=== PATIENT | female | born 1955 | race Caucasian/White ===

== ENCOUNTER → 2017-03-27 | Outpatient (CLI) | payer OTHER ==
[~2017-03-27] MED LIST: CRG/20 PO; LEVO1TAB33 PO; METR500T PO; OXYC-57 PO; PRM/3 PO
[2017-03-27 13:21] LABS: ESTIMATED AVERAGE GLUCOSE 108 mg/dl; HA1C FLAG Normal (Normal)
[2017-03-27 13:22] LABS: BLOOD UREA NITROGEN 19 mg/dl (7-18); BUN/CREATININE RATIO 25.2 (10-20); CALCIUM 8.9 mg/dl (8.5-10.1); CARBON DIOXIDE 27 mmol/L (21-32); CHLORIDE 107 mmol/L (98-107); CHOLESTEROL 115 mg/dl (0-200); CREATININE 0.75 mg/dl (0.60-1.20); GLUCOSE 93 mg/dl (70-99); POTASSIUM 4.2 mmol/L (3.5-5.1); SODIUM 141 mmol/L (136-145); TRIGLYCERIDES 95 mg/dl (0-150); VERY LOW DENSITY LIPOPROT CALC 19 mg/dl
[2017-03-27 13:26] LABS: CHOLESTEROL/HDL RATIO 2.5; HDL CHOLESTEROL 46 mg/dl; LDL CHOLESTEROL CALCULATED 50 mg/dl
== END | disposition home or self-care (01) ==
LOC: C.LABPVFM 08:01
PROVIDERS: ATTEND Nurse Practitioner
DX: Z13.220 Encounter for screening for lipoid disorders (principal); Z13.1 Encounter for screening for diabetes mellitus

== ENCOUNTER → 2017-08-23 | Outpatient (CLI) | payer OTHER ==
--- NOTE | 2017-08-24 14:31 | MAMMOGRAPHY REPORT ---
BILATERAL DIGITAL SCREENING MAMMOGRAM TOMOSYNTHESIS WITH CAD: 08/23/2017 CLINICAL HISTORY: Routine screening. Patient has no complaints. TECHNIQUE: Breast tomosynthesis in addition to standard 2D mammography was performed. Current study was also evaluated with a Computer Aided Detection (CAD) system. COMPARISON: Comparison is made to exams dated: 08/20/2016 mammogram, 07/02/2015 mammogram, 04/30/2014 mammogram, 04/26/2013 mammogram, 04/25/2012 mammogram, and 04/23/2011 mammogram - [facility]. BREAST COMPOSITION: There are scattered areas of fibroglandular density in both breasts. FINDINGS: There are benign-appearing calcifications in the breast. No new suspicious mass, architec tural distortion or cluster of microcalcifications is seen. IMPRESSION: ACR BI-RADS CATEGORY 1: NEGATIVE There is no mammographic evidence of malignancy. A 1 year screening mammogram is recommended. The pa tient will receive written notification of the results. Approximately 10% of breast cancers are not detected with mammography. A negative mammographic report should not delay biopsy if a clinically suggestive mass is present. Giovana Greco M.D. ay/:08/23/2017 15:44:36 Practical Nursing Faculty: Eleni CARRANZA(Dana)(Isaias), [facility] letter sent: Normal 1/2 BI-RADS Code: ACR BI-RADS Category 1: Negative
== END | disposition home or self-care (01) ==
LOC: C.MAMM 13:16
PROVIDERS: ATTEND Nurse Practitioner
DX: Z12.31 Encounter for screening mammogram for malignant neoplasm of breast (principal)

== ENCOUNTER 2017-09-24 08:34 | Inpatient (IN) | payer OTHER ==
[~2017-09-24] VITALS: Ht 157.5 cm; Wt 113.9 kg
[2017-09-24] MEDS ORDERED: CEPH500C2 PO (08:52)
[2017-09-24] MEDS ORDERED: CEFTRIAXONE SOD INJ 1 GM ADDVIAL IV STA (09:06)
--- NOTE | 2017-09-24 09:12 | EMERGENCY ROOM VISIT NOTE ---
History Report prepared by Mansoor: Jackelyn Mehta Under the Supervision of: Dr. Gisselle Burciaga M.D. First contact with patient: 08:51 Chief Complaint: FALL Stated Complaint: FELL BOTH LEGS History of Present Illness The patient is a 62 year old female who presents to the Emergency Room with complaints of worsening leg pain beginning ten days ago. The patient fell down four stairs ten days ago and hit both of her legs. 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 The patient went to her PCP two days ago who put her on Keflex for an infection to the wound site. She notes increased pain since starting Keflex. The patient denies any dizziness, fever, shortness of breath, or chest pain. The patient takes medication for hypertension. Source of History: patient Onset: 10 days ago Position: leg (bilateral) Timing: worsening Associated Symptoms: No fevers, No chest pain, No SOB Review of Systems See HPI for pertinent positives & negatives. A total of 10 systems reviewed and were otherwise negative. Past Medical & Surgical Medical Problems: (1) Abscess of leg, right (2) Hypertension Family History Patient reports no known family medical history. Social History Smoking Status: Never Smoker Alcohol Use: none Marital Status: Housing Status: lives with family Current/Historical Medications Scheduled Cephalexin Monohydrate (Keflex), 500 MG PO BID Estrogens, Conjugated (Premarin), 0.3 MG PO HS Nadolol (Corgard), 10 MG PO HS Allergies Coded Allergies: Sulfa Antibiotics (Unverified Allergy, Severe, UNKNOWN, 09/24/17) Aspirin (Verified Allergy, Intermediate, 09/24/17) PETECHIAE Penicillins (Verified Allergy, Mild, 09/24/17) RASH-HAD KEFZOL W/O PROBLEM Physical Exam Vital Signs Date Time Temp Pulse Resp B/P (MAP) Pulse Ox O2 Delivery O2 Flow Rate FiO2 09/24/17 13:29 88 16 170/93 99 Room Air 09/24/17 13:07 81 09/24/17 12:01 78 24 179/98 99 Room Air 09/24/17 10:17 78 09/24/17 10:10 80 18 180/88 99 Room Air 09/24/17 08:36 36.7 78 18 214/94 99 Room Air Physical Exam Vital signs reviewed. General: Well-appearing, obese female, in no significant distress. HEENT: No scleral icterus, PERRLA, neck supple. Atraumatic. Cardiovascular: Regular rate and rhythm, no extra sounds. Pulmonary: Clear to auscultation bilaterally, normal work of breathing. Abdomen: Soft, nontender, nondistended, positive bowel sounds. Musculoskeletal: Atraumatic, right greater than left lower extremity edema. Neurologic: Patient awake alert and oriented x 3 Skin: 7x4 cm area of erythema with multiple areas of open skin and discharge on right bower. Warm, dry, no rash Medical Decision & Procedures ER Provider Diagnostic Interpretation: Radiology results as stated below per my review and radiologist interpretation: RIGHT LOWER EXTREMITY ULTRASOUND FINDINGS: Sonography of the right anterior lower leg demonstrated an elongated 4.8 x 1 x 3.9 cm complex subcutaneous fluid collection. This contains no color flow. A second deeper fluid collection was noted that measured 3.9 x 3.6 x 1.1 cm. This contains several thickened septations. A third fluid collection was noted within the deep tissues of the right anterior lower leg which measure 2.9 x 2.6 x 0.7 cm. IMPRESSION: Three complex right anterior lower leg fluid collections, as described above. The sonographic appearance is nonspecific and these could reflect hematomas or abscesses. Electronically signed by: Casey Polk M.D. R VENOUS DOPP LOWER EXT UNILAT FINDINGS: There is normal compressibility, flow, phasicity and augmentation of the right lower extremity deep venous structures. IMPRESSION: No sonographic evidence of deep venous thrombosis. The above report was generated using voice recognition software. It may contain grammatical, syntax or spelling errors. Electronically signed by: Jose Oquendo M.D. Laboratory Results Test 09/24/17 09:34 09/24/17 09:42 Prothrombin Time 9.9 SECONDS (9.0-12.0) Prothromb Time International Ratio 0.9 (0.9-1.1) Activated Partial Thromboplast Time 29.3 SECONDS (21.0-31.0) Partial Thromboplastin Ratio 1.1 Direct Bilirubin 0.2 mg/dl (0-0.2) Laboratory results per my review. Medications Administered Medications (Trade) Dose Ordered Sig/Oscar Route Start Time Stop Time Status Last Admin Dose Admin Hydralazine HCl (Apresoline Tab) 25 mg NOW STAT PO 09/24/17 09:04 09/24/17 09:07 DC 09/24/17 09:25 25 MG Ceftriaxone Sodium (Rocephin Inj) 1 gm NOW STAT IV 09/24/17 09:06 09/24/17 09:08 DC 09/24/17 10:08 1 GM Vancomycin HCl 2750 mg/Sodium Chloride 555 ml @ 200 mls/hr ONE ONCE IV 09/24/17 11:00 09/24/17 13:46 DC 09/24/17 10:49 200 MLS/HR Acetaminophen (Tylenol Tab) 650 mg Q4H PRN PO 09/24/17 13:45 10/24/17 13:44 09/24/17 22:22 650 MG ED Course 0902: Past medical records reviewed. The patient was evaluated in room A3. A complete history and physical examination was performed. 0904: Ordered Hydralazine HCl 25 mg PO. 0906: Ordered Rocephin Inj 1 gm IV. 0915: Ordered Vancomycin HCl 2,750 mg/Sodium Chloride 555 ml @ 200 mls/hr IV. 1252: I updated the patient on her ultrasound results. 1257: I reviewed the patient's case with Dr. Tona Mccormick [facility]. He will evaluate the patient for further management. 1313: I reviewed the patient's case with Dr. Valles-Orthopedic Surgeon. 1351: I reviewed the patient's case with Duy Stauffer PA-C Orthopedics. He will follow up with the patient. Medical Decision Differential diagnosis: Etiologies such as cellulitis, abscess, MRSA infection, DVT, necrotizing fasciitis, dermatitis, drug eruption, as well as others were entertained.. This patient was evaluated and appeared to be in no significant distress. IV access was obtained and laboratory work was drawn. Vital signs are stable. Patient is noted to be hypertensive and was given hydralazine 25 mg orally. Laboratory work reveals a normal white blood cell count. Ultrasound of the right lower extremity reveals several fluid collections concerning for abscess. Patient recently completed oral Keflex. She was given IV ceftriaxone and IV vancomycin. Given the above presentation, the hospitalist service was consulted for evaluation. Orthopedic surgery was consulted as well. Dr. Valles will evaluate the patient in the hospital. Medication Reconcilliation Current Medication List: was personally reviewed by ok Blood Pressure Screening Patient's blood pressure: Elevated blood pressure Blood pressure disposition: Referred to PCP (evaluated by hospitalist) Consults Time Called: 1255 Consulting Physician: Dr. Tona HE Returned Call: 1257 I reviewed the patient's case with Dr. Tona HE. He will evaluate the patient for further management. Additional Consults: Time Called: 1310 Consulted Physician: Dr. Valles-Orthopedic Surgeon Returned Call: 1313 Additional Comments: I reviewed the patient's case with Dr. Valles-Orthopedic Surgeon. Time Called: 1349 Consulted Physician: Duy Stauffer PA-C Orthopedics Returned Call: 1351 Additional Comments: I reviewed the patient's case with Duy Stauffer PA-C Orthopedics. He will follow up with the patient. Impression Primary Impression: Cellulitis of right lower extremity Additional Impression: Multiple abscesses of both legs Scribe Attestation The scribe's documentation has been prepared under my direction and personally reviewed by me in its entirety. I confirm that the note above accurately reflects all work, treatment, procedures, and medical decision making performed by me. Departure Information Dispostion Being Evaluated By Hospitalist Referrals Tina Fletcher C.R.N.P (PCP) Patient Instructions My [facility] Problem Qualifiers
[2017-09-24] MEDS ORDERED: VANCOMYCIN INJ 2,800 MG in SODIUM CHLORIDE 0.9% 500ML 500 ML IV SCH (09:15)
[2017-09-24 10:08] LABS: BASO % 0.2 %; BASO ABS # 0.02 K/uL (0-0.2); COMPLETE YES; EOS % 1.7 %; HEMATOCRIT 39.5 % (37-47); IG% 0.3 %; LYMPH % 19.6 %; LYMPH ABS # 1.71 K/uL (1.2-3.4); MEAN CELL VOLUME 89.6 fL (80-100); MEAN CORPUSCULAR HEMOGLOBIN 30.8 pg (25-34); MEAN CORPUSCULAR HGB CONC 34.4 g/dl (32-36); MEAN PLATELET VOLUME 10.4 fL (7.4-10.4); MONO % 7.1 %; NEUT % 71.1 %; PLATELET COUNT 257 K/uL (130-400); RED BLOOD COUNT 4.41 M/uL (4.2-5.4); WHITE BLOOD COUNT 8.72 K/uL (4.8-10.8)
[2017-09-24 10:27] LABS: BUN/CREATININE RATIO 18.1 (10-20); CALCIUM 9.3 mg/dl (8.5-10.1); CREATININE 0.68 mg/dl (0.60-1.20); POTASSIUM 4.1 mmol/L (3.5-5.1)
[2017-09-24] MEDS ORDERED: VANCOMYCIN INJ 2,750 MG in SODIUM CHLORIDE 0.9% 500ML 500 ML IV ONE (11:00)
--- NOTE | 2017-09-24 11:56 | DIAGNOSTIC IMAGING REPORT ---
R VENOUS DOPP LOWER EXT UNILAT HISTORY: 62 years-old Female RLE swelling, pain acute swelling of the right leg COMPARISON: None TECHNIQUE: Multiple real-time sonographic images of the right lower extremity deep venous structures were obtained assessing grayscale appearance, color and spectral flow FINDINGS: There is normal compressibility, flow, phasicity and augmentation of the right lower extremity deep venous structures. IMPRESSION: No sonographic evidence of deep venous thrombosis. The above report was generated using voice recognition software. It may contain grammatical, syntax or spelling errors. Electronically signed by: Jose Oquendo M.D. 09/24/2017 11:55 AM Dictated Date/Time: 09/24/2017 11:53 AM
--- NOTE | 2017-09-24 12:01 | DIAGNOSTIC IMAGING REPORT ---
RIGHT LOWER EXTREMITY ULTRASOUND CLINICAL HISTORY: Right lower extremity cellulitis. Evaluate for abscess. COMPARISON STUDY: No previous studies for comparison. FINDINGS: Sonography of the right anterior lower leg demonstrated an elongated 4.8 x 1 x 3.9 cm complex subcutaneous fluid collection. This contains no color flow. A second deeper fluid collection was noted that measured 3.9 x 3.6 x 1.1 cm. This contains several thickened septations. A third fluid collection was noted within the deep tissues of the right anterior lower leg which measure 2.9 x 2.6 x 0.7 cm. IMPRESSION: Three complex right anterior lower leg fluid collections, as described above. The sonographic appearance is nonspecific and these could reflect hematomas or abscesses. Electronically signed by: Casey Polk M.D. 09/24/2017 12:00 PM Dictated Date/Time: 09/24/2017 11:56 AM
[2017-09-24] MEDS ORDERED: PIPERACILL/TAZOBAC IV 4.5 GM in DEXTROSE 5% 100ML 100 ML IV SCH (13:45)
[2017-09-24] MEDS ORDERED: HydrALAZINE HCL 20 MG/ML VIAL IV. PRN (14:00)
--- NOTE | 2017-09-24 14:02 | History and Physical ---
History & Physical Date & Time of Service: Sep 24, 2017 at 13:22 Chief Complaint: Fell Both Legs Primary Care Physician: Tina Fletcher C.R.N.P History of Present Illness Source: patient Ms. Raza fell 10 days ago down stairs at work. Her wounds were not healing so she saw her pcp two days ago and was started on Keflex. Her pain has not improved so she came to the emergency department. Wounds are not draining. Chills last night but no fevers. Denies diabetes. She is able to bare weight on the leg and has been working Pmhx: htn, cholecystectomy, hysterectomy, ROS Constitutional: no chills, aches, sweats or fever Respiratory: no sob,cough, sputum, or wheezing Cardiac: no chest pain, palpitations, edema, orthopnea or lightheadedness GI: no abdominal pain, nausea, vomiting, diarrhea or constipation : no dysuria or hesitancy Extremities: no joint pain or weakness Skin: no rash All other systems reviewed and negative. Family History Patient reports no known family medical history. Social History Smoking Status: Never Smoker Smokeless Tobacco Use: No Alcohol Use: none Drug Use: none Marital Status: Housing status: lives with significant other Occupational Status: employed ([employer]) Immunizations History of Influenza Vaccine: No History of Tetanus Vaccine?: No History of Pneumococcal: No History of Hepatitis B Vaccine: No Multi-Drug Resistant Organisms History of MDRO: No Allergies Coded Allergies: Sulfa Antibiotics (Unverified Allergy, Severe, UNKNOWN, 09/24/17) Aspirin (Verified Allergy, Intermediate, 09/24/17) PETECHIAE Penicillins (Verified Allergy, Mild, 09/24/17) RASH-HAD KEFZOL W/O PROBLEM Home Medications Scheduled Cephalexin Monohydrate (Keflex), 500 MG PO BID Estrogens, Conjugated (Premarin), 0.3 MG PO HS Nadolol (Corgard), 10 MG PO HS Physical Exam Vital Signs Date Time Temp Pulse Resp B/P (MAP) Pulse Ox O2 Delivery O2 Flow Rate FiO2 09/24/17 13:07 81 09/24/17 12:01 78 24 179/98 99 Room Air 09/24/17 10:17 78 09/24/17 10:10 80 18 180/88 99 Room Air 09/24/17 08:36 36.7 78 18 214/94 99 Room Air General: no distress Eyes: normal inspection, PERLL Respiratory: chest non tender, clear to auscultation, normal breath sounds, no respiratory distress, no accessory muscle use Cardiac: regular rate and rhythm, no rub or gallop, no murmur, no edema, no jvd GI/: active bowel sounds, no abd pain or tenderness, soft, non distended Extremities: normal range of motion, normal strength, non tender Neuro/Psych: alert and oriented x 3, normal mood and affect Skin: normal color, dry, right lower extremity erythematous and hot with area of eschar on surface, no drainage, no odor Diagnostics Laboratory Results Results Past 24 Hours Test 09/24/17 09:42 Range/Units White Blood Count 8.72 4.8-10.8 K/uL Red Blood Count 4.41 4.2-5.4 M/uL Hemoglobin 13.6 12.0-16.0 g/dL Hematocrit 39.5 37-47 % Mean Corpuscular Volume 89.6 80-100 fL Mean Corpuscular Hemoglobin 30.8 25-34 pg Mean Corpuscular Hemoglobin Concent 34.4 32-36 g/dl Platelet Count 257 130-400 K/uL Mean Platelet Volume 10.4 7.4-10.4 fL Neutrophils (%) (Auto) 71.1 % Lymphocytes (%) (Auto) 19.6 % Monocytes (%) (Auto) 7.1 % Eosinophils (%) (Auto) 1.7 % Basophils (%) (Auto) 0.2 % Neutrophils # (Auto) 6.19 1.4-6.5 K/uL Lymphocytes # (Auto) 1.71 1.2-3.4 K/uL Monocytes # (Auto) 0.62 0.11-0.59 K/uL Eosinophils # (Auto) 0.15 0-0.5 K/uL Basophils # (Auto) 0.02 0-0.2 K/uL RDW Standard Deviation 43.5 36.4-46.3 fL RDW Coefficient of Variation 13.2 11.5-14.5 % Immature Granulocyte % (Auto) 0.3 % Immature Granulocyte # (Auto) 0.03 0.00-0.02 K/uL Sodium Level 138 136-145 mmol/L Potassium Level 4.1 3.5-5.1 mmol/L Chloride Level 105 98-107 mmol/L Carbon Dioxide Level 29 21-32 mmol/L Anion Gap 4.0 3-11 mmol/L Blood Urea Nitrogen 12 7-18 mg/dl Creatinine 0.68 0.60-1.20 mg/dl Est Creatinine Clear Calc Drug Dose 103.7 ml/min Estimated GFR () 109.4 Estimated GFR (Non- 94.4 BUN/Creatinine Ratio 18.1 10-20 Random Glucose 91 70-99 mg/dl Calcium Level 9.3 8.5-10.1 mg/dl Total Bilirubin 1.2 0.2-1 mg/dl Direct Bilirubin 0.2 0-0.2 mg/dl Aspartate Amino Transf (AST/SGOT) 16 15-37 U/L Alanine Aminotransferase (ALT/SGPT) 23 12-78 U/L Alkaline Phosphatase 93 45-117 U/L Total Protein 7.8 6.4-8.2 gm/dl Albumin 3.6 3.4-5.0 gm/dl Microbiology Results 09/24/17 Blood Culture, Received Pending 09/24/17 Blood Culture, Received Pending Diagnostic Radiology RIGHT LOWER EXTREMITY ULTRASOUND CLINICAL HISTORY: Right lower extremity cellulitis. Evaluate for abscess. COMPARISON STUDY: No previous studies for comparison. FINDINGS: Sonography of the right anterior lower leg demonstrated an elongated 4.8 x 1 x 3.9 cm complex subcutaneous fluid collection. This contains no color flow. A second deeper fluid collection was noted that measured 3.9 x 3.6 x 1.1 cm. This contains several thickened septations. A third fluid collection was noted within the deep tissues of the right anterior lower leg which measure 2.9 x 2.6 x 0.7 cm. IMPRESSION: Three complex right anterior lower leg fluid collections, as described above. The sonographic appearance is nonspecific and these could reflect hematomas or abscesses. R VENOUS DOPP LOWER EXT UNILAT HISTORY: 62 years-old Female RLE swelling, pain acute swelling of the right leg COMPARISON: None TECHNIQUE: Multiple real-time sonographic images of the right lower extremity deep venous structures were obtained assessing grayscale appearance, color and spectral flow FINDINGS: There is normal compressibility, flow, phasicity and augmentation of the right lower extremity deep venous structures. IMPRESSION: No sonographic evidence of deep venous thrombosis. Impression Assessment and Plan Ms. Raza is a 62 year old woman here for right leg abscess Right leg abscess - admit med/surg - consult orthopedic surgery - npo until surgery decides whether she needs to go to the OR - Vanco, cefepime - pcn allergy however tolerated keflex and ceftriaxone without reaction so does not appear to have cephalosporin cross allergy - x ray legs as patient did have fall and continues to have pain - BC pending HTN - continue home nadolol - iv hydralazine q4h prn DVT prophylaxis - patient is ambulatory, will hold off on chemoproph until we see if surgery is taking her to the OR I personally interviewed and examined the patient. I agree with history of present illness and physical exam mentioned above, I also performed my own history taking and examination. Past medical history and review of system has been obtained by myself I reviewed all pertinent labs and studies Reviewed current medications I discussed and formulated of the assessment and plan mentioned above by Lilian Henri Please refer to the Summary mentioned below. General Appearance: not in acute distress /obese Eyes: normal Sclerae, extraocular muscle intact ENT: hearing grossly normal Neck: supple Respiratory/Chest: normal air entry bilateral , no respiratory distress, no accessory muscle use, no rhonchi Cardiovascular: regular rate, rhythm, + systolic murmur Abdomen: non tender, soft, no masses, but appears distended Extremities: R lower ext, severe erythema/swelling and tenderness, left lower ext has a bruise on the tibia Neurologic/Psychiatric: Awake alert oriented only to place and person moves all extremities sensation intact cranial nerves II-12 appear to be intact Skin: normal color, warm/dry, no rash/ except R lower ext as above R lower extremity cellulitis/abscess failed outpatient keflex but only took 5 doses Assessment R lower extremity cellulitis/abscess obesity Plan Admit to telemetry npo Consult ortho Obtain 2-D echo broaden Abx coverage vanco/cefepime Continue home meds check HgbA1C to R/O Diabetes mellitus please start chemical DVT prophylaxis when cleared by ortho surgeon Luisa [facility]ccormick [facility] Care Med/Surg Advanced Directives Existing Advance Directive: No Existing Living Will: No Existing Power of Cyber Security Specialist: No Existing Health Care Proxy: No Resuscitation Status FULL RESUSCITATION
--- NOTE | 2017-09-24 14:16 | DIAGNOSTIC IMAGING REPORT ---
R TIBIA/FIBULA 2 VIEWS ROUTINE CLINICAL HISTORY: Fall. COMPARISON: None FINDINGS: No acute fracture of the right tibia or fibula is identified. Mild cortical irregularity of the lateral shaft of the right fibula at the junction of the proximal and middle thirds is likely chronic. There is no radiographic evidence for osteomyelitis within the right tibia or fibula. Soft tissue swelling of the anterolateral right lower leg is noted, best shown on lateral projection. There is extensive posterior and plantar calcaneal spurring. IMPRESSION: 1. No fracture of the right tibia or fibula. 2. Soft tissue swelling of the anterolateral right lower leg. Electronically signed by: Casey Polk M.D. 09/24/2017 2:14 PM Dictated Date/Time: 09/24/2017 2:12 PM
--- NOTE | 2017-09-24 14:17 | DIAGNOSTIC IMAGING REPORT ---
L TIBIA/FIBULA 2 VIEWS ROUTINE CLINICAL HISTORY: Fall. COMPARISON: None FINDINGS: No acute fracture of the left tibia or fibula is identified. Alignment of the left knee and ankle appears anatomic. IMPRESSION: No acute fracture of the left tibia or fibula. Electronically signed by: Casey Polk M.D. 09/24/2017 2:15 PM Dictated Date/Time: 09/24/2017 2:14 PM
[2017-09-24 14:26] LABS: INR 0.9 (0.9-1.1); PARTIAL THROMBOPLASTIN RATIO 1.1; PROTHROMBIN TIME (PATIENT) 9.9 SECONDS (9.0-12.0)
[2017-09-24 15:00] VITALS: BP 183/83; PULSE 85; TEMP 36.8; O2SAT 97
[2017-09-24] MEDS ORDERED: VANCOMYCIN CONSULT ACTIVE PRN (15:15)
--- NOTE | 2017-09-24 15:20 | Pharmacy Progress Note ---
Pharmacy Abx Dose Short Note Date of Service Sep 24, 2017. Assessment & Plan Pt being started on Vanco/Cefepime for skin abscess. Vanco 2750mg x1 loading dose received in ED Then Vanco 1500mg (13mg/kg) q10 Trough ordered for 09/26/17 @ 0330 Goal trough until c/s's result is 15-20mcg/mL Pharmacy will continue to follow and will adjust dose/frequency as necessary. Thank you.
[2017-09-24 15:35] VITALS: BP 167/88; PULSE 85; TEMP 36.5; O2SAT 97; Ht 157.5 cm; Wt 113.9 kg
[2017-09-24] MEDS: CEFEPIME IV 2,000 MG in SYRINGE 7.5 ML IV SCH (15:42)
[2017-09-24 15:45] VITALS: BP 167/88; PULSE 85; TEMP 36.5; O2SAT 97
[2017-09-24] MEDS ORDERED: OPTIRAY 320 IV PRN (17:30)
[2017-09-24] MEDS: LACTOBACILLUS ACIDOPHILUS 1 GM PACK PO SCH (17:45)
--- NOTE | 2017-09-24 18:17 | DIAGNOSTIC IMAGING REPORT ---
RIGHT LOWER LEG CT CT DOSE: 220.80 mGy.cm HISTORY: r/o abscess right anterolateral calf TECHNIQUE: Multiaxial CT images of the right lower leg were performed and reformatted in the sagittal and coronal plane without the use of contrast. A dose lowering technique was utilized adhering to the principles of ALARA. COMPARISON: Right tibia/fibula 09/24/2017. Right lower leg ultrasound 09/24/2017. FINDINGS: Mild subcutaneous edema within the lower leg most pronounced laterally. There is also skin thickening within the anterolateral aspect of the lower leg. A few small contiguous lobular hyperdense areas within the subcutaneous fat of the mid lateral right lower leg. This corresponds the ultrasound abnormality. These measure a total size of approximately 5 x 4 x 1 cm. These do not demonstrate peripheral enhancement and therefore favor small subcutaneous hematomas. No loculated fluid collections to suggest a definite abscess. The deep soft tissues are intact. No fracture or dislocation within the right tibia or fibula. No abnormal cortical destruction to suggest osteomyelitis. IMPRESSION: 1. A few small contiguous lobular hyperdense areas within the deep subcutaneous fat of the mid lateral right lower leg. This corresponds to the ultrasound abnormality. These measure a total size of 5 x 4 x 1 cm and favor small subcutaneous hematomas. Superimposed infection cannot be excluded by CT imaging alone. 2. There is no loculated fluid collections at this time to suggest a definite abscess. 3. Right lateral lower leg subcutaneous edema and skin thickening Electronically signed by: Asad Ramos M.D. 09/24/2017 6:16 PM Dictated Date/Time: 09/24/2017 6:10 PM
--- NOTE | 2017-09-24 18:56 | CONSULTATION REPORT ---
DATE OF CONSULTATION: 09/24/2017 REASON FOR CONSULT: Hematoma versus infection, right lower extremity. 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 She developed some small lacerations and abrasions over the right lower extremity in the anterolateral calf which she cared for over the next several days. It continued to worsen as far as swelling, redness and pain and she had difficulty ambulating. She states that on Wednesday of this week, the swelling had gotten so intense that she had numbness in her foot. She continued with elevation and finally went to her primary care physician who started her on oral antibiotics. She continued to have pain with ambulation and it did not seem to be getting any better and she came into the Emergency Room. She was seen by the staff. X-rays were taken of both lower extremities and it was felt that she was going to require IV antibiotics and elevation and they asked to see her for possible abscess formation that was noted on ultrasound versus being a hematoma. PAST MEDICAL HISTORY: Hypertension. Denies diabetes mellitus, tuberculosis, hepatitis, COPD, rheumatic fever. PAST SURGICAL HISTORY: Cholecystectomy, hysterectomy, x2. FAMILY HISTORY: Noncontributory. SOCIAL HISTORY: Nonsmoker, does not use alcohol and is . MEDICATIONS: She was placed on Keflex 500 mg p.o. b.i.d. and she also takes Premarin 0.3 mg p.o. at bedtime and Corgard 10 mg p.o. at bedtime. ALLERGIES: SULFA ANTIBIOTICS, PENICILLIN AND ASPIRIN WHICH CAUSES PETECHIA. REVIEW OF SYSTEMS: As per admitting history and physical. PHYSICAL EXAMINATION: EXTREMITIES: Lower extremities, starting with her right lower extremity, she has moderate area of erythema below the knee, probably starting about 4-5 inches below the knee joint. There is a large abrasion with some eschar scabbing noted to it. Some small punctate areas that appeared to be puncture mike around this erythema. Erythema travels down to just above the ankle which is light in nature and the heaviest portion of the erythema is around the initial injury. She has moderate swelling in this area and is notably painful on palpation. I cannot express any purulence from this area at this time. It does appear that she is having decreased swelling with noted wrinkling of the skin around the area itself. Swelling is down of her right foot and ankle which she states has been getting better after the week. She has good range of motion of her right ankle and toes, which causes no discomfort in her calf. She is able to fully flex and extend the right knee without difficulty and states that the only time she really has pain is with ambulation in that area of injury. She has no calf tenderness in the posterior calf and no pain on palpation of the popliteal fossa at this time. On examination of her left lower extremity, she has some noted bruising over the anterolateral calf, but no open wounds of any kind. She is essentially only mildly tender on palpation and has full range of motion of the left lower extremity at this time. There are no gross motor or sensory deficits seen at this time. IMAGING: She had right lower extremity ultrasound which ended up showing 3 complex right anterior lower leg fluid collections ranging in size from 4 x 1 x 4 cm, 3.9 x 3.6 x 1.1 cm and also a 2.9 x 2.6 x 0.7 cm. Tibia and fibula x-rays were performed and essentially were benign other than there was some cortical irregularity of the lateral shaft of the right fibula with no acute fractures and noting that the cortical irregularity was likely chronic with no evidence of osteomyelitis. ASSESSMENT: Hematoma versus abscess status post fall 1 week ago. PLAN: I have spoken to Dr. Valles and we will get a CT scan of the right anterolateral calf to get a better idea where these fluid collections are. We will also order a sed rate and CRP and she will be continued on vancomycin for now as well as cefepime. I discussed the fact with the patient that she possibly might have to go to the operating room tomorrow for open irrigation and debridement if Dr. Valles feels that it is necessary. She agrees and is okay with going ahead to do that if needed. We will make her n.p.o. after midnight and review the CT scan and make plans for possible I&D tomorrow if need be.
[2017-09-24 20:09] VITALS: BP 150/88; PULSE 80
[2017-09-24] MEDS: ESTROGENS, CONJUGATED 0.3 MG TAB PO SCH (20:10)
[2017-09-24] MEDS: NADOLOL 40 MG TAB PO SCH (20:10)
[2017-09-24] MEDS ORDERED: VANCOMYCIN INJ 1,000 MG in SODIUM CHLORIDE 0.9% 250ML 250 ML IV SCH (21:00)
[2017-09-24] MEDS ORDERED: CEFEPIME IV 2,000 MG in DEXTROSE 5% 100ML 100 ML IV SCH (21:00)
[2017-09-24] MEDS: VANCOMYCIN INJ 1,500 MG in SODIUM CHLORIDE 0.9% 500ML 500 ML IV SCH (22:19)
[2017-09-24] MEDS: ACETAMINOPHEN 325 MG TAB PO PRN (22:22)
--- NOTE | 2017-09-24 22:27 | Progress Note ---
Progress Note Date of Service Sep 24, 2017. Progress Note 62 yo female scheduled for possible I and D of right lower extremity for cellulitis/abscess. PMH significant for HTN and reflux. She denies prior complications with anesthesia. Patient has a reassuring airway with MP 2, adequate mouth opening, good neck extension and appropriate thyromental distance. Lungs are CTAB and heart has RRR without M/R/G. No significant anesthetic concerns for tomorrows procedure. Patient was consented for general anesthesia. Please make patient NPO after midnight except for a sip of water with meds as needed. Patient had her Nadolol this evening and is not due for a second dose until tomorrow evening. Please call anesthesia with any questions or concerns. Angela Dowell MD, PhD Anesthesiology
[2017-09-24 23:01] VITALS: BP 130/81; PULSE 74; TEMP 37.2; O2SAT 96
[2017-09-25] VITALS (7 sets, daily range): BP systolic 137–168; BP diastolic 81–110; PULSE 56–86; TEMP 36.7–37.2; O2SAT 98–99
[2017-09-25] MEDS: CEFEPIME IV 2,000 MG in SYRINGE 7.5 ML IV SCH ×2 (03:57→15:34)
[2017-09-25 06:26] LABS: BASO % 0.4 %; BASO ABS # 0.03 K/uL (0-0.2); COMPLETE YES; EOS % 2.2 %; HEMATOCRIT 35.5 % (37-47); IG% 0.3 %; LYMPH % 22.8 %; LYMPH ABS # 1.65 K/uL (1.2-3.4); MEAN CELL VOLUME 89.9 fL (80-100); MEAN CORPUSCULAR HEMOGLOBIN 30.6 pg (25-34); MEAN CORPUSCULAR HGB CONC 34.1 g/dl (32-36); MEAN PLATELET VOLUME 9.8 fL (7.4-10.4); MONO % 7.3 %; PLATELET COUNT 204 K/uL (130-400); RED BLOOD COUNT 3.95 M/uL (4.2-5.4); WHITE BLOOD COUNT 7.25 K/uL (4.8-10.8)
[2017-09-25 06:54] LABS: BUN/CREATININE RATIO 22.4 (10-20); CALCIUM 8.7 mg/dl (8.5-10.1); CREATININE 0.61 mg/dl (0.60-1.20); POTASSIUM 3.8 mmol/L (3.5-5.1)
[2017-09-25 06:57] LABS: ALB/GLOB RATIO 0.8 (0.9-2)
[2017-09-25 07:25] LABS: ESTIMATED AVERAGE GLUCOSE 103 mg/dl; HA1C FLAG Normal (Normal)
[2017-09-25] MEDS: VANCOMYCIN INJ 1,500 MG in SODIUM CHLORIDE 0.9% 500ML 500 ML IV SCH ×2 (08:11→18:31)
[2017-09-25] MEDS: LACTOBACILLUS ACIDOPHILUS 1 GM PACK PO SCH ×3 (08:44→17:36)
--- NOTE | 2017-09-25 09:09 | Orthopedic Progress Note ---
Orthopedic Progress Note Date of Service Sep 25, 2017. Subjective Additional Notes: Patient seen at bedside, comfortable, denies pain at this time, denies fever, chills, nausea, vomiting, SOB, CP. Symptoms improving since yesterday. Objective NAD, AOx3 RLE NVSI +EHL/FHL/TA/GS SILT grossly, CR< 2 seconds, +edema, compartment soft, milt tenderness anterior middle 1/3 tibia, +erythema, decreasing in severity, no active drainage, no induration Date Time Temp Pulse Resp B/P (MAP) Pulse Ox O2 Delivery O2 Flow Rate FiO2 09/25/17 08:11 70 166/92 (116) 09/25/17 07:46 36.7 70 16 164/100 (121) 98 Room Air 09/24/17 23:01 37.2 74 16 130/81 (97) 96 Room Air 09/24/17 20:09 80 150/88 (108) 09/24/17 15:45 36.5 85 16 167/88 (114) 97 Room Air 09/24/17 15:35 36.5 85 16 167/88 97 Room Air 09/24/17 15:00 36.8 85 18 183/83 (116) 97 Room Air 09/24/17 14:38 81 16 160/73 99 09/24/17 13:29 88 16 170/93 99 Room Air 09/24/17 13:07 81 09/24/17 12:01 78 24 179/98 99 Room Air 09/24/17 10:17 78 09/24/17 10:10 80 18 180/88 99 Room Air Laboratory Results 24 Hours: Test 09/24/17 09:34 09/24/17 09:42 09/25/17 06:17 Prothromb Time International Ratio 0.9 Prothrombin Time 9.9 SECONDS White Blood Count 8.72 K/uL 7.25 K/uL Red Blood Count 4.41 M/uL 3.95 M/uL Hemoglobin 13.6 g/dL 12.1 g/dL Hematocrit 39.5 % 35.5 % Mean Corpuscular Volume 89.6 fL 89.9 fL Mean Corpuscular Hemoglobin 30.8 pg 30.6 pg Mean Corpuscular Hemoglobin Concent 34.4 g/dl 34.1 g/dl Platelet Count 257 K/uL 204 K/uL Mean Platelet Volume 10.4 fL 9.8 fL Neutrophils (%) (Auto) 71.1 % 67.0 % Lymphocytes (%) (Auto) 19.6 % 22.8 % Monocytes (%) (Auto) 7.1 % 7.3 % Eosinophils (%) (Auto) 1.7 % 2.2 % Basophils (%) (Auto) 0.2 % 0.4 % Neutrophils # (Auto) 6.19 K/uL 4.86 K/uL Lymphocytes # (Auto) 1.71 K/uL 1.65 K/uL Monocytes # (Auto) 0.62 K/uL 0.53 K/uL Eosinophils # (Auto) 0.15 K/uL 0.16 K/uL Basophils # (Auto) 0.02 K/uL 0.03 K/uL Assessment & Plan Assessment: Right lower leg cellulitis and hematoma Plan: -CT scan RLE suggests hematoma, not consistent with abscess. Patient symptoms improving with IV abx, no surgical intervention at this time. Will continue to monitor closely. -continue with IV abx as per medical team -follow up blood cx -Ice/elevate RLE -Pain controlled -WBAT RLE -TEDs/SCDs -Neurovascular checks -Trend inflammatory labs - WBC, ESR/CRP CT right lower leg IMPRESSION: 1. A few small contiguous lobular hyperdense areas within the deep subcutaneous fat of the mid lateral right lower leg. This corresponds to the ultrasound abnormality. These measure a total size of 5 x 4 x 1 cm and favor small subcutaneous hematomas. Superimposed infection cannot be excluded by CT imaging alone. 2. There is no loculated fluid collections at this time to suggest a definite abscess. 3. Right lateral lower leg subcutaneous edema and skin thickening
[2017-09-25] MEDS: ACETAMINOPHEN 325 MG TAB PO PRN (16:32)
--- NOTE | 2017-09-25 17:10 | Progress Note ---
Subjective Date of Service: Sep 25, 2017. Subjective Pt evaluation today including: conversation w/ patient, physical exam, chart review, lab review, review of studies, review of inpatient medication list Voiding: no voiding problems Patient seen at bedside, comfortable, denies pain at this time, denies fever, chills, nausea, vomiting, SOB, CP. Symptoms improving since yesterday. Problem List Medical Problems: (1) Cellulitis of right lower extremity Status: Acute (2) Multiple abscesses of both legs Status: Acute Review of Systems All Other Systems: Reviewed and Negative Medications Medications (Trade) Dose Ordered Sig/Oscar Route Start Time Stop Time Status Last Admin Dose Admin Acetaminophen (Tylenol Tab) 650 mg Q4H PRN PO 09/24/17 13:45 10/24/17 13:44 09/24/17 22:22 650 MG Estrogens Conjugated (Premarin Tab) 0.3 mg HS PO 09/24/17 21:00 10/24/17 20:59 09/24/17 20:10 0.3 MG Nadolol (Corgard Tab) 10 mg HS PO 09/24/17 21:00 10/24/17 20:59 09/24/17 20:10 10 MG Vancomycin HCl 1500 mg/Sodium Chloride 530 ml @ 200 mls/hr Q10H IV 09/24/17 22:00 10/04/17 21:59 09/25/17 08:11 200 MLS/HR Cefepime HCl 2000 mg/Syringe 20 ml @ 5 mls/min Q12H IV 09/24/17 16:00 10/04/17 15:59 09/25/17 03:57 5 MLS/MIN Lactobacillus Acidophilus (Lactinex Granules Pack) 1 gm TIDM PO 09/24/17 17:45 10/24/17 17:44 09/25/17 08:44 1 GM Objective Vital Signs Date Time Temp Pulse Resp B/P (MAP) Pulse Ox O2 Delivery O2 Flow Rate FiO2 09/25/17 08:15 98 Room Air 09/25/17 08:11 70 166/92 (116) 09/25/17 07:46 36.7 70 16 164/100 (121) 98 Room Air 09/24/17 23:01 37.2 74 16 130/81 (97) 96 Room Air 09/24/17 20:09 80 150/88 (108) 09/24/17 15:45 36.5 85 16 167/88 (114) 97 Room Air 09/24/17 15:35 36.5 85 16 167/88 97 Room Air 09/24/17 15:00 36.8 85 18 183/83 (116) 97 Room Air 09/24/17 14:38 81 16 160/73 99 09/24/17 13:29 88 16 170/93 99 Room Air 09/24/17 13:07 81 09/24/17 12:01 78 24 179/98 99 Room Air Physical Exam Comments: General: no distress Eyes: normal inspection, PERLL Respiratory: chest non tender, clear to auscultation, normal breath sounds, no respiratory distress, no accessory muscle use Cardiac: regular rate and rhythm, no rub or gallop, no murmur, no edema, no jvd GI/: active bowel sounds, no abd pain or tenderness, soft, non distended Extremities: Lower extremities, starting with her right lower extremity has moderate area of erythema below the knee Neuro/Psych: alert and oriented x 3, normal mood and affect Skin: normal color, dry, right lower extremity erythematous and hot with area of eschar on surface, no drainage, no odor Laboratory Results Last 24 Hours Test 09/24/17 21:25 09/25/17 06:17 Erythrocyte Sedimentation Rate 33 mm/hr C-Reactive Protein 5.97 mg/dl White Blood Count 7.25 K/uL Red Blood Count 3.95 M/uL Hemoglobin 12.1 g/dL Hematocrit 35.5 % Mean Corpuscular Volume 89.9 fL Mean Corpuscular Hemoglobin 30.6 pg Mean Corpuscular Hemoglobin Concent 34.1 g/dl Platelet Count 204 K/uL Mean Platelet Volume 9.8 fL Neutrophils (%) (Auto) 67.0 % Lymphocytes (%) (Auto) 22.8 % Monocytes (%) (Auto) 7.3 % Eosinophils (%) (Auto) 2.2 % Basophils (%) (Auto) 0.4 % Neutrophils # (Auto) 4.86 K/uL Lymphocytes # (Auto) 1.65 K/uL Monocytes # (Auto) 0.53 K/uL Eosinophils # (Auto) 0.16 K/uL Basophils # (Auto) 0.03 K/uL RDW Standard Deviation 43.9 fL RDW Coefficient of Variation 13.4 % Immature Granulocyte % (Auto) 0.3 % Immature Granulocyte # (Auto) 0.02 K/uL Sodium Level 139 mmol/L Potassium Level 3.8 mmol/L Chloride Level 107 mmol/L Carbon Dioxide Level 25 mmol/L Anion Gap 7.0 mmol/L Blood Urea Nitrogen 14 mg/dl Creatinine 0.61 mg/dl Est Creatinine Clear Calc Drug Dose 115.6 ml/min Estimated GFR () 113.4 Estimated GFR (Non- 97.8 BUN/Creatinine Ratio 22.4 Random Glucose 90 mg/dl Estimated Average Glucose 103 mg/dl Hemoglobin A1c 5.2 % Lactic Acid Level 0.9 mmol/L Calcium Level 8.7 mg/dl Total Bilirubin 1.1 mg/dl Aspartate Amino Transf (AST/SGOT) 13 U/L Alanine Aminotransferase (ALT/SGPT) 19 U/L Alkaline Phosphatase 74 U/L Total Protein 6.8 gm/dl Albumin 3.1 gm/dl Globulin 3.7 gm/dl Albumin/Globulin Ratio 0.8 Assessment and Plan Ms. Raza is a 62 year old woman here for right leg abscess Right leg abscess vs hematoma - CT scan RLE suggests hematoma, not consistent with abscess. Patient symptoms improving with IV abx, no surgical intervention at this time. ( vanco+ cefepime ) - BC pending HTN - continue home nadolol - iv hydralazine q4h prn DVT prophylaxis - patient is ambulatory, will hold off on chemoproph until we see if surgery is taking her to the OR Continued [facility] stay due to: multiple IV medications needed Discharge planning: home
[2017-09-25] MEDS: NADOLOL 40 MG TAB PO SCH (21:29)
[2017-09-25] MEDS: ESTROGENS, CONJUGATED 0.3 MG TAB PO SCH (21:29)
[2017-09-26] MEDS ORDERED: VANCOMYCIN TROUGH ONE (03:30)
[2017-09-26] MEDS: VANCOMYCIN INJ 1,500 MG in SODIUM CHLORIDE 0.9% 500ML 500 ML IV SCH ×2 (03:48→19:39)
[2017-09-26] MEDS: CEFEPIME IV 2,000 MG in SYRINGE 7.5 ML IV SCH ×2 (03:48→15:45)
[2017-09-26 05:39] LABS: HEMATOCRIT 38.4 % (37-47); MEAN CELL VOLUME 89.7 fL (80-100); MEAN CORPUSCULAR HEMOGLOBIN 30.1 pg (25-34); MEAN CORPUSCULAR HGB CONC 33.6 g/dl (32-36); MEAN PLATELET VOLUME 10.3 fL (7.4-10.4); PLATELET COUNT 209 K/uL (130-400); RED BLOOD COUNT 4.28 M/uL (4.2-5.4); WHITE BLOOD COUNT 6.62 K/uL (4.8-10.8)
[2017-09-26 06:20] LABS: BUN/CREATININE RATIO 22.6 (10-20); C-REACTIVE PROTEIN 3.98 mg/dl (0-0.29); CALCIUM 8.7 mg/dl (8.5-10.1); CREATININE 0.61 mg/dl (0.60-1.20); POTASSIUM 3.9 mmol/L (3.5-5.1)
[2017-09-26 07:13] VITALS: BP 129/75; PULSE 64; TEMP 36.9; O2SAT 97
[2017-09-26] MEDS: LACTOBACILLUS ACIDOPHILUS 1 GM PACK PO SCH ×3 (08:07→17:35)
--- NOTE | 2017-09-26 08:32 | Orthopedic Progress Note ---
Orthopedic Progress Note Date of Service Sep 26, 2017. Objective NAD, AOx3 RLE NVSI +EHL/FHL/TA/GS SILT grossly, CR< 2 seconds, +edema, compartment soft, milt tenderness anterior middle 1/3 tibia, +erythema - improving, decreasing in severity, no active drainage, no induration Date Time Temp Pulse Resp B/P (MAP) Pulse Ox O2 Delivery O2 Flow Rate FiO2 09/26/17 07:13 36.9 64 16 129/75 (93) 97 Room Air 09/25/17 23:11 36.8 56 16 146/81 (102) 98 Room Air 09/25/17 21:25 73 142/84 (103) 09/25/17 17:33 137/81 (99) 09/25/17 16:54 Room Air 09/25/17 15:49 37.2 86 20 168/110 (129) 99 Room Air Laboratory Results 24 Hours: Test 09/26/17 05:21 Hematocrit 38.4 % Hemoglobin 12.9 g/dL Assessment & Plan Assessment: Right lower leg cellulitis and hematoma Plan: -CT scan RLE suggests hematoma, not consistent with abscess. Patient symptoms improving with IV abx, no surgical intervention at this time. Will continue to monitor closely. -continue with IV abx as per medical team -follow up blood cx -Ice/elevate RLE -Pain controlled -WBAT RLE -TEDs/SCDs -Neurovascular checks -Trend inflammatory labs - WBC, ESR/CRP -CRP today 3.98 down from 5.97
--- NOTE | 2017-09-26 12:15 | Progress Note ---
Subjective Date of Service: Sep 26, 2017. Subjective Pt evaluation today including: conversation w/ patient, conversation w/ family , physical exam, chart review, lab review, review of studies Pain: no pain PO Intake: excellent Voiding: no voiding problems, no incontinence Pt denies pain in the right lower leg. pt denies fever, chills, rigors and sweats. Problem List Medical Problems: (1) Cellulitis of right lower extremity Status: Acute (2) Multiple abscesses of both legs Status: Acute Review of Systems Constitutional: No fever, No chills, No sweats Respiratory: No cough, No sputum, No wheezing, No shortness of breath Abdomen: No pain, No nausea, No vomiting, No diarrhea Neurologic: No memory loss Psychiatric: No depression symptoms Skin: No rash All Other Systems: Reviewed and Negative Objective Vital Signs Date Time Temp Pulse Resp B/P (MAP) Pulse Ox O2 Delivery O2 Flow Rate FiO2 09/26/17 09:57 Room Air 09/26/17 07:13 36.9 64 16 129/75 (93) 97 Room Air 09/25/17 23:11 36.8 56 16 146/81 (102) 98 Room Air 09/25/17 21:25 73 142/84 (103) 09/25/17 17:33 137/81 (99) 09/25/17 16:54 Room Air 09/25/17 15:49 37.2 86 20 168/110 (129) 99 Room Air Physical Exam General Appearance: WD/WN, no apparent distress Eyes: EOMI Respiratory/Chest: lungs clear, no respiratory distress, no accessory muscle use Cardiovascular: regular rate, rhythm, no edema, no murmur Abdomen: normal bowel sounds, non tender, soft Extremities: normal range of motion, no calf tenderness 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, alert, oriented x 3 Lymphatic: no adenopathy Laboratory Results Last 24 Hours Test 09/26/17 03:30 09/26/17 05:21 Vancomycin Level Trough 20.6 mcg/ml White Blood Count 6.62 K/uL Red Blood Count 4.28 M/uL Hemoglobin 12.9 g/dL Hematocrit 38.4 % Mean Corpuscular Volume 89.7 fL Mean Corpuscular Hemoglobin 30.1 pg Mean Corpuscular Hemoglobin Concent 33.6 g/dl RDW Standard Deviation 43.5 fL RDW Coefficient of Variation 13.3 % Platelet Count 209 K/uL Mean Platelet Volume 10.3 fL Sodium Level 140 mmol/L Potassium Level 3.9 mmol/L Chloride Level 110 mmol/L Carbon Dioxide Level 26 mmol/L Anion Gap 5.0 mmol/L Blood Urea Nitrogen 14 mg/dl Creatinine 0.61 mg/dl Est Creatinine Clear Calc Drug Dose 115.6 ml/min Estimated GFR () 113.4 Estimated GFR (Non- 97.8 BUN/Creatinine Ratio 22.6 Random Glucose 96 mg/dl Calcium Level 8.7 mg/dl C-Reactive Protein 3.98 mg/dl Assessment and Plan Ms. Raza is a 62 year old woman here for right leg abscess Right leg abscess vs hematoma - CT scan RLE suggests hematoma, not consistent with abscess. Patient symptoms improving with IV abx, no surgical intervention at this time. ( vanco+ cefepime ) - BC so far negative, will d/c vanco in 24 hour HTN - continue home nadolol - iv hydralazine q4h prn DVT prophylaxis - patient is ambulatory, will hold off on chemoproph until we see if surgery is taking her to the OR Continued [facility] stay due to: multiple IV medications needed Discharge planning: home
[2017-09-26] MEDS: ACETAMINOPHEN 325 MG TAB PO PRN (13:15)
--- NOTE | 2017-09-26 14:46 | Pharmacy Progress Note ---
Pharmacy Antibiotic Prog Note Date of Service Sep 26, 2017. Subjective The patient is currently receiving vancomycin 1500 mg IV every 10 hours. The patient is currently on day # 3 of vancomycin IV therapy for RLE cellulitis. Objective Height (Feet): 5 Height (Inches): 2.00 Weight (Kilograms): 113.900 Levels: Item Value Date Time Vancomycin Level Trough 20.6 mcg/ml 09/26/17 0330 Previous dose hung 09/25 @ 1831. Lab Results (24hrs): Test 09/26/17 03:30 09/26/17 05:21 Vancomycin Level Trough 20.6 mcg/ml (SEE COMMENT) White Blood Count 6.62 K/uL (4.8-10.8) Red Blood Count 4.28 M/uL (4.2-5.4) Hemoglobin 12.9 g/dL (12.0-16.0) Hematocrit 38.4 % (37-47) Mean Corpuscular Volume 89.7 fL (80-100) Mean Corpuscular Hemoglobin 30.1 pg (25-34) Mean Corpuscular Hemoglobin Concent 33.6 g/dl (32-36) RDW Standard Deviation 43.5 fL (36.4-46.3) RDW Coefficient of Variation 13.3 % (11.5-14.5) Platelet Count 209 K/uL (130-400) Mean Platelet Volume 10.3 fL (7.4-10.4) Sodium Level 140 mmol/L (136-145) Potassium Level 3.9 mmol/L (3.5-5.1) Chloride Level 110 mmol/L (98-107) Carbon Dioxide Level 26 mmol/L (21-32) Anion Gap 5.0 mmol/L (3-11) Blood Urea Nitrogen 14 mg/dl (7-18) Creatinine 0.61 mg/dl (0.60-1.20) Est Creatinine Clear Calc Drug Dose 115.6 ml/min Estimated GFR () 113.4 Estimated GFR (Non- 97.8 BUN/Creatinine Ratio 22.6 (10-20) Random Glucose 96 mg/dl (70-99) Calcium Level 8.7 mg/dl (8.5-10.1) C-Reactive Protein 3.98 mg/dl (0-0.29) Micro Results: 09/24 blood x2 NGTD Recent Pertinent Medications Item Value Date Time Vancomycin HCl 530 ml @ 150 mls/hr 09/26/17 2000 1500 mg/Sodium Q12H/IV Chloride Vancomycin HCl 530 ml @ 200 mls/hr 09/24/17 2200 1500 mg/Sodium Q10H/IV 09/26/17 0348 Chloride Cefepime HCl 2000 20 ml @ 5 mls/min 09/24/17 1600 mg/Syringe Q12H/IV 09/26/17 0348 Vancomycin HCl 555 ml @ 200 mls/hr 09/24/17 1100 2750 mg/Sodium ONE ONCE/IV 09/24/17 1049 Chloride Ceftriaxone Sodium 1 gm 09/24/17 0906 (Rocephin Inj) NOW STAT/IV 09/24/17 1008 Assessment & Plan This drug level is: slightly Supratherapeutic. Will extend dosing interval. Change to vancomycin 1500 mg IV every 12 hours. Will be infused more slowly ( 150 ml/hr) for patient comfort. Goal trough level estimate: between 15-20 mcg/mL. Vancomycin level will be rechecked in a few days if still receiving antibiotic. Pharmacy will continue to follow and will adjust dose/frequency as necessary. Thank you
[2017-09-26 15:01] VITALS: BP 148/82; PULSE 68; TEMP 37; O2SAT 99
[2017-09-26 20:56] VITALS: BP 128/85; PULSE 70; O2SAT 97
[2017-09-26] MEDS: ESTROGENS, CONJUGATED 0.3 MG TAB PO SCH (20:58)
[2017-09-26] MEDS: NADOLOL 40 MG TAB PO SCH (20:59)
[2017-09-26 23:35] VITALS: BP 134/83; PULSE 61; TEMP 36.9; O2SAT 98
[2017-09-27] MEDS: CEFEPIME IV 2,000 MG in SYRINGE 7.5 ML IV SCH ×2 (03:45→17:20)
[2017-09-27] MEDS: ACETAMINOPHEN 325 MG TAB PO PRN ×2 (05:37→23:55)
[2017-09-27 06:11] LABS: HEMATOCRIT 36.4 % (37-47); MEAN CELL VOLUME 89.4 fL (80-100); MEAN CORPUSCULAR HEMOGLOBIN 30.2 pg (25-34); MEAN CORPUSCULAR HGB CONC 33.8 g/dl (32-36); MEAN PLATELET VOLUME 9.9 fL (7.4-10.4); PLATELET COUNT 221 K/uL (130-400); RED BLOOD COUNT 4.07 M/uL (4.2-5.4); WHITE BLOOD COUNT 7.78 K/uL (4.8-10.8)
[2017-09-27 06:45] LABS: BUN/CREATININE RATIO 20.8 (10-20); CALCIUM 8.9 mg/dl (8.5-10.1); CREATININE 0.59 mg/dl (0.60-1.20)
[2017-09-27] MEDS: VANCOMYCIN INJ 1,500 MG in SODIUM CHLORIDE 0.9% 500ML 500 ML IV SCH ×2 (07:02→20:14)
[2017-09-27] MEDS: LACTOBACILLUS ACIDOPHILUS 1 GM PACK PO SCH ×3 (07:06→17:21)
--- NOTE | 2017-09-27 07:08 | Orthopedic Progress Note ---
Orthopedic Progress Note Date of Service Sep 27, 2017. Subjective Reports: feeling well, Denies: complaints Objective posterior calves NT. Area with abrasion on the right leg with lessening erythema overall. Central section lateral to main abrasion with erythema. Fairly tender on palpation laterally. NT throughout the rest of the exam. Date Time Temp Pulse Resp B/P (MAP) Pulse Ox O2 Delivery O2 Flow Rate FiO2 09/26/17 23:35 36.9 61 18 134/83 (100) 98 Room Air 09/26/17 23:10 Room Air 09/26/17 20:56 70 128/85 (99) 97 Room Air 09/26/17 16:18 Room Air 09/26/17 15:01 37.0 68 16 148/82 (104) 99 Room Air 09/26/17 09:57 Room Air 09/26/17 07:13 36.9 64 16 129/75 (93) 97 Room Air Laboratory Results 24 Hours: Test 09/27/17 05:49 Hematocrit 36.4 % Hemoglobin 12.3 g/dL Assessment & Plan Assessment: Right lower leg cellulitis and hematoma Anterior right lower leg abrasion and contusion Plan: -CT scan RLE suggests hematoma, not consistent with abscess. Patient symptoms improving with IV abx, no surgical intervention at this time. Will continue to monitor closely. Will have Dr Gallardo examine later today. -continue with IV abx as per medical team -follow up blood cx - NGTD -Ice/elevate RLE -Pain controlled -WBAT RLE -TEDs/SCDs -Neurovascular checks -Trend inflammatory labs - WBC, ESR/CRP
[2017-09-27 07:48] VITALS: BP 141/67; PULSE 64; TEMP 36.5; O2SAT 98
--- NOTE | 2017-09-27 12:08 | Orthopedic Progress Note ---
Orthopedic Progress Note Date of Service Sep 27, 2017. Subjective Reports: feeling well, complaints (Anterior right lower leg pain, swelling, redness and ), Denies: chest pain, SOB, nausea / vomiting, light headedness Additional Notes: Pain anterior right lower leg with improving cellulitis and swelling. Objective calves soft nontender, N/V intact, capillary refill less than 2 sec., A&O x3, toes mobile Anterior right lower leg abrasion with surrounding erythema. +wrinkling of skin with receding zone of demarcation. Pain with palpation anterior lower leg hematoma. DNVSI. DP/PT 2/4 B LE. Date Time Temp Pulse Resp B/P (MAP) Pulse Ox O2 Delivery O2 Flow Rate FiO2 09/27/17 07:48 36.5 64 19 141/67 (91) 98 Room Air 09/27/17 07:30 Room Air 09/26/17 23:35 36.9 61 18 134/83 (100) 98 Room Air 09/26/17 23:10 Room Air 09/26/17 20:56 70 128/85 (99) 97 Room Air 09/26/17 16:18 Room Air 09/26/17 15:01 37.0 68 16 148/82 (104) 99 Room Air Laboratory Results 24 Hours: Test 09/27/17 05:49 Hematocrit 36.4 % Hemoglobin 12.3 g/dL Assessment & Plan Assessment: Right lower leg cellulitis and hematoma-improving on IV anbx Anterior right lower leg abrasion and contusion-stable abrasion w/o further necrosis Plan: -CT scan RLE suggests hematoma, not consistent with abscess. Patient symptoms improving with IV abx, no surgical intervention at this time. Will continue to monitor closely. -continue with IV abx as per medical team -recommend approx. 24 hrs of continued IV anbx and then at minimum 2 weeks anbx coverage either IV or PO upon d/c -follow up blood cx - NGTD -Ice/elevate RLE -Pain controlled -WBAT RLE -TEDs/SCDs -Neurovascular checks -Trend inflammatory labs - WBC, ESR/CRP -F/U with either Dr Valles or Dr Gallardo as outpatient
--- NOTE | 2017-09-27 14:57 | Progress Note ---
Subjective Date of Service: Sep 27, 2017. Subjective pt has interval improvement in lower leg, I discussed personally with Dr Gallardo and he feels another day of Iv antibiotics are in order, pt is in agreement Problem List Medical Problems: (1) Cellulitis of right lower extremity Status: Acute (2) Multiple abscesses of both legs Status: Acute Review of Systems Constitutional: No fever, No chills Cardiac: + edema (improving), No chest pain Abdomen: No pain, No nausea Musculoskeletal: + joint pain, + muscle pain, + swelling Female : No dysuria, No urinary frequency Skin: + new/changing skin lesions, + color change Objective Vital Signs Date Time Temp Pulse Resp B/P (MAP) Pulse Ox O2 Delivery O2 Flow Rate FiO2 09/27/17 07:48 36.5 64 19 141/67 (91) 98 Room Air 09/27/17 07:30 Room Air 09/26/17 23:35 36.9 61 18 134/83 (100) 98 Room Air 09/26/17 23:10 Room Air 09/26/17 20:56 70 128/85 (99) 97 Room Air 09/26/17 16:18 Room Air 09/26/17 15:01 37.0 68 16 148/82 (104) 99 Room Air Physical Exam General Appearance: WD/WN, + mild distress Eyes: normal inspection, sclerae normal Respiratory/Chest: chest non-tender, lungs clear, normal breath sounds Cardiovascular: regular rate, rhythm, no murmur Abdomen: normal bowel sounds, non tender, soft Extremities: + pertinent finding (3-4 cm circular eschar with surrounding erythema on rigth lower leg, improved by skin markings) Laboratory Results Last 24 Hours Test 09/27/17 05:49 White Blood Count 7.78 K/uL Red Blood Count 4.07 M/uL Hemoglobin 12.3 g/dL Hematocrit 36.4 % Mean Corpuscular Volume 89.4 fL Mean Corpuscular Hemoglobin 30.2 pg Mean Corpuscular Hemoglobin Concent 33.8 g/dl RDW Standard Deviation 42.9 fL RDW Coefficient of Variation 13.2 % Platelet Count 221 K/uL Mean Platelet Volume 9.9 fL Sodium Level 141 mmol/L Potassium Level 4.0 mmol/L Chloride Level 107 mmol/L Carbon Dioxide Level 26 mmol/L Anion Gap 7.0 mmol/L Blood Urea Nitrogen 12 mg/dl Creatinine 0.59 mg/dl Est Creatinine Clear Calc Drug Dose 119.6 ml/min Estimated GFR () 114.7 Estimated GFR (Non- 98.9 BUN/Creatinine Ratio 20.8 Random Glucose 98 mg/dl Calcium Level 8.9 mg/dl Assessment and Plan Ms. Raza is a 62 year old woman here for right leg abscess that occurred after abrasion Right leg abscess -ortho feels is a mixture of traumatic hematoma and infection, Patient symptoms improving with IV abx, no surgical intervention at this time. ( vanco + cefepime) - BC so far negative, likely will go home with 2 week course, does have pcn and sulfa allergies, consider Doxycycline HTN stable wiht nadolol hydralazine q4h prn wound is healing poorly, will need wound care and may need debridement DVT prophylaxis - patient is ambulatory, will hold off on chemoproph and encourage ambulation, but elevated with resting Continued [facility] [place] stay due to: multiple IV medications needed Discharge planning: home
[2017-09-27 15:29] VITALS: BP 137/82; PULSE 77; TEMP 36.9; O2SAT 99
[2017-09-27 16:15] VITALS: O2SAT 99
[2017-09-27 20:17] VITALS: BP 150/84; PULSE 76; O2SAT 96
[2017-09-27] MEDS: ESTROGENS, CONJUGATED 0.3 MG TAB PO SCH (20:19)
[2017-09-27] MEDS: NADOLOL 40 MG TAB PO SCH (20:20)
[2017-09-27 23:30] VITALS: BP 125/78; PULSE 70; TEMP 37; O2SAT 97
[2017-09-28] MEDS: CEFEPIME IV 2,000 MG in SYRINGE 7.5 ML IV SCH (03:51)
[2017-09-28 05:42] LABS: HEMATOCRIT 35.3 % (37-47); MEAN CELL VOLUME 89.8 fL (80-100); MEAN CORPUSCULAR HEMOGLOBIN 30.3 pg (25-34); MEAN CORPUSCULAR HGB CONC 33.7 g/dl (32-36); MEAN PLATELET VOLUME 9.7 fL (7.4-10.4); PLATELET COUNT 205 K/uL (130-400); RED BLOOD COUNT 3.93 M/uL (4.2-5.4); WHITE BLOOD COUNT 7.32 K/uL (4.8-10.8)
[2017-09-28 06:17] LABS: BUN/CREATININE RATIO 20.3 (10-20); CALCIUM 8.6 mg/dl (8.5-10.1); CREATININE 0.57 mg/dl (0.60-1.20); POTASSIUM 3.9 mmol/L (3.5-5.1)
[2017-09-28 07:11] VITALS: BP 147/84; PULSE 57; TEMP 36.5; O2SAT 97
[2017-09-28] MEDS: LACTOBACILLUS ACIDOPHILUS 1 GM PACK PO SCH ×2 (07:58→12:39)
[2017-09-28] MEDS: VANCOMYCIN INJ 1,500 MG in SODIUM CHLORIDE 0.9% 500ML 500 ML IV SCH (07:58)
[2017-09-28] MEDS ORDERED: DXY100 PO ×2 (12:35→13:46)
--- NOTE | 2017-09-28 12:36 | Discharge Instructions ---
Discharge Instructions Date of Service Sep 28, 2017. Admission Reason for Admission: Abscess Of Leg, Right Discharge Discharge Diagnosis / Problem: leg cellulitis Discharge Goals Goal(s): Diagnostic testing, Therapeutic intervention Activity Recommendations Activity Limitations: as noted below Lifting Limitations: gradually increase as tolerated . Current Hospital Diet Patient's current hospital diet: Regular Diet Discharge Diet Recommended Diet: Low Sodium Diet (2gm Na) Pending Studies Studies pending at discharge: no Laboratory Results Hemoglobin A1c Test 09/25/17 06:17 Range/Units Estimated Average Glucose 103 mg/dl Hemoglobin A1c 5.2 4.5-5.6 % Medical Emergencies . Who to Call and When: Medical Emergencies: If at any time you feel your situation is an emergency, please call 911 immediately. . Non-Emergent Contact Non-Emergency issues call your: Primary Care Provider Call Non-Emergent contact if: temperature is above 101, your pain is unusual for you . . "Provider Documentation" section prepared by Sandor De Souza. . VTE Core Measure Inpt VTE Proph given/why not?: Treatment not indicated
[2017-09-28 14:00] VITALS: BP 147/84; PULSE 57; TEMP 36.5; O2SAT 97
--- NOTE | 2017-09-28 17:32 | Discharge Summary ---
Discharge Summary Date of Service Sep 28, 2017. Discharge Summary Admission Date: Sep 24, 2017 at 13:49 Discharge Date: Sep 28, 2017 Discharge Disposition: Home Principal Diagnosis: lower extremity cellulitis Immunizations: Have You Had Influenza Vaccine: No History of Tetanus Vaccine?: No History of Pneumococcal: No History of Hepatitis B Vaccine: No Medication Reconciliation New Medications: Doxycycline Hyclate (Doxycycline Hyclate) 100 Mg Cap 100 MG PO BID, #20 DOSE . Continued Medications: Estrogens, Conjugated (Premarin) 0.3 Mg Tab 0.3 MG PO HS, TAB Nadolol (Corgard) 20 Mg Tab 10 MG PO HS, TAB Discontinued Medications: Cephalexin Monohydrate (Keflex) 500 Mg Cap 500 MG PO BID, CAP Discharge Exam Review of Systems: Constitutional: No fever, No chills Respiratory: No cough, No shortness of breath Cardiovascular: No chest pain, No orthopnea, No edema Abdomen: No pain, No nausea, No vomiting, No diarrhea Psychiatric: No depression symptoms, No anhedonism Integumentary: + problem reported (eschar and receeding redness to bower) Physical Exam: General Appearance: WD/WN, no apparent distress Neck: supple, no JVD Abdomen / GI: normal bowel sounds, non tender, soft Extremities: + pertinent finding (improving cellulitis) Neurologic/Psychiatric: alert, oriented x 3 Hospital Course Ms. Raza is a 62 year old woman here for right leg abscess that occurred after abrasion Right leg abscess -ortho feels is a mixture of traumatic hematoma and infection, Patient symptoms improving with IV abx, no surgical intervention at this time. ( vanco + cefepime) - BC negative, likely will go home with Doxycycline and have follow up arranged with wound care HTN stable with nadolol Total Time Spent: Greater than 30 minutes This includes examination of the patient, discharge planning, medication reconciliation, and communication with other providers. Discharge Instructions Please refer to the electronic Patient Visit Report (Discharge Instructions) for additional information.
[2017-10-08] MEDS ORDERED: LISI-461 PO (09:20)
== END 2017-09-28 15:04 | disposition home or self-care (01) | DRG 603 ==
LOC: C.EDB 08:35 → C.MSN 13:49 → ENRESERV 14:23
PROVIDERS: ADMIT Internal Medicine; ATTEND Internal Medicine
DX: L03.115 Cellulitis of right lower limb (principal); S80.11XA Contusion of right lower leg, initial encounter; I10 Essential (primary) hypertension; W19.XXXA Unspecified fall, initial encounter; Z90.49 Acquired absence of other specified parts of digestive tract; Z90.710 Acquired absence of both cervix and uterus

== ENCOUNTER 2017-10-24 12:25 | Inpatient (IN) | payer OTHER ==
[~2017-10-24] VITALS: Ht 157.5 cm; Wt 111.1 kg
[~2017-10-24 12:25] MED LIST changes: +AMOX500C3 PO; -LEVO1TAB33 PO; +LISI-461 PO; -METR500T PO; -OXYC-57 PO
[2017-10-24] MEDS ORDERED: AMPH10TA2 PO (13:06)
[2017-10-24] MEDS ORDERED: PRM625 PO (13:06)
[2017-10-24] MEDS ORDERED: ONDA4TAB65 PO (13:06)
[2017-10-24] MEDS ORDERED: ONDANSETRON INJ 2 MG/ML 2 ML VIAL IV STA (13:10)
[2017-10-24] MEDS ORDERED: SODIUM CHLORIDE 0.9% 1000ML 1,000 ML IV STA (13:10)
--- NOTE | 2017-10-24 13:18 | EMERGENCY ROOM VISIT NOTE ---
History Report prepared by Mansoor: Jameson Orantes Under the Supervision of: Dr. Dion Booker M.D. First contact with patient: 13:01 Chief Complaint: FLANK PAIN Stated Complaint: R SIDE BACK PAIN History of Present Illness The patient is a 62 year old female who presents to the Emergency Room with complaints of worsening right sided abdominal and flank pain starting last night which is worse with standing and walking. She additionally notes that she vomited a few times this morning and chills last night. She denies any headache , diarrhea, fever, chest pain, and shortness of breath. The patient additionally reports that she has a wound on her right leg, and she states that she was put on amoxicillin and nausea medications. The patient has a history of a cholecystectomy, , hysterectomy, and hypertension, and she denies nay diabetes. She does not take any medications. Source of History: patient Onset: last night Position: abdomen (right), other (right flank) Timing: worsening Modifying Factors (Worsening): other (standing and walking) Associated Symptoms: + chills, + vomiting, No fevers, No headache, No chest pain, No SOB, No diarrhea Review of Systems See HPI for pertinent positives & negatives. A total of 10 systems reviewed and were otherwise negative. Past Medical & Surgical Medical Problems: (1) Abscess of leg, right (2) Hypertension (3) Hypertensive urgency, malignant (4) Sudden onset of severe abdominal pain Old medical records were reviewed. Nurse's notes were reviewed and I agree with. Family History Patient reports no known family medical history. Social History Smoking Status: Never Smoker Alcohol Use: none Drug Use: none Marital Status: Housing Status: lives with family Occupation Status: employed Current/Historical Medications Scheduled Amoxicillin (Amoxil), 500 MG PO TID Amphetamine-Dextroamphetamine 10MG (Adderall 10MG), 10 MG PO DAILY Estrogens, Conjugated (Premarin), 0.625 MG PO DAILY Lisinopril (Lisinopril), 10 MG PO DAILY Nadolol (Corgard), 10 MG PO HS Scheduled PRN Ondansetron Hcl (Zofran), 4 MG PO QID PRN for Nausea or Vomiting Allergies Coded Allergies: Sulfa Antibiotics (Verified Allergy, Severe, UNKNOWN, 10/24/17) Aspirin (Verified Allergy, Intermediate, PETECHIAE, 10/24/17) PETECHIAE Penicillins (Verified Allergy, Mild, RASH-HAD KEFZOL W/O PROBLEM, 10/24/17) RASH-HAD KEFZOL W/O PROBLEM Physical Exam Vital Signs Date Time Temp Pulse Resp B/P (MAP) Pulse Ox O2 Delivery O2 Flow Rate FiO2 10/24/17 19:44 75 16 184/98 100 10/24/17 17:38 75 16 184/98 100 Room Air 10/24/17 15:01 55 16 214/155 96 Room Air 10/24/17 12:50 36.7 70 22 184/68 99 Room Air Physical Exam General: Uncomfortable appearing middle aged female complaining of epigastric discomfort. HEENT: Normal cephalic atraumatic. Pupils are equal round and reactive to light. Extraocular movements are intact. Oropharynx is pink with moist mucous membranes. No swelling of the mouth lips or tongue. Neck: Supple with a midline trachea. No meningeal signs or stiffness, no JVD or bruits. No Stridor. Chest: Clear to auscultation bilaterally. No wheezes or rhonchi. No increased work of breathing. Heart: regular rate and rhythm. Abdomen: Not significantly tender. No lower abdominal discomfort. Soft nondistended without rebound guarding or rigidity. Extremities: Wound vac in the right leg that is intact without redness or drainage. No cyanosis clubbing or edema. No calf tenderness or assymetry Spine/Back. Non tender to palpation. No CVA tenderness Skin: Good turgor without rashes. Neurologic exam: Cranial nerves two through 12 are intact. Motor and sensation are intact and symmetrical throughout. Medical Decision & Procedures ER Provider Diagnostic Interpretation: Radiology results as stated below per my review and radiologist interpretation: ABD/PELVIS WITHOUT FOR STONE HISTORY: 62 years-old Female eval for stone acute right-sided flank pain with concern for kidney stone. COMPARISON: None available TECHNIQUE: Multiple axial CT images of the abdomen and pelvis were obtained without contrast. A dose lowering technique was used consistent with the principals of NICOLERA. FINDINGS: Minimal subsegmental bibasilar atelectasis. Calcified granuloma of the inferior segment lingula is noted which is subcentimeter. No pneumatosis or pneumoperitoneum. The imaged inferior cardiac chambers are unremarkable. Patient obesity is noted with portions of the anatomy outside the [id number]. Hepatic steatosis. No intrahepatic biliary ductal dilation. Prior cholecystectomy. Spleen is enlarged, 13.6 cm. Pancreas and adrenal glands are within normal limits. Kidneys, ureters and urinary bladder are within normal limits. No renal calculi or obstructive uropathy. Phleboliths are seen within the pelvis. Prior hysterectomy. Aorta is normal in course and caliber. No bulky adenopathy. Small sliding-type hiatal hernia. No bowel obstruction or focal bowel wall thickening. Mild colonic diverticulosis without diverticulitis. Appendix appears normal. Soft tissues are within normal limits. Nonspecific mildly enlarged right inguinal lymph nodes measure up to 12 mm, likely reactive. The bones appear intact. Severe facet arthrosis at L5-S1 with grade 1 anterolisthesis L5 on S1. IMPRESSION: 1. No acute intra-abdominal or intrapelvic abnormality identified, specifically no renal calculi or obstructive uropathy. Normal appendix. 2. Mild colonic diverticulosis without diverticulitis. 3. Hepatic steatosis. 4. Mild splenomegaly. 5. Prior cholecystectomy. The above report was generated using voice recognition software. It may contain grammatical, syntax or spelling errors. Electronically signed by: Jose Oquendo M.D. 10/24/2017 4:02 PM Dictated Date/Time: 10/24/2017 3:57 PM ANGIO ABD/PELVIS WITH CONTRAST, CHEST COMBO ANGIO DISSECTION CLINICAL HISTORY: 62 years-old Female presents with acute worsening back pain and shortness of breath COMPARISON STUDY: CT abdomen and pelvis of same day TECHNIQUE: Following the IV administration of 119 cc of Optiray 320, CT angiogram of the chest, abdomen and pelvis was performed from the lung bases the proximal femora. Noncontrast images of the chest were also obtained. Images are reviewed in the axial, sagittal, and coronal planes. 3-D MIPS images are created and assessed. IV contrast was administered without complication. A dose lowering technique was utilized adhering to the principles of ALARA. CT DOSE: 2517.92 mGy.cm FINDINGS: CTA: No intramural hematoma identified on the noncontrast scan. Heart is mildly enlarged without pericardial effusion. No thoracic aortic aneurysm or dissection. Imaged proximal great vessels are patent. No significant atherosclerosis of the thoracic aorta. The opacified pulmonary arterial tree is unremarkable without focal filling defects identified to suggest pulmonary thromboembolic disease. The abdominal aorta is normal in course and caliber as well without evidence of aneurysm, dissection or significant atherosclerotic plaquing. The iliac arteries, common femoral and image superficial femoral arteries are patent and within normal limits. The celiac trunk, superior and inferior mesenteric arteries are widely patent. The bilateral renal arteries are also widely patent. There is a small accessory left renal artery noted. No evidence of vasculitis. No high-grade stenosis or proximal branch occlusion. CT CHEST: Nodular thyroid with calcifications of the inferior left thyroid lobe measuring up to 3 mm. Nonspecific mildly prominent precarinal lymph node measures 1.3 x 0.9 cm. Mildly enlarged subcarinal lymph node measures 2.0 x 1.4 cm. Mildly prominent right paratracheal lymph nodes measure up to 8 mm. There is no pneumothorax or pleural effusion. Patchy bibasilar groundglass opacities are noted suggesting atelectasis. Indeterminate 4 mm solid noncalcified pulmonary nodule of the left lower lobe as seen on image 100 series 6. No focal airspace consolidation to suggest pneumonia. Central airways are patent. CT ABDOMEN: Hepatic steatosis. No intrahepatic biliary ductal dilation. Prior cholecystectomy. Spleen is enlarged, 13.6 cm. Pancreas and adrenal glands are within normal limits. Kidneys, ureters and urinary bladder are within normal limits. No renal calculi or obstructive uropathy. Phleboliths are seen within the pelvis. Prior hysterectomy. No bulky adenopathy. Small sliding-type hiatal hernia. No bowel obstruction or focal bowel wall thickening. Mild colonic diverticulosis without diverticulitis. Appendix appears normal. Soft tissues are within normal limits. Nonspecific mildly enlarged right inguinal lymph nodes measure up to 12 mm, likely reactive. The bones appear intact. Severe facet arthrosis at L5-S1 with grade 1 anterolisthesis L5 on S1. Mildly prominent varices of the anteromedial upper right thigh superficial subcutaneous tissues. IMPRESSION: 1. No acute intrathoracic, intra-abdominal or intrapelvic abnormality identified. 2. No aortic dissection, aneurysm or significant atherosclerotic plaquing. No high-grade stenosis or proximal branch occlusion. 3. Mild indeterminate mediastinal adenopathy as above may be reactive. 4. Hepatic steatosis. 5. 4 mm solid pulmonary nodule of the left lower lobe. 6. Mild colonic diverticulosis without diverticulitis. Please refer to below summary of Fleischner criteria recommendations for follow-up of incidental CT nodules (Razia Eldridge, Guidelines for management of small pulmonary nodules detected on CT scans: A statement from the Fleischner Society, Radiology 237: [phone].) SOLID NODULES Solitary nodule size: <6 mm * Low risk patients: no follow-up needed * high risk patients: optional CT at 12 months Note: newly detected indeterminate nodule in persons 35 years of age or older. * Low risk patients: minimal or absent history of smoking and/or other known risk factors * high risk patients: history of smoking or of other known risk factors (e.g. first degree relative with lung cancer, or exposure to asbestos, radon, uranium) * if a nodule up to 8 mm is partly solid or is ground glass further follow-up is required after 24 months to exclude possible slow growing adenocarcinoma (RANDELL) The above report was generated using voice recognition software. It may contain grammatical, syntax or spelling errors. Electronically signed by: Jose Oquendo M.D. 10/24/2017 4:56 PM Dictated Date/Time: 10/24/2017 4:44 PM ANGIO ABD/PELVIS WITH CONTRAST, CHEST COMBO ANGIO DISSECTION CLINICAL HISTORY: 62 years-old Female presents with acute worsening back pain and shortness of breath COMPARISON STUDY: CT abdomen and pelvis of same day TECHNIQUE: Following the IV administration of 119 cc of Optiray 320, CT angiogram of the chest, abdomen and pelvis was performed from the lung bases the proximal femora. Noncontrast images of the chest were also obtained. Images are reviewed in the axial, sagittal, and coronal planes. 3-D MIPS images are created and assessed. IV contrast was administered without complication. A dose lowering technique was utilized adhering to the principles of ALARA. CT DOSE: 2517.92 mGy.cm FINDINGS: CTA: No intramural hematoma identified on the noncontrast scan. Heart is mildly enlarged without pericardial effusion. No thoracic aortic aneurysm or dissection. Imaged proximal great vessels are patent. No significant atherosclerosis of the thoracic aorta. The opacified pulmonary arterial tree is unremarkable without focal filling defects identified to suggest pulmonary thromboembolic disease. The abdominal aorta is normal in course and caliber as well without evidence of aneurysm, dissection or significant atherosclerotic plaquing. The iliac arteries, common femoral and image superficial femoral arteries are patent and within normal limits. The celiac trunk, superior and inferior mesenteric arteries are widely patent. The bilateral renal arteries are also widely patent. There is a small accessory left renal artery noted. No evidence of vasculitis. No high-grade stenosis or proximal branch occlusion. CT CHEST: Nodular thyroid with calcifications of the inferior left thyroid lobe measuring up to 3 mm. Nonspecific mildly prominent precarinal lymph node measures 1.3 x 0.9 cm. Mildly enlarged subcarinal lymph node measures 2.0 x 1.4 cm. Mildly prominent right paratracheal lymph nodes measure up to 8 mm. There is no pneumothorax or pleural effusion. Patchy bibasilar groundglass opacities are noted suggesting atelectasis. Indeterminate 4 mm solid noncalcified pulmonary nodule of the left lower lobe as seen on image 100 series 6. No focal airspace consolidation to suggest pneumonia. Central airways are patent. CT ABDOMEN: Hepatic steatosis. No intrahepatic biliary ductal dilation. Prior cholecystectomy. Spleen is enlarged, 13.6 cm. Pancreas and adrenal glands are within normal limits. Kidneys, ureters and urinary bladder are within normal limits. No renal calculi or obstructive uropathy. Phleboliths are seen within the pelvis. Prior hysterectomy. No bulky adenopathy. Small sliding-type hiatal hernia. No bowel obstruction or focal bowel wall thickening. Mild colonic diverticulosis without diverticulitis. Appendix appears normal. Soft tissues are within normal limits. Nonspecific mildly enlarged right inguinal lymph nodes measure up to 12 mm, likely reactive. The bones appear intact. Severe facet arthrosis at L5-S1 with grade 1 anterolisthesis L5 on S1. Mildly prominent varices of the anteromedial upper right thigh superficial subcutaneous tissues. IMPRESSION: 1. No acute intrathoracic, intra-abdominal or intrapelvic abnormality identified. 2. No aortic dissection, aneurysm or significant atherosclerotic plaquing. No high-grade stenosis or proximal branch occlusion. 3. Mild indeterminate mediastinal adenopathy as above may be reactive. 4. Hepatic steatosis. 5. 4 mm solid pulmonary nodule of the left lower lobe. 6. Mild colonic diverticulosis without diverticulitis. Please refer to below summary of Fleischner criteria recommendations for follow-up of incidental CT nodules (Razia Eldridge, Guidelines for management of small pulmonary nodules detected on CT scans: A statement from the Fleischner Society, Radiology 237: [phone].) SOLID NODULES Solitary nodule size: <6 mm * Low risk patients: no follow-up needed * high risk patients: optional CT at 12 months Note: newly detected indeterminate nodule in persons 35 years of age or older. * Low risk patients: minimal or absent history of smoking and/or other known risk factors * high risk patients: history of smoking or of other known risk factors (e.g. first degree relative with lung cancer, or exposure to asbestos, radon, uranium) * if a nodule up to 8 mm is partly solid or is ground glass further follow-up is required after 24 months to exclude possible slow growing adenocarcinoma (RANDELL) The above report was generated using voice recognition software. It may contain grammatical, syntax or spelling errors. Electronically signed by: Jose Oquendo M.D. 10/24/2017 4:56 PM Dictated Date/Time: 10/24/2017 4:44 PM Laboratory Results 10/24/17 13:41 Red Blood Count 4.87, Mean Corpuscular Volume 88.3, Mean Corpuscular Hemoglobin 30.8, Mean Corpuscular Hemoglobin Concent 34.9, Mean Platelet Volume 10.9, Neutrophils (%) (Auto) 82.2, Lymphocytes (%) (Auto) 12.0, Monocytes (%) (Auto) 4.2, Eosinophils (%) (Auto) 1.2, Basophils (%) (Auto) 0.2, Neutrophils # (Auto) 9.94, Lymphocytes # (Auto) 1.45, Monocytes # (Auto) 0.51, Eosinophils # (Auto) 0.14, Basophils # (Auto) 0.03 Test 10/24/17 13:41 10/24/17 14:33 10/24/17 15:15 10/24/17 19:12 White Blood Count 12.10 K/uL (4.8-10.8) Red Blood Count 4.87 M/uL (4.2-5.4) Hemoglobin 15.0 g/dL (12.0-16.0) Hematocrit 43.0 % (37-47) Mean Corpuscular Volume 88.3 fL (80-100) Mean Corpuscular Hemoglobin 30.8 pg (25-34) Mean Corpuscular Hemoglobin Concent 34.9 g/dl (32-36) Platelet Count 231 K/uL (130-400) Mean Platelet Volume 10.9 fL (7.4-10.4) Neutrophils (%) (Auto) 82.2 % Lymphocytes (%) (Auto) 12.0 % Monocytes (%) (Auto) 4.2 % Eosinophils (%) (Auto) 1.2 % Basophils (%) (Auto) 0.2 % Neutrophils # (Auto) 9.94 K/uL (1.4-6.5) Lymphocytes # (Auto) 1.45 K/uL (1.2-3.4) Monocytes # (Auto) 0.51 K/uL (0.11-0.59) Eosinophils # (Auto) 0.14 K/uL (0-0.5) Basophils # (Auto) 0.03 K/uL (0-0.2) RDW Standard Deviation 42.0 fL (36.4-46.3) RDW Coefficient of Variation 13.1 % (11.5-14.5) Immature Granulocyte % (Auto) 0.2 % Immature Granulocyte # (Auto) 0.03 K/uL (0.00-0.02) Prothrombin Time 9.9 SECONDS (9.0-12.0) Prothromb Time International Ratio 0.9 (0.9-1.1) Activated Partial Thromboplast Time 23.6 SECONDS (21.0-31.0) Partial Thromboplastin Ratio 0.9 Est Creatinine Clear Calc Drug Dose 86.9 ml/min Total Bilirubin 1.0 mg/dl (0.2-1) Direct Bilirubin 0.2 mg/dl (0-0.2) Aspartate Amino Transf (AST/SGOT) 30 U/L (15-37) Alanine Aminotransferase (ALT/SGPT) 37 U/L (12-78) Alkaline Phosphatase 93 U/L (45-117) Total Protein 8.1 gm/dl (6.4-8.2) Albumin 4.0 gm/dl (3.4-5.0) Lipase 118 U/L (73-393) Bedside Troponin I < 0.030 ng/ml (0-0.045) Urine Color YELLOW Urine Appearance CLEAR (CLEAR) Urine pH >= 9.0 (4.5-7.5) Urine Specific [place] 1.022 (1.000-1.030) Urine Protein NEG (NEG) Urine Glucose (UA) NEG (NEG) Urine Ketones 1+ (NEG) Urine Occult Blood NEG (NEG) Urine Nitrite NEG (NEG) Urine Bilirubin NEG (NEG) Urine Urobilinogen NEG (NEG) Urine Leukocyte Esterase NEG (NEG) Urine Opiates Screen POS (NEG) Urine Methadone, Qualitative NEG (NEG) Urine Barbiturates NEG (NEG) Urine Phencyclidine (PCP) Level NEG (NEG) Ur Amphetamine/Methamphetamine NEG (NEG) MDMA (Ecstasy) Screen NEG (NEG) Urine Benzodiazepines Screen NEG (NEG) Urine Cocaine Metabolite NEG (NEG) Urine Marijuana (THC) NEG (NEG) Laboratory studies as stated above per my review. Medications Administered Medications (Trade) Dose Ordered Sig/Oscar Route Start Time Stop Time Status Last Admin Dose Admin Sodium Chloride 1,000 ml @ 999 mls/hr Q1H1M STAT IV 10/24/17 13:10 10/24/17 14:10 DC 10/24/17 13:10 999 MLS/HR Ondansetron HCl (Zofran Inj) 4 mg NOW STAT IV 10/24/17 13:10 10/24/17 13:13 DC 10/24/17 14:18 4 MG Morphine Sulfate (MoRPHine SULFATE INJ) 2 mg NOW STAT IV 10/24/17 14:14 10/24/17 14:15 DC 10/24/17 14:19 2 MG Morphine Sulfate (MoRPHine SULFATE INJ) 4 mg NOW STAT IV 10/24/17 15:00 10/24/17 15:04 DC 10/24/17 15:10 4 MG Morphine Sulfate (MoRPHine SULFATE INJ) 4 mg NOW STAT IV 10/24/17 15:54 10/24/17 15:55 DC 10/24/17 15:59 4 MG Al Hydroxide/Mg Hydroxide (Maalox Susp) 30 ml NOW STAT PO 10/24/17 17:08 10/24/17 17:10 DC 10/24/17 17:40 30 ML Lidocaine HCl (Viscous Lidocaine 2% Soln) 10 ml NOW STAT MT 10/24/17 17:08 10/24/17 17:10 DC 10/24/17 17:40 10 ML Morphine Sulfate (MoRPHine SULFATE INJ) 2 mg NOW STAT IV 10/24/17 17:08 10/24/17 17:10 DC 10/24/17 17:41 2 MG ECG Indication: abdominal pain Rate (beats per minute): 51 Rhythm: sinus bradycardia Findings: no acute ischemic change, no ectopy Comparison ECG Date: 02/19/16 Change: no significant change Change: The patient's repeat EKG showed normal sinus rhythm without ischemia or ectopy. There is sinus arrhythmia with 1st degree AV block. No significant change from EKG 1. Patient's EKG has been interpreted by me. ED Course 1301: Past medical records reviewed. The patient was evaluated in room A2, and a complete history and physical examination were performed. 1310: Zofran 4mg IV, Sodium Chloride 1000 ml @ 999 mls/hr IV 1410: The patient got an IV, and she was in a lot of pain. 1414: Morphine Sulfate 2mg IV 1443: I went to reevaluate the patient, and she is in the restroom at this time. 1500: I reevaluated the patient, and she appears more comfortable, though she is still complaining of pain. I discussed the risks and benefits of CT scan. I ordered Morphine Sulfate 4mg IV 1509: I reevaluated the patient, and she was more comfortable and is going to CT. 1550: I reevaluated the patient, and she needs more pain medications, but she looks more comfortable. Her blood pressure is down significantly to 167 systolic. 1554: Morphine Sulfate 4mg IV 1613: I reassessed the patient, and she appears more comfortable. 1706: Upon reevaluation, the patient is still having pain. I discussed the results and treatment plan with the patient. She verbalized agreement of the treatment plan. The patient will be evaluated for further management. 1708: Morphine Sulfate 2mg IV, Viscous Lidocaine 2% Soln 10ml MT, Maalox Susp 30ml PO 1710: Discussed the patient's case with Dr. Harley. The patient will be evaluated for further management. 1735: I reevaluated the patient, and she just vomited. 1806: I reassessed the patient, and she was feeling a little bit better after getting the GI cocktail but is still uncomfortable. Medical Decision Differentials include, but are not limited to; gastritis, infection, sepsis, cardiac disease, pancreatitis, colitis, electrolyte or metabolic abnormality. This patient comes in plan epigastric discomfort. She was started on antibiotic and has a sensitive stomach she says. She has no chest pain or shortness of breath. She is currently being treated for a wound on her right leg .she has a wound VAC there and it appears intact without redness or warmth. She is afebrile. EKG was obtained which shows no acute ischemic changes or significant arrhythmia. IV access was established. She was given IV hydration as well as Zofran 4 mg IV for nausea and morphine 2 mg IV for pain management. Multiple blood testing was obtained.. She was reassessed frequently. She seemed to have worsening pain when I rechecked her was given additional morphine 4 mg IV. Blood work shows a mildly elevated white count and there are no other abnormalities seen. She has no acute electrolyte or metabolic abnormalities. She's had nothing suggest liver or pancreas disease. Urinalysis was unremarkable. I did a CAT scan stone study and there is no abnormalities. She was given additional IV morphine. Given her ongoing symptoms, I did also did a CTA of her chest and abdomen to rule out any vascular and other pathology. This was unremarkable for any acute problem. She was given a GI cocktail which may have helped a little bit. At this point this may more of a gastritis or peptic ulcer disease but given her ongoing symptoms, I do think she needs to be admitted for further treatment and evaluation. I did a second EKG and that shows no changes compared to the first. I do think she needs to be admitted/observed for further treatment and evaluation and I have consulted the [facility] hospitalist see her in the ER. Medication Reconcilliation Current Medication List: was personally reviewed by me Blood Pressure Screening Patient's blood pressure: Elevated blood pressure Monitored by the hospitalist Consults Time Called: 1705 Consulting Physician: Dr. Harley Returned Call: 1710 Discussed the patient's case with Dr. Harley. The patient will be evaluated for further management. Impression Primary Impression: Epigastric abdominal pain Additional Impression: Vomiting Scribe Attestation The scribe's documentation has been prepared under my direction and personally reviewed by me in its entirety. I confirm that the note above accurately reflects all work, treatment, procedures, and medical decision making performed by me. Departure Information Dispostion Being Evaluated By Hospitalist Referrals Tina Fletcher C.R.N.P (PCP) Patient Instructions My [facility] Problem Qualifiers
[2017-10-24 14:11] LABS: BASO % 0.2 %; BASO ABS # 0.03 K/uL (0-0.2); EOS % 1.2 %; EOS ABS # 0.14 K/uL (0-0.5); IG# 0.03 K/uL (0.00-0.02); LYMPH ABS # 1.45 K/uL (1.2-3.4); MEAN CELL VOLUME 88.3 fL (80-100); MEAN CORPUSCULAR HEMOGLOBIN 30.8 pg (25-34); MEAN CORPUSCULAR HGB CONC 34.9 g/dl (32-36); MEAN PLATELET VOLUME 10.9 fL (7.4-10.4); MONO % 4.2 %; MONO ABS # 0.51 K/uL (0.11-0.59); NEUT % 82.2 %; NEUT ABS # 9.94 K/uL (1.4-6.5); PLATELET COUNT 231 K/uL (130-400); RED CELL DISTRIBUTION WIDTH CV 13.1 % (11.5-14.5)
[2017-10-24] MEDS ORDERED: MoRPHine SULFATE 2 MG/ML CARP IV STA ×2 (14:14→17:08)
[2017-10-24 14:22] LABS: INR 0.9 (0.9-1.1); PTT PATIENT 23.6 SECONDS (21.0-31.0)
[2017-10-24 14:46] LABS: CALCIUM 9.9 mg/dl (8.5-10.1); CREATININE 0.81 mg/dl (0.60-1.20); TOTAL PROTEIN 8.1 gm/dl (6.4-8.2)
[2017-10-24 14:48] LABS: POTASSIUM 4.1 mmol/L (3.5-5.1)
[2017-10-24] MEDS ORDERED: MoRPHine SULFATE 4 MG/ML 1 ML CARP\\VIAL IV STA ×3 (15:00→21:21)
[2017-10-24] MEDS ORDERED: OPTIRAY 320 IV PRN ×2 (15:15→16:30)
--- NOTE | 2017-10-24 16:04 | DIAGNOSTIC IMAGING REPORT ---
ABD/PELVIS WITHOUT FOR STONE HISTORY: 62 years-old Female eval for stone acute right-sided flank pain with concern for kidney stone. COMPARISON: None available TECHNIQUE: Multiple axial CT images of the abdomen and pelvis were obtained without contrast. A dose lowering technique was used consistent with the principals of CANDI. FINDINGS: Minimal subsegmental bibasilar atelectasis. Calcified granuloma of the inferior segment lingula is noted which is subcentimeter. No pneumatosis or pneumoperitoneum. The imaged inferior cardiac chambers are unremarkable. Patient obesity is noted with portions of the anatomy outside the [id number]. Hepatic steatosis. No intrahepatic biliary ductal dilation. Prior cholecystectomy. Spleen is enlarged, 13.6 cm. Pancreas and adrenal glands are within normal limits. Kidneys, ureters and urinary bladder are within normal limits. No renal calculi or obstructive uropathy. Phleboliths are seen within the pelvis. Prior hysterectomy. Aorta is normal in course and caliber. No bulky adenopathy. Small sliding-type hiatal hernia. No bowel obstruction or focal bowel wall thickening. Mild colonic diverticulosis without diverticulitis. Appendix appears normal. Soft tissues are within normal limits. Nonspecific mildly enlarged right inguinal lymph nodes measure up to 12 mm, likely reactive. The bones appear intact. Severe facet arthrosis at L5-S1 with grade 1 anterolisthesis L5 on S1. IMPRESSION: 1. No acute intra-abdominal or intrapelvic abnormality identified, specifically no renal calculi or obstructive uropathy. Normal appendix. 2. Mild colonic diverticulosis without diverticulitis. 3. Hepatic steatosis. 4. Mild splenomegaly. 5. Prior cholecystectomy. The above report was generated using voice recognition software. It may contain grammatical, syntax or spelling errors. Electronically signed by: Jose Oquendo M.D. 10/24/2017 4:02 PM Dictated Date/Time: 10/24/2017 3:57 PM
--- NOTE | 2017-10-24 16:57 | DIAGNOSTIC IMAGING REPORT ---
ANGIO ABD/PELVIS WITH CONTRAST, CHEST COMBO ANGIO DISSECTION CLINICAL HISTORY: 62 years-old Female presents with acute worsening back pain and shortness of breath COMPARISON STUDY: CT abdomen and pelvis of same day TECHNIQUE: Following the IV administration of 119 cc of Optiray 320, CT angiogram of the chest, abdomen and pelvis was performed from the lung bases the proximal femora. Noncontrast images of the chest were also obtained. Images are reviewed in the axial, sagittal, and coronal planes. 3-D MIPS images are created and assessed. IV contrast was administered without complication. A dose lowering technique was utilized adhering to the principles of ALARA. CT DOSE: 2517.92 mGy.cm FINDINGS: CTA: No intramural hematoma identified on the noncontrast scan. Heart is mildly enlarged without pericardial effusion. No thoracic aortic aneurysm or dissection. Imaged proximal great vessels are patent. No significant atherosclerosis of the thoracic aorta. The opacified pulmonary arterial tree is unremarkable without focal filling defects identified to suggest pulmonary thromboembolic disease. The abdominal aorta is normal in course and caliber as well without evidence of aneurysm, dissection or significant atherosclerotic plaquing. The iliac arteries, common femoral and image superficial femoral arteries are patent and within normal limits. The celiac trunk, superior and inferior mesenteric arteries are widely patent. The bilateral renal arteries are also widely patent. There is a small accessory left renal artery noted. No evidence of vasculitis. No high-grade stenosis or proximal branch occlusion. CT CHEST: Nodular thyroid with calcifications of the inferior left thyroid lobe measuring up to 3 mm. Nonspecific mildly prominent precarinal lymph node measures 1.3 x 0.9 cm. Mildly enlarged subcarinal lymph node measures 2.0 x 1.4 cm. Mildly prominent right paratracheal lymph nodes measure up to 8 mm. There is no pneumothorax or pleural effusion. Patchy bibasilar groundglass opacities are noted suggesting atelectasis. Indeterminate 4 mm solid noncalcified pulmonary nodule of the left lower lobe as seen on image 100 series 6. No focal airspace consolidation to suggest pneumonia. Central airways are patent. CT ABDOMEN: Hepatic steatosis. No intrahepatic biliary ductal dilation. Prior cholecystectomy. Spleen is enlarged, 13.6 cm. Pancreas and adrenal glands are within normal limits. Kidneys, ureters and urinary bladder are within normal limits. No renal calculi or obstructive uropathy. Phleboliths are seen within the pelvis. Prior hysterectomy. No bulky adenopathy. Small sliding-type hiatal hernia. No bowel obstruction or focal bowel wall thickening. Mild colonic diverticulosis without diverticulitis. Appendix appears normal. Soft tissues are within normal limits. Nonspecific mildly enlarged right inguinal lymph nodes measure up to 12 mm, likely reactive. The bones appear intact. Severe facet arthrosis at L5-S1 with grade 1 anterolisthesis L5 on S1. Mildly prominent varices of the anteromedial upper right thigh superficial subcutaneous tissues. IMPRESSION: 1. No acute intrathoracic, intra-abdominal or intrapelvic abnormality identified. 2. No aortic dissection, aneurysm or significant atherosclerotic plaquing. No high-grade stenosis or proximal branch occlusion. 3. Mild indeterminate mediastinal adenopathy as above may be reactive. 4. Hepatic steatosis. 5. 4 mm solid pulmonary nodule of the left lower lobe. 6. Mild colonic diverticulosis without diverticulitis. Please refer to below summary of Fleischner criteria recommendations for follow-up of incidental CT nodules (Razia Eldridge, Guidelines for management of small pulmonary nodules detected on CT scans: A statement from the Fleischner Society, Radiology 237: [phone].) SOLID NODULES Solitary nodule size: <6 mm * Low risk patients: no follow-up needed * high risk patients: optional CT at 12 months Note: newly detected indeterminate nodule in persons 35 years of age or older. * Low risk patients: minimal or absent history of smoking and/or other known risk factors * high risk patients: history of smoking or of other known risk factors (e.g. first degree relative with lung cancer, or exposure to asbestos, radon, uranium) * if a nodule up to 8 mm is partly solid or is ground glass further follow-up is required after 24 months to exclude possible slow growing adenocarcinoma (RANDELL) The above report was generated using voice recognition software. It may contain grammatical, syntax or spelling errors. Electronically signed by: Jose Oquendo M.D. 10/24/2017 4:56 PM Dictated Date/Time: 10/24/2017 4:44 PM
[2017-10-24] MEDS ORDERED: ALUMINUM/MAGNESIUM SUSP 30 ML UDC PO STA (17:08)
[2017-10-24] MEDS ORDERED: LIDOCAINE HCL 2% VISC SOLN 20 ML UDC MT STA (17:08)
--- NOTE | 2017-10-24 18:33 | History and Physical ---
History & Physical Date & Time of Service: Oct 24, 2017 at 18:33 Chief Complaint: R Side Back Pain Primary Care Physician: Tina Fletcher C.R.N.P History of Present Illness Source: patient 62 yo female comes in to the ER with sudden onset of severe nonradiating epigastric and RUQ pain. Patient is unable to describe the pain, she states it is not dull, sharp, pressure like, buringing, achy, colicky. She states it is just pain. She states that it worsens with movement and cannot find a pain free position. She additionally notes that she vomited a few times this morning and chills last night. She denies any headache, diarrhea, fever, chest pain, and shortness of breath. The patient additionally reports that she has a wound on her right leg, with a wound vac. She states that she was put on amoxicillin and nausea medications. The patient has a history of a cholecystectomy, , hysterectomy, and hypertension, and she denies nay diabetes. She does not take any medications. Past Medical/Surgical History Pmhx: htn, cholecystectomy, hysterectomy, recent admission for wound on right lower leg Family History Patient reports no known family medical history. Social History Smoking Status: Never Smoker Drug Use: none Marital Status: Housing status: lives with significant other Occupational Status: employed Immunizations History of Influenza Vaccine: No History of Tetanus Vaccine?: No History of Pneumococcal: No History of Hepatitis B Vaccine: No Multi-Drug Resistant Organisms History of MDRO: No Allergies Coded Allergies: Sulfa Antibiotics (Verified Allergy, Severe, UNKNOWN, 10/24/17) Aspirin (Verified Allergy, Intermediate, PETECHIAE, 10/24/17) PETECHIAE Penicillins (Verified Allergy, Mild, RASH-HAD KEFZOL W/O PROBLEM, 10/24/17) RASH-HAD KEFZOL W/O PROBLEM Home Medications Scheduled Amoxicillin (Amoxil), 500 MG PO TID Amphetamine-Dextroamphetamine 10MG (Adderall 10MG), 10 MG PO DAILY Estrogens, Conjugated (Premarin), 0.625 MG PO DAILY Lisinopril (Lisinopril), 10 MG PO DAILY Nadolol (Corgard), 10 MG PO HS Scheduled PRN Ondansetron Hcl (Zofran), 4 MG PO QID PRN for Nausea or Vomiting Review of Systems Constitutional: No fever, No chills Eyes: No worsening of vision, No eye pain ENT: No hearing loss Respiratory: No cough, No sputum Cardiovascular: No chest pain, No orthopnea Abdomen: + pain, + nausea, + vomiting Musculoskeletal: No joint pain Neurologic: No memory loss, No paralysis Psychiatric: No depression symptoms Endocrine: No fatigue Hematologic / Lymphatic: No abnormal bleeding/bruising Integumentary: No rash Allergic / Immunologic: No environmental allergies Physical Exam Vital Signs Date Time Temp Pulse Resp B/P (MAP) Pulse Ox O2 Delivery O2 Flow Rate FiO2 10/24/17 17:38 75 16 184/98 100 Room Air 10/24/17 15:01 55 16 214/155 96 Room Air 10/24/17 12:50 36.7 70 22 184/68 99 Room Air General Appearance: WD/WN, no apparent distress Head: normocephalic Neck: supple, no adenopathy Respiratory/Chest: chest non-tender, lungs clear, normal breath sounds Cardiovascular: regular rate, rhythm, no edema Abdomen/GI: soft, no organomegaly, + tenderness (to deep palpation on RUQ/ epigastric region/ no rebound tenderness.) Back: normal inspection Extremities/Musculoskelatal: normal inspection (except for right wound with wound vac) Skin: normal color Lymphatic: no adenopathy Diagnostics Laboratory Results Results Past 24 Hours Test 10/24/17 13:41 10/24/17 14:33 10/24/17 15:15 Range/Units White Blood Count 12.10 4.8-10.8 K/uL Red Blood Count 4.87 4.2-5.4 M/uL Hemoglobin 15.0 12.0-16.0 g/dL Hematocrit 43.0 37-47 % Mean Corpuscular Volume 88.3 80-100 fL Mean Corpuscular Hemoglobin 30.8 25-34 pg Mean Corpuscular Hemoglobin Concent 34.9 32-36 g/dl Platelet Count 231 130-400 K/uL Mean Platelet Volume 10.9 7.4-10.4 fL Neutrophils (%) (Auto) 82.2 % Lymphocytes (%) (Auto) 12.0 % Monocytes (%) (Auto) 4.2 % Eosinophils (%) (Auto) 1.2 % Basophils (%) (Auto) 0.2 % Neutrophils # (Auto) 9.94 1.4-6.5 K/uL Lymphocytes # (Auto) 1.45 1.2-3.4 K/uL Monocytes # (Auto) 0.51 0.11-0.59 K/uL Eosinophils # (Auto) 0.14 0-0.5 K/uL Basophils # (Auto) 0.03 0-0.2 K/uL RDW Standard Deviation 42.0 36.4-46.3 fL RDW Coefficient of Variation 13.1 11.5-14.5 % Immature Granulocyte % (Auto) 0.2 % Immature Granulocyte # (Auto) 0.03 0.00-0.02 K/uL Prothrombin Time 9.9 9.0-12.0 SECONDS Prothromb Time International Ratio 0.9 0.9-1.1 Activated Partial Thromboplast Time 23.6 21.0-31.0 SECONDS Partial Thromboplastin Ratio 0.9 Sodium Level 137 136-145 mmol/L Potassium Level 4.1 3.5-5.1 mmol/L Chloride Level 102 98-107 mmol/L Carbon Dioxide Level 28 21-32 mmol/L Anion Gap 7.0 3-11 mmol/L Blood Urea Nitrogen 14 7-18 mg/dl Creatinine 0.81 0.60-1.20 mg/dl Est Creatinine Clear Calc Drug Dose 86.9 ml/min Estimated GFR () 90.9 Estimated GFR (Non- 78.4 BUN/Creatinine Ratio 17.2 10-20 Random Glucose 97 70-99 mg/dl Calcium Level 9.9 8.5-10.1 mg/dl Total Bilirubin 1.0 0.2-1 mg/dl Direct Bilirubin 0.2 0-0.2 mg/dl Aspartate Amino Transf (AST/SGOT) 30 15-37 U/L Alanine Aminotransferase (ALT/SGPT) 37 12-78 U/L Alkaline Phosphatase 93 45-117 U/L Total Protein 8.1 6.4-8.2 gm/dl Albumin 4.0 3.4-5.0 gm/dl Lipase 118 73-393 U/L Bedside Troponin I < 0.030 0-0.045 ng/ml Urine Color YELLOW Urine Appearance CLEAR CLEAR Urine pH >= 9.0 4.5-7.5 Urine Specific Jansen 1.022 1.000-1.030 Urine Protein NEG NEG Urine Glucose (UA) NEG NEG Urine Ketones 1+ NEG Urine Occult Blood NEG NEG Urine Nitrite NEG NEG Urine Bilirubin NEG NEG Urine Urobilinogen NEG NEG Urine Leukocyte Esterase NEG NEG Microbiology Results 10/24/17 Blood Culture, Received Pending 10/24/17 Blood Culture, Received Pending 10/24/17 Urine Culture, Received Pending Diagnostic Radiology KUB CLINICAL HISTORY: Abdominal pain. COMPARISON STUDY: CT angiography of the abdomen and pelvis October 24, 2017. FINDINGS: Contrast within the bladder is from recent contrast-enhanced CT. There is a pelvic surgical clip. There are cholecystectomy clips. The bowel gas pattern is normal. IMPRESSION: No evidence for a bowel obstruction. ANGIO ABD/PELVIS WITH CONTRAST, CHEST COMBO ANGIO DISSECTION CLINICAL HISTORY: 62 years-old Female presents with acute worsening back pain and shortness of breath COMPARISON STUDY: CT abdomen and pelvis of same day TECHNIQUE: Following the IV administration of 119 cc of Optiray 320, CT angiogram of the chest, abdomen and pelvis was performed from the lung bases the proximal femora. Noncontrast images of the chest were also obtained. Images are reviewed in the axial, sagittal, and coronal planes. 3-D MIPS images are created and assessed. IV contrast was administered without complication. A dose lowering technique was utilized adhering to the principles of ALARA. CT DOSE: 2517.92 mGy.cm FINDINGS: CTA: No intramural hematoma identified on the noncontrast scan. Heart is mildly enlarged without pericardial effusion. No thoracic aortic aneurysm or dissection. Imaged proximal great vessels are patent. No significant atherosclerosis of the thoracic aorta. The opacified pulmonary arterial tree is unremarkable without focal filling defects identified to suggest pulmonary thromboembolic disease. The abdominal aorta is normal in course and caliber as well without evidence of aneurysm, dissection or significant atherosclerotic plaquing. The iliac arteries, common femoral and image superficial femoral arteries are patent and within normal limits. The celiac trunk, superior and inferior mesenteric arteries are widely patent. The bilateral renal arteries are also widely patent. There is a small accessory left renal artery noted. No evidence of vasculitis. No high-grade stenosis or proximal branch occlusion. CT CHEST: Nodular thyroid with calcifications of the inferior left thyroid lobe measuring up to 3 mm. Nonspecific mildly prominent precarinal lymph node measures 1.3 x 0.9 cm. Mildly enlarged subcarinal lymph node measures 2.0 x 1.4 cm. Mildly prominent right paratracheal lymph nodes measure up to 8 mm. There is no pneumothorax or pleural effusion. Patchy bibasilar groundglass opacities are noted suggesting atelectasis. Indeterminate 4 mm solid noncalcified pulmonary nodule of the left lower lobe as seen on image 100 series 6. No focal airspace consolidation to suggest pneumonia. Central airways are patent. CT ABDOMEN: Hepatic steatosis. No intrahepatic biliary ductal dilation. Prior cholecystectomy. Spleen is enlarged, 13.6 cm. Pancreas and adrenal glands are within normal limits. Kidneys, ureters and urinary bladder are within normal limits. No renal calculi or obstructive uropathy. Phleboliths are seen within the pelvis. Prior hysterectomy. No bulky adenopathy. Small sliding-type hiatal hernia. No bowel obstruction or focal bowel wall thickening. Mild colonic diverticulosis without diverticulitis. Appendix appears normal. Soft tissues are within normal limits. Nonspecific mildly enlarged right inguinal lymph nodes measure up to 12 mm, likely reactive. The bones appear intact. Severe facet arthrosis at L5-S1 with grade 1 anterolisthesis L5 on S1. Mildly prominent varices of the anteromedial upper right thigh superficial subcutaneous tissues. IMPRESSION: 1. No acute intrathoracic, intra-abdominal or intrapelvic abnormality identified. 2. No aortic dissection, aneurysm or significant atherosclerotic plaquing. No high-grade stenosis or proximal branch occlusion. 3. Mild indeterminate mediastinal adenopathy as above may be reactive. 4. Hepatic steatosis. 5. 4 mm solid pulmonary nodule of the left lower lobe. 6. Mild colonic diverticulosis without diverticulitis. Please refer to below summary of Fleischner criteria recommendations for follow-up of incidental CT nodules (Razia Eldridge, Guidelines for management of small pulmonary nodules detected on CT scans: A statement from the Fleischner Society, Radiology 237: [phone].) SOLID NODULES Solitary nodule size: <6 mm * Low risk patients: no follow-up needed * high risk patients: optional CT at 12 months Note: newly detected indeterminate nodule in persons 35 years of age or older. * Low risk patients: minimal or absent history of smoking and/or other known risk factors * high risk patients: history of smoking or of other known risk factors (e.g. first degree relative with lung cancer, or exposure to asbestos, radon, uranium) * if a nodule up to 8 mm is partly solid or is ground glass further follow-up is required after 24 months to exclude possible slow growing adenocarcinoma (RANDELL) ABD/PELVIS WITHOUT FOR STONE HISTORY: 62 years-old Female eval for stone acute right-sided flank pain with concern for kidney stone. COMPARISON: None available TECHNIQUE: Multiple axial CT images of the abdomen and pelvis were obtained without contrast. A dose lowering technique was used consistent with the principals of CANDI. FINDINGS: Minimal subsegmental bibasilar atelectasis. Calcified granuloma of the inferior segment lingula is noted which is subcentimeter. No pneumatosis or pneumoperitoneum. The imaged inferior cardiac chambers are unremarkable. Patient obesity is noted with portions of the anatomy outside the [id number]. Hepatic steatosis. No intrahepatic biliary ductal dilation. Prior cholecystectomy. Spleen is enlarged, 13.6 cm. Pancreas and adrenal glands are within normal limits. Kidneys, ureters and urinary bladder are within normal limits. No renal calculi or obstructive uropathy. Phleboliths are seen within the pelvis. Prior hysterectomy. Aorta is normal in course and caliber. No bulky adenopathy. Small sliding-type hiatal hernia. No bowel obstruction or focal bowel wall thickening. Mild colonic diverticulosis without diverticulitis. Appendix appears normal. Soft tissues are within normal limits. Nonspecific mildly enlarged right inguinal lymph nodes measure up to 12 mm, likely reactive. The bones appear intact. Severe facet arthrosis at L5-S1 with grade 1 anterolisthesis L5 on S1. IMPRESSION: 1. No acute intra-abdominal or intrapelvic abnormality identified, specifically no renal calculi or obstructive uropathy. Normal appendix. 2. Mild colonic diverticulosis without diverticulitis. 3. Hepatic steatosis. 4. Mild splenomegaly. 5. Prior cholecystectomy. EKG Sinus rhythm with marked sinus arrhythmia with 1st degree A-V block Otherwise normal ECG When compared with ECG of 21- Impression Assessment and Plan RUQ abd. pain, N/V in a 62 yo female with BMI over 45 and negaytive imaging and h/o cholescytectomy Admit to Med surg Unsure as to cause of pain. Will obtain a UDS, med rec shown adderral, but nothing noted on PDMP. will consult GI for possible endoscopy tomorrow. Will initate pepcid IV for possible gastritis. Labs are normal including lactic acid. Unsure what the cause of the pain is. Troponin was ordered in the evening and she was negative, will monitor in the evening and will hold pain meds as to moniotr her pain. In case this evolves into an acute abdomen. right leg wound place wound care consult ordered new wound vac as her vac was not working. Level of Care Med/Surg Advanced Directives Existing Advance Directive: No Existing Living Will: No Existing Power of Collar Pointer: No Existing Health Care Proxy: No Resuscitation Status FULL RESUSCITATION VTE Prophylaxis VTE Risk Assessment Done? Y/N: Yes Risk Level: Low Given or contraindicated: SCD's Social Service Consult None Apply
[2017-10-24] MEDS ORDERED: HydrALAZINE HCL 20 MG/ML VIAL IV. STA (18:44)
[2017-10-24] MEDS ORDERED: FAMOTIDINE IV INJ 20 MG in DEXTROSE 5% 100ML 100 ML IV SCH (19:00)
[2017-10-24] MEDS ORDERED: AMLODIPINE BESYLATE 5 MG TAB PO ONE (19:15)
[2017-10-24 20:50] VITALS: BP 148/89; PULSE 93; TEMP 36.4; O2SAT 100; BMI 45.8
[2017-10-24] MEDS: FAMOTIDINE IV INJ 20 MG in SYRINGE 3 ML IV SCH (21:00)
[2017-10-24] MEDS ORDERED: INFLUENZA ADMINISTRATION CHARGE ONE (21:00)
[2017-10-24] MEDS ORDERED: INFLUENZA VIRUS QUAD VACCINE 0.5 ML SYR IM. ONE (21:00)
[2017-10-24] MEDS ORDERED: PNEUMOCOCCAL POLYSACCHARIDES 25 MCG/0.5 ML VIAL/SYR IM. ONE (21:00)
[2017-10-24] MEDS ORDERED: PNEUMOCOCCAL ADMINISTRATION CHARGE ONE (21:00)
[2017-10-24 21:05] LABS: BLOOD UREA NITROGEN 12 mg/dl (7-18); CALCIUM 9.4 mg/dl (8.5-10.1); CARBON DIOXIDE 24 mmol/L (21-32); CREATININE 0.71 mg/dl (0.60-1.20); GLUCOSE 140 mg/dl (70-99); POTASSIUM 3.8 mmol/L (3.5-5.1); SODIUM 136 mmol/L (136-145)
[2017-10-24] MEDS: ONDANSETRON INJ 2 MG/ML 2 ML VIAL IV PRN (21:35)
[2017-10-24 23:56] VITALS: BP 179/82; PULSE 79; TEMP 36.5; O2SAT 99
[2017-10-25] VITALS (9 sets, daily range): BP systolic 147–174; BP diastolic 74–94; PULSE 53–73; TEMP 36.5–36.8; O2SAT 90–100; Ht 157.5 cm; Wt 111.1 kg
[2017-10-25] MEDS: ONDANSETRON INJ 2 MG/ML 2 ML VIAL IV PRN ×5 (01:21→23:30)
[2017-10-25] MEDS ORDERED: GI COCKTAIL PO ONE (01:30)
[2017-10-25] MEDS ORDERED: MoRPHine SULFATE 4 MG/ML 1 ML CARP\\VIAL IV PRN ×2 (01:30)
[2017-10-25] MEDS ORDERED: MoRPHine SULFATE 2 MG/ML CARP IV PRN ×3 (01:30→04:45)
[2017-10-25] MEDS ORDERED: ALUMINUM/MAGNESIUM SUSP 18 ML, LIDOCAINE HCL 2% VISCOUS SOLN 6 ML, BARCODE IDENTIFIER 1 EA PO ONE ×2 (01:45)
--- NOTE | 2017-10-25 05:15 | Progress Note ---
Progress Note Date of Service Oct 25, 2017. Progress Note Estella noted on monitor along with recurrent 10/10 epigastric pain morphine regimen ordered, EKG, KUB to assess for ileus, CMP, lipase, lactate, mg and tsh - replete electrolytes prn
[2017-10-25 05:16] LABS: ALBUMIN 3.3 gm/dl (3.4-5.0); CALCIUM 8.7 mg/dl (8.5-10.1); CREATININE 0.69 mg/dl (0.60-1.20); POTASSIUM 3.8 mmol/L (3.5-5.1)
[2017-10-25 05:21] LABS: TOTAL PROTEIN 7.3 gm/dl (6.4-8.2)
--- NOTE | 2017-10-25 07:07 | DIAGNOSTIC IMAGING REPORT ---
KUB CLINICAL HISTORY: Abdominal pain. COMPARISON STUDY: CT angiography of the abdomen and pelvis October 24, 2017. FINDINGS: Contrast within the bladder is from recent contrast-enhanced CT. There is a pelvic surgical clip. There are cholecystectomy clips. The bowel gas pattern is normal. IMPRESSION: No evidence for a bowel obstruction. Electronically signed by: Casey Polk M.D. 10/25/2017 7:06 AM Dictated Date/Time: 10/25/2017 7:05 AM
[2017-10-25] MEDS: MoRPHine SULFATE 4 MG/ML 1 ML CARP\\VIAL IV PRN ×3 (07:21→16:02)
[2017-10-25] MEDS: FAMOTIDINE IV INJ 20 MG in SYRINGE 3 ML IV SCH ×2 (10:05→20:51)
--- NOTE | 2017-10-25 10:36 | Gastrointestinal Consultation ---
Gastrointestinal Consultation Date of Consultation: Oct 25, 2017 Attending Physician: Cherri Consulting Physician: Matthew Reason for Consultation: abd pain History of Present Illness Patient is a 62 year old female w/ history of cholecystectomy for gallstones, HTN who presented through the ED for evacuation of abrupt onset epigastric pain w/ radiation to her RUQ into her back. Pain is sharp, stabbing, and colicky. She notes certain positions aggravate the pain. She notes some increase in her chronic nausea (related to long course of ABX for abscess) and one episode of emesis (bile). Vomiting did not change her pain. Also had a period of loose stools, 4 semi-formed brown stools Wednesday. No black or bloody stools. She tells me her pain is identical to pain related to her GB attack. NSAIDs: ASA daily ABX: amoxicillin ETOH: none Marijuana: none CT ABD/Pelvis: No acute intra-abdominal or intrapelvic abnormality identified, specifically no renal calculi or obstructive uropathy. Normal appendix. Mild colonic diverticulosis without diverticulitis. Hepatic steatosis. Mild splenomegaly.Prior cholecystectomy. Past Medical/Surgical History Medical Problems: (1) Cellulitis of right lower extremity Status: Acute (2) Epigastric abdominal pain Status: Acute (3) Multiple abscesses of both legs Status: Acute (4) Vomiting Status: Acute Past Medical History: HTN, fall, hematoma to leg, abscess Past Surgical History: cholecystectomy, hysterectomy, Family History Patient reports no known family medical history. Social History Smoking Status: Never Smoker Alcohol Use: none Drug Use: none Marital Status: Housing Status: lives with family Occupation Status: employed Allergies Coded Allergies: Sulfa Antibiotics (Verified Allergy, Severe, UNKNOWN, 10/24/17) Aspirin (Verified Allergy, Intermediate, PETECHIAE, 10/24/17) PETECHIAE Penicillins (Verified Allergy, Mild, RASH-HAD KEFZOL W/O PROBLEM, 10/24/17) RASH-HAD KEFZOL W/O PROBLEM Current Medications Home Meds and Scripts Medications Dose Route/Sig Max Daily Dose Days Date Category Adderall 10MG (Amphetamine-Dextroamphetamine 10MG) 1 Tab Tab 10 Mg PO DAILY 10/24/17 Reported Zofran (Ondansetron Hcl) 4 Mg Tab 4 Mg PO QID PRN 10/24/17 Reported Premarin (Estrogens Conjugated) 0.625 Mg Tab 0.625 Mg PO DAILY 10/24/17 Reported Amoxil (Amoxicillin) 500 Mg Cap 500 Mg PO TID 10/20/17 Reported Lisinopril 10 Mg Tab 10 Mg PO DAILY 10/08/17 Reported Corgard (Nadolol) 20 Mg Tab 10 Mg PO HS 06/26/12 Reported Review of Systems Constitutional: No fever, No chills Respiratory: No cough, No shortness of breath Cardiac: No chest pain Abdomen: + pain, + nausea, + vomiting, No diarrhea, No constipation, No GI bleeding Physical Exam Date Time Temp Pulse Resp B/P (MAP) Pulse Ox O2 Delivery O2 Flow Rate FiO2 10/25/17 07:32 Room Air 10/25/17 07:17 36.8 53 20 153/77 (102) 100 Room Air 10/25/17 04:20 Room Air 10/25/17 04:00 36.5 73 20 150/82 (104) 95 Room Air 10/25/17 01:56 164/84 (110) 10/25/17 00:00 Room Air 10/24/17 23:56 36.5 79 20 179/82 (114) 99 Room Air 10/24/17 20:50 36.4 93 20 148/89 100 Room Air 10/24/17 19:44 75 16 184/98 100 10/24/17 17:38 75 16 184/98 100 Room Air 10/24/17 15:01 55 16 214/155 96 Room Air 10/24/17 12:50 36.7 70 22 184/68 99 Room Air General Appearance: no apparent distress Eyes: PERRL ENT: hearing grossly normal Neck: supple Respiratory/Chest: lungs clear, normal breath sounds Cardiovascular: regular rate, rhythm Abdomen: normal bowel sounds, soft, no organomegaly, no pulsatile mass, + tenderness Neurologic/Psych: alert, normal mood/affect, oriented x 3 Skin: normal color Laboratory Results Last 24 Hours Test 10/24/17 13:41 10/24/17 14:33 10/24/17 15:15 10/24/17 20:38 White Blood Count 12.10 K/uL Red Blood Count 4.87 M/uL Hemoglobin 15.0 g/dL Hematocrit 43.0 % Mean Corpuscular Volume 88.3 fL Mean Corpuscular Hemoglobin 30.8 pg Mean Corpuscular Hemoglobin Concent 34.9 g/dl Platelet Count 231 K/uL Mean Platelet Volume 10.9 fL Neutrophils (%) (Auto) 82.2 % Lymphocytes (%) (Auto) 12.0 % Monocytes (%) (Auto) 4.2 % Eosinophils (%) (Auto) 1.2 % Basophils (%) (Auto) 0.2 % Neutrophils # (Auto) 9.94 K/uL Lymphocytes # (Auto) 1.45 K/uL Monocytes # (Auto) 0.51 K/uL Eosinophils # (Auto) 0.14 K/uL Basophils # (Auto) 0.03 K/uL RDW Standard Deviation 42.0 fL RDW Coefficient of Variation 13.1 % Immature Granulocyte % (Auto) 0.2 % Immature Granulocyte # (Auto) 0.03 K/uL Prothrombin Time 9.9 SECONDS Prothromb Time International Ratio 0.9 Activated Partial Thromboplast Time 23.6 SECONDS Partial Thromboplastin Ratio 0.9 Sodium Level 137 mmol/L 136 mmol/L Potassium Level 4.1 mmol/L 3.8 mmol/L Chloride Level 102 mmol/L 102 mmol/L Carbon Dioxide Level 28 mmol/L 24 mmol/L Anion Gap 7.0 mmol/L 10.0 mmol/L Blood Urea Nitrogen 14 mg/dl 12 mg/dl Creatinine 0.81 mg/dl 0.71 mg/dl Est Creatinine Clear Calc Drug Dose 86.9 ml/min 99.2 ml/min Estimated GFR () 90.9 106.5 Estimated GFR (Non- 78.4 91.9 BUN/Creatinine Ratio 17.2 16.2 Random Glucose 97 mg/dl 140 mg/dl Calcium Level 9.9 mg/dl 9.4 mg/dl Total Bilirubin 1.0 mg/dl Direct Bilirubin 0.2 mg/dl Aspartate Amino Transf (AST/SGOT) 30 U/L Alanine Aminotransferase (ALT/SGPT) 37 U/L Alkaline Phosphatase 93 U/L Total Protein 8.1 gm/dl Albumin 4.0 gm/dl Lipase 118 U/L Bedside Troponin I < 0.030 ng/ml Urine Color YELLOW Urine Appearance CLEAR Urine pH >= 9.0 Urine Specific [place] 1.022 Urine Protein NEG Urine Glucose (UA) NEG Urine Ketones 1+ Urine Occult Blood NEG Urine Nitrite NEG Urine Bilirubin NEG Urine Urobilinogen NEG Urine Leukocyte Esterase NEG Urine Opiates Screen POS Urine Methadone, Qualitative NEG Urine Barbiturates NEG Urine Phencyclidine (PCP) Level NEG Ur Amphetamine/Methamphetamine NEG MDMA (Ecstasy) Screen NEG Urine Benzodiazepines Screen NEG Urine Cocaine Metabolite NEG Urine Marijuana (THC) NEG Lactic Acid Level 1.7 mmol/L Troponin I < 0.015 ng/ml Test 10/25/17 04:32 10/25/17 06:38 10/25/17 09:41 Sodium Level 136 mmol/L Potassium Level 3.8 mmol/L Chloride Level 102 mmol/L Carbon Dioxide Level 26 mmol/L Anion Gap 8.0 mmol/L Blood Urea Nitrogen 13 mg/dl Creatinine 0.69 mg/dl Est Creatinine Clear Calc Drug Dose 102.1 ml/min Estimated GFR () 108.9 Estimated GFR (Non- 94.0 BUN/Creatinine Ratio 18.2 Random Glucose 126 mg/dl Calcium Level 8.7 mg/dl Magnesium Level 1.7 mg/dl Total Bilirubin 1.1 mg/dl Aspartate Amino Transf (AST/SGOT) 26 U/L Alanine Aminotransferase (ALT/SGPT) 30 U/L Alkaline Phosphatase 80 U/L Total Protein 7.3 gm/dl Albumin 3.3 gm/dl Globulin 4.0 gm/dl Albumin/Globulin Ratio 0.8 Lipase 161 U/L Thyroid Stimulating Hormone (TSH) 2.820 uIu/ml Lactic Acid Level 0.8 mmol/L Direct Bilirubin 0.2 mg/dl Impression Patient is a 62 year old female w/ history of cholecysectomy for gallstones, on current ABX for lower extremity abscess w/ nausea x 1 month w/ abrupt onset of epigastric pain w/ radiation to RUQ and her back w/ increased nausea and one bout of emesis. Pain persist. VSS. LFTs and lipase WNL, WBC 12. PUD vs gastritis vs viral gastroenteritis vs CBD stone vs other Unfortunately, pt had clear liquids this AM for breakfast, will plan for EGD tomorrow for evaluation. Plan - PPI BID - Anti-emetics prn - Lipase tomorrow - LFTs tomorrow - NPO after midnight for EGD 10/26/17 Please call with any questions, concerns or acute changes I saw and evaluated the patient. I agree with the plan as stated by . She presents with a history of postprandial epigastric discomfort over several days. It appears that her liver enzymes imaging are negative to date. Physical examination Moderately obese, no scleral icterus Impression: Patient presenting with abdominal discomfort with normal liver enzymes and negative imaging. We can further evaluate with upper endoscopy. I would also suggest an MRCP to look at the patient's biliary tree.
[2017-10-25] MEDS: SODIUM CHLORIDE 0.9% 1000ML 1,000 ML IV SCH ×2 (11:26→23:06)
[2017-10-25] MEDS: HYDROmorphone INJ 0.5 MG/0.5 ML SYR IV PRN ×2 (12:48→18:48)
--- NOTE | 2017-10-25 14:17 | Hospitalist Progress Note ---
Hospitalist Progress Note Date of Service Oct 25, 2017. (Julia Arroyo PA-C) Subjective Pt evaluation today including: conversation w/ patient, conversation w/ family , physical exam, chart review, lab review, review of studies, review of inpatient medication list Patient seen and evaluated. Patient had Wenckebach overnight. Did discuss with cardiology as well. Had a 3 beat run of Wenckebach before a dropped beat then went to a 2:1 AV Block prior to converted to NSR. Will continue to monitor. Reporting pain and nausea is controlled with medicine but not sustaining. Patient appears uncomfortable and laying in the position holding her upper abdomen. No acute abdomen on examination. Mostly keeps eyes closed and breathing trying to breath through the pain. Constitutional: + chills, No fever Respiratory: No cough, No shortness of breath Cardiovascular: No chest pain Abdomen: + pain (epigastric), + nausea, + vomiting, No diarrhea, No constipation, No GI bleeding Musculoskeletal: No swelling, No calf pain Female : No dysuria Heme: No abnormal bleeding/bruising Skin: No rash (Julia Arroyo, ZAYC) Medications Current Inpatient Medications Medications (Trade) Dose Ordered Sig/Oscar Route Start Time Stop Time Status Last Admin Dose Admin Ioversol (Optiray 320) 100 ml UD PRN IV 10/24/17 15:15 10/28/17 15:14 Ioversol (Optiray 320) 100 ml UD PRN IV 10/24/17 16:30 10/28/17 16:29 Famotidine 20 mg/ Syringe 5 ml @ 2.5 mls/min Q12 IV 10/24/17 21:00 11/23/17 20:59 10/25/17 10:05 2.5 MLS/MIN Ondansetron HCl (Zofran Inj) 4 mg Q4H PRN IV 10/24/17 20:30 11/23/17 20:29 10/25/17 12:49 4 MG Morphine Sulfate (MoRPHine SULFATE INJ) 2 mg Q1H PRN IV 10/25/17 04:45 11/08/17 00:00 Morphine Sulfate (MoRPHine SULFATE INJ) 4 mg Q1H PRN IV 10/25/17 04:45 11/08/17 00:00 10/25/17 11:19 4 MG Sodium Chloride 1,000 ml @ 100 mls/hr Q10H IV 10/25/17 11:00 11/24/17 10:59 10/25/17 11:26 100 MLS/HR Hydromorphone HCl (Dilaudid Inj) 0.5 mg Q4H PRN IV 10/25/17 11:00 11/08/17 10:59 10/25/17 12:48 0.5 MG Hydralazine HCl (HydrALAZINE INJ) 10 mg Q6 PRN IV. 10/25/17 14:00 11/24/17 13:59 UNV (Julia Arroyo PA-C) Objective Vital Signs Date Time Temp Pulse Resp B/P (MAP) Pulse Ox O2 Delivery O2 Flow Rate FiO2 10/25/17 12:00 Room Air 10/25/17 11:55 36.7 67 20 174/83 (113) 97 Room Air 10/25/17 07:32 Room Air 10/25/17 07:17 36.8 53 20 153/77 (102) 100 Room Air 10/25/17 04:20 Room Air 10/25/17 04:00 36.5 73 20 150/82 (104) 95 Room Air 10/25/17 01:56 164/84 (110) 10/25/17 00:00 Room Air 10/24/17 23:56 36.5 79 20 179/82 (114) 99 Room Air 10/24/17 20:50 36.4 93 20 148/89 100 Room Air 10/24/17 19:44 75 16 184/98 100 10/24/17 17:38 75 16 184/98 100 Room Air 10/24/17 15:01 55 16 214/155 96 Room Air (Julia Arroyo PA-C) Physical Exam General Appearance: WD/WN, + mild distress (uncomfortable - pain-related) Eyes: sclerae normal Neck: supple, no JVD, trachea midline Respiratory/Chest: lungs clear, normal breath sounds, no respiratory distress, no accessory muscle use Cardiovascular: regular rate, rhythm, no gallop, no murmur Abdomen: normal bowel sounds, soft, + tenderness (epigastric; no guarding or rigidity) Neurologic/Psychiatric: alert, oriented x 3 Skin: normal color, warm/dry (Julia Arroyo, PA-C) Laboratory Results Last 24 Hours Test 10/24/17 14:33 10/24/17 15:15 10/24/17 20:38 10/25/17 04:32 Bedside Troponin I < 0.030 ng/ml Urine Color YELLOW Urine Appearance CLEAR Urine pH >= 9.0 Urine Specific [place] 1.022 Urine Protein NEG Urine Glucose (UA) NEG Urine Ketones 1+ Urine Occult Blood NEG Urine Nitrite NEG Urine Bilirubin NEG Urine Urobilinogen NEG Urine Leukocyte Esterase NEG Urine Opiates Screen POS Urine Methadone, Qualitative NEG Urine Barbiturates NEG Urine Phencyclidine (PCP) Level NEG Ur Amphetamine/Methamphetamine NEG MDMA (Ecstasy) Screen NEG Urine Benzodiazepines Screen NEG Urine Cocaine Metabolite NEG Urine Marijuana (THC) NEG Sodium Level 136 mmol/L 136 mmol/L Potassium Level 3.8 mmol/L 3.8 mmol/L Chloride Level 102 mmol/L 102 mmol/L Carbon Dioxide Level 24 mmol/L 26 mmol/L Anion Gap 10.0 mmol/L 8.0 mmol/L Blood Urea Nitrogen 12 mg/dl 13 mg/dl Creatinine 0.71 mg/dl 0.69 mg/dl Est Creatinine Clear Calc Drug Dose 99.2 ml/min 102.1 ml/min Estimated GFR () 106.5 108.9 Estimated GFR (Non- 91.9 94.0 BUN/Creatinine Ratio 16.2 18.2 Random Glucose 140 mg/dl 126 mg/dl Lactic Acid Level 1.7 mmol/L Calcium Level 9.4 mg/dl 8.7 mg/dl Troponin I < 0.015 ng/ml Magnesium Level 1.7 mg/dl Total Bilirubin 1.1 mg/dl Aspartate Amino Transf (AST/SGOT) 26 U/L Alanine Aminotransferase (ALT/SGPT) 30 U/L Alkaline Phosphatase 80 U/L Total Protein 7.3 gm/dl Albumin 3.3 gm/dl Globulin 4.0 gm/dl Albumin/Globulin Ratio 0.8 Lipase 161 U/L Thyroid Stimulating Hormone (TSH) 2.820 uIu/ml Test 10/25/17 06:38 10/25/17 09:41 Lactic Acid Level 0.8 mmol/L Direct Bilirubin 0.2 mg/dl Troponin I < 0.015 ng/ml (Julia Arroyo PA-C) Assessment and Plan Ms. Raza is a 62 y/o female who presents with epigastric and RUQ pain starting on 10/23. She is S/P Dagmar RUQ/Epigastric Pain - PUD vs Retention Stone/Biliary vs Gastritis - Pepcid 20 mg IV BID - NSS at 100 mL/hr - Morphine 2-4 mg IV PRN; Dilaudid 0.5 mg IV PRN - MRCP - Patient on ABx for wound - reports loose stool - if she would have diarrhea in -hospital will check C. diff - GI Following - plan for EGD on 10/26 Hypertensive Urgency: IMPROVING - May be pain related superimposed on underlying HTN - Hold Lisinopril and Nadolol due to N/V - cover with Hydralazine PRN RLE Wound with Vac: - Hold Abx at this time - pending testing for C. diff - Wound Care following Continued [facility] stay due to: inadequate po fluid intake Discharge planning: home (Julia Arroyo, DARRYL) Attending Attestation: Pt seen/examined, chart reviewed, care plan d/w STEVE Arroyo. I agree w/ the whitmore components of her documentation. Pt with ongoing RUQ pain. The pain does wrap around to the right flank/back in a dermatomal pattern. Pain nearly constant since Wednesday pm. No chest pain. No dyspnea. No fever. VSS gen - uncomfortable, obese heart - RRR, s1, s2 lungs - CTA b/l abd - soft, tender RUQ, BS+, no HSM ext - no edema skin - no rash/vesicles in area of pain mag 1.7 tele reviewed - type 1 and type 2 mobitz seen, o/w NSR LFTs wnl A/P: 1. RUQ pain - etiology uncertain. Await MRCP to r/o choledocholithiasis in her post-cholecystectomy state. Agree with EGD if MRCP negative. Cont pain control. Doubt cardiac as her pain has been constant for nearly 2 days, trops are negative, and EKGs are w/o ischemic change (and her pain is reproducible on exam ). Prodrome to shingles? 2. AV block, 2nd degree, both Mobitz 1 and Mobitz 2 - continue tele, hold BB, consider lyme's testing. I think this issue is separate from #1. Consider formal cardiology consult. She is asymptomatic when she has the AV block on tele. 3. mild lymphadenopathy in the chest, splenomegaly on CT abd/pelvis - will need f/u after d/c - diagnostic considerations include lymphoma, sarcoid, etc. appreciate GI consult Isaac GOLD MD (Samuel Gold MD)
[2017-10-25] MEDS: HydrALAZINE HCL 20 MG/ML VIAL IV. PRN (16:27)
--- NOTE | 2017-10-25 20:15 | DIAGNOSTIC IMAGING REPORT ---
MRCP CLINICAL HISTORY: RUQ Pain; R/O Biliary D/O TECHNIQUE: Multiaxial MRI acquisition COMPARISON STUDY: 10/24/2017, 09/24/2017. FINDINGS: Prior cholecystectomy. Fatty infiltration of the liver. Spleen and pancreas are uniform. No dilatation of the pancreatic ductal system. Kidneys have unremarkable signal characteristics. Abdominal bowel pattern is nonobstructive. No significant abdominal adenopathy. MRCP comparison study shows normal caliber biliary ductal system. Direct duct is unremarkable. There are no definite filling defects. IMPRESSION: Normal study post cholecystectomy. No evidence for choledocholithiasis. The above report was generated using voice recognition software. It may contain grammatical, syntax or spelling errors. Electronically signed by: Luis Sosa M.D. 10/25/2017 8:14 PM Dictated Date/Time: 10/25/2017 8:12 PM
[2017-10-25] MEDS ORDERED: TRAMADOL HCL 50 MG TAB PO STA (23:50)
[2017-10-26] VITALS (9 sets, daily range): BP systolic 146–179; BP diastolic 71–96; PULSE 59–75; TEMP 36.4–37.1; O2SAT 95–98
[2017-10-26] MEDS: HYDROmorphone INJ 0.5 MG/0.5 ML SYR IV PRN ×5 (03:21→21:24)
[2017-10-26 07:54] LABS: HEMATOCRIT 40.4 % (37-47); HEMOGLOBIN 13.9 g/dL (12.0-16.0); MEAN CELL VOLUME 88.2 fL (80-100); MEAN CORPUSCULAR HEMOGLOBIN 30.3 pg (25-34); MEAN CORPUSCULAR HGB CONC 34.4 g/dl (32-36); PLATELET COUNT 190 K/uL (130-400); RED CELL DISTRIBUTION WIDTH CV 13.2 % (11.5-14.5); RED CELL DISTRIBUTION WIDTH SD 42.8 fL (36.4-46.3); WHITE BLOOD COUNT 10.88 K/uL (4.8-10.8)
--- NOTE | 2017-10-26 08:22 | Hospitalist Progress Note ---
Hospitalist Progress Note Date of Service Oct 26, 2017. (Julia Arroyo PA-C) Subjective Pt evaluation today including: conversation w/ patient, physical exam, chart review, lab review, review of studies, review of inpatient medication list Patient seen and evaluated. EGD reveals mild gastritis. Patient's pain seems like this is out of proportion compared to findings. However, extensive testing has been negative other than for gastritis. Patient does appear more relaxed today. Was able to take a few bites of food without N/V which is an improvement. Feels pain is slightly better today. Will monitor intake and will advance diet when tolerated. Denies constipation but has not moved her bowels since admission. No further episodes of 2nd degree AV block whether Type 1 or Type 2. Likely will need Nadolol D/C'd indefinitely and BP managed through other means than BB therapy Constitutional: No fever, No chills Respiratory: No shortness of breath Cardiovascular: No chest pain, No palpitations Abdomen: + pain, No nausea, No vomiting, No diarrhea, No constipation Musculoskeletal: No swelling, No calf pain Female : No dysuria Heme: No abnormal bleeding/bruising (Julia Arroyo, STEVE-C) Medications Current Inpatient Medications Medications (Trade) Dose Ordered Sig/Oscar Route Start Time Stop Time Status Last Admin Dose Admin Ioversol (Optiray 320) 100 ml UD PRN IV 10/24/17 15:15 10/28/17 15:14 Ioversol (Optiray 320) 100 ml UD PRN IV 10/24/17 16:30 10/28/17 16:29 Famotidine 20 mg/ Syringe 5 ml @ 2.5 mls/min Q12 IV 10/24/17 21:00 11/23/17 20:59 10/25/17 20:51 2.5 MLS/MIN Ondansetron HCl (Zofran Inj) 4 mg Q4H PRN IV 10/24/17 20:30 11/23/17 20:29 10/25/17 23:30 4 MG Morphine Sulfate (MoRPHine SULFATE INJ) 2 mg Q1H PRN IV 10/25/17 04:45 11/08/17 00:00 Morphine Sulfate (MoRPHine SULFATE INJ) 4 mg Q1H PRN IV 10/25/17 04:45 11/08/17 00:00 10/25/17 16:02 4 MG Sodium Chloride 1,000 ml @ 100 mls/hr Q10H IV 10/25/17 11:00 11/24/17 10:59 10/25/17 23:06 100 MLS/HR Hydromorphone HCl (Dilaudid Inj) 0.5 mg Q4H PRN IV 10/25/17 11:00 11/08/17 10:59 10/26/17 07:43 0.5 MG Hydralazine HCl (HydrALAZINE INJ) 10 mg Q6 PRN IV. 10/25/17 14:00 11/24/17 13:59 10/25/17 16:27 10 MG (Julia Arroyo PA-C) Objective Vital Signs Date Time Temp Pulse Resp B/P (MAP) Pulse Ox O2 Delivery O2 Flow Rate FiO2 10/26/17 07:16 36.9 75 20 177/96 (123) 98 Room Air 10/26/17 04:00 37.1 59 16 146/84 (104) 96 Room Air 10/26/17 04:00 Room Air 10/26/17 00:54 36.9 65 18 154/71 (98) 97 Room Air 10/26/17 00:00 Room Air 10/25/17 20:00 Room Air 10/25/17 19:30 36.5 72 20 97 10/25/17 19:24 151/74 (99) 10/25/17 17:32 66 147/79 (101) 10/25/17 16:25 63 171/83 (112) 10/25/17 16:00 Room Air 10/25/17 15:35 36.8 66 18 169/92 (117) 90 Room Air 10/25/17 12:00 Room Air 10/25/17 11:55 36.7 67 20 174/83 (113) 97 Room Air (Julia Arroyo PA-C) Physical Exam General Appearance: WD/WN, no apparent distress Eyes: sclerae normal ENT: hearing grossly normal Neck: supple, no JVD, trachea midline Respiratory/Chest: lungs clear, normal breath sounds, no respiratory distress, no accessory muscle use Cardiovascular: regular rate, rhythm, no gallop, no murmur Abdomen: normal bowel sounds, + tenderness (epigastric/RUQ) Neurologic/Psychiatric: alert, oriented x 3 Skin: normal color, warm/dry (Julia Arroyo PA-C) Laboratory Results Last 24 Hours Test 10/25/17 09:41 10/26/17 07:23 Troponin I < 0.015 ng/ml White Blood Count 10.88 K/uL Red Blood Count 4.58 M/uL Hemoglobin 13.9 g/dL Hematocrit 40.4 % Mean Corpuscular Volume 88.2 fL Mean Corpuscular Hemoglobin 30.3 pg Mean Corpuscular Hemoglobin Concent 34.4 g/dl RDW Standard Deviation 42.8 fL RDW Coefficient of Variation 13.2 % Platelet Count 190 K/uL Mean Platelet Volume 11.0 fL (Julia Arroyo PA-C) Assessment and Plan Ms. Raza is a 62 y/o female who presents with epigastric and RUQ pain starting on 10/23. She is S/P Dagmar RUQ/Epigastric Pain - PUD vs Retention Stone/Biliary vs Gastritis - MRCP unremarkable - no signs of retention stone; imaging largely unremarkable at this time - Protonix 40 mg daily and Carafate 1 g QID - NSS at 100 mL/hr until oral intake improves - Morphine 2-4 mg IV PRN; Dilaudid 0.5 mg IV PRN - Pain seems out of proportion to findings - will monitor - may need CTA/ Dopplers? Risk factors limited and given amount of pain would have expected some possible ischemic bowel findings of imaging...will keep in the differential if pain does not improve - GI Following - EGD today which reveals mild gastritis - consideration for outpatient EUS/Colonoscopy if pain continues 2nd Degree Wenckebach vs Mobitz II: - On 10/25 - Patient had initial Wenckebach that progressed to a 2:1 AV block that cannot technically be distinguished from Type 1 given the preceding rhythm ; did have a second episode that was not preceded by Type 1 - however no findings of block today - Likely will need Nadolol D/Cd - likely need to incorporate different BP medication outside of BB class Hypertensive Urgency: IMPROVING - May be pain related superimposed on underlying HTN - Continue PRN Hydralazine - Resume Lisinopril 10 mg daily and continue to hold Nadolol; Nadolol likely D/C'd indefinitely RLE Wound with Vac: - Hold Abx at this time - just in case there is something else developing will try not to mask with Abx - but will resume as soon as possible - Wound Care following DVT Prophylaxis: SCDs Disposition: - Slow advancement of diet as tolerated Continued [facility] stay due to: multiple IV medications needed Discharge planning: home (Julia Arroyo, PATrevonC) Attending Attestation: Pt seen/examined, chart reviewed, care plan d/w STEVE Arroyo. I agree w/ the whitmore components of her documentation. I saw the patient post-EGD. She reports ongoing abd pain but improved from yesterday. Tolerated full liquids for dinner w/o nausea/emesis. Tele overnight normal. The pain had originally wrapped around to the back but this is resolved. VSS except BPs are high gen - nad; looks more comfortable today heart - RRR lungs - CTA b/l abd - very mild tenderness high epigastric region, BS+, no HSM ext - no edema skin - wound vac in place right mid-bower A/P: abdominal pain - severe/persistent - s/p MRCP (negative), CTA dissection (no PE , no dissection), CT abd/pelvis (no stones, no pancreatitis, etc), trops neg x 3. EGD today with gastritis - await bx. Cont PPI + carafate. If pain resolves with acid reduction then gastritis was likely culprit for symptoms. recent 2nd degree AV block - has not recurred; continue off beta jh recommend f/u with cardiology as there was 2:1 block briefly HTN - uncontrolled - increase lisinopril to 20mg daily family updated would d/c fluids in AM if tolerating diet Isaac GOLD MD (Samuel Gold MD)
[2017-10-26 08:24] LABS: ALBUMIN 3.1 gm/dl (3.4-5.0); CALCIUM 9.2 mg/dl (8.5-10.1); CREATININE 0.63 mg/dl (0.60-1.20); POTASSIUM 3.5 mmol/L (3.5-5.1)
[2017-10-26 08:26] LABS: TOTAL PROTEIN 6.9 gm/dl (6.4-8.2)
--- NOTE | 2017-10-26 09:18 | History & Physical Bridge Note ---
H&P Re-Evaluation Bridge Note: I have examined the patient, reviewed the History & Physical and in the interval since the performance of the History & Physical I have noted the following changes of clinical significance: No changes noted. We have discussed the risks of upper endoscopy to include bleeding, infection, perforation, pain and need for follow-up studies.
[2017-10-26] MEDS ORDERED: PROPOFOL IV EMULSION 10 MG/ML 20 ML VIAL IV ONE (09:22)
[2017-10-26] MEDS ORDERED: LIDOCAINE HCL 2% 2 ML VIAL (20MG/ML) ONE (09:22)
--- NOTE | 2017-10-26 09:49 | Progress Note ---
Progress Note Date of Service Oct 26, 2017. Progress Note Upper endoscopy completed this morning. We found evidence of mild gastritis. The examination was otherwise normal. Recommendations Protonix 40 mg 1 time daily for 3 months Carafate twice daily for 6 weeks Patient's follow-up in our office if persist, we could consider EUS as outpatient for further evaluation if needed We could also consider a colonoscopy as an outpatient if needed
--- NOTE | 2017-10-26 10:01 | Anesthesiology Progress Note ---
Anesthesia Post Op Note Date & Time Oct 26, 2017 at 10:00 Vital Signs Pain Intensity: 0.0 Vital Signs Past 12 Hours Date Time Temp Pulse Resp B/P (MAP) Pulse Ox O2 Delivery O2 Flow Rate FiO2 10/26/17 09:54 76 18 160/85 (110) 97 Room Air 10/26/17 09:39 68 18 132/78 (96) 95 Room Air 10/26/17 08:59 37 71 18 163/90 (114) 96 Room Air 10/26/17 08:15 98 Room Air 10/26/17 07:16 36.9 75 20 177/96 (123) 98 Room Air 10/26/17 04:00 37.1 59 16 146/84 (104) 96 Room Air 10/26/17 04:00 Room Air 10/26/17 00:54 36.9 65 18 154/71 (98) 97 Room Air 10/26/17 00:00 Room Air Notes Mental Status: alert / awake / arousable, participated in evaluation Pt Amnestic to Procedure: Yes Nausea / Vomiting: adequately controlled Pain: adequately controlled Airway Patency, RR, SpO2: stable & adequate BP & HR: stable & adequate Hydration State: stable & adequate Anesthetic Complications: no major complications apparent
--- NOTE | 2017-10-26 10:25 | GI REPORT ---
Procedure Date: 10/26/2017 9:26 AM Procedure: Upper GI endoscopy Indications: Epigastric abdominal pain Medicines: Monitored Anesthesia Care Complications: No immediate complications. Estimated blood loss: Minimal. Estimated Blood Loss: Estimated blood loss was minimal. Procedure: Pre-Anesthesia Assessment: - Prior to the procedure, a History and Physical was performed, and patient medications, allergies and sensitivities were reviewed. The patient's tolerance of previous anesthesia was reviewed. - The risks and benefits of the procedure and the sedation options and risks were discussed with the patient. All questions were answered and informed consent was obtained. - Patient identification and proposed procedure were verified prior to the procedure by the physician, the nurse and the subscription crew leader. The procedure was verified in the procedure room. - Pre-procedure physical examination revealed no contraindications to sedation. - ASA Grade Assessment: III - A patient with severe systemic disease. - After reviewing the risks and benefits, the patient was deemed in satisfactory condition to undergo the procedure. - The anesthesia plan was to use monitored anesthesia care (MAC). - Immediately prior to administration of medications, the patient was re-assessed for adequacy to receive sedatives. - The heart rate, respiratory rate, oxygen saturations, blood pressure, adequacy of pulmonary ventilation, and response to care were monitored throughout the procedure. - The physical status of the patient was re-assessed after the procedure. After obtaining informed consent, the endoscope was passed under direct vision. Throughout the procedure, the patient's blood pressure, pulse, and oxygen saturations were monitored continuously. The Scope was introduced through the mouth, and advanced to the third part of duodenum. The upper GI endoscopy was accomplished without difficulty. The patient tolerated the procedure well. Findings: The examined esophagus was normal. The Z-line was regular and was found 35 cm from the incisors. Diffuse mild inflammation characterized by erythema and granularity was found in the entire examined stomach. Biopsies were taken with a cold forceps for histology. Estimated blood loss was minimal. The examined duodenum was normal. Biopsies were taken with a cold forceps for histology. Estimated blood loss was minimal. Impression: - Normal esophagus. - Z-line regular, 35 cm from the incisors. - Gastritis. Biopsied. - Normal examined duodenum. Biopsied. Recommendation: - [facility] - Advance diet as tolerated today. - Await pathology results. - Use Protonix (pantoprazole) 40 mg PO daily for 3 months. - Use sucralfate tablets 1 gram PO BID for 6 weeks - If symptoms persist with discuss EUS with the patient to evaluate for CBD stones not seen on imaging studies. Angel Castro D.O. Angel Castro, DO 10/26/2017 9:45:51 AM This report has been signed electronically. Note Initiated On: 10/26/2017 9:26 AM I attest to the content of the Intraoperative Record and orders documented therein, exceptions below
[2017-10-26] MEDS: SODIUM CHLORIDE 0.9% 1000ML 1,000 ML IV SCH ×2 (11:37→17:21)
[2017-10-26] MEDS ORDERED: POLYETHYLENE (MIRALAX) 17 GM PACK PO PRN (15:45)
[2017-10-26] MEDS ORDERED: NURSING VERBAL MED ORDER ONE (18:45)
[2017-10-26] MEDS: SUCRALFATE 1 GM/10 ML UDC PO SCH (19:13)
[2017-10-26] MEDS ORDERED: SUCRALFATE 1 GM/10 ML UDC PO SCH (21:00)
[2017-10-27] VITALS (8 sets, daily range): BP systolic 147–166; BP diastolic 69–82; PULSE 59–70; TEMP 36.7–36.9; O2SAT 95–100
[2017-10-27] MEDS: SODIUM CHLORIDE 0.9% 1000ML 1,000 ML IV SCH ×3 (00:36→21:57)
[2017-10-27] MEDS: HYDROmorphone INJ 0.5 MG/0.5 ML SYR IV PRN ×7 (01:34→22:58)
[2017-10-27 07:03] LABS: MEAN CORPUSCULAR HEMOGLOBIN 30.4 pg (25-34); MEAN CORPUSCULAR HGB CONC 34.2 g/dl (32-36); MEAN PLATELET VOLUME 10.3 fL (7.4-10.4); PLATELET COUNT 139 K/uL (130-400); RED CELL DISTRIBUTION WIDTH CV 13.5 % (11.5-14.5); RED CELL DISTRIBUTION WIDTH SD 43.6 fL (36.4-46.3); WHITE BLOOD COUNT 7.18 K/uL (4.8-10.8)
[2017-10-27] MEDS: LISINOPRIL 10 MG TAB PO SCH (07:22)
[2017-10-27 07:40] LABS: ALBUMIN 2.8 gm/dl (3.4-5.0); CALCIUM 8.7 mg/dl (8.5-10.1); CREATININE 0.58 mg/dl (0.60-1.20); POTASSIUM 3.2 mmol/L (3.5-5.1)
[2017-10-27 07:43] LABS: TOTAL PROTEIN 6.5 gm/dl (6.4-8.2)
[2017-10-27] MEDS: SUCRALFATE 1 GM/10 ML UDC PO SCH ×3 (08:55→20:52)
[2017-10-27] MEDS ORDERED: PANTOprazole SOD 40 MG TAB PO SCH (09:00)
[2017-10-27] MEDS ORDERED: LISINOPRIL 10 MG TAB PO SCH (09:00)
[2017-10-27] MEDS ORDERED: HYDROmorphone INJ 0.5 MG/0.5 ML SYR IV STA (11:44)
[2017-10-27] MEDS ORDERED: HYDROmorphone INJ 0.5 MG/0.5 ML SYR ONE (11:57)
--- NOTE | 2017-10-27 13:09 | DIAGNOSTIC IMAGING REPORT ---
[facility] CLINICAL HISTORY: Increasing Abdominal Pain pain COMPARISON STUDY: 10/25/2017 FINDINGS: The soft tissues, psoas shadows, renal outlines and intestinal gas pattern appear normal. There is no evidence for bowel obstruction. No abnormal abdominal calcifications are seen. IMPRESSION: Normal study. The above report was generated using voice recognition software. It may contain grammatical, syntax or spelling errors. Electronically signed by: Luis Sosa M.D. 10/27/2017 1:08 PM Dictated Date/Time: 10/27/2017 1:06 PM
[2017-10-27] MEDS: METHYLNALTREXONE BROMIDE INJ 12 MG/0.6 ML SYR SQ SCH (14:03)
--- NOTE | 2017-10-27 14:32 | Hospitalist Progress Note ---
Hospitalist Progress Note Date of Service Oct 27, 2017. (Julia Arroyo, ZAYC) Subjective Pt evaluation today including: conversation w/ patient, physical exam, chart review, lab review, review of studies, review of inpatient medication list Patient seen and evaluated. No further AV blocks on monitor. Will likely need BB therapy D/Cd on discharge and follow with cardiology as outpatient for possible monitor Patient is laying on her side and crying. States her pain is 9/10 at this time. States she was able to eat more for breakfast and tolerated this. States she does not feel this pain is from eating and that this is how it always is after pain medications wear off. However was just recently given pain medications. Imaging does show a decent amount of stool that could be contributing to her pain. She hasn't had a bowel movement since admission but keeps saying this is because she isn't eating much. States she doesn't feel as if she is constipated just has a lot of epigastric pain. Will give Relistor and schedule Miralax. Constitutional: No fever, No chills Abdomen: + pain, No nausea, No vomiting, No diarrhea, No constipation Additional Comments: ROS limited given feelings of pain. (Julia Arroyo, ZAYC) Medications Current Inpatient Medications Medications (Trade) Dose Ordered Sig/Oscar Route Start Time Stop Time Status Last Admin Dose Admin Ioversol (Optiray 320) 100 ml UD PRN IV 10/24/17 15:15 10/28/17 15:14 Ioversol (Optiray 320) 100 ml UD PRN IV 10/24/17 16:30 10/28/17 16:29 Ondansetron HCl (Zofran Inj) 4 mg Q4H PRN IV 10/24/17 20:30 11/23/17 20:29 10/25/17 23:30 4 MG Morphine Sulfate (MoRPHine SULFATE INJ) 2 mg Q1H PRN IV 10/25/17 04:45 11/08/17 00:00 Morphine Sulfate (MoRPHine SULFATE INJ) 4 mg Q1H PRN IV 10/25/17 04:45 11/08/17 00:00 10/25/17 16:02 4 MG Sodium Chloride 1,000 ml @ 100 mls/hr Q10H IV 10/25/17 11:00 11/24/17 10:59 10/27/17 13:53 100 MLS/HR Hydralazine HCl (HydrALAZINE INJ) 10 mg Q6 PRN IV. 10/25/17 14:00 11/24/17 13:59 10/25/17 16:27 10 MG Pantoprazole Sodium (Protonix Tab) 40 mg QAM PO 10/27/17 09:00 11/26/17 08:59 10/27/17 07:27 40 MG Sucralfate (Carafate Susp) 1 gm BID@0900,1900 PO 10/26/17 19:00 11/25/17 18:59 10/27/17 08:55 1 GM Lisinopril (Zestril Tab) 20 mg DAILY PO 10/27/17 09:00 11/26/17 08:59 10/27/17 07:22 20 MG Hydromorphone HCl (Dilaudid Inj) 0.5 mg Q2H PRN IV 10/27/17 11:45 11/08/17 10:59 10/27/17 14:08 0.5 MG Methylnaltrexone [place] (Relistor Inj) 12 mg Q2D SQ 10/27/17 12:45 11/26/17 12:44 10/27/17 14:03 12 MG Polyethylene (Miralax Powder Packet) 17 gm QAM PO 10/28/17 09:00 11/27/17 08:59 Polyethylene (Miralax Powder Packet) 17 gm NOW ONCE PO 10/27/17 14:45 10/27/17 14:46 (Julia Arroyo, PA-C) Objective Vital Signs Date Time Temp Pulse Resp B/P (MAP) Pulse Ox O2 Delivery O2 Flow Rate FiO2 10/27/17 12:00 Room Air 10/27/17 11:39 36.7 61 20 151/69 (96) 99 Room Air 10/27/17 08:00 Room Air 10/27/17 07:03 36.8 66 16 166/82 (110) 96 Room Air 10/27/17 04:05 36.9 70 16 162/78 (106) 96 Room Air 10/27/17 04:00 Room Air 10/27/17 00:00 Room Air 10/26/17 23:04 37.1 63 20 163/79 (107) 95 Room Air 10/26/17 20:00 Room Air 10/26/17 19:52 36.4 69 20 161/79 (106) 97 10/26/17 16:00 Room Air 10/26/17 14:50 37.0 63 20 179/81 (113) 96 Room Air (Julia Arroyo PA-C) Physical Exam General Appearance: WD/WN, + mild distress (uncomfortable), + obese Eyes: sclerae normal ENT: hearing grossly normal Neck: supple, no JVD, trachea midline Respiratory/Chest: lungs clear, normal breath sounds, no respiratory distress, no accessory muscle use Cardiovascular: regular rate, rhythm, no gallop, no murmur Abdomen: normal bowel sounds, soft, + tenderness (epigastric) Neurologic/Psychiatric: alert Skin: normal color (Julia Arroyo PA-C) Laboratory Results Last 24 Hours Test 10/27/17 06:49 White Blood Count 7.18 K/uL Red Blood Count 4.27 M/uL Hemoglobin 13.0 g/dL Hematocrit 38.0 % Mean Corpuscular Volume 89.0 fL Mean Corpuscular Hemoglobin 30.4 pg Mean Corpuscular Hemoglobin Concent 34.2 g/dl RDW Standard Deviation 43.6 fL RDW Coefficient of Variation 13.5 % Platelet Count 139 K/uL Mean Platelet Volume 10.3 fL Sodium Level 141 mmol/L Potassium Level 3.2 mmol/L Chloride Level 106 mmol/L Carbon Dioxide Level 26 mmol/L Anion Gap 9.0 mmol/L Blood Urea Nitrogen 9 mg/dl Creatinine 0.58 mg/dl Est Creatinine Clear Calc Drug Dose 120.0 ml/min Estimated GFR () 115.3 Estimated GFR (Non- 99.5 BUN/Creatinine Ratio 15.0 Random Glucose 89 mg/dl Calcium Level 8.7 mg/dl Total Bilirubin 0.9 mg/dl Aspartate Amino Transf (AST/SGOT) 16 U/L Alanine Aminotransferase (ALT/SGPT) 23 U/L Alkaline Phosphatase 59 U/L Total Protein 6.5 gm/dl Albumin 2.8 gm/dl Globulin 3.7 gm/dl Albumin/Globulin Ratio 0.8 (Julia Arroyo PA-C) Assessment and Plan Ms. Raza is a 62 y/o female who presents with epigastric and RUQ pain starting on 10/23. She is S/P Dagmar RUQ/Epigastric Pain: Wax and Wanes - Appeared to be improving yesterday and was able to eat more today with tolerance but continues with significant pain inbetween medication dosings -- Imaging does show significant stool and will give Relistor and OSCAR Miralax - Imaging has been largely unremarkable and EGD only shows mild gastritis - Protonix 40 mg daily and Carafate 1 g BID - NSS at 100 mL/hr until oral intake improves - Morphine 2-4 mg IV PRN; Dilaudid 0.5 mg IV PRN - GI Following - consideration for outpatient EUS/Colonoscopy if pain continues 2nd Degree Wenckebach vs Mobitz II: RESOLVED - On 10/25 - Patient had initial Wenckebach that progressed to a 2:1 AV block that cannot technically be distinguished from Type 1 given the preceding rhythm ; did have a second episode that was not preceded by Type 1 - however no findings of block since - Likely will need Nadolol D/Cd Hypertensive Urgency: IMPROVING - May be pain related superimposed on underlying HTN - Continue PRN Hydralazine - Resume Lisinopril 20 mg daily and continue to hold Nadolol; Nadolol likely D/C'd indefinitely RLE Wound with Vac: - Hold Abx at this time - just in case there is something else developing will try not to mask with Abx - but will resume as soon as possible - Wound Care following DVT Prophylaxis: SCDs Disposition: - Slow advancement of diet as tolerated Continued [facility] stay due to: inadequate oral pain control, multiple IV medications needed Discharge planning: home with home health (Julia Arroyo, PA-C) PA Physician Supervision Note: I interviewed and examined the patient. Discussed with Julia Arroyo PAC and agree with findings and plan as documented in the note. Any exceptions or clarifications are listed here: None This patient continues with epigastric pain out of proportion to her radiological and clinical findings. The patient continues to have issues with constipation and no real help with her epigastric pain with Carafate and Protonix or even a GI cocktail. Patient is in no recurrence of her bradycardia and this is felt to be secondary to her beta blockers. Temp 36 8 pulse is 66 respiration rate 16 BP 166/82 Abdomen is normoactive bowel sounds central upper epigastric tenderness to palpation but worsened by eating or drinking or movement Abdominal pain with history of gastritis found on GI evaluation. We'll increase Carafate to 4 times a day increase Protonix to twice a day give her 1 dose of Relistor to help promote bowel movements in addition to her MiraLAX her blood pressure is been better controlled with lisinopril her bradycardia resolved with discontinuation of beta jh Documented By: Sandor De Souza (Sandor De Souza M.D.)
[2017-10-27] MEDS ORDERED: POLYETHYLENE (MIRALAX) 17 GM PACK PO ONE (14:45)
[2017-10-27] MEDS: PANTOprazole SOD 40 MG TAB PO SCH (20:52)
[2017-10-28] VITALS (7 sets, daily range): BP systolic 117–152; BP diastolic 60–91; PULSE 53–79; TEMP 36.7–37.2; O2SAT 92–98
[2017-10-28] MEDS: HYDROmorphone INJ 0.5 MG/0.5 ML SYR IV PRN ×4 (02:07→10:06)
[2017-10-28 06:19] LABS: HEMATOCRIT 36.1 % (37-47); HEMOGLOBIN 12.3 g/dL (12.0-16.0); MEAN CELL VOLUME 88.5 fL (80-100); MEAN CORPUSCULAR HEMOGLOBIN 30.1 pg (25-34); MEAN CORPUSCULAR HGB CONC 34.1 g/dl (32-36); MEAN PLATELET VOLUME 10.3 fL (7.4-10.4); PLATELET COUNT 145 K/uL (130-400); RED CELL DISTRIBUTION WIDTH CV 13.2 % (11.5-14.5); RED CELL DISTRIBUTION WIDTH SD 42.7 fL (36.4-46.3)
[2017-10-28 06:53] LABS: ALBUMIN 2.7 gm/dl (3.4-5.0); CALCIUM 8.5 mg/dl (8.5-10.1); CREATININE 0.65 mg/dl (0.60-1.20)
[2017-10-28 06:56] LABS: TOTAL PROTEIN 6.3 gm/dl (6.4-8.2)
[2017-10-28] MEDS: PANTOprazole SOD 40 MG TAB PO SCH ×2 (07:52→20:44)
[2017-10-28] MEDS: SUCRALFATE 1 GM/10 ML UDC PO SCH ×4 (07:55→20:44)
[2017-10-28] MEDS ORDERED: POTASSIUM CHLORIDE 20 MEQ TABCR PO ONE (09:00)
[2017-10-28] MEDS: SODIUM CHLORIDE 0.9% 1000ML 1,000 ML IV SCH (09:18)
[2017-10-28] MEDS: LISINOPRIL 10 MG TAB PO SCH (09:21)
[2017-10-28] MEDS: POLYETHYLENE (MIRALAX) 17 GM PACK PO SCH ×2 (09:24→19:15)
[2017-10-28] MEDS ORDERED: BISACODYL 10 MG SUPP PR PRN (10:30)
[2017-10-28] MEDS ORDERED: SENNA 8.6 MG TAB PO ONE (10:45)
--- NOTE | 2017-10-28 13:53 | Hospitalist Progress Note ---
Hospitalist Progress Note Date of Service Oct 28, 2017. (Julia Arroyo PATrevonC) Subjective Pt evaluation today including: conversation w/ patient, physical exam, chart review, lab review, review of studies, review of inpatient medication list Patient seen and evaluated. No acute events overnight. Continues to have abdominal pain but looks better today compared to yesterday. Was a little reluctant to take medications for treatment. Encouraged her to continue Protonix and Carafate for gastritis. Explained the significant stool on imaging and will continue aggressive bowel regimen. Also placed PRN suppository and encouraged to consider this. Will also add Jone States that she feels more hungry today and was hoping for rice crispy cereal. She would like to try solid food. Did encourage to just take a few bites and see how it settles before eating too much. Constitutional: No fever, No chills Respiratory: No shortness of breath Cardiovascular: No chest pain Abdomen: + pain (epigastric), + constipation, No nausea, No vomiting, No diarrhea Musculoskeletal: No swelling, No calf pain Female : No dysuria Heme: No abnormal bleeding/bruising (Julia Arroyo, ZAYC) Medications Current Inpatient Medications Medications (Trade) Dose Ordered Sig/Oscar Route Start Time Stop Time Status Last Admin Dose Admin Ioversol (Optiray 320) 100 ml UD PRN IV 10/24/17 15:15 10/28/17 15:14 Ioversol (Optiray 320) 100 ml UD PRN IV 10/24/17 16:30 10/28/17 16:29 Ondansetron HCl (Zofran Inj) 4 mg Q4H PRN IV 10/24/17 20:30 11/23/17 20:29 10/25/17 23:30 4 MG Morphine Sulfate (MoRPHine SULFATE INJ) 2 mg Q1H PRN IV 10/25/17 04:45 11/08/17 00:00 Morphine Sulfate (MoRPHine SULFATE INJ) 4 mg Q1H PRN IV 10/25/17 04:45 11/08/17 00:00 10/25/17 16:02 4 MG Sodium Chloride 1,000 ml @ 100 mls/hr Q10H IV 10/25/17 11:00 11/24/17 10:59 10/28/17 09:18 100 MLS/HR Hydralazine HCl (HydrALAZINE INJ) 10 mg Q6 PRN IV. 10/25/17 14:00 11/24/17 13:59 10/25/17 16:27 10 MG Lisinopril (Zestril Tab) 20 mg DAILY PO 10/27/17 09:00 11/26/17 08:59 10/28/17 09:21 20 MG Hydromorphone HCl (Dilaudid Inj) 0.5 mg Q2H PRN IV 10/27/17 11:45 11/08/17 10:59 10/28/17 10:06 0.5 MG Methylnaltrexone [place] (Relistor Inj) 12 mg Q2D SQ 10/27/17 12:45 11/26/17 12:44 10/27/17 14:03 12 MG Polyethylene (Miralax Powder Packet) 17 gm QAM PO 10/28/17 09:00 11/27/17 08:59 10/28/17 09:24 17 GM Sucralfate (Carafate Susp) 1 gm QID PO 10/27/17 21:00 11/25/17 18:59 10/28/17 12:24 1 GM Pantoprazole Sodium (Protonix Tab) 40 mg BID PO 10/27/17 21:00 10/31/17 20:59 10/28/17 07:52 40 MG Senna (Senokot Tab) 17.2 mg QAM PO 10/29/17 09:00 11/28/17 08:59 Bisacodyl (Dulcolax Supp) 10 mg DAILY PRN ID 10/28/17 10:30 11/27/17 10:29 (Julia Arroyo, PA-C) Objective Vital Signs Date Time Temp Pulse Resp B/P (MAP) Pulse Ox O2 Delivery O2 Flow Rate FiO2 10/28/17 11:30 37.2 79 18 152/91 (111) 98 Room Air 10/28/17 08:00 Room Air 10/28/17 07:13 36.8 53 18 150/80 (103) 97 10/28/17 04:11 36.8 63 18 117/60 (79) 96 Room Air 10/28/17 04:00 Room Air 10/28/17 00:00 Room Air 10/27/17 22:49 36.8 64 20 162/80 (107) 100 Room Air 10/27/17 20:00 99 Room Air 10/27/17 19:19 36.9 59 20 147/77 (100) 95 Room Air 10/27/17 16:00 99 Room Air 10/27/17 15:06 36.9 61 18 151/71 (97) 96 Room Air (Julia Arroyo PA-C) Physical Exam General Appearance: WD/WN, no apparent distress, + obese ENT: hearing grossly normal Neck: supple, no JVD, trachea midline Respiratory/Chest: lungs clear, normal breath sounds, no respiratory distress, no accessory muscle use Cardiovascular: regular rate, rhythm, no gallop, no murmur Abdomen: normal bowel sounds, soft, + tenderness (epigastric) Neurologic/Psychiatric: alert Skin: normal color (Julia Arroyo PA-C) Laboratory Results Last 24 Hours Test 10/28/17 06:01 White Blood Count 6.90 K/uL Red Blood Count 4.08 M/uL Hemoglobin 12.3 g/dL Hematocrit 36.1 % Mean Corpuscular Volume 88.5 fL Mean Corpuscular Hemoglobin 30.1 pg Mean Corpuscular Hemoglobin Concent 34.1 g/dl RDW Standard Deviation 42.7 fL RDW Coefficient of Variation 13.2 % Platelet Count 145 K/uL Mean Platelet Volume 10.3 fL Sodium Level 138 mmol/L Potassium Level 3.0 mmol/L Chloride Level 105 mmol/L Carbon Dioxide Level 27 mmol/L Anion Gap 6.0 mmol/L Blood Urea Nitrogen 8 mg/dl Creatinine 0.65 mg/dl Est Creatinine Clear Calc Drug Dose 107.1 ml/min Estimated GFR () 111.1 Estimated GFR (Non- 95.8 BUN/Creatinine Ratio 12.1 Random Glucose 104 mg/dl Calcium Level 8.5 mg/dl Total Bilirubin 1.1 mg/dl Aspartate Amino Transf (AST/SGOT) 15 U/L Alanine Aminotransferase (ALT/SGPT) 22 U/L Alkaline Phosphatase 58 U/L Total Protein 6.3 gm/dl Albumin 2.7 gm/dl Globulin 3.6 gm/dl Albumin/Globulin Ratio 0.8 (Julia Arroyo PA-C) Assessment and Plan Ms. Raza is a 62 y/o female who presents with epigastric and RUQ pain starting on 10/23. She is S/P Dagmar RUQ/Epigastric Pain: Wax and Wanes - Appears to be improving today - encouraged ambulation and she states she will take a walk today; will continue bowel regimen - Protonix 40 mg daily and Carafate 1 g QID - NSS at 100 mL/hr until oral intake improves - Morphine 2-4 mg IV PRN; Dilaudid 0.5 mg IV PRN - GI Following - consideration for outpatient EUS/Colonoscopy if pain continues 2nd Degree Wenckebach vs Mobitz II: RESOLVED - On 10/25 - Patient had initial Wenckebach that progressed to a 2:1 AV block that cannot technically be distinguished from Type 1 given the preceding rhythm ; did have a second episode that was not preceded by Type 1 - however no findings of block since - Likely will need Nadolol D/Cd Hypertensive Urgency: IMPROVING - May be pain related superimposed on underlying HTN - Continue PRN Hydralazine - Resume Lisinopril 20 mg daily and continue to hold Nadolol; Nadolol likely D/C'd indefinitely RLE Wound with Vac: - Hold Abx at this time - just in case there is something else developing will try not to mask with Abx - but will resume as soon as possible - Wound Care following DVT Prophylaxis: SCDs Disposition: - Slow advancement of diet as tolerated Continued [facility] stay due to: multiple IV medications needed Discharge planning: home with home health (Julia Arroyo, PA-C) PA Physician Supervision Note: I interviewed and examined the patient. Discussed with Julia Arroyo PAC and agree with findings and plan as documented in the note. Any exceptions or clarifications are listed here: None Patient looks much better today she is actually eating solid food and ambulating her abdominal pain is markedly reduced systolic mild hypokalemia Vital signs show her temperature be 36 a pulse 50 respiration 18 BP 150/80 O2 sat 97 on room air Abdominal exam is soft she only mildly tender in the epigastrium. Normoactive bowel sounds Patient is resolving abdominal pain from likely gastritis we'll advance her diet encourage ambulation and continue to support her constipation and she did receive Relistor yesterday we'll continue with bowel cathartic agents today Documented By: Sandor De Souza (Sandor De Souza M.D.)
[2017-10-29] VITALS (7 sets, daily range): BP systolic 142–182; BP diastolic 82–95; PULSE 60–78; TEMP 36.5–37.1; O2SAT 93–99
[2017-10-29] MEDS: SUCRALFATE 1 GM/10 ML UDC PO SCH ×4 (09:07→20:59)
[2017-10-29] MEDS: PANTOprazole SOD 40 MG TAB PO SCH ×2 (09:08→21:00)
[2017-10-29] MEDS: POTASSIUM CHLORIDE 20 MEQ TABCR PO SCH ×2 (09:08→20:59)
[2017-10-29] MEDS: SENNA 8.6 MG TAB PO SCH (09:08)
[2017-10-29] MEDS: LISINOPRIL 10 MG TAB PO SCH (09:08)
[2017-10-29] MEDS: LAVAGE SOLUTION 4000ML PO SCH ×4 (13:54→21:00)
[2017-10-29] MEDS: METHYLNALTREXONE BROMIDE INJ 12 MG/0.6 ML SYR SQ SCH (13:54)
--- NOTE | 2017-10-29 17:33 | Progress Note ---
Subjective Date of Service: Oct 29, 2017. Subjective pt is laying on her side wimpering with painful sobs, states I just cant move my bowels, says her abdominal pain has not improved but otherwise has no new issues with her vac Problem List Medical Problems: (1) Cellulitis of right lower extremity Status: Acute (2) Epigastric abdominal pain Status: Acute (3) Multiple abscesses of both legs Status: Acute (4) Vomiting Status: Acute Review of Systems Constitutional: + weakness, + fatigue, No fever, No chills Respiratory: No cough, No shortness of breath, No dyspnea on exertion Cardiac: No chest pain, No PND Abdomen: + pain, + constipation, No nausea, No vomiting, No diarrhea Musculoskeletal: No joint pain, No muscle pain Female : No dysuria, No urinary frequency Psychiatric: + depression symptoms, + anxiety Objective Vital Signs Date Time Temp Pulse Resp B/P (MAP) Pulse Ox O2 Delivery O2 Flow Rate FiO2 10/29/17 16:00 Room Air 10/29/17 15:21 36.5 60 16 174/84 (114) 99 10/29/17 12:00 Room Air 10/29/17 11:39 36.7 68 16 182/94 (123) 97 10/29/17 08:00 Room Air 10/29/17 07:43 36.9 68 16 151/83 (105) 96 10/29/17 04:00 36.7 66 20 142/84 (103) 93 Room Air 10/29/17 04:00 Room Air 10/29/17 00:59 36.8 71 20 168/89 (115) 94 Room Air 10/29/17 00:00 Room Air 10/28/17 20:08 92 Room Air 10/28/17 19:12 37.1 68 20 147/80 (102) 98 Room Air Physical Exam General Appearance: WD/WN, + moderate distress, + obese Eyes: normal inspection, sclerae normal Respiratory/Chest: chest non-tender, lungs clear, normal breath sounds Cardiovascular: regular rate, rhythm, no murmur Abdomen: normal bowel sounds, soft, + guarding (epigastrium), + tenderness Neurologic/Psychiatric: alert, oriented x 3 Assessment and Plan 62F who presents with hypertensive urgency and epigastric and RUQ pain starting on 10/23. She is S/P Dagmar, evaluation by GI medicine only confirmed gastritis and concerns that constipation maybe worsening pain also RUQ/Epigastric Pain: Gastritis, - Protonix 40 mg daily and Carafate 1 g QID - Morphine 2-4 mg IV PRN; Dilaudid 0.5 mg IV PRN - GI Following - consideration for outpatient EUS/Colonoscopy Consitipation likely also influenced by opiates, given relistor and oral cathartic agents, adding Go-lytely 10/29 2nd Degree Wenckebach vs Mobitz II: RESOLVED, with discontinuing of beta jh Hypertensive Urgency: improved PRN Hydralazine - Resume Lisinopril 20 mg daily RLE Wound with Vac: does not appear acutely infected, continue wound vac DVT Prophylaxis: SCDs Continued [facility] stay due to: multiple IV medications needed Discharge planning: home with home health
[2017-10-29] MEDS: HydrALAZINE HCL 20 MG/ML VIAL IV. PRN (19:22)
[2017-10-29] MEDS ORDERED: NURSING VERBAL MED ORDER ONE (20:45)
[2017-10-29] MEDS ORDERED: BISACODYL 5 MG TABEC PO PRN (20:45)
[2017-10-29] MEDS ORDERED: BISACODYL 5 MG TABEC PO ONE (20:45)
[2017-10-29] MEDS: LISINOPRIL 20 MG TAB PO SCH (21:00)
[2017-10-30 04:10] VITALS: BP 150/82; PULSE 85; TEMP 36.5; O2SAT 94
[2017-10-30 08:05] VITALS: BP 148/75; PULSE 73; TEMP 36.6; O2SAT 94
[2017-10-30] MEDS: LISINOPRIL 20 MG TAB PO SCH (08:39)
[2017-10-30] MEDS: SENNA 8.6 MG TAB PO SCH (08:39)
[2017-10-30] MEDS: SUCRALFATE 1 GM/10 ML UDC PO SCH ×3 (08:40→17:00)
[2017-10-30] MEDS: POLYETHYLENE (MIRALAX) 17 GM PACK PO SCH (08:40)
[2017-10-30] MEDS: PANTOprazole SOD 40 MG TAB PO SCH (08:40)
--- NOTE | 2017-10-30 09:13 | DIAGNOSTIC IMAGING REPORT ---
PA CHEST RADIOGRAPH AND UPRIGHT AND SUPINE AP RADIOGRAPHS OF THE ABDOMEN CLINICAL HISTORY: Constipation. COMPARISON STUDY: CT of the chest abdomen and pelvis October 24, 2017 and [facility] October 27, 2017. FINDINGS: Lung volumes are normal. No consolidation is identified. There is no evidence of pulmonary edema. Cardiomediastinal silhouette is unremarkable. There is no free air. There is no evidence for a bowel obstruction. There is a [id number] amount stool within the colon. There is minimal stool within the rectum. IMPRESSION: 1. No free air. 2. Mild to moderate amount of stool within the colon. Minimal stool within the rectum. 3. No acute cardiopulmonary findings. Electronically signed by: Casey Polk M.D. 10/30/2017 9:11 AM Dictated Date/Time: 10/30/2017 9:10 AM
[2017-10-30] MEDS: POTASSIUM CHLORIDE 20 MEQ TABCR PO SCH (09:20)
[2017-10-30] MEDS ORDERED: LACTULOSE SYRUP 30 GM/45 ML UDP PO STA (10:00)
[2017-10-30] MEDS ORDERED: SOD PHOSPHATE/SOD BIPHOSPHATE ENEMA 132 ML BTL PR PRN (10:15)
[2017-10-30 11:47] VITALS: BP 138/87; PULSE 75; TEMP 36.4; O2SAT 96
[2017-10-30] MEDS ORDERED: SUCR1TAB PO (14:21)
[2017-10-30] MEDS ORDERED: LSN20 PO (14:21)
[2017-10-30] MEDS ORDERED: PRT40 PO (14:21)
[2017-10-30] MEDS ORDERED: LCTL45 PO (14:21)
--- NOTE | 2017-10-30 14:29 | Discharge Instructions ---
Discharge Instructions Date of Service Oct 30, 2017. Admission Reason for Admission: Hypertensive Urgency;Malignant Discharge Discharge Diagnosis / Problem: Hypertension; Abdominal Pain Discharge Goals Goal(s): Decrease discomfort, Improve function, Increase independence Activity Recommendations Activity Limitations: resume your previous activity . Instructions / Follow-Up Instructions / Follow-Up Abdominal Pain: - Imaging in the hospital reveals that you have a gastritis. This is inflammation in the stomach. Recommend to continue a bland diet until the pain starts to improve. - Continue Protonix 40 mg twice a day. If you notice that the pain is improving you may continue this just once a day. Recommend to do this for the next month but may need to continue for 3 months and can discuss with with your family doctor and GI during follow-up. - Continue Carafate 1 g twice a day. - You will be given a prescription for as needed Lactulose for constipation. - Follow-up with your family doctor and GI -- GI discussed maybe outpatient colonoscopy or endoscopic ultrasound if pain does not seem to completely resolve High Blood Pressure: - Your blood pressure was high during admission. Likely this was somewhat related to your pain. - On monitor you had a slowing of electrical conduction on the monitor called an Atrioventricular Block. This is sometimes caused by beta blockers such as Nadolol. This type of rhythm can cause people to feel weak, lightheaded, and not well. - Due to this we recommend to STOP NADOLOL. - We increased your Lisinopril to 20 mg twice a day to cover your blood pressure with stopping Nadolol. RLE Wound with Vac: - Continue follow-up with wound care for your lower extremity wounds and take antibiotics as recommended by them. Current Hospital Diet Patient's current hospital diet: Regular Diet Discharge Diet Recommended Diet: Regular Diet Procedures Procedures Performed: EGD w/Biopsies Pending Studies Studies pending at discharge: no Laboratory Results Hemoglobin A1c Test 09/25/17 06:17 Range/Units Estimated Average Glucose 103 mg/dl Hemoglobin A1c 5.2 4.5-5.6 % Medical Emergencies . Who to Call and When: Medical Emergencies: If at any time you feel your situation is an emergency, please call 911 immediately. . Non-Emergent Contact Non-Emergency issues call your: Primary Care Provider Call Non-Emergent contact if: you have a fever, your pain is concerning you, you have any medication questions . . "Provider Documentation" section prepared by Julia Arroyo. . VTE Core Measure Inpt VTE Proph given/why not?: SCD's
[2017-10-30 14:36] VITALS: BP 138/87; PULSE 75; TEMP 36.4; O2SAT 96
--- NOTE | 2017-10-30 15:16 | Discharge Summary ---
Discharge Summary Date of Service Oct 30, 2017. Discharge Summary Admission Date: Oct 24, 2017 at 18:51 Discharge Date: Oct 30, 2017 Discharge Disposition: Home with services Principal Diagnosis: Hypertensive Urgency; Abdominal Pain- Constipation Problems/Secondary Diagnoses: 1. HTN 2. Recent RLE Abscess with Wound Vac 3. S/P Dagmar 4. S/P Hyster Immunizations: Have You Had Influenza Vaccine: No History of Tetanus Vaccine?: No History of Pneumococcal: No History of Hepatitis B Vaccine: No Procedures: ABD/PELVIS WITHOUT FOR STONE FINDINGS: Minimal subsegmental bibasilar atelectasis. Calcified granuloma of the inferior segment lingula is noted which is subcentimeter. No pneumatosis or pneumoperitoneum. The imaged inferior cardiac chambers are unremarkable. Patient obesity is noted with portions of the anatomy outside the [id number]. Hepatic steatosis. No intrahepatic biliary ductal dilation. Prior cholecystectomy. Spleen is enlarged, 13.6 cm. Pancreas and adrenal glands are within normal limits. Kidneys, ureters and urinary bladder are within normal limits. No renal calculi or obstructive uropathy. Phleboliths are seen within the pelvis. Prior hysterectomy. Aorta is normal in course and caliber. No bulky adenopathy. Small sliding-type hiatal hernia. No bowel obstruction or focal bowel wall thickening. Mild colonic diverticulosis without diverticulitis. Appendix appears normal. Soft tissues are within normal limits. Nonspecific mildly enlarged right inguinal lymph nodes measure up to 12 mm, likely reactive. The bones appear intact. Severe facet arthrosis at L5-S1 with grade 1 anterolisthesis L5 on S1. IMPRESSION: 1. No acute intra-abdominal or intrapelvic abnormality identified, specifically no renal calculi or obstructive uropathy. Normal appendix. 2. Mild colonic diverticulosis without diverticulitis. 3. Hepatic steatosis. 4. Mild splenomegaly. 5. Prior cholecystectomy. ANGIO ABD/PELVIS WITH CONTRAST, CHEST COMBO ANGIO DISSECTION FINDINGS: CTA: No intramural hematoma identified on the noncontrast scan. Heart is mildly enlarged without pericardial effusion. No thoracic aortic aneurysm or dissection. Imaged proximal great vessels are patent. No significant atherosclerosis of the thoracic aorta. The opacified pulmonary arterial tree is unremarkable without focal filling defects identified to suggest pulmonary thromboembolic disease. The abdominal aorta is normal in course and caliber as well without evidence of aneurysm, dissection or significant atherosclerotic plaquing. The iliac arteries, common femoral and image superficial femoral arteries are patent and within normal limits. The celiac trunk, superior and inferior mesenteric arteries are widely patent. The bilateral renal arteries are also widely patent. There is a small accessory left renal artery noted. No evidence of vasculitis. No high-grade stenosis or proximal branch occlusion. CT CHEST: Nodular thyroid with calcifications of the inferior left thyroid lobe measuring up to 3 mm. Nonspecific mildly prominent precarinal lymph node measures 1.3 x 0.9 cm. Mildly enlarged subcarinal lymph node measures 2.0 x 1.4 cm. Mildly prominent right paratracheal lymph nodes measure up to 8 mm. There is no pneumothorax or pleural effusion. Patchy bibasilar groundglass opacities are noted suggesting atelectasis. Indeterminate 4 mm solid noncalcified pulmonary nodule of the left lower lobe as seen on image 100 series 6. No focal airspace consolidation to suggest pneumonia. Central airways are patent. CT ABDOMEN: Hepatic steatosis. No intrahepatic biliary ductal dilation. Prior cholecystectomy. Spleen is enlarged, 13.6 cm. Pancreas and adrenal glands are within normal limits. Kidneys, ureters and urinary bladder are within normal limits. No renal calculi or obstructive uropathy. Phleboliths are seen within the pelvis. Prior hysterectomy. No bulky adenopathy. Small sliding-type hiatal hernia. No bowel obstruction or focal bowel wall thickening. Mild colonic diverticulosis without diverticulitis. Appendix appears normal. Soft tissues are within normal limits. Nonspecific mildly enlarged right inguinal lymph nodes measure up to 12 mm, likely reactive. The bones appear intact. Severe facet arthrosis at L5-S1 with grade 1 anterolisthesis L5 on S1. Mildly prominent varices of the anteromedial upper right thigh superficial subcutaneous tissues. IMPRESSION: 1. No acute intrathoracic, intra-abdominal or intrapelvic abnormality identified. 2. No aortic dissection, aneurysm or significant atherosclerotic plaquing. No high-grade stenosis or proximal branch occlusion. 3. Mild indeterminate mediastinal adenopathy as above may be reactive. 4. Hepatic steatosis. 5. 4 mm solid pulmonary nodule of the left lower lobe. 6. Mild colonic diverticulosis without diverticulitis. MRCP FINDINGS: Prior cholecystectomy. Fatty infiltration of the liver. Spleen and pancreas are uniform. No dilatation of the pancreatic ductal system. Kidneys have unremarkable signal characteristics. Abdominal bowel pattern is nonobstructive. No significant abdominal adenopathy. MRCP comparison study shows normal caliber biliary ductal system. Direct duct is unremarkable. There are no definite filling defects. IMPRESSION: Normal study post cholecystectomy. No evidence for choledocholithiasis. PA CHEST RADIOGRAPH AND UPRIGHT AND SUPINE AP RADIOGRAPHS OF THE ABDOMEN FINDINGS: Lung volumes are normal. No consolidation is identified. There is no evidence of pulmonary edema. Cardiomediastinal silhouette is unremarkable. There is no free air. There is no evidence for a bowel obstruction. There is a [id number] amount stool within the colon. There is minimal stool within the rectum. IMPRESSION: 1. No free air. 2. Mild to moderate amount of stool within the colon. Minimal stool within the rectum. 3. No acute cardiopulmonary findings. Consultations: 1. Gastroenterology - [facility] Medication Reconciliation New Medications: Lactulose (Lactulose) 30 Gm/45 Ml Syrp 1 DOSE PO DAILY PRN for Constipation for 14 Days, #14 PKT Lisinopril (Lisinopril) 20 Mg Tab 20 MG PO BID for 30 Days, #60 TAB Pantoprazole (Pantoprazole Sodium) 40 Mg Tab 40 MG PO BID for 30 Days, #60 TAB Sucralfate (Sucralfate) 1 Gm Tab 1 GM PO BID for 30 Days, #60 TAB Continued Medications: Amoxicillin (Amoxil) 500 Mg Cap 500 MG PO TID, #90 CAP 2 Refills Amphetamine-Dextroamphetamine 10MG (Adderall 10MG) 1 Tab Tab 10 MG PO DAILY, TAB Estrogens, Conjugated (Premarin) 0.625 Mg Tab 0.625 MG PO DAILY, TAB Ondansetron Hcl (Zofran) 4 Mg Tab 4 MG PO QID PRN for Nausea or Vomiting, TAB Discontinued Medications: Lisinopril (Lisinopril) 10 Mg Tab 10 MG PO DAILY Nadolol (Corgard) 20 Mg Tab 10 MG PO HS, TAB Discharge Exam Review of Systems: Constitutional: No fever, No chills ENT: No nasal symptoms, No sore throat Respiratory: No cough, No shortness of breath Cardiovascular: No chest pain Abdomen: + pain, + constipation (Resolved prior to D/C), No nausea, No vomiting, No diarrhea, No GI bleeding Musculoskeletal: No swelling, No calf pain Genitourinary - Female: No dysuria Hematologic / Lymphatic: No abnormal bleeding/bruising Physical Exam: General Appearance: WD/WN, no apparent distress, + obese Eyes: sclerae normal ENT: hearing grossly normal Neck: supple, no JVD, trachea midline Respiratory/Chest: lungs clear, normal breath sounds, no respiratory distress, no accessory muscle use Cardiovascular: regular rate, rhythm, no gallop, no murmur Abdomen / GI: normal bowel sounds, non tender, soft Neurologic/Psychiatric: alert, oriented x 3 Skin: normal color, warm/dry Hospital Course ADMISSION: 62 yo female comes in to the ER with sudden onset of severe nonradiating epigastric and RUQ pain. Patient is unable to describe the pain, she states it is not dull, sharp, pressure like, buringing, achy, colicky. She states it is just pain. She states that it worsens with movement and cannot find a pain free position. She additionally notes that she vomited a few times this morning and chills last night. She denies any headache, diarrhea, fever, chest pain, and shortness of breath. The patient additionally reports that she has a wound on her right leg, with a wound vac. She states that she was put on amoxicillin and nausea medications. The patient has a history of a cholecystectomy, , hysterectomy, and hypertension, and she denies nay diabetes. She does not take any medications. HOSPITAL COURSE: Ms. Raza was admitted for RUQ/Epigastric Abdominal Pain and Hypertensive Urgency. Studies only revealed mild gastritis and constipation. Symptoms improved with treatment of constipation. RUQ/Epigastric Pain: Mild Gastritis and Constipation - During admission pain seemed to be out of proportion to findings as numerous testing has been largely negative. However, after adequate bowel movements she felt a lot better and simply could have been from this; Had numerous studies completed, please see procedures section. - EGD did reveal a mild gastritis and GI mentioned possible outpatient colonoscopy and maybe EUS if pain still continues - Was prescribed Protonix 40 mg BID which GI recommending 3 months treatment and Carafate 1 g BID x 30 days - unsure if these are largely giving any major benefit and could be D/C'd in follow-up pending response - Did give an Rx for PRN Lactulose to use for constipation 2nd Degree Wenckebach vs Mobitz II: RESOLVED - On 10/25 - Patient had initial Wenckebach that progressed to a 2:1 AV block suggesting Mobitz II. Did discuss with cardiology and confirms that unfortunately 2:1 conduction cannot be completely differentiated on surface EKG. Later that day on 10/25 she had a few beats with the 2:1 block that did not follow and initial Wenckebach like the previous episode. Since this time she has had no further issues and have held her Nadolol during admission - Patient has been completely asymptomatic with this and may benefit from Holter /Event monitor for further evaluation - D/C'd Nadolol Hypertensive Urgency: IMPROVING - May be pain related superimposed on underlying HTN - Due to stopping Nadolol; her Lisinopril was increased to 20 mg BID RLE Wound with Vac: - Continue treatment per wound care and continue Abx as previously prescribed Attending note [id number] who presents with hypertensive urgency and epigastric and RUQ pain starting on 10/23. She is S/P Dagmar, evaluation by GI medicine only confirmed gastritis and concerns that constipation maybe worsening pain also RUQ/Epigastric Pain: Gastritis, - Protonix 40 mg daily and Carafate 1 g QID -pain improved with bowel movements - GI Following - consideration for outpatient EUS/Colonoscopy 2nd Degree Wenckebach vs Mobitz II: RESOLVED, with discontinuing of beta jh ,out patient cardiology follow up Hypertensive Urgency: improved PRN Hydralazine - Resume Lisinopril 20 mg daily RLE Wound with Vac: does not appear acutely infected, continue wound vac, wound clinic documentation from Ewa De Souza MD Total Time Spent: Greater than 30 minutes This includes examination of the patient, discharge planning, medication reconciliation, and communication with other providers. Discharge Instructions Please refer to the electronic Patient Visit Report (Discharge Instructions) for additional information. Additional Copies To Rocio Harding M.D.; Tina Fletcher C.R.N.P
[2017-10-30 15:22] VITALS: BP 121/79; PULSE 70; TEMP 36.6; O2SAT 93
== END 2017-10-30 18:15 | disposition home health service (06) | DRG 392 ==
LOC: C.EDB 12:26 → C.MED 18:51 → ENRESERV 19:15
PROVIDERS: ADMIT Internal Medicine Sports Medicine; ATTEND Internal Medicine
PROC: 0DJ08ZZ Inspection of Upper Intestinal Tract, Via Natural or Artificial Opening Endoscopic (ICD-10-PCS; principal; 2017-10-26 08:55)
DX: K29.70 Gastritis, unspecified, without bleeding (principal); L03.115 Cellulitis of right lower limb; I44.1 Atrioventricular block, second degree; S80.11XA Contusion of right lower leg, initial encounter; K59.03 Drug induced constipation; I16.0 Hypertensive urgency; Z88.6 Allergy status to analgesic agent; Z88.2 Allergy status to sulfonamides; Z88.0 Allergy status to penicillin; Z90.49 Acquired absence of other specified parts of digestive tract; Z90.710 Acquired absence of both cervix and uterus; W19.XXXA Unspecified fall, initial encounter

== ENCOUNTER 2021-05-18 20:53 | Inpatient (IN) ==
[2021-05-18] MEDS: ACETAMINOPHEN 1,000 MG/100 ML VIAL IV STA ×2 (22:17→22:34)
[2021-05-18] MEDS: DROPERIDOL 5 MG/2 ML VIAL IV STA ×2 (22:17→22:34)
[2021-05-18] MEDS: diphenhydrAMINE 50 MG/ML VIAL IV STA ×2 (22:18→22:34)
[2021-05-18] MEDS: SODIUM CHLORIDE 0.9% 1000ML 1,000 ML IV SCH ×2 (22:19→22:35)
[2021-05-18 22:44] LABS: Hematocrit (blood only) 36.2 % (37-47); Hemoglobin 11.3 g/dL (12.0-16.0); Mean Corpuscular Hemoglobin 27.6 pg (25-34); Mean Corpuscular Hgb Conc 31.2 g/dL (32-36); Mean Corpuscular Volume 88.5 fL (80-100); Mean Platelet Volume 9.1 fL (7.4-10.4); Platelet Count 1158 K/uL (130-400); RDW Coefficient of Variation 15.4 % (11.5-14.5); RDW Standard Deviation 49.3 fL (36.4-46.3); Red Blood Count 4.09 M/uL (4.2-5.4); White Blood Count 17.45 K/uL (4.8-10.8)
[2021-05-18 22:46] LABS: Alanine Aminotransferase 14 U/L (12-78); Albumin Level 2.5 gm/dl (3.4-5.0); Aspartate Aminotransferase 18 U/L (15-37); Blood Urea Nitrogen 9 mg/dl (7-18); Calcium 9.7 mg/dl (8.5-10.1); Carbon Dioxide 25 mmol/L (21-32); Chloride 107 mmol/L (98-107); Est GFR (African American) 124.6 ml/min; Est GFR (Non-African American) 107.5 ml/min; Glucose 104 mg/dl (70-99); Magnesium 1.7 mg/dl (1.8-2.4); Potassium 4.7 mmol/L (3.5-5.1); Sodium 139 mmol/L (136-145)
[2021-05-18 22:49] LABS: Basophils # (auto) 0.03 K/uL (0-0.2); Basophils % (auto) 0.2 %; Eosinophils # (auto) 0.01 K/uL (0-0.5); Eosinophils % (auto) 0.1 %; Hypochromasia Present; Immature Granulocytes # (auto) 0.05 K/uL (0.00-0.02); Immature Granulocytes % (auto) 0.3 %; Lymphocytes # (auto) 1.35 K/uL (1.2-3.4); Lymphocytes % (auto) 7.7 %; Monocytes # (auto) 0.56 K/uL (0.11-0.59); Monocytes % (auto) 3.2 %; Neutrophils # (auto) 15.45 K/uL (1.4-6.5); Neutrophils % (auto) 88.5 %; Rouleaux 1+
[2021-05-18] MEDS ORDERED: BENZTROPINE MESYLATE 1 MG/ML 2 ML AMP IV STA (23:01)
[2021-05-18 23:15] LABS: Albumin Globulin Ratio 0.5 (0.9-2); Alkaline Phosphatase 81 U/L (45-117); Bilirubin,Total 0.3 mg/dl (0.2-1); Globulin 4.6 gm/dl (2.5-4.0); Total Protein 7.1 gm/dl (6.4-8.2); Troponin I < 0.015 ng/ml (0-0.045)
[2021-05-18 23:49] LABS: Hematocrit (blood only) 33.3 % (37-47); Hemoglobin 10.4 g/dL (12.0-16.0); Mean Corpuscular Hemoglobin 27.6 pg (25-34); Mean Corpuscular Hgb Conc 31.2 g/dL (32-36); Mean Corpuscular Volume 88.3 fL (80-100); Mean Platelet Volume 9.4 fL (7.4-10.4); Platelet Count 1096 K/uL (130-400); RDW Coefficient of Variation 15.3 % (11.5-14.5); RDW Standard Deviation 49.5 fL (36.4-46.3); Red Blood Count 3.77 M/uL (4.2-5.4); White Blood Count 15.19 K/uL (4.8-10.8)
[2021-05-19] MEDS ORDERED: fentaNYL citrate 100 MCG/2 ML VIAL IV STA ×2 (00:01→01:42)
[2021-05-19] MEDS ORDERED: FAMOTIDINE 20MG/5ML IV PUSH IV STA (00:01)
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
[2021-05-19 00:13] LABS: Appearance Urine Clear (Clear); Bilirubin Urine Negative (Negative); Blood Urine Negative (Negative); Color Urine Yellow; Glucose Urine UA Negative (Negative); Ketones Urine 2+ (Negative); Leukocyte Esterase Urine Negative (Negative); Nitrite Urine Negative (Negative); Protein Urine Negative (Negative); Specific Gravity Urine 1.011 (1.000-1.030); Urobilinogen Urine Negative (Negative); pH Urine 5.5 (4.5-7.5)
[2021-05-19] MEDS ORDERED: OPTIRAY 320 100ml IV ONE (00:17)
[2021-05-19] MEDS ORDERED: MAGNESIUM SULFATE / D5W 1 GM/100 ML BAG IV STA (00:25)
[2021-05-19 00:31] LABS: Basophils # (auto) 0.05 K/uL (0-0.2); Basophils % (auto) 0.3 %; Eosinophils # (auto) 0.02 K/uL (0-0.5); Eosinophils % (auto) 0.1 %; Hypochromasia Present; Immature Granulocytes # (auto) 0.07 K/uL (0.00-0.02); Immature Granulocytes % (auto) 0.5 %; Lymphocytes # (auto) 1.51 K/uL (1.2-3.4); Lymphocytes % (auto) 9.9 %; Monocytes # (auto) 0.44 K/uL (0.11-0.59); Monocytes % (auto) 2.9 %; Neutrophils % (auto) 86.3 %
[2021-05-19] MEDS ORDERED: cefTRIAXone SODIUM 2,000 MG/70 ML BAG IV STA (01:40)
[2021-05-19] MEDS ORDERED: VANCOMYCIN HCL 2,200 MG in SODIUM CHLORIDE 0.9% 500 ML IV ONE (01:53)
[2021-05-19] MEDS ORDERED: VANCOMYCIN HCL 2,000 MG in SODIUM CHLORIDE 0.9% 500 ML IV ONE (01:53)
[2021-05-19] MEDS ORDERED: VANCOMYCIN CONSULT ACTIVE PRN (01:53)
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
[2021-05-19 02:21] LABS: C Reactive Protein 7.52 mg/dl (0-0.29)
[2021-05-19] MEDS: ONDANSETRON INJ 2 MG/ML 2 ML VIAL IV PRN ×2 (02:44→09:42)
--- NOTE | 2021-05-19 04:10 | Billing Data ---
Date of Service May 19, 2021 Coding Level of Care Code 35267 Initial Inpt Care Lvl 2
[2021-05-19] MEDS ORDERED: POLYETHYLENE (MIRALAX) 17 GM PACK PO PRN (06:35)
[2021-05-19] MEDS ORDERED: KETOROLAC TROMETHAMINE 15 MG/ML VIAL IV PRN ×2 (06:35→13:40)
[2021-05-19] MEDS ORDERED: fentaNYL citrate 100 MCG/2 ML VIAL IV PRN (06:35)
[2021-05-19] MEDS ORDERED: LORazepam 0.5 MG TAB PO PRN (06:35)
[2021-05-19] MEDS ORDERED: oxyCODONE HCL IR 5 MG TAB (IMMEDIATE RELEASE) PO PRN ×2 (06:35→13:40)
[2021-05-19] MEDS ORDERED: PROCHLORPERAZINE MALEATE 5 MG TAB PO PRN (06:35)
--- NOTE | 2021-05-19 09:30 | Hospitalist Progress Note ---
Date of Service May 19, 2021 Assessment & Plan (1) Intractable abdominal pain: Plan: 65 yo F with recent splenectomy, carcinoid tumor admitted for intractable nausea and abdominal pain. Gastroenteritis: -CT Abdomen/Pelvis demonstrating concern for enteritis vs. small bowel 2.3 cm carcinoid tumor with spiculations -received vanc/ceftriaxone for bacterial enteritis concerns on admission -discontinued vancomycin -trend CBC. WBC 15 on admission -scheduled tylenol Q8h; Oxycodone 5mg Q4h PRN, toradol 15 mg IV q6 prn -CRP 7.52 -Procal negative -Stool cultures sent including C. diff Nausea: - 4mg zofran IV Q6h prn - compazine PO 5 mg Q8H prn Carcinoid tumor: - follows with dr. 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 overall maybe slightly better than earlier - hard to tell - does not seem worse, though vitals noted nad heent nc at mmm breathing unlabored no accessory muscles good effort abd soft mild distention mild diffuse tender no guarding no rebound diarrhea - ?infectious vs neuroendocrine tumor related - await stool studies. empiric treatment for now. oncology input otherwise as above Subjective Patient is feeling well this morning, with limited continued abdominal pain. Continues to have loose stools without other complications at this point in time. Has not required breakthrough pain medications since admission. Review of Systems Review of Systems: All systems reviewed & are unremarkable except as noted in Subjective Physical Exam Constitutional: WD/WN, vitals as above Eyes: PERRL, conjunctivae normal, anicteric sclerae Respiratory: normal respiratory effort, lungs clear to auscultation Auscultation: no crackles, no rales, no rhonchi and no wheezes Cardiovascular: Rate/Rhythm: regular rate and regular rhythm Heart Sounds: no gallop, no murmur and no cardiac rub Vessels: normal peripheral pulses; no JVD Extremities: no edema Gastrointestinal (Abdomen): Inspection/Auscultation: normal bowel sounds; abdomen not distended Percussion/Palpation: abdomen soft; abdomen nontender and no guarding Neurologic: PERRL, EOMI, accommodation nl, no face palsy, no dysarthria CN's II-XI intact bilaterally and moves all extremities Psychiatric: Orientation: alert and oriented x 3 Results & Data Results & Data ([facility]) Vital Signs (Past 12 Hours) Vital Signs Temp Pulse Pulse Pulse Resp BP BP 05/19/21 08:00 37 C 82 89 19 177/90 H 05/19/21 06:36 78 22 147/91 H 05/19/21 05:39 36.9 C 100 H 21 178/94 H 05/19/21 05:36 102 H 22 178/94 H 05/19/21 04:52 108 H 15 156/106 H 05/19/21 04:51 99 H 20 156/106 H 05/19/21 04:13 104 H 19 152/91 H 05/19/21 04:11 106 H 20 152/91 H 05/19/21 03:00 107 H 26 H 05/19/21 02:30 70 24 05/19/21 02:04 151/105 H 05/19/21 01:57 90 24 165/89 H 05/19/21 00:15 102 H 24 165/89 H 05/19/21 00:11 165/89 H 05/18/21 23:30 99 H 24 176/102 H 05/18/21 22:58 100 H 13 176/102 H Pulse Ox 05/19/21 08:00 96 05/19/21 06:36 95 05/19/21 05:39 95 05/19/21 05:36 97 05/19/21 04:52 95 05/19/21 04:51 93 05/19/21 04:13 94 05/19/21 04:11 94 05/19/21 03:00 95 05/19/21 02:30 93 05/19/21 02:04 95 05/19/21 01:57 95 05/19/21 00:15 95 05/19/21 00:11 97 05/18/21 23:30 97 05/18/21 22:58 Laboratory Results 05/19/21 05/19/21 05/19/21 Range/Units 03:34 02:51 02:51 WBC (4.8-10.8) K/uL RBC (4.2-5.4) M/uL Hgb (12.0-16.0) g/dL Hct (37-47) % MCV (80-100) fL MCH (25-34) pg MCHC (32-36) g/dL RDW Std Deviation (36.4-46.3) fL RDW Coeff of Denilson (11.5-14.5) % Plt Count (130-400) K/uL MPV (7.4-10.4) fL Immature Gran % (Auto) % Neut % (Auto) % Lymph % (Auto) % [place] % (Auto) % Eos % (Auto) % Baso % (Auto) % Neut # (Auto) (1.4-6.5) K/uL Lymph # (Auto) (1.2-3.4) K/uL [place] # (Auto) (0.11-0.59) K/uL Eos # (Auto) (0-0.5) K/uL Baso # (Auto) (0-0.2) K/uL Immature Gran # (Auto) (0.00-0.02) K/uL Hypochromasia Rouleaux Peripher Smr Path Cons Sodium (136-145) mmol/L Potassium (3.5-5.1) mmol/L Chloride (98-107) mmol/L Carbon Dioxide (21-32) mmol/L Anion Gap (3-11) BUN (7-18) mg/dl Creatinine (0.6-1.2) mg/dl Est Cr Clr Drug Dosing Est GFR ( Amer) ml/min Est GFR (Non-Af Amer) ml/min BUN/Creatinine Ratio (10-20) Glucose (70-99) mg/dl Calcium (8.5-10.1) mg/dl Magnesium (1.8-2.4) mg/dl Total Bilirubin (0.2-1) mg/dl AST (15-37) U/L ALT (12-78) U/L Alkaline Phosphatase (45-117) U/L Troponin I (0-0.045) ng/ml C-Reactive Protein (0-0.29) mg/dl Total Protein (6.4-8.2) gm/dl Albumin (3.4-5.0) gm/dl Globulin (2.5-4.0) gm/dl Albumin/Globulin Ratio (0.9-2) Procalcitonin < 0.05 (0-0.5) ng/ml TSH (0.300-4.500) uIu/ml Specimen Hemolysis Urine Color Urine Appearance (Clear) Urine pH (4.5-7.5) Ur Specific [place] (1.000-1.030) Urine Protein (Negative) Urine Glucose (UA) (Negative) Urine Ketones (Negative) Urine Blood (Negative) Urine Nitrite (Negative) Urine Bilirubin (Negative) Urine Urobilinogen (Negative) Ur Leukocyte Esterase (Negative) COVID-19 Eval Order Covid19 at [facility] SARS-CoV-2 (PCR) NEGATIVE (Negative) 05/19/21 05/18/21 05/18/21 Range/Units 00:00 23:07 22:20 WBC 15.19 H (4.8-10.8) K/uL RBC 3.77 L (4.2-5.4) M/uL Hgb 10.4 L (12.0-16.0) g/dL Hct 33.3 L (37-47) % MCV 88.3 (80-100) fL MCH 27.6 (25-34) pg MCHC 31.2 L (32-36) g/dL RDW Std Deviation 49.5 H (36.4-46.3) fL RDW Coeff of Denilson 15.3 H (11.5-14.5) % Plt Count 1096 H* (130-400) K/uL MPV 9.4 (7.4-10.4) fL Immature Gran % (Auto) 0.5 % Neut % (Auto) 86.3 % Lymph % (Auto) 9.9 % [place] % (Auto) 2.9 % Eos % (Auto) 0.1 % Baso % (Auto) 0.3 % Neut # (Auto) 13.10 H (1.4-6.5) K/uL Lymph # (Auto) 1.51 (1.2-3.4) K/uL [place] # (Auto) 0.44 (0.11-0.59) K/uL Eos # (Auto) 0.02 (0-0.5) K/uL Baso # (Auto) 0.05 (0-0.2) K/uL Immature Gran # (Auto) 0.07 H (0.00-0.02) K/uL Hypochromasia Present Rouleaux Peripher Smr Path Cons Sodium 139 (136-145) mmol/L Potassium 4.7 (3.5-5.1) mmol/L Chloride 107 (98-107) mmol/L Carbon Dioxide 25 (21-32) mmol/L Anion Gap 7.0 (3-11) BUN 9 (7-18) mg/dl Creatinine 0.43 L (0.6-1.2) mg/dl Est Cr Clr Drug Dosing Not Reportable Est GFR ( Amer) 124.6 ml/min Est GFR (Non-Af Amer) 107.5 ml/min BUN/Creatinine Ratio 21.0 H (10-20) Glucose 104 H (70-99) mg/dl Calcium 9.7 (8.5-10.1) mg/dl Magnesium 1.7 L (1.8-2.4) mg/dl Total Bilirubin 0.3 (0.2-1) mg/dl AST 18 (15-37) U/L ALT 14 (12-78) U/L Alkaline Phosphatase 81 (45-117) U/L Troponin I < 0.015 (0-0.045) ng/ml C-Reactive Protein 7.52 H (0-0.29) mg/dl Total Protein 7.1 (6.4-8.2) gm/dl Albumin 2.5 L (3.4-5.0) gm/dl Globulin 4.6 H (2.5-4.0) gm/dl Albumin/Globulin Ratio 0.5 L (0.9-2) Procalcitonin (0-0.5) ng/ml TSH 1.850 (0.300-4.500) uIu/ml Specimen Hemolysis Urine Color Yellow Urine Appearance Clear (Clear) Urine pH 5.5 (4.5-7.5) Ur Specific [place] 1.011 (1.000-1.030) Urine Protein Negative (Negative) Urine Glucose (UA) Negative (Negative) Urine Ketones 2+ H (Negative) Urine Blood Negative (Negative) Urine Nitrite Negative (Negative) Urine Bilirubin Negative (Negative) Urine Urobilinogen Negative (Negative) Ur Leukocyte Esterase Negative (Negative) COVID-19 Eval Order SARS-CoV-2 (PCR) (Negative) 05/18/21 Range/Units 22:20 WBC 17.45 H (4.8-10.8) K/uL RBC 4.09 L (4.2-5.4) M/uL Hgb 11.3 L (12.0-16.0) g/dL Hct 36.2 L (37-47) % MCV 88.5 (80-100) fL MCH 27.6 (25-34) pg MCHC 31.2 L (32-36) g/dL RDW Std Deviation 49.3 H (36.4-46.3) fL RDW Coeff of Denilson 15.4 H (11.5-14.5) % Plt Count 1158 H* (130-400) K/uL MPV 9.1 (7.4-10.4) fL Immature Gran % (Auto) 0.3 % Neut % (Auto) 88.5 % Lymph % (Auto) 7.7 % [place] % (Auto) 3.2 % Eos % (Auto) 0.1 % Baso % (Auto) 0.2 % Neut # (Auto) 15.45 H (1.4-6.5) K/uL Lymph # (Auto) 1.35 (1.2-3.4) K/uL [place] # (Auto) 0.56 (0.11-0.59) K/uL Eos # (Auto) 0.01 (0-0.5) K/uL Baso # (Auto) 0.03 (0-0.2) K/uL Immature Gran # (Auto) 0.05 H (0.00-0.02) K/uL Hypochromasia Present Rouleaux 1+ Peripher Smr Path Cons Sodium (136-145) mmol/L Potassium (3.5-5.1) mmol/L Chloride (98-107) mmol/L Carbon Dioxide (21-32) mmol/L Anion Gap (3-11) BUN (7-18) mg/dl Creatinine (0.6-1.2) mg/dl Est Cr Clr Drug Dosing Est GFR ( Amer) ml/min Est GFR (Non-Af Amer) ml/min BUN/Creatinine Ratio (10-20) Glucose (70-99) mg/dl Calcium (8.5-10.1) mg/dl Magnesium (1.8-2.4) mg/dl Total Bilirubin (0.2-1) mg/dl AST (15-37) U/L ALT (12-78) U/L Alkaline Phosphatase (45-117) U/L Troponin I (0-0.045) ng/ml C-Reactive Protein (0-0.29) mg/dl Total Protein (6.4-8.2) gm/dl Albumin (3.4-5.0) gm/dl Globulin (2.5-4.0) gm/dl Albumin/Globulin Ratio (0.9-2) Procalcitonin (0-0.5) ng/ml TSH (0.300-4.500) uIu/ml Specimen Hemolysis Urine Color Urine Appearance (Clear) Urine pH (4.5-7.5) Ur Specific [place] (1.000-1.030) Urine Protein (Negative) Urine Glucose (UA) (Negative) Urine Ketones (Negative) Urine Blood (Negative) Urine Nitrite (Negative) Urine Bilirubin (Negative) Urine Urobilinogen (Negative) Ur Leukocyte Esterase (Negative) COVID-19 Eval Order SARS-CoV-2 (PCR) (Negative) Medications Administered Current Inpatient Medications Acetaminophen (Acetaminophen 500 Mg Tab) 1,000 mg PO Q8H [facility] Stop: 06/18/21 07:59 Enoxaparin Sodium (Enoxaparin Inj 40 Mg/0.4 Ml Syr) 40 mg SQ DAILY [facility] Stop: 06/18/21 08:59 Fentanyl Citrate (Fentanyl Citrate 100 Mcg/2 Ml Vial) 50 mcg IV Q2H PRN PRN Reason: Moderate Pain (4,5,6) on NRS Stop: 06/02/21 06:34 Famotidine 20 mg/ Syringe 5 mls @ 2.5 mls/min IV BID [facility] Stop: 06/18/21 08:59 Vancomycin HCl 1,500 mg/ (Sodium Chloride) 530 mls @ 200 mls/hr IV Q12H [facility] Stop: 05/29/21 13:59 Ketorolac Tromethamine (Ketorolac Tromethamine 15 Mg/Ml Vial) 15 mg IV Q6H PRN PRN Reason: mild Pain Stop: 05/24/21 06:34 Lisinopril (Lisinopril 10 Mg Tab) 10 mg PO DAILY [facility] Stop: 06/18/21 08:59 Lorazepam (Lorazepam 0.5 Mg Tab) 0.5 mg PO Q6H PRN PRN Reason: anxiety Stop: 06/18/21 06:34 Miscellaneous Information (Vancomycin Consult Active) 1 ea N/A UD PRN PRN Reason: Consult Stop: 06/18/21 01:52 Nystatin (Nystatin Powder 15gm Btl) 1 appln EXT BID [facility] Stop: 06/18/21 08:59 Ondansetron HCl (Ondansetron Inj 2 Mg/Ml 2 Ml Vial) 4 mg IV Q6H PRN PRN Reason: nausea Stop: 06/18/21 02:09 Last Admin: 05/19/21 02:44 Dose: 4 mg Documented by: Oxycodone HCl (Oxycodone Hcl Ir 5 Mg Tab (Immediate Release)) 5 mg PO Q4H PRN PRN Reason: pain Stop: 06/02/21 06:34 Polyethylene Glycol (Polyethylene (Miralax) 17 Gm Pack) 17 gm PO DAILY PRN PRN Reason: Constipation Stop: 06/18/21 06:34 Prochlorperazine (Prochlorperazine Maleate 5 Mg Tab) 5 mg PO Q8H PRN PRN Reason: nausea Stop: 06/18/21 06:34 Sertraline HCl (Sertraline Hcl 50 Mg Tablet) 50 mg PO DAILY [facility] Stop: 06/18/21 08:59 Resident Activity Tracking Resident Involvement: Resident Care Provided Care Provided: Adult Hospital Medicine
--- NOTE | 2021-05-19 09:40 | XRay Report ---
XR chest 1V portable CLINICAL HISTORY: weakness COMPARISON STUDY: October 30, 2017 FINDINGS: No pneumothorax. Lung volumes are decreased with crowded lung markings. Moderate left pleural effusion is seen associated with atelectasis/infiltrate at the left base. Cardiac silhouette is within normal limits in size and partially obscured on the left by surrounding opacities. Mild prominence of the right paratracheal stripe which is unchanged since prior study in 2018 and marily ht be related to rotation or/and represent stable vascular prominence. No significant pulmonary vascular congestion.. Osseous structures: Mild degenerative changes of the spine. IMPRESSION: 1. Moderate left pleural effusion associated with atelectasis/infiltrate. 2. Stable prominence of the right paratracheal stripe, unchanged since 2018 and could represent vasc ular prominence or enlarged mediastinal lymph nodes. ACT 112: Negative or not required by law. The above report was generated using voice recognition software. It may contain grammatical, syntax o r spelling errors. Electronically signed by: Jaja Manzano DO 05/19/2021 9:39 AM
[2021-05-19] MEDS: SERTRALINE HCL 50 MG TABLET PO SCH (09:41)
[2021-05-19] MEDS: NYSTATIN POWDER 15GM BTL EXT SCH ×2 (09:42→21:39)
[2021-05-19] MEDS: FAMOTIDINE 20 MG in SYRINGE 3 ML IV SCH ×2 (09:42→21:33)
[2021-05-19] MEDS: lisinopril 10 MG TAB PO SCH (09:42)
[2021-05-19] MEDS: ENOXAPARIN INJ 40 MG/0.4 ML SYR SQ SCH (09:42)
[2021-05-19] MEDS: ACETAMINOPHEN 500 MG TAB PO SCH ×2 (09:42→15:46)
--- NOTE | 2021-05-19 10:40 | CT Scan Report ---
CT abd pelvis IV con only CLINICAL HISTORY: rlq pain COMPARISON STUDY: March 23, 2021 TECHNIQUE: A dose lowering technique was utilized adhering to the principles of ALARA. CT DOSE: 1805.97 mGy.cm FINDINGS: Lower chest: Interval development of moderate left pleural effusion associated with compressive atele ctasis at the left lower lobe. Also atelectasis is seen at the right base. Liver: The contrast-enhanced liver is normal in size, contour, and attenuation. There is no intrahepa tic biliary ductal dilatation. The hepatic veins and portal veins are patent. Gallbladder: Is surgically absent. Spleen: Interval removal of the spleen. Pancreas: Is atrophic. There is questionable 1.1 cm hypoattenuating lesion within pancreatic body whi ch was not definitely seen on prior study (11/29). Overall evaluation is limited due to beam hardening artifact from patient's arms. Adrenal glands: Unremarkable. Kidneys: There is symmetric renal cortical enhancement. The kidneys are normal in size without hydron ephrosis. Pelvic viscera: Urinary bladder is adequately filled with urine. Status post hysterectomy. Bowel: Nondilated loops of small bowel fluid-filled. Loops of mid-distal small bowel shows diffuse th ickening of its wall. Appendix is not definitely seen. Colonic loops are nondilated. Mild diverticulo sis is seen at the region of splenic flecture and shows no evidence of diverticulitis. Redemonstration of elongated spiculated 4.3 x 2.0 cm mass with small eccentric calcification, located in the right hemiabdomen and associated with mesenteric tethering. Peritoneum: There is no intraperitoneal free air or abdominal ascites. Mild mesenteric edema is seen within right hemiabdomen surrounding cecum and ascending colon as well as loops of small bowel with d iffuse thickening of its wall. Vasculature: The abdominal aorta is normal in course and caliber. Adenopathy: Stable left retroperitoneal lymph nodes measuring 1.2 cm in short axis (/32) Skeletal structures: Fracture deformities of posterior sixth and seventh ribs with minimal healing is seen. Mild multilevel degenerative changes of the spine. Interval post surgical changes within anterior abdominal wall containing fluid collection might repre sent postoperative seroma; small amount of gas collection could be related to recent surgery (3/178). No definite peripheral enhancement within this fluid is seen to suggest abscess formation. Please co rrelate above-mentioned findings with history of recent surgery and tenderness of suture line. IMPRESSION: 1. Nondilated fluid-filled loops of small bowel. Mild thickening of small bowel wall with surroundin g fat stranding within the right hemiabdomen which might represent enteritis. 2. Interval post surgical changes within anterior abdominal wall containing fluid collection might r epresent postoperative seroma; small amount of gas collection could be related to recent surgery (12/02 78). No definite peripheral enhancement within this fluid is seen to suggest abscess formation. Pleas e correlate above-mentioned findings with history of recent surgery and tenderness of suture line. 3. Interval prominence of small slightly hypoattenuating lesion within pancreatic body. Please corre late above-mentioned findings with clinical presentation of epigastric pain. Further evaluation with CT of the abdomen with IV contrast, pancreatic protocol on nonemergency basis might be considered.. 4. Redemonstration of stable spiculated intra-abdominal mass with calcification and the tethering of the mesentery which might represent carcinoid. 5. Interval splenectomy, healing left rib fractures and moderate left pleural effusion associated wi th atelectasis of the left base. Please correlate above-mentioned findings with history of recent tra ankur. 6. Stable minimal retroperitoneal lymphadenopathy. 7. The rest of findings as above. ACT 112: Positive. There are findings on this exam that require communication between the performing entity and the patient following Patient Test Result Information Act ([place] Act 112) guidelines. The above report was generated using voice recognition software. It may contain grammatical, syntax o r spelling errors. Electronically signed by: Jaja Manzano DO 05/19/2021 10:39 AM
[2021-05-19] MEDS ORDERED: VANCOMYCIN HCL 1,500 MG in SODIUM CHLORIDE 0.9% 500 ML IV SCH (14:00)
--- NOTE | 2021-05-19 16:25 | Electrocardiogram Report ---
Test Reason : Blood Pressure : / mmHG Vent. Rate : 107 BPM Atrial Rate : 107 BPM P-R Int : 182 ms QRS Dur : 088 ms QT Int : 326 ms P-R-T Axes : 042 024 034 degrees QTc Int : 435 ms Sinus tachycardia Cannot rule out Anterior infarct (cited on or before 02-APR-2021) Abnormal ECG When compared with ECG of 02-APR-2021 17:21, No significant change was found Confirmed by Cristian Hillman ([id number]) on 05/19/2021 4:25:00 PM Referred By: REFERRED SELF Confirmed By:Cristian Hillman
[2021-05-19] MEDS: VANCOMYCIN HCL 250 MG/5 ML SOLN PO SCH (17:07)
[2021-05-19] MEDS: RASPBERRY SYRUP 5 ML UDP PO SCH (17:07)
--- NOTE | 2021-05-19 18:16 | Billing Data ---
Date of Service May 19, 2021 Coding Level of Care Code 24733 Subseq Hosp Care Lvl 3
[2021-05-20] MEDS: ACETAMINOPHEN 500 MG TAB PO SCH ×3 (00:23→15:36)
[2021-05-20] MEDS: RASPBERRY SYRUP 5 ML UDP PO SCH ×2 (00:24→05:22)
[2021-05-20] MEDS: VANCOMYCIN HCL 250 MG/5 ML SOLN PO SCH ×2 (00:24→05:22)
[2021-05-20 07:47] LABS: Hematocrit (blood only) 31.6 % (37-47); Hemoglobin 9.5 g/dL (12.0-16.0); Mean Corpuscular Hemoglobin 26.8 pg (25-34); Mean Corpuscular Hgb Conc 30.1 g/dL (32-36); Platelet Count 1054 K/uL (130-400); RDW Coefficient of Variation 15.5 % (11.5-14.5); RDW Standard Deviation 50.5 fL (36.4-46.3); Red Blood Count 3.55 M/uL (4.2-5.4); White Blood Count 9.59 K/uL (4.8-10.8)
[2021-05-20 08:07] LABS: Basophils # (auto) 0.08 K/uL (0-0.2); Basophils % (auto) 0.8 %; Eosinophils # (auto) 0.25 K/uL (0-0.5); Eosinophils % (auto) 2.6 %; Immature Granulocytes # (auto) 0.03 K/uL (0.00-0.02); Immature Granulocytes % (auto) 0.3 %; Lymphocytes # (auto) 2.06 K/uL (1.2-3.4); Lymphocytes % (auto) 21.5 %; Monocytes # (auto) 0.84 K/uL (0.11-0.59); Monocytes % (auto) 8.8 %; Neutrophils # (auto) 6.33 K/uL (1.4-6.5)
[2021-05-20 08:23] LABS: BUN Creatinine Ratio 18.8 (10-20); Calcium 8.8 mg/dl (8.5-10.1); Creatinine Clr Calc Pharmacy 149.9 ml/min; Est GFR (African American) 125.5 ml/min; Est GFR (Non-African American) 108.3 ml/min; Ferritin 194.5 ng/ml (8-388); Potassium 3.6 mmol/L (3.5-5.1)
[2021-05-20] MEDS: ENOXAPARIN INJ 40 MG/0.4 ML SYR SQ SCH (08:44)
[2021-05-20] MEDS: NYSTATIN POWDER 15GM BTL EXT SCH ×2 (08:45→19:58)
[2021-05-20] MEDS: lisinopril 10 MG TAB PO SCH (08:45)
[2021-05-20] MEDS: SERTRALINE HCL 50 MG TABLET PO SCH (08:45)
[2021-05-20] MEDS: FAMOTIDINE 20 MG in SYRINGE 3 ML IV SCH (08:52)
[2021-05-20] MEDS: LORazepam 1 MG TAB PO PRN (09:11)
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
--- NOTE | 2021-05-20 15:07 | Hospitalist Progress Note ---
Date of Service May 20, 2021 Assessment & Plan (1) Intractable abdominal pain: Plan: 65 yo F with recent splenectomy, carcinoid tumor admitted for intractable nausea and abdominal pain. Diarrhea: -at this point unlikely to be due to an infectious process; potentially due to oncologic process -CT Abdomen/Pelvis demonstrating concern for enteritis vs. small bowel 2.3 cm carcinoid tumor with spiculations -WBC 15 on admission -scheduled tylenol Q8h; Oxycodone 5mg Q4h PRN, toradol 15 mg IV q6 prn -CRP 7.52 (likely inflammatory potentially 2/2 oncologic process) -Procal negative -C diff negative -Stool cultures pending -discontinued antibiotics -4mg zofran IV Q6h prn -compazine PO 5 mg Q8H prn -trial of Metamucil for fiber supplementation to Carcinoid tumor: -per oncology: plans for lanreotide as outpatient, need for PET scan in coming weeks/months Thrombocytosis: -likely secondary to post-splenectomy contributions verse malignancy based off CCP note from 04/25 -1095 plt on admission Grief reaction: -continue Zoloft 50mg daily -added Buspar 5mg QID PRN for anxiety to assist with bridging/start of zoloft -can utilize Ativan if not continuing to get Anemia: -mixed picture of anemia in this current post-splenectomy case -iron low, TIBC low, and Ferritin normal -start on Ferrous gluconate DVT ppx: lovenox Diet: clear diet; advance as tolerated Code Status: full code (2) Nausea & vomiting: (3) Malignant carcinoid tumor: (4) Hypertension: (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: (6) Grief reaction: Admission and Anticipated Discharge Date Admission Date: May 19, 2021 Supervising Physician Co-Signing Physician Notes I personally examined the patient and verified all whit[place] points of history and exam, discussed case, and agree with decision making with Dr Hood diarrhea. still urgency bothering her. extensive discussions w pt and family. vitals noted nad heent nc at mmm breathing unlabored no accessory muscles good effort skin no rashes no pallor or icterus diarrhea - does not appear bacterial infectious. ?nonCdiff abx associated (family notes she was on abx for 3wks recently), vs tumor related. fiber, potentially lomotil. time. grief/stress reaction - has had multiple significant traumatic life stressors all in very short order. Discussed critical need for working through the grieving process. Strongly recommended some form of counseling. She will give consideration. Family in favor of this too. Hopefully home once diarrhea has improved some. otherwise as above Subjective Extensive discussions with patient and family regarding need for continued grief therapy/counseling given the extensive changes Hope has had over the last several months. Continuing to have diarrhea at this point but overall feels well, which is her current biggest concern towards getting home. Review of Systems Review of Systems: All systems reviewed & are unremarkable except as noted in Subjective Physical Exam Constitutional: WD/WN, vitals as above Eyes: PERRL, conjunctivae normal, anicteric sclerae Respiratory: normal respiratory effort, lungs clear to auscultation Auscultation: no crackles, no rales, no rhonchi and no wheezes Cardiovascular: Rate/Rhythm: regular rate and regular rhythm Heart Sounds: no gallop, no murmur and no cardiac rub Vessels: normal peripheral pulses; no JVD Extremities: no edema Gastrointestinal (Abdomen): Inspection/Auscultation: normal bowel sounds; abdomen not distended Percussion/Palpation: abdomen soft; abdomen nontender and no guarding Neurologic: PERRL, EOMI, accommodation nl, no face palsy, no dysarthria CN's II-XI intact bilaterally and moves all extremities Psychiatric: Orientation: alert and oriented x 3 Results & Data Results & Data ([facility]) Vital Signs (Past 12 Hours) Vital Signs Temp Pulse Pulse Resp BP BP Pulse Ox 05/20/21 08:09 36.9 C 87 16 157/80 H 93 05/20/21 08:00 63 05/20/21 04:00 36.8 C 83 16 138/82 92 Laboratory Results 05/20/21 05/20/21 Range/Units 07:22 07:22 WBC 9.59 (4.8-10.8) K/uL RBC 3.55 L (4.2-5.4) M/uL Hgb 9.5 L (12.0-16.0) g/dL Hct 31.6 L (37-47) % MCV 89.0 (80-100) fL MCH 26.8 (25-34) pg MCHC 30.1 L (32-36) g/dL RDW Std Deviation 50.5 H (36.4-46.3) fL RDW Coeff of Denilson 15.5 H (11.5-14.5) % Plt Count 1054 H* (130-400) K/uL MPV 9.0 (7.4-10.4) fL Immature Gran % (Auto) 0.3 % Neut % (Auto) 66.0 % Lymph % (Auto) 21.5 % Bledsoe % (Auto) 8.8 % Eos % (Auto) 2.6 % Baso % (Auto) 0.8 % Neut # (Auto) 6.33 (1.4-6.5) K/uL Lymph # (Auto) 2.06 (1.2-3.4) K/uL Bledsoe # (Auto) 0.84 H (0.11-0.59) K/uL Eos # (Auto) 0.25 (0-0.5) K/uL Baso # (Auto) 0.08 (0-0.2) K/uL Immature Gran # (Auto) 0.03 H (0.00-0.02) K/uL Sodium 142 (136-145) mmol/L Potassium 3.6 D (3.5-5.1) mmol/L Chloride 110 H (98-107) mmol/L Carbon Dioxide 26 (21-32) mmol/L Anion Gap 6.0 (3-11) BUN 8 (7-18) mg/dl Creatinine 0.42 L (0.6-1.2) mg/dl Est Cr Clr Drug Dosing 149.9 ml/min Est GFR ( Amer) 125.5 ml/min Est GFR (Non-Af Amer) 108.3 ml/min BUN/Creatinine Ratio 18.8 (10-20) Glucose 78 (70-99) mg/dl Calcium 8.8 (8.5-10.1) mg/dl Iron 24 L (35-150) mcg/dl TIBC 192 L (250-450) mcg/dl Ferritin 194.5 (8-388) ng/ml Medications Administered Current Inpatient Medications Acetaminophen (Acetaminophen 500 Mg Tab) 1,000 mg PO Q8H [facility] Stop: 06/18/21 07:59 Last Admin: 05/20/21 15:36 Dose: 1,000 mg Documented by: Buspirone HCl (Buspirone 5 Mg Tab) 5 mg PO QID PRN PRN Reason: Anxiety Stop: 06/19/21 16:59 Enoxaparin Sodium (Enoxaparin Inj 40 Mg/0.4 Ml Syr) 40 mg SQ DAILY [facility] Stop: 06/18/21 08:59 Last Admin: 05/20/21 08:44 Dose: 40 mg Documented by: Famotidine (Famotidine 20 Mg Tab) 20 mg PO BID [facility] Stop: 06/19/21 20:59 Ferrous Gluconate (Ferrous Gluconate 324 Mg Tab) 324 mg PO BIDM [facility] Stop: 06/19/21 16:59 Ketorolac Tromethamine (Ketorolac Tromethamine 15 Mg/Ml Vial) 15 mg IV Q6H PRN PRN Reason: Mild Breakthrough Pain Stop: 05/24/21 06:34 Lisinopril (Lisinopril 10 Mg Tab) 10 mg PO DAILY [facility] Stop: 06/18/21 08:59 Last Admin: 05/20/21 08:45 Dose: 10 mg Documented by: Lorazepam (Lorazepam 1 Mg Tab) 1 mg PO Q6H PRN PRN Reason: anxiety Stop: 06/18/21 06:34 Last Admin: 05/20/21 09:11 Dose: 1 mg Documented by: Nystatin (Nystatin Powder 15gm Btl) 1 appln EXT BID [facility] Stop: 06/18/21 08:59 Last Admin: 05/20/21 08:45 Dose: 1 appln Documented by: Ondansetron HCl (Ondansetron Inj 2 Mg/Ml 2 Ml Vial) 4 mg IV Q6H PRN PRN Reason: nausea Stop: 06/18/21 02:09 Last Admin: 05/19/21 09:42 Dose: 4 mg Documented by: Oxycodone HCl (Oxycodone Hcl Ir 5 Mg Tab (Immediate Release)) 5 mg PO Q4H PRN PRN Reason: Moderate Breakthrough Pain Stop: 06/02/21 06:34 Polyethylene Glycol (Polyethylene (Miralax) 17 Gm Pack) 17 gm PO DAILY PRN PRN Reason: Constipation Stop: 06/18/21 06:34 Prochlorperazine (Prochlorperazine Maleate 5 Mg Tab) 5 mg PO Q8H PRN PRN Reason: nausea Stop: 06/18/21 06:34 Psyllium Hydrophilic Mucilloid (Psyllium 58.6% Powder Packet) 1 pkt PO QAM [facility] Stop: 06/19/21 16:44 Sertraline HCl (Sertraline Hcl 50 Mg Tablet) 50 mg PO DAILY [facility] Stop: 06/18/21 08:59 Last Admin: 05/20/21 08:45 Dose: 50 mg Documented by: Resident Activity Tracking Resident Involvement: Resident Care Provided Care Provided: Adult [facility]
--- NOTE | 2021-05-20 17:57 | Billing Data ---
Date of Service May 20, 2021 Coding Level of Care Code 80106 Subseq Hosp Care Lvl 3
[2021-05-20] MEDS ORDERED: PSYLLIUM 58.6% POWDER PACKET PO ONE (18:30)
[2021-05-20] MEDS: ONDANSETRON INJ 2 MG/ML 2 ML VIAL IV PRN (19:58)
[2021-05-20] MEDS: PSYLLIUM 58.6% POWDER PACKET PO SCH (21:38)
[2021-05-20] MEDS: FAMOTIDINE 20 MG TAB PO SCH (21:38)
[2021-05-20] MEDS: FERROUS GLUCONATE 324 MG TAB PO SCH (21:38)
[2021-05-21] MEDS: ACETAMINOPHEN 500 MG TAB PO SCH ×3 (01:32→16:50)
[2021-05-21] MEDS ORDERED: DIPHENOXYLATE/ATROPINE 2.5/0.025MG TAB PO ONE (08:33)
--- NOTE | 2021-05-21 08:53 | Hospitalist Progress Note ---
Date of Service May 21, 2021 Assessment & Plan (1) Intractable abdominal pain: Plan: 65 yo F with recent splenectomy, carcinoid tumor admitted for intractable nausea and abdominal pain. Diarrhea: -at this point unlikely to be due to an infectious process; potentially due to oncologic process verse potential contribution from stress reaction -CT Abdomen/Pelvis demonstrating concern for enteritis vs. small bowel 2.3 cm carcinoid tumor with spiculations -WBC 15 on admission -scheduled tylenol Q8h; Oxycodone 5mg Q4h PRN, toradol 15 mg IV q6 prn -CRP 7.52 (likely inflammatory potentially 2/2 oncologic process) -Procal negative -C diff negative -Stool cultures pending -discontinued antibiotics -4mg zofran IV Q6h prn -compazine PO 5 mg Q8H prn -improved slightly with Lomotil -started lomotil 5mg q6h PRN diarrhea Carcinoid tumor: -per oncology: plans for lanreotide as outpatient, need for PET scan in coming weeks/months Thrombocytosis: -likely secondary to post-splenectomy contributions verse malignancy based off CCP note from 04/25 -1096 plt on admission -start on Aspirin 81 daily given risk of spontaneous platelet aggregation in setting of thrombocytosis Grief reaction: -continue Zoloft 50mg daily -continue Buspar 5mg QID PRN for anxiety to assist with bridging/start of zoloft -can utilize Ativan if not continuing to get relief -appreciate Psych liaison seeing patient today, and providing her with local resources for grief counseling Anemia: -mixed picture of anemia in this current post-splenectomy case -iron low, TIBC low, and Ferritin normal continue on Ferrous gluconate DVT ppx: lovenox Diet: regular diet Code Status: full code (2) Nausea & vomiting: (3) Malignant carcinoid tumor: (4) Hypertension: (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: (6) Grief reaction: Admission and Anticipated Discharge Date Admission Date: May 19, 2021 Supervising Physician Co-Signing Physician Notes I personally examined the patient and verified all [place] points of history and exam, discussed case, and agree with decision making with Dr Hood Diarrhea has slowed, no bowel movements for the last few hours. Nausea may be seems to be betterwas bad this morning, still has not really tried to eat, but is willing to try some crackers. vitals noted nad heent nc at mmm breathing unlabored no accessory muscles good effort skin no rashes no pallor or icterus, abdomen soft has a degree of diffuse tenderness, but she notes that it feels incisional not deeper. She has no guarding rebound or rigidity. diarrhea - does not appear bacterial infectious. ?nonCdiff abx associated (family notes she was on abx for 3wks recently), vs tumor related. fiber if she can tolerate p.o., lomotil, time. Can consider octreotide if needed given the notes possibly tumor related, but the Lomotil seems to be helping a good bit. grief/stress reaction - has had multiple significant traumatic life stressors all in very short order. Is willing to try some form of counseling. BuSpar seems to be helping acutely. Continue current care, continue empathy and support. Hopefully home once diarrhea has improved some. otherwise as above Asked to clarifyBMI of approximately 43 noted. Subjective Early this morning, had continued diarrhea, was unable to try the metamucil as she was continuing to have some slight nausea and did not want to vomit. Was improved with use of Lomotil. Additionally, notes improvement in mood with addition of Buspar, this was confirmed by son. Met with psych liaison regarding normal grief reaction, and remarked that she did appreciate having someone to talk with for a little bit about everything. Is going to consider the counseling idea more. Review of Systems Review of Systems: All systems reviewed & are unremarkable except as noted in Subjective Physical Exam Constitutional: WD/WN, vitals as above Eyes: PERRL, conjunctivae normal, anicteric sclerae Respiratory: normal respiratory effort, lungs clear to auscultation Auscultation: no crackles, no rales, no rhonchi and no wheezes Cardiovascular: Rate/Rhythm: regular rate and regular rhythm Heart Sounds: no gallop, no murmur and no cardiac rub Vessels: normal peripheral pulses; no JVD Extremities: no edema Gastrointestinal (Abdomen): Inspection/Auscultation: normal bowel sounds; abdomen not distended Percussion/Palpation: abdomen soft; abdomen nontender and no guarding Neurologic: PERRL, EOMI, accommodation nl, no face palsy, no dysarthria CN's II-XI intact bilaterally and moves all extremities Psychiatric: Orientation: alert and oriented x 3 Results & Data Results & Data ([facility]) Vital Signs (Past 12 Hours) Vital Signs Temp Pulse Pulse Resp BP BP Pulse Ox 05/21/21 07:00 36.7 C 90 18 149/79 H 93 05/21/21 04:17 36.8 C 84 16 135/84 93 05/21/21 00:17 36.9 C 85 18 142/82 H 93 05/21/21 00:00 91 H 05/20/21 21:00 91 H Medications Administered Current Inpatient Medications Acetaminophen (Acetaminophen 500 Mg Tab) 1,000 mg PO Q8H [facility] Stop: 06/18/21 07:59 Last Admin: 05/21/21 09:36 Dose: 1,000 mg Documented by: Buspirone HCl (Buspirone 5 Mg Tab) 5 mg PO QID PRN PRN Reason: Anxiety Stop: 06/19/21 16:59 Last Admin: 05/21/21 12:03 Dose: 5 mg Documented by: Diphenoxylate HCl/Atropine (Diphenoxylate/Atropine 2.5/0.025mg Tab) 1 tab PO Q6H PRN PRN Reason: Diarrhea Stop: 06/20/21 11:58 Enoxaparin Sodium (Enoxaparin Inj 40 Mg/0.4 Ml Syr) 40 mg SQ DAILY [facility] Stop: 06/18/21 08:59 Last Admin: 05/21/21 09:35 Dose: 40 mg Documented by: Famotidine (Famotidine 20 Mg Tab) 20 mg PO BID [facility] Stop: 06/19/21 20:59 Last Admin: 05/21/21 09:36 Dose: 20 mg Documented by: Ferrous Gluconate (Ferrous Gluconate 324 Mg Tab) 324 mg PO BIDM [facility] Stop: 06/19/21 16:59 Last Admin: 05/21/21 09:36 Dose: 324 mg Documented by: Ketorolac Tromethamine (Ketorolac Tromethamine 15 Mg/Ml Vial) 15 mg IV Q6H PRN PRN Reason: Mild Breakthrough Pain Stop: 05/24/21 06:34 Last Admin: 05/20/21 19:57 Dose: 15 mg Documented by: Lisinopril (Lisinopril 10 Mg Tab) 10 mg PO DAILY [facility] Stop: 06/18/21 08:59 Last Admin: 05/21/21 09:35 Dose: 10 mg Documented by: Lorazepam (Lorazepam 1 Mg Tab) 1 mg PO Q6H PRN PRN Reason: anxiety Stop: 06/18/21 06:34 Last Admin: 05/21/21 12:04 Dose: 1 mg Documented by: Nystatin (Nystatin Powder 15gm Btl) 1 appln EXT BID [facility] Stop: 06/18/21 08:59 Last Admin: 05/21/21 09:36 Dose: 1 appln Documented by: Ondansetron HCl (Ondansetron Inj 2 Mg/Ml 2 Ml Vial) 4 mg IV Q6H PRN PRN Reason: nausea Stop: 06/18/21 02:09 Last Admin: 05/21/21 09:49 Dose: 4 mg Documented by: Oxycodone HCl (Oxycodone Hcl Ir 5 Mg Tab (Immediate Release)) 5 mg PO Q4H PRN PRN Reason: Moderate Breakthrough Pain Stop: 06/02/21 06:34 Polyethylene Glycol (Polyethylene (Miralax) 17 Gm Pack) 17 gm PO DAILY PRN PRN Reason: Constipation Stop: 06/18/21 06:34 Prochlorperazine (Prochlorperazine Maleate 5 Mg Tab) 5 mg PO Q8H PRN PRN Reason: nausea Stop: 06/18/21 06:34 Psyllium Hydrophilic Mucilloid (Psyllium 58.6% Powder Packet) 1 pkt PO QAM [facility] Stop: 06/19/21 16:44 Last Admin: 05/21/21 09:36 Dose: Not Given Documented by: Sertraline HCl (Sertraline Hcl 50 Mg Tablet) 50 mg PO DAILY [facility] Stop: 06/18/21 08:59 Last Admin: 05/21/21 09:36 Dose: 50 mg Documented by: Resident Activity Tracking Resident Involvement: Resident Care Provided Care Provided: Adult Hospital Medicine
[2021-05-21] MEDS: busPIRone 5 MG TAB PO PRN ×2 (09:35→12:03)
[2021-05-21] MEDS: ENOXAPARIN INJ 40 MG/0.4 ML SYR SQ SCH (09:35)
[2021-05-21] MEDS: lisinopril 10 MG TAB PO SCH (09:35)
[2021-05-21] MEDS: NYSTATIN POWDER 15GM BTL EXT SCH ×2 (09:36→19:51)
[2021-05-21] MEDS: SERTRALINE HCL 50 MG TABLET PO SCH (09:36)
[2021-05-21] MEDS: FAMOTIDINE 20 MG TAB PO SCH ×2 (09:36→19:51)
[2021-05-21] MEDS: PSYLLIUM 58.6% POWDER PACKET PO SCH (09:36)
[2021-05-21] MEDS: FERROUS GLUCONATE 324 MG TAB PO SCH ×2 (09:36→16:51)
[2021-05-21] MEDS: ONDANSETRON INJ 2 MG/ML 2 ML VIAL IV PRN (09:49)
[2021-05-21] MEDS ORDERED: DIPHENOXYLATE/ATROPINE 2.5/0.025MG TAB PO PRN (11:59)
[2021-05-21] MEDS: LORazepam 1 MG TAB PO PRN (12:04)
--- NOTE | 2021-05-21 17:41 | Billing Data ---
Date of Service May 21, 2021 Coding Level of Care Code 78204 Subseq Hosp Care Lvl 2
[2021-05-22] MEDS: ACETAMINOPHEN 500 MG TAB PO SCH ×3 (01:16→16:46)
[2021-05-22] MEDS: LORazepam 1 MG TAB PO PRN (01:28)
[2021-05-22 07:08] LABS: Mean Corpuscular Hemoglobin 26.8 pg (25-34); Mean Corpuscular Hgb Conc 30.3 g/dL (32-36); Mean Corpuscular Volume 88.5 fL (80-100); Mean Platelet Volume 9.1 fL (7.4-10.4); Platelet Count 1017 K/uL (130-400); RDW Coefficient of Variation 15.6 % (11.5-14.5); RDW Standard Deviation 50.2 fL (36.4-46.3); Red Blood Count 3.73 M/uL (4.2-5.4); White Blood Count 11.91 K/uL (4.8-10.8)
[2021-05-22 07:12] LABS: Basophils # (auto) 0.06 K/uL (0-0.2); Basophils % (auto) 0.5 %; Eosinophils # (auto) 0.34 K/uL (0-0.5); Eosinophils % (auto) 2.9 %; Immature Granulocytes # (auto) 0.05 K/uL (0.00-0.02); Immature Granulocytes % (auto) 0.4 %; Lymphocytes # (auto) 2.74 K/uL (1.2-3.4); Monocytes # (auto) 0.94 K/uL (0.11-0.59); Monocytes % (auto) 7.9 %; Neutrophils # (auto) 7.78 K/uL (1.4-6.5); Neutrophils % (auto) 65.3 %
[2021-05-22 07:22] LABS: BUN Creatinine Ratio 19.5 (10-20); Calcium 9.1 mg/dl (8.5-10.1); Creatinine Clr Calc Pharmacy 169.6 ml/min; Est GFR (African American) 130.9 ml/min; Est GFR (Non-African American) 112.9 ml/min; Magnesium 1.6 mg/dl (1.8-2.4); Potassium 3.6 mmol/L (3.5-5.1)
[2021-05-22 07:23] LABS: Phosphorus 3.5 mg/dl (2.5-4.9)
[2021-05-22] MEDS: FERROUS GLUCONATE 324 MG TAB PO SCH ×2 (08:09→16:46)
[2021-05-22] MEDS: SERTRALINE HCL 50 MG TABLET PO SCH (08:10)
[2021-05-22] MEDS: ENOXAPARIN INJ 40 MG/0.4 ML SYR SQ SCH (08:10)
[2021-05-22] MEDS: FAMOTIDINE 20 MG TAB PO SCH (08:10)
[2021-05-22] MEDS: lisinopril 10 MG TAB PO SCH (08:10)
[2021-05-22] MEDS: NYSTATIN POWDER 15GM BTL EXT SCH (08:11)
[2021-05-22] MEDS: PSYLLIUM 58.6% POWDER PACKET PO SCH (08:11)
[2021-05-22] MEDS ORDERED: ASPIRIN 81 MG ECTAB PO SCH (09:00)
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
--- NOTE | 2021-05-22 18:26 | Billing Data ---
Date of Service May 22, 2021 Coding Level of Care Code D/C DAY MANAGEMENT <30 MINS
== END 2021-05-22 18:16 | disposition home health service (06) | DRG 375 ==
LOC: ED 20:53 → 1E 05-19 02:04 → SUATTDRO 05-19 02:04 → 1E 05-19 04:21 → 2W 05-19 16:10
DX: Z88.2 Allergy status to sulfonamides; C78.6 Secondary malignant neoplasm of retroperitoneum and peritoneum; Z90.81 Acquired absence of spleen; K52.1 Toxic gastroenteritis and colitis; D64.9 Anemia, unspecified; T36.95XA Adverse effect of unspecified systemic antibiotic, initial encounter; C7A.019 Malignant carcinoid tumor of the small intestine, unspecified portion; I10 Essential (primary) hypertension; Y92.019 Unspecified place in single-family (private) house as the place of occurrence of the external cause; Z88.5 Allergy status to narcotic agent; S22.41XD Multiple fractures of ribs, right side, subsequent encounter for fracture with routine healing; V49.50XD Passenger injured in collision with unspecified motor vehicles in traffic accident, subsequent encounter; D47.3 Essential (hemorrhagic) thrombocythemia; Z88.6 Allergy status to analgesic agent; F43.20 Adjustment disorder, unspecified; Z88.0 Allergy status to penicillin; C78.7 Secondary malignant neoplasm of liver and intrahepatic bile duct

== ENCOUNTER 2022-06-30 16:19 | Inpatient (IN) ==
[2022-06-30] MEDS ORDERED: ONDANSETRON INJ 2 MG/ML 2 ML VIAL IV STA ×2 (16:29→19:19)
[2022-06-30] MEDS ORDERED: SODIUM CHLORIDE 0.9% 1000ML 1,000 ML IV STA (16:29)
--- NOTE | 2022-06-30 16:29 | ED Triage Note ---
Date of Service June 30, 2022 History of Present Illness This patient was briefly evaluated while in triage. An abbreviated physical exam was performed. This patient is a 66-year-old Female with past medical history of liver cancer who presents to the ED for evaluation of "pain in my side. And I threw up. And it hurts really bad!" Pt. reports right side pain. Hx similar symptoms associated with d/c narcotic pain medication. Daughter states "She did have her cancer shot today. I don't think it has anything to do with that." Symptoms started this morning before getting her "cancer shot." Physical Exam VITALS: Vitals are noted on the nurse's note and reviewed by myself. GENERAL: This is a 66 year old white female, in no acute distress, nondiaphoretic, well-developed well-nourished. SKIN: No obvious rashes, edema, erythema HEAD: Normocephalic atraumatic. EYES: Conjunctivae without injection, sclerae without icterus. NECK: No JVD. LUNGS: No retractions or accessory muscle use. MUSCULOSKELETAL: Normal gait. NEURO: Patient was alert and oriented to person place and time. No focal neurological deficits. Initial orders for labs and / or imaging were placed and patient was placed in the waiting area until a bed is available. Please see further documentation for the full ED course. MDM / Impression Impression Impression: Partial small bowel obstruction
--- NOTE | 2022-06-30 19:03 | CT Scan Report ---
ABDOMEN AND PELVIS CT WITHOUT CONTRAST CT DOSE: 1089.73 mGy.cm HISTORY: Acute right-sided flank pain with nausea and vomiting. Follow-up study in a patient with his tory of metastatic neuroendocrine tumor involving hepatic metastasis.. Right flank pain, vomiting TECHNIQUE: Multiaxial CT images of the abdomen and pelvis were performed without contrast. A dose lo wering technique was utilized adhering to the principles of ALARA. COMPARISON STUDY: CT abdomen and pelvis 05/19/2021 FINDINGS: The imaged inferior cardiac chambers are unremarkable. Mildly prominent nonenlarged subcarinal lymph nodes. Mild right hemidiaphragmatic elevation. 7 mm fissural nodule of the right middle lobe is uncha nged. No pneumatosis or pneumoperitoneum. Splenic lesion mild generalized ectatic atrophy. There are a few punctate calcifications of the splenic tail. Unremarkable adrenal glands. Cholecystectomy. The liver is suboptimally evaluated without the use of IV contrast. Indeterminate 1.1 cm lesion of the le ft hepatic lobe on image 20 series 2. Unchanged mild left pelvocaliectasis. Unremarkable right kidney. Urinary bladder wall thickening with partial distention. Hysterectomy. No abdominal aortic aneurysm. 1.1 x 1.4 cm lymph node posterior to the right diaphragmatic priscila on image 126, previously 1.0, 0.0 0.6 cm. 1.2 cm aortic lymph node on i mage 173, previously 1.1 cm. Numerous additional lymph nodes throughout the abdomen and pelvis have i ncreased in size, notably throughout the mesentery. Spiculated partially calcified mass within the ce ntral mesentery measuring 2.9 x 2.1 cm on image 215 previously measured 2.6 x 1.8 cm. Mild colonic fecal retention. Mild colonic diverticulosis without acute diverticulitis. Increased siz e of omental nodule adjacent to the large bowel and image 1:30. Normal appendix. Stool-filled loops o f small bowel within the central abdomen adjacent to the mesenteric mass measure up to 3.5 cm transve rsely demonstrating circumferential wall thickening. Several air-fluid levels are unremarkable within loops of nondilated small bowel. Trace ascites with interloop edema. The degree of wall thickening h as improved from prior. Postoperative changes of the anterior abdominal wall. Numerous subcutaneous n odules within the back up to 2.4 cm are new from prior. No acute fracture or destructive bone lesion. Grade 1 anterolisthesis L5 on S1. IMPRESSION: 1. Mildly increased size of the spiculated partially calcified mesenteric mass with progressive lymph atic metastasis throughout the abdomen and pelvis in this patient with history of metastatic neuroend ocrine tumor. 2. Findings are suggestive of a partial small bowel obstruction with the degree of small bowel wall t hickening improved from 05/19/2021. Obstruction is likely secondary to desmoplastic reaction from the aforementioned mesenteric mass. 3. No pneumatosis or pneumoperitoneum. 4. Limited study without the use of IV contrast. 5. Numerous subcutaneous nodules in the lower back are suggestive of injection granulomata. ACT 112: Negative or not required by law. The above report was generated using voice recognition software. It may contain grammatical, syntax o r spelling errors. Electronically signed by: Alex Oquendo M.D. 06/30/2022 7:01 PM
[2022-06-30] MEDS ORDERED: MoRPHine SULFATE 4 MG/ML 1 ML CARP\\VIAL IV STA ×3 (19:19→22:08)
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
[2022-06-30 20:19] LABS: Basophils # (auto) 0.12 K/uL (0-0.2); Basophils % (auto) 0.6 %; Hematocrit (blood only) 41.7 % (34.1-44.9); Hemoglobin 13.7 g/dl (12.0-16.0); Immature Granulocytes % (auto) 0.5 %; Lymphocytes # (auto) 1.73 K/uL (1.2-3.4); Lymphocytes % (auto) 8.1 %; Mean Corpuscular Hemoglobin 30.2 pg (25.0-34.0); Mean Corpuscular Hgb Conc 32.9 g/dL (32.0-36.0); Mean Corpuscular Volume 92.1 fL (80.0-100.0); Mean Platelet Volume 10.7 fL (9.4-12.3); Monocytes # (auto) 0.93 K/uL (0.24-0.82); Monocytes % (auto) 4.4 %; Neutrophils # (auto) 18.37 K/uL (1.4-6.5); Neutrophils % (auto) 86.4 %; Platelet Count 544 K/uL (130-400); RDW Coefficient of Variation 15.1 % (11.5-14.5); RDW Standard Deviation 51.2 fL (36.4-46.3); Red Blood Count 4.53 M/uL (3.93-5.22); White Blood Count 21.25 K/ul (4.8-10.8)
[2022-06-30 20:35] LABS: Alanine Aminotransferase 15 U/L (7-52); Albumin Globulin Ratio 1.2 (0.9-2); Albumin Level 3.9 gm/dl (3.4-5.0); Alkaline Phosphatase 62 U/L (34-104); Anion Gap 10 (3-11); Aspartate Aminotransferase 18 U/L (13-39); BUN Creatinine Ratio 20.3 (10-20); Bilirubin,Total 0.7 mg/dl (0.2-1.0); Blood Urea Nitrogen 15 mg/dl (6-23); Calcium 9.3 mg/dl (8.5-10.1); Carbon Dioxide 27 mmol/L (21-32); Chloride 103 mmol/L (98-107); Est GFR (African American) 98.5 ml/min; Globulin 3.3 gm/dl (2.5-4.0); Glucose 128 mg/dl (70-99(Fasting)); Lipase 11 U/L (11-82); Potassium 3.9 mmol/L (3.5-5.1); Sodium 140 mmol/L (136-145); Total Protein 7.2 gm/dl (6.0-8.3)
--- NOTE | 2022-06-30 21:06 | History & Physical Report ---
Date of Service June 30, 2022 History of Present Illness Primary Care Provider: JOYCE Zamudio Shasta Raza is a 66-year-old female past medical history significant for Allergies Allergy/AdvReac Type Severity Reaction Status Date / Time Sulfa (Sulfonamide Allergy Severe UNKNOWN Verified 06/30/22 19:50 Antibiotics) aspirin Allergy Intermediate PETECHIAE Verified 06/30/22 19:50 morphine Allergy Mild Unknown Verified 06/30/22 19:50 Penicillins Allergy Mild RASH-HAD Verified 06/30/22 19:50 KEFZOL W/O PROBLEM clindamycin Allergy Unknown Unknown Verified 06/30/22 19:50 Home Medications Medication Instructions Recorded Confirmed Type aspirin 81 mg tablet,delayed 81 mg PO DAILY #30 tabs 05/20/21 06/30/22 Rx release lorazepam 1 mg tablet 1 mg PO DAILY PRN anxiety #20 tabs 11/13/21 06/30/22 Rx diphenoxylate-atropine 2.5 1 tab PO Q8H PRN diarrhea #30 tabs 03/09/22 06/30/22 Rx mg-0.025 mg tablet (Lomotil) ondansetron 4 mg disintegrating 4 mg PO Q4H PRN Nausea #30 tabs 03/09/22 06/30/22 Rx tablet diazepam 5 mg tablet 5 mg PO ONCE anxiety #2 tabs 04/01/22 06/30/22 Rx ferrous gluconate 225 mg (27 mg 225 mg PO BID #180 tabs 04/08/22 06/30/22 Rx iron) tablet (Fergon) cyanocobalamin (vitamin B-12) 1,000 mcg IM ONCE 4 weeks #4 mL 05/08/22 06/30/22 Rx 1,000 mcg/mL injection solution syringe with needle 3 mL 23 x 1" #4 ea 05/08/22 06/30/22 Rx (BD SafetyGlide Syringe) buspirone 7.5 mg tablet 7.5 mg PO TID #270 tabs 05/13/22 06/30/22 Rx lisinopril 10 mg tablet 10 mg PO DAILY #90 tabs 05/13/22 06/30/22 Rx famotidine 20 mg tablet 20 mg PO DAILY PRN stomach pain 06/18/22 06/30/22 Rx #90 tabs ketoconazole 2 % topical cream 1 applic topical BID #30 grams 06/18/22 06/30/22 Rx sertraline 50 mg tablet 75 mg PO DAILY #135 tabs 06/18/22 06/30/22 Rx Past Med/Surg History Medical History Abscess of leg, right Allergic rhinitis Bee sting allergy Hypertension Hypertension Hypertensive urgency, malignant Nocturnal leg cramps Sleep apnea Ulcer of right leg Surgical History H/O splenectomy Hx of hysterectomy S/P splenectomy Family History Mother Myocardial infarction Father No problems noted. 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 How many Children do You have: 3 Feels Safe at Home: Yes Childhood Exposure to Second-Hand Smoke: No caffeine: Yes during the past year weight has: remained stable Dental Care, Regularly: Yes Physical Activity Frequency: Does not Exercise Seatbelt Use: always Sunscreen Use: No Do you think of yourself as: straight/heterosexual Gender Identity: Female Assistive Devices: Glasses Results & Data Results & Data ([facility]) Vital Signs (Past 12 Hours) Vital Signs Temp Pulse Resp BP Pulse Ox O2 Del Method 06/30/22 16:27 36.9 C 65 20 168/94 H 92 Room Air PG Care Time/CCT Total # of Minutes Spent Total Time Spent with Patient: Total time spent is greater than 50% in coordination of care (as documented) at patient's floor/unit and/or counseling patient: Coding
[2022-06-30] MEDS ORDERED: ACETAMINOPHEN 325 MG TAB PO PRN (21:52)
[2022-06-30] MEDS ORDERED: POLYETHYLENE (MIRALAX) 17 GM PACK PO PRN (21:52)
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
[2022-06-30 22:35] LABS: Appearance Urine Cloudy (Clear); Bacteria Urine Automated 4+ (Negative); Bilirubin Urine Negative (Negative); Blood Urine Negative (Negative); Color Urine Yellow; Glucose Urine UA Negative (Negative); Ketones Urine 1+ (Negative); Leukocyte Esterase Urine Trace (Negative); Nitrite Urine Negative (Negative); Protein Urine Negative (Negative); RBC Urine Automated 0-4 /hpf (0-4); Specific Gravity Urine 1.016 (1.000-1.030); Urobilinogen Urine Negative (Negative); pH Urine 5.5 (4.5-7.5)
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
[2022-07-01] MEDS ORDERED: SODIUM CHLORIDE 0.9% 1000ML 1,000 ML IV SCH (00:03)
[2022-07-01] MEDS ORDERED: MoRPHine SULFATE 4 MG/ML 1 ML CARP\\VIAL IV STA (00:04)
[2022-07-01] MEDS: ONDANSETRON INJ 2 MG/ML 2 ML VIAL IV PRN ×2 (01:42→14:34)
[2022-07-01] MEDS: HEPARIN SOD 5,000 UNIT/0.5 ML VIAL SQ SCH ×3 (06:02→22:00)
[2022-07-01] MEDS: HYDROmorphone INJ 0.5 MG/0.5 ML SYR IV PRN ×2 (06:06→11:42)
[2022-07-01 06:23] LABS: Hematocrit (blood only) 35.4 % (34.1-44.9); Hemoglobin 11.8 g/dl (12.0-16.0); Mean Corpuscular Hemoglobin 30.2 pg (25.0-34.0); Mean Corpuscular Hgb Conc 33.3 g/dL (32.0-36.0); Mean Corpuscular Volume 90.5 fL (80.0-100.0); Mean Platelet Volume 10.6 fL (9.4-12.3); Platelet Count 505 K/uL (130-400); RDW Coefficient of Variation 15.2 % (11.5-14.5); RDW Standard Deviation 50.6 fL (36.4-46.3); Red Blood Count 3.91 M/uL (3.93-5.22); White Blood Count 15.96 K/ul (4.8-10.8)
[2022-07-01 06:34] LABS: BUN Creatinine Ratio 21.2 (10-20); Calcium 8.4 mg/dl (8.5-10.1); Creatinine Clr Calc Pharmacy 96.5 ml/min; Est GFR (African American) 107.4 ml/min; Est GFR (Non-African American) 92.7 ml/min; Potassium 4.1 mmol/L (3.5-5.1)
[2022-07-01] MEDS: ACETAMINOPHEN 1,000 MG/100 ML VIAL IV PRN ×2 (08:56→17:06)
[2022-07-01] MEDS: lisinopril 10 MG TAB PO SCH (08:56)
[2022-07-01] MEDS: SERTRALINE HCL 50 MG TABLET PO SCH (08:56)
[2022-07-01] MEDS: busPIRone 7.5 MG TAB PO SCH ×3 (08:56→22:05)
--- NOTE | 2022-07-01 11:46 | Surgery Progress Note ---
Date of Service July 01, 2022 Assessment & Plan (1) Partial small bowel obstruction: Plan: pt is a 66 year-old female who presents to ER with abdominal pain, IMP; PSBO, Plan, I agree with medicine team admit pt to hospital, no emergent surgery indication now, conservative treatment, NPO, IV fluid, iv antibiotic, cipro+ flagyl, repeat labs in morning, will F/U, pt and her family agree with plan, I answered all questions, 07/01/2022 11:45AM, pt is still have right side abdominal pain, possible caused by metastatic neuroendocrine tumor. pt needs to transfer higher level care if pt wants to consult surgery treatment, Admission and Anticipated Discharge Date Admission Date: June 30, 2022 Subjective pt is stable, still have right side abdominal pain, no fever, no vomiting, Physical Exam Constitutional: WD/WN, vitals as above Eyes: PERRL, conjunctivae normal, anicteric sclerae Neck: trachea midline, no thyromegaly Respiratory: normal respiratory effort, lungs clear to auscultation Cardiovascular: RRR, no murmur, no edema Gastrointestinal (Abdomen): soft, mild tenderness at right side abdomen, no rebound pain, BS +, Neurologic: patellar DTR's 2+ bilat, sensation intact Psychiatric: A+Ox3, euthymic affect Results & Data ([facility]) Vital Signs (Past 12 Hours) Vital Signs Temp Pulse Resp BP Pulse Ox O2 Del Method 07/01/22 10:34 36.9 C 71 20 168/81 H 95 Room Air 07/01/22 07:09 63 18 150/67 H 98 Room Air 07/01/22 00:17 67 16 161/93 H 94 07/01/22 00:11 16 161/93 H 92 Room Air, Nasal Cannula Laboratory Results Abnormal lab results 06/30/22 06/30/22 06/30/22 Range/Units 19:55 19:55 22:16 WBC 21.25 H (4.8-10.8) K/ul RBC (3.93-5.22) M/uL Hgb (12.0-16.0) g/dl RDW Std Deviation 51.2 H (36.4-46.3) fL RDW Coeff of Denilson 15.1 H (11.5-14.5) % Plt Count 544 H (130-400) K/uL Neut # (Auto) 18.37 H (1.4-6.5) K/uL [place] # (Auto) 0.93 H (0.24-0.82) K/uL Immature Gran # (Auto) 0.10 H (0.00-0.02) K/uL BUN/Creatinine Ratio 20.3 H (10-20) Glucose 128 H (70-99(Fasting)) mg/dl Calcium (8.5-10.1) mg/dl Urine Appearance Cloudy A (Clear) Urine Ketones 1+ H (Negative) Ur Leukocyte Esterase Trace H (Negative) U Epithel Cells (Auto) 10-20 H (0-5) /lpf Urine Bacteria (Auto) 4+ H (Negative) 07/01/22 07/01/22 Range/Units 05:56 05:56 WBC 15.96 H (4.8-10.8) K/ul RBC 3.91 L (3.93-5.22) M/uL Hgb 11.8 L (12.0-16.0) g/dl RDW Std Deviation 50.6 H (36.4-46.3) fL RDW Coeff of Denilson 15.2 H (11.5-14.5) % Plt Count 505 H (130-400) K/uL Neut # (Auto) (1.4-6.5) K/uL [place] # (Auto) (0.24-0.82) K/uL Immature Gran # (Auto) (0.00-0.02) K/uL BUN/Creatinine Ratio 21.2 H (10-20) Glucose 122 H (70-99(Fasting)) mg/dl Calcium 8.4 L (8.5-10.1) mg/dl Urine Appearance (Clear) Urine Ketones (Negative) Ur Leukocyte Esterase (Negative) U Epithel Cells (Auto) (0-5) /lpf Urine Bacteria (Auto) (Negative)
[2022-07-01] MEDS ORDERED: MoRPHine SULFATE 4 MG/ML 1 ML CARP\\VIAL IV PRN (14:15)
[2022-07-01] MEDS ORDERED: MoRPHine SULFATE 2 MG/ML CARP IV PRN (14:16)
[2022-07-01] MEDS ORDERED: MoRPHine SULFATE 4 MG/ML 1 ML CARP\\VIAL ONE (14:32)
--- NOTE | 2022-07-01 14:55 | Hospitalist Progress Note ---
Date of Service July 01, 2022 Assessment & Plan (1) Partial small bowel obstruction: Plan: - Secondary to metastatic neuroendocrine tumor - Continue NPO status - Appreciate input from general surgery, Dr. Rivas, recommended conservative measures and now transfer to tertiary center - IVF - Repeat KUB today - Pain control - d/c Dilaudid and change to back to Morphine (tiered) - Antiemetics (2) Malignant carcinoid tumor: Plan: - Dx in March 2021 - Follows with [facility] (3) Hypertension: Plan: - Continues Lisinopril, may need to consider increase to 20mg daily (4) H/O splenectomy: Plan: - WBC count from 21.25 down to 15.96 - Afebrile, no abx ordered at this point - Urine and blood cultures pending (5) Depression with anxiety: Plan: - Takes Buspirone or Sertraline Plan As above, will discuss with family and patient at bedside to determine which facility they would prefer I reach out to start transfer process. Initially patient requested [facility] but now family would like to speak further. Will plan to obtain a KUB. Continue to treat conservatively for now as she is passing some flatus. If worsening abd distention, will need to place NGT to low intermittent suction and press for more urgent transfer. Plan d/w Dr. Harley. Admission and Anticipated Discharge Date Admission Date: June 30, 2022 Subjective Patient seen on daily rounds this morning. She is resting in bed, reports ongoing abdominal pain. No n/v. Passing small amount of flatus but no BM. No plans for surgical intervention at [facility], surgery is recommending transfer to tertiary facility. RN noting patient is having pain despite Dilaudid and felt that morphine worked better. Review of Systems Review of Systems: All systems reviewed and are unremarkable except as noted in HPI and below. Denies fever, chills, fatigue, headache, nasal congestion, sore throat, cough, chest pain, shortness of breath, palpitations, orthopnea, PND, n/v/d, c onstipation, dysuria, hematuria, frequency, back pain, joint pain or swelling, easy bruising or bleeding, skin lesions or rashes. Physical Exam Physical Exam: GENERAL: 66 yo Well-developed, well-nourished WF. NAD. LUNGS: Clear to auscultation bilaterally. No W/R/R. CARDIOVASCULAR: Regular rate and rhythm. ABDOMEN: Soft, diffusely tender (more so on right) and non-distended. BS hypoactive but present x 4 quad. EXTREMITIES: No edema. Non-tender. Peripheral pulses +2/4. NEUROLOGIC: A&O x3. Nonfocal PSYCHIATRIC: Cooperative. Appropriate mood and affect. SKIN: Warm, dry, intact. No rashes or lesions. Results & Data Results & Data ([facility]) Vital Signs (Past 12 Hours) Vital Signs Temp Pulse Resp BP Pulse Ox O2 Del Method 07/01/22 10:34 36.9 C 71 20 168/81 H 95 Room Air 07/01/22 07:09 63 18 150/67 H 98 Room Air Laboratory Results 07/01/22 05:56 07/01/22 05:56 PG Care Time/CCT Total # of Minutes Spent Total Time Spent with Patient: Total time spent is greater than 50% in coordination of care (as documented) at patient's floor/unit and/or counseling patient: Coding Level of Care Code 08429 Subseq Hosp Care Lvl 2 Diagnoses Partial small bowel obstruction K56.600 Malignant carcinoid tumor C7A.00 Hypertension I10 H/O splenectomy Z90.81 Depression with anxiety F41.8
[2022-07-01] MEDS ORDERED: PROMETHAZINE 12.5 MG/50.5 ML NSS IV ONE (16:36)
[2022-07-01] MEDS ORDERED: PROMETHAZINE HCL 12.5 MG in SODIUM CHLORIDE 0.9% 50 ML IV STA (16:40)
[2022-07-01] MEDS: LACTATED RINGER'S 1,000 ML IV SCH (18:36)
--- NOTE | 2022-07-01 22:02 | Billing Data ---
Date of Service July 01, 2022 Coding Level of Care Code 11928 Initial Inpt Care Lvl 3
[2022-07-02] MEDS: HEPARIN SOD 5,000 UNIT/0.5 ML VIAL SQ SCH ×2 (05:33→14:14)
[2022-07-02] MEDS: LACTATED RINGER'S 1,000 ML IV SCH ×2 (05:33→15:45)
[2022-07-02] MEDS: busPIRone 7.5 MG TAB PO SCH ×2 (09:37→14:13)
[2022-07-02] MEDS: lisinopril 10 MG TAB PO SCH (09:37)
[2022-07-02] MEDS: SERTRALINE HCL 50 MG TABLET PO SCH (09:38)
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
--- NOTE | 2022-07-02 13:53 | XRay Report ---
XR KUB/Abdomen 1 view CLINICAL HISTORY: abdominal distention TECHNIQUE: 1 view of the abdomen was obtained. Comparison: Comparison is made to chest and abdomen radiographs 10/30/2017 FINDINGS: Cholecystectomy clips are seen. The osseous structures are grossly unremarkable. The bowel gas patter n is nonobstructive. A moderate amount of stool is noted within the large bowel. IMPRESSION: Nonobstructive bowel gas pattern. ACT 112: Negative or not required by law. Electronically signed by: Salvador Virgen M.D. 07/02/2022 1:52 PM
[2022-07-02] MEDS ORDERED: LORazepam 1 MG TAB PO STA (15:39)
== END 2022-07-02 17:30 | disposition short-term general hospital (02) | DRG 389 ==
LOC: ED 16:19 → SUATTDRO 21:53 → EDINP 21:53 → 3W 07-01 00:04

== ENCOUNTER 2022-10-12 21:36 | Inpatient (IN) ==
[2022-10-12] MEDS ORDERED: SODIUM CHLORIDE 0.9% 1000ML 1,000 ML IV STA (21:58)
[2022-10-12] MEDS ORDERED: ONDANSETRON INJ 2 MG/ML 2 ML VIAL IV STA (21:58)
[2022-10-12] MEDS ORDERED: MoRPHine SULFATE 4 MG/ML 1 ML CARP\\VIAL IV STA (21:58)
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
[2022-10-12 23:23] LABS: Basophils # (auto) 0.08 K/uL (0-0.2); Basophils % (auto) 0.5 %; Eosinophils # (auto) 0.08 K/uL (0-0.50); Eosinophils % (auto) 0.5 %; Hematocrit (blood only) 41.6 % (34.1-44.9); Immature Granulocytes # (auto) 0.06 K/uL (0.00-0.02); Immature Granulocytes % (auto) 0.4 %; Lymphocytes # (auto) 2.87 K/uL (1.2-3.4); Lymphocytes % (auto) 17.8 %; Mean Corpuscular Hemoglobin 30.4 pg (25.0-34.0); Mean Corpuscular Hgb Conc 33.7 g/dL (32.0-36.0); Mean Corpuscular Volume 90.2 fL (80.0-100.0); Mean Platelet Volume 10.3 fL (9.4-12.3); Monocytes % (auto) 7.5 %; Neutrophils # (auto) 11.79 K/uL (1.4-6.5); Neutrophils % (auto) 73.3 %; Platelet Count 349 K/uL (130-400); RDW Coefficient of Variation 15.5 % (11.5-14.5); RDW Standard Deviation 51.2 fL (36.4-46.3); Red Blood Count 4.61 M/uL (3.93-5.22); White Blood Count 16.08 K/ul (4.8-10.8)
[2022-10-12 23:49] LABS: Albumin Globulin Ratio 1.1 (0.9-2); Albumin Level 3.6 gm/dl (3.4-5.0); Bilirubin,Total 0.5 mg/dl (0.2-1.0); Calcium 9.3 mg/dl (8.5-10.1); Creatinine Clr Calc Pharmacy 73.4 ml/min; Est GFR (African American) 87.7 ml/min; Est GFR (Non-African American) 75.7 ml/min; Globulin 3.2 gm/dl (2.5-4.0); Potassium 4.2 mmol/L (3.5-5.1); Total Protein 6.8 gm/dl (6.0-8.3)
[2022-10-13] MEDS ORDERED: OPTIRAY 350 100ml IV ONE (00:28)
[2022-10-13] MEDS ORDERED: MoRPHine SULFATE 4 MG/ML 1 ML CARP\\VIAL IV STA (01:23)
[2022-10-13] MEDS ORDERED: ONDANSETRON INJ 2 MG/ML 2 ML VIAL IV STA (01:23)
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
[2022-10-13] MEDS ORDERED: MoRPHine SULFATE 2 MG/ML CARP IV PRN (04:11)
[2022-10-13] MEDS ORDERED: MELATONIN 3 MG TAB PO PRN (05:03)
[2022-10-13] MEDS ORDERED: ACETAMINOPHEN 1000 MG/100 ML IV IV SCH (05:03)
[2022-10-13] MEDS ORDERED: ONDANSETRON INJ 2 MG/ML 2 ML VIAL IV PRN (05:03)
[2022-10-13] MEDS: SODIUM CHLORIDE 0.9% 1000ML 1,000 ML IV SCH ×2 (05:17→14:49)
[2022-10-13] MEDS: ACETAMINOPHEN 1,000 MG/100 ML VIAL IV SCH ×3 (05:20→22:19)
[2022-10-13 05:52] LABS: Appearance Urine Clear (Clear); Bacteria Urine Automated 1+ (Negative); Bilirubin Urine Negative (Negative); Blood Urine Negative (Negative); Cast Urine Automated 0 /lpf (0-5); Color Urine Yellow; Epithelial Cell Urine Auto >30 /lpf (0-5); Glucose Urine UA Negative (Negative); Ketones Urine Negative (Negative); Leukocyte Esterase Urine Negative (Negative); Nitrite Urine Positive (Negative); Protein Urine Negative (Negative); RBC Urine Automated 0-4 /hpf (0-4); Specific Gravity Urine > 1.045 (1.000-1.030); Urobilinogen Urine Negative (Negative)
--- NOTE | 2022-10-13 07:37 | CT Scan Report ---
CT OF THE ABDOMEN AND PELVIS WITH CONTRAST CLINICAL HISTORY: Severe abdominal pain. History of metastatic neuroendocrine tumor and bowel obstruc tion. COMPARISON STUDY: CT of the abdomen and pelvis June 30, 2022. TECHNIQUE: Following IV administration of 83 mL of Optiray, axial images of the abdomen and pelvis we re obtained from the lung bases to the proximal femurs. Images were reviewed in the axial, sagittal, and coronal planes. IV contrast was administered without complication. Automated exposure control wa s utilized for the study. A dose lowering technique was utilized adhering to the principles of ALARA . CT DOSE: 1082.67 mGy.cm FINDINGS: A few small nodules within the lower lungs are unchanged from earlier exams. These are like ly benign. Mild biliary ductal dilatation is unchanged and likely related to cholecystectomy. Previou sly described hypervascular hepatic lesions are not well visualized on this venous phase exam. Adrena l glands, kidneys and pancreas are unremarkable. There is no hydronephrosis. No pneumatosis, free air or portal venous gas is present. Multiple enlarged lymph nodes are again noted. Index retrocrural ly mph node on image 119 at 476 measures 1.4 x 1.2 cm. Index left para-aortic lymph node on image 170 me asures 1.6 x 1.3 cm. These are similar to CT of June 30, 2022. Partially calcified mesenteric ma ss with desmoplastic reaction is similar to prior CT as well. This measures 3 x 2.1 cm. Additional mi ldly enlarged mesenteric lymph nodes are also unchanged. Several loops of mildly dilated small bowel are noted with small bowel feces sign. Transition point i s noted on axial image 214. Distal small bowel is decompressed. Similar pattern was shown on CT of Se ptember 2021. Small bowel wall thickening at site of obstruction could be due to the primary unde rlying lesion. Major vasculature is patent. There are no suspicious osseous lesions. Postoperative fi ndings within the anterior abdominal wall are unchanged. IMPRESSION: 1. Findings consistent with a partial small bowel obstruction, as detailed above. Similar pattern to CT of June 30, 2022. This is likely related to underlying neuroendocrine tumor. 2. No significant change in multiple bessy metastases, including the dominant mesenteric mass, since CT of June 30, 2022. ACT 112: Negative or not required by law. Electronically signed by: Casey Polk M.D. 10/13/2022 7:35 AM
--- NOTE | 2022-10-13 08:11 | Electrocardiogram Report ---
Test Reason : Blood Pressure : / mmHG Vent. Rate : 057 BPM Atrial Rate : 057 BPM P-R Int : 192 ms QRS Dur : 094 ms QT Int : 398 ms P-R-T Axes : 037 027 030 degrees QTc Int : 387 ms Sinus bradycardia Otherwise normal ECG When compared with ECG of 18-MAY-2021 22:14, Vent. rate has decreased BY 50 BPM Confirmed by Christopher Rivera ([id number]) on 10/13/2022 8:10:54 AM Referred By: REFERRED SELF Confirmed By:Christopher Rivera
[2022-10-13] MEDS: ASPIRIN 81 MG ECTAB PO SCH (08:18)
[2022-10-13] MEDS: SERTRALINE HCL 50 MG TABLET PO SCH (08:18)
[2022-10-13] MEDS: busPIRone 7.5 MG TAB PO SCH ×3 (08:18→21:03)
--- NOTE | 2022-10-13 08:55 | Communication Note ---
Date of Service: October 13, 2022 Patient admitted after midnight 10/13 with SBO. Subjective: Shasta Raza is a 67-year-old female with a past medical history of liver cancer, bowel obstructions, hypertension, depression, and anxiety who presented last evening with 1 day of abdominal pain, nausea, vomiting. CT A/P showed several loops of minimally dilated small bowel in both lower quadrants associated with n.p.o. with a transition point at the short segment of the minimally thickened small bowel in the right lower quadrant. Labs notable for WBC 16 w/ left shift, otherwise unremarkable. Patient admitted to the medicine floor, n.p.o. with IVF running at 100 cc/hour, analgesics, antiemetics, and general surgery consult. This morning, patient reports she is feeling much better. She has not had any nausea or vomiting overnight. She received Tylenol and morphine so far which has significantly helped her pain. Currently rating pain 0/10. Physical Exam: General: awake, alert, no apparent distress Head: Normocephalic, atraumatic ENT: PERRL, EOMI, no pharyngeal exudate, mucous membranes moist Chest: Clear to auscultation, on room air, no adventitious breath sounds Cardiac: Regular rate and rhythm, no murmur, no JVD, normal peripheral pulses, good capillary refill Abdominal: NABS x 4 quadrants, soft, nontender to palpation, no rebound, guarding or tenderness Extremities: Normal inspection, no peripheral edema or erythema, calfs nontender to palpation Psych: Normal mood and affect Neuro: AAO x 3, strength intact bilaterally and rated 5/5, no motor deficits, speech is clear, no peripheral sensory deficits Skin: no rash or erythema A/P: 1.) SBO * CT a/p: several loops of minimally-dilated small bowel in both lower quadrants suspicious for recurrent SBO; transition point at a short segment of minimally-thickened small bowel in RLQ * General Surgery consulted * NPO pending Surgery consult * NSS @ 100mL/hr (x2 bags ordered) Pain control: * APAP 1000mg IV q8h scheduled * Morphine 2mg q3h prn moderate/severe (6+/10) pain * Zofran prn nausea 2.) Liver Cancer * PET/CT from 07/27 with overall extensive but relatively stable disease * Remains on octreotide 40 mg monthly * Has referral to [facility] medical oncology for second opinion * Follow-up with [facility] for liver MRI in October or November 2022 3.) HTN * Continue lisinopril when cleared for PO intake; patient's BP has been acceptable overnight highest was isolated reading of 173/94, otherwise SBP 140-160s/DBP 70-80s 4.) Depression/Anxiety * Continue BuSpar, Zoloft when cleared for PO intake. Supervising physician Addendum 12:59 PM Patient seen and examined, chart reviewed, case discussed with Marj Osuna PA-C and I agree with the assessment and plan as above except as otherwise noted Labs and images reviewed Patient seen at bedside for continued evaluation. Pain is improved with no nausea vomiting, has not yet had a bowel movement but is starting passing a small amount of gas. Endorses fatigue, patient reports she did not sleep very well. Pulse bradycardic with chronotropic response, vital signs stable. Breathing is unlabored. Abdomen is minimally tender to palpation without rebound/guarding. We will continue conservative medical management at this time, if continues advised to let us/BMs and advance to try clear liquids. Continue management as noted above
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
[2022-10-13] MEDS: lisinopril 10 MG TAB PO SCH (21:02)
--- NOTE | 2022-10-13 23:35 | Billing Data ---
Date of Service October 13, 2022 Coding Level of Care Code 93616 INT INP/OBS CARE
[2022-10-14] MEDS: ACETAMINOPHEN 1,000 MG/100 ML VIAL IV SCH (05:46)
[2022-10-14 06:06] LABS: Hematocrit (blood only) 39.2 % (34.1-44.9); Hemoglobin 12.7 g/dl (12.0-16.0); Mean Corpuscular Hemoglobin 29.7 pg (25.0-34.0); Mean Corpuscular Hgb Conc 32.4 g/dL (32.0-36.0); Mean Corpuscular Volume 91.8 fL (80.0-100.0); Mean Platelet Volume 10.4 fL (9.4-12.3); Platelet Count 316 K/uL (130-400); RDW Coefficient of Variation 15.6 % (11.5-14.5); RDW Standard Deviation 52.6 fL (36.4-46.3); Red Blood Count 4.27 M/uL (3.93-5.22); White Blood Count 9.91 K/ul (4.8-10.8)
[2022-10-14 06:57] LABS: Albumin Globulin Ratio 1.4 (0.9-2); Albumin Level 3.3 gm/dl (3.4-5.0); BUN Creatinine Ratio 17.9 (10-20); Bilirubin,Total 0.8 mg/dl (0.2-1.0); Calcium 8.5 mg/dl (8.5-10.1); Creatinine Clr Calc Pharmacy 89.4 ml/min; Est GFR (African American) 106.2 ml/min; Est GFR (Non-African American) 91.6 ml/min; Globulin 2.4 gm/dl (2.5-4.0); Magnesium 1.8 mg/dl (1.7-2.4); Potassium 4.1 mmol/L (3.5-5.1); Total Protein 5.7 gm/dl (6.0-8.3)
[2022-10-14] MEDS: ASPIRIN 81 MG ECTAB PO SCH (08:06)
[2022-10-14] MEDS: busPIRone 7.5 MG TAB PO SCH ×3 (08:07→20:58)
[2022-10-14] MEDS ORDERED: MAGNESIUM SULFATE / D5W 1 GM/100 ML BAG IV ONE (08:31)
--- NOTE | 2022-10-14 08:32 | Hospitalist Progress Note ---
Date of Service October 14, 2022 Assessment & Plan (1) Abdominal pain, acute: Plan: Shasta Raza is a 67-year-old female with a past medical history of liver cancer, bowel obstructions, hypertension, depression, and anxiety who presented with 1 day of abdominal pain, nausea, vomiting. Had been admitted this past winter and transferred out, managed conservatively and wanting to continue conservative treatment/avoid transfer if possible CT A/P showed several loops of minimally dilated small bowel in both lower quadrants associated with n.p.o. with a transition point at the short segment of the minimally thickened small bowel in the right lower quadrant. General surgery consulted NPO --> clear liquids 10/13 Pain/antiemetics prn Acetaminophen IV Q8H for pain scheduled Morphine also available for breakthrough Given 1x dose of toradol this morning for reported headache -- symptoms resolved per patient Famotidine IVP BID ordered (takes 20mg PO BID at home) WBC wnl 9, afebrile Does not appear overly dehydrated on exam, will avoid additional IVF for now tolerated clear liquid diet, passing gas/+BM --> advanced to full liquid diet for lunch today Continue to monitor/supportive care/electrolyte replacement as indicated Patient has f/u second opinion w/ [facility] first week of Nov (was to be today) for her liver CA (2) Small bowel obstruction: Plan: moving bowels reported overnight into today, diet advance, general surgery on consult as above (3) Pre-diabetes: Plan: A1c 6.3 on April (4) Malignant carcinoid tumor: Plan: PET/CT from 07/27 with overall extensive but relatively stable disease Remains on octreotide 40 mg monthly Has referral to [facility] medical oncology for second opinion Follow-up with [facility] for liver MRI end of , f/u appt for [facility] second opinion was to be today but rescheduled for first week of November (5) Hypertension: Plan: On lisinopril 10mg daily (6) Depression with anxiety: Plan: continue zoloft 75mg daily, buspar 7.5mg TID DVT proph- SCDs ordered, has been ambulating in room. consider adding chemical proph if continuing to remain inpatient past tomorrow Plan continued inpatient stay supportive care, diet advanced to full liquid for today general surgery following -- appreciate assistance Admission and Anticipated Discharge Date Admission Date: October 13, 2022 Supervising Physician Co-Signing Physician Notes PA Supervision Note: I did not personally see or examine the patient today, but I verified all [place] points of STEVE Quigley's assessment and plan with the following exceptions/additions: None Subjective eval this morning, doing better fatigued but no further abdominal pain/nausea/vomiting. Had slight headache this morning, resolved with one time dose of toradol. tolerating clear liquid diet, moved her bowels this morning will advance to full liquids, to alert of any worsening symptoms. if tolerating/able to tolerate low fiber will plan for dc tomorrow. She had f/u appt [facility] for 2nd opinion but is hospitalized. [facility] has new appt with them Nov 04 and an MRI of liver at end of . Questions/concerns addressed at this time. Review of Systems Review of Systems: All systems reviewed & are unremarkable except as noted in HPI & below Physical Exam Physical Exam: General: WD/WN female walking in room upon entry, NAD HEENT: head normocephalic, atraumatic, pupils equal in size, mmm Resp: CTAB, no w/c/r, on room air CV: RRR, no m/r/g, no pitting edema/calf tenderness GI: +BS, laparotomy scars noted, no distension, soft, nontender : no link MSK/Neuro: no focal deficit, moves all extremities Skin: warm, dry Psych: AOx3, pleasant and cooperative Results & Data Results & Data ([facility]) Vital Signs (Past 12 Hours) Vital Signs Temp Pulse Resp BP Pulse Ox O2 Del Method 10/14/22 08:04 60 178/72 H 10/14/22 07:16 36.7 C 50 L 18 155/78 H 96 Room Air 10/13/22 20:49 36.7 C 56 L 18 155/81 H 96 Room Air Laboratory Results 10/14/22 10/14/22 Range/Units 05:58 05:58 WBC 9.91 (4.8-10.8) K/ul RBC 4.27 (3.93-5.22) M/uL Hgb 12.7 (12.0-16.0) g/dl Hct 39.2 (34.1-44.9) % MCV 91.8 (80.0-100.0) fL MCH 29.7 (25.0-34.0) pg MCHC 32.4 (32.0-36.0) g/dL RDW Std Deviation 52.6 H (36.4-46.3) fL RDW Coeff of Denilson 15.6 H (11.5-14.5) % Plt Count 316 (130-400) K/uL MPV 10.4 (9.4-12.3) fL Sodium 141 (136-145) mmol/L Potassium 4.1 (3.5-5.1) mmol/L Chloride 109 H (98-107) mmol/L Carbon Dioxide 28 (21-32) mmol/L Anion Gap 4 (3-11) BUN 12 (6-23) mg/dl Creatinine 0.67 (0.6-1.2) mg/dl Est Cr Clr Drug Dosing 89.4 ml/min Est GFR ( Amer) 106.2 ml/min Est GFR (Non-Af Amer) 91.6 ml/min BUN/Creatinine Ratio 17.9 (10-20) Glucose 108 H (70-99(Fasting)) mg/dl Calcium 8.5 (8.5-10.1) mg/dl Magnesium 1.8 (1.7-2.4) mg/dl Total Bilirubin 0.8 (0.2-1.0) mg/dl AST 15 (13-39) U/L ALT 14 (7-52) U/L Alkaline Phosphatase 55 (34-104) U/L Total Protein 5.7 L (6.0-8.3) gm/dl Albumin 3.3 L (3.4-5.0) gm/dl Globulin 2.4 L (2.5-4.0) gm/dl Albumin/Globulin Ratio 1.4 (0.9-2) PG Care Time/CCT Total # of Minutes Spent Total Time Spent with Patient: Total time spent is greater than 50% in coordination of care (as documented) at patient's floor/unit and/or counseling patient: Coding Level of Care Code 89935 SUB INP/OBS CARE 3/50MIN Diagnoses Abdominal pain, acute R10.9 Small bowel obstruction K56.609 Pre-diabetes R73.03 Malignant carcinoid tumor C7A.00 Hypertension I10 Depression with anxiety F41.8
[2022-10-14] MEDS: SERTRALINE HCL 50 MG TABLET PO SCH (08:59)
[2022-10-14] MEDS ORDERED: KETOROLAC TROMETHAMINE 15 MG/ML VIAL IV ONE (09:32)
[2022-10-14] MEDS ORDERED: ACETAMINOPHEN 500 MG TAB PO PRN (13:56)
--- NOTE | 2022-10-14 15:30 | Surgery Progress Note ---
Date of Service October 14, 2022 Assessment & Plan (1) Malignant carcinoid tumor: (2) Small bowel obstruction: Plan 67 year-old female with history of metastatic neuroendocrine tumor with SBO in June 2022 presented to emergency department with complaint of sudden onset of right sided abdominal pain with nausea and vomiting. CT scan showing SBO with transition point in RLQ similar to prior CT scan. She was transferred to [place] during last admission and treated conservatively. PET scan in July showed normal bowel. SBO likely related to adhesions/scar tissue. Abdominal pain improved, n/v resolved, passing flatus, had bowel movement this morning. Plan: Given extensive surgical history and metastatic disease would like to avoid any surgical intervention. Had bowel movement this morning. Advance diet as tolerated. Possible discharge tomorrow. Continue current medical management encourage ambulation Admission and Anticipated Discharge Date Admission Date: October 13, 2022 Subjective Doing well today. Denies nausea or vomiting. Tolerating full liquid diet. Had bowel movement this morning. Denies fevers or chills. Physical Exam Constitutional: WD/WN, vitals as above + obese; no acute distress and not ill appearing Gastrointestinal (Abdomen): Inspection/Auscultation: abdomen normal to inspection and + abdominal surgical scar (midline laparotomy scar and laparoscopic scars present); abdomen not distended Percussion/Palpation: abdomen soft; abdomen nontender, no guarding and abdomen not rigid Skin: no rashes, warm and dry Psychiatric: Orientation: alert and oriented x 3 Results & Data ([facility]) Vital Signs (Past 12 Hours) Vital Signs Temp Pulse Resp BP BP Pulse Ox O2 Del Method 10/14/22 14:50 36.7 C 77 16 123/77 99 Room Air 10/14/22 10:37 58 L 137/80 10/14/22 08:04 60 178/72 H 10/14/22 07:16 36.7 C 50 L 18 155/78 H 96 Room Air
[2022-10-14] MEDS: lisinopril 10 MG TAB PO SCH (20:58)
[2022-10-14] MEDS: FAMOTIDINE 20 MG in SYRINGE 3 ML IV SCH (21:02)
[2022-10-15 06:26] LABS: Basophils # (auto) 0.05 K/uL (0-0.2); Basophils % (auto) 0.4 %; Eosinophils # (auto) 0.13 K/uL (0-0.50); Eosinophils % (auto) 1.1 %; Hematocrit (blood only) 38.5 % (34.1-44.9); Hemoglobin 12.8 g/dl (12.0-16.0); Immature Granulocytes # (auto) 0.04 K/uL (0.00-0.02); Immature Granulocytes % (auto) 0.3 %; Lymphocytes # (auto) 2.58 K/uL (1.2-3.4); Lymphocytes % (auto) 21.5 %; Mean Corpuscular Hemoglobin 30.2 pg (25.0-34.0); Mean Corpuscular Hgb Conc 33.2 g/dL (32.0-36.0); Mean Corpuscular Volume 90.8 fL (80.0-100.0); Mean Platelet Volume 10.5 fL (9.4-12.3); Monocytes # (auto) 0.94 K/uL (0.24-0.82); Monocytes % (auto) 7.8 %; Neutrophils # (auto) 8.27 K/uL (1.4-6.5); Neutrophils % (auto) 68.9 %; Platelet Count 306 K/uL (130-400); RDW Coefficient of Variation 15.4 % (11.5-14.5); RDW Standard Deviation 50.9 fL (36.4-46.3); Red Blood Count 4.24 M/uL (3.93-5.22); White Blood Count 12.01 K/ul (4.8-10.8)
[2022-10-15] MEDS: busPIRone 7.5 MG TAB PO SCH ×3 (07:41→20:21)
[2022-10-15] MEDS: SERTRALINE HCL 50 MG TABLET PO SCH (07:41)
[2022-10-15] MEDS: ASPIRIN 81 MG ECTAB PO SCH (07:42)
--- NOTE | 2022-10-15 08:32 | Hospitalist Progress Note ---
Date of Service October 15, 2022 Assessment & Plan (1) Abdominal pain, acute: Plan: Shasta Raza is a 67-year-old female with a past medical history of liver cancer, bowel obstructions, hypertension, depression, and anxiety who presented with 1 day of abdominal pain, nausea, vomiting. Had been admitted this past winter and transferred out, managed conservatively and wanting to continue conservative treatment/avoid transfer if possible CT A/P showed several loops of minimally dilated small bowel in both lower quadrants associated with n.p.o. with a transition point at the short segment of the minimally thickened small bowel in the right lower quadrant. General surgery consulted NPO --> clear liquids 10/13, advanced to full liquids 10/14 and then low fiber for today Tolerating without significant increase in pain, passing gas but no BM since diarrhea x 4 yesterday Pain control/antiemetics prn -- tylenol changed to PO, Q8H prn -- given for headache this morning with reported resolution of symptoms KUB w/o obstruction, passing gas. Will schedule daily miralax to assist with BM, ambulation encouraged Pepcid IV BID added -- takes at home Remains on low fiber diet, WBC elevated to 12k, but afebrile (however reporting occasional hot flash, ?if related to underlying malignancy) UA on admit epi>WBC, however culture with ecoli, pansensitive. Appears had ecoli on cx in June, ?if ever treated Decision to start Ceftriaxone IV and given 1 dose now, consideration for Macrobid at d/c given other allergies 500cc NSS @80cc/hr as well for mild dehydration on exam this morning (improved this afternoon) Pain control/antiemetics prn Famotidine IV BID ordered (takes 20mg PO BID at home) Continue to monitor overnight, if stable will plan for d/c tomorrow morning to ensure patient not bounced right back Patient has f/u second opinion w/ [facility] first week of Nov (was to be today) for her liver CA (2) Small bowel obstruction: Plan: moving bowels reported overnight into 10/14, diet advanced, general surgery on consult as above passing gas, abd soft on exam (3) Pre-diabetes: Plan: A1c 6.3 on April (4) Malignant carcinoid tumor: Plan: PET/CT from 07/27 with overall extensive but relatively stable disease Remains on octreotide 40 mg monthly Has referral to [facility] for second opinion Follow-up with [facility] IR for liver MRI end of month, f/u appt for [facility] second opinion was to be today but rescheduled for first week of November (5) Hypertension: Plan: On lisinopril 10mg daily -- ordered 20mg dose to be given now, early (takes HS) and increased daily lisinopril to 20mg (last admit mentioned possible need for increase) (6) Depression with anxiety: Plan: continue zoloft 75mg daily, buspar 7.5mg TID (7) Murmur: Plan: on exam, not appreciated yesterday echo for completeness to r/o valvular disease -- LV normal in structure/function, EF 55-60%. Mild concentric LVH. RV normal in size/function. NO significant valvular heart disease (8) Leukocytosis: Plan: Mild elevation, afebrile. Patient reports chronic mild elevations -- could be from malignancy however does have left shift UA on admit not overly convincing for UTI, however ecoli on culture and reported some lower abdominal symptoms [employer] Tx Ceftriaxone, PO tomorrow at d/c (mindful of allergies listed in chart, does not think tolerated keflex in past -- will monitor w/ ceftriaxone) DVT proph- SCDs ordered, has been ambulating in room. Added Lovenox SQ while inpatient given continued stay (9) UTI (urinary tract infection): Plan: ecoli on urine cx given lower abd symptoms/obstruction which could have caused retention, decision to treat send w/ PO tomorrow to complete course Plan tx for UTI as outlined continue low fiber diet 500cc NSS, encouraged PO intake consulted nutrition for assessment/supplementation patient hopeful for d/c tomorrow morning -- agreeable to stay overnight to ensure no issues with ongoing low fiber diet to prevent readmission Admission and Anticipated Discharge Date Admission Date: October 13, 2022 Supervising Physician Co-Signing Physician Notes PA Supervision Note: I did not personally see or examine the patient today, but I verified all [place] points of STEVE Quigley's assessment and plan with the following exceptions/additions: None Subjective eval this morning, doing alright tolerated the low fiber diet but had multiple bouts of diarrhea discussed possible d/c today, she states she feels that would be ok. asked about headache and her blood pressure being elevated. On lisinopril daily, may need to increase. She states this was elevated in ER, however she is denying any abdominal pain on exam today. Took tylenol and states she no longer has a headache, but currently wanting to rest. WBC elevated, however minimally elevated at baseline she states. Afebrile but did have some clamminess. Discussed continuing to monitor for now but will check back in on her this afternoon. Murmur on exam, not appreciated yesterday. Denies CP/SOB, however will check ECHO given new finding and never had ECHO in past for further evaluation and likely will plan for discharge tomorrow. No palpitations reported. Did discuss possible UTI. She reports going to the bathroom prior to admission with coming/going episodes after voiding of lower abdominal discomfort. Thinks she was unable to tolerate keflex in the past but will give a dose of Ceftriaxone Review of Systems Review of Systems: All systems reviewed & are unremarkable except as noted in HPI & below Physical Exam 2 Physical Exam: General: WD/WN female sleeping upon entry, NAD but fatigued appearing HEENT: head normocephalic, atraumatic, pupils equal in size, mm slightly dry Resp: CTAB, no w/c/r, on room air CV: RRR, +murmur, no pitting edema/calf tenderness GI: +BS, laparotomy scars noted, no distension, soft, nontender : no link MSK/Neuro: no focal deficit, moves all extremities Skin: warm, dry Psych: AOx3, pleasant and cooperative Results & Data Results & Data ([facility]) Vital Signs (Past 12 Hours) Vital Signs Temp Pulse Resp BP BP Pulse Ox O2 Del Method 10/15/22 07:14 36.7 C 55 L 18 172/76 H 98 Room Air 10/14/22 21:48 36.8 C 71 18 156/93 H 97 Room Air Laboratory Results 10/15/22 10/15/22 Range/Units 06:07 06:07 WBC 12.01 H (4.8-10.8) K/ul RBC 4.24 (3.93-5.22) M/uL Hgb 12.8 (12.0-16.0) g/dl Hct 38.5 (34.1-44.9) % MCV 90.8 (80.0-100.0) fL MCH 30.2 (25.0-34.0) pg MCHC 33.2 (32.0-36.0) g/dL RDW Std Deviation 50.9 H (36.4-46.3) fL RDW Coeff of Denilson 15.4 H (11.5-14.5) % Plt Count 306 (130-400) K/uL MPV 10.5 (9.4-12.3) fL Immature Gran % (Auto) 0.3 % Neut % (Auto) 68.9 % Lymph % (Auto) 21.5 % [place] % (Auto) 7.8 % Eos % (Auto) 1.1 % Baso % (Auto) 0.4 % Neut # (Auto) 8.27 H (1.4-6.5) K/uL Lymph # (Auto) 2.58 (1.2-3.4) K/uL [place] # (Auto) 0.94 H (0.24-0.82) K/uL Eos # (Auto) 0.13 (0-0.50) K/uL Baso # (Auto) 0.05 (0-0.2) K/uL Immature Gran # (Auto) 0.04 H (0.00-0.02) K/uL Sodium 142 (136-145) mmol/L Potassium 4.1 (3.5-5.1) mmol/L Chloride 108 H (98-107) mmol/L Carbon Dioxide 30 (21-32) mmol/L Anion Gap 4 (3-11) BUN 13 (6-23) mg/dl Creatinine 0.77 (0.6-1.2) mg/dl Est Cr Clr Drug Dosing 77.8 ml/min Est GFR ( Amer) 93.3 ml/min Est GFR (Non-Af Amer) 80.5 ml/min BUN/Creatinine Ratio 16.9 (10-20) Glucose 121 H (70-99(Fasting)) mg/dl Calcium 8.9 (8.5-10.1) mg/dl Magnesium 1.9 (1.7-2.4) mg/dl Total Bilirubin 0.6 (0.2-1.0) mg/dl Direct Bilirubin 0.1 (0-0.2) mg/dl AST 12 L (13-39) U/L ALT 12 (7-52) U/L Alkaline Phosphatase 54 (34-104) U/L Total Protein 5.6 L (6.0-8.3) gm/dl Albumin 3.1 L (3.4-5.0) gm/dl Diagnostic Findings KUB X-Ray 10/15/22 11:02 KUB CLINICAL HISTORY: Follow-up small bowel obstruction. FINDINGS: 2 AP supine abdominal radiographs are compared to study dated 07/02/2022 and correlated with abdominal CT dated 10/13/2022. Cholecystectomy clips are seen in the right upper quadrant. There is a nonobstructed abdominal bowel gas pattern. Mild fecal retention is noted throughout the colon. A surgical clip is also seen in the pelvis. There are no abnormal abdominal calcifications. The skeletal structures are osteopenic and appear intact. There is moderate lumbosacral spondylosis. IMPRESSION: There is no radiographic evidence of small bowel obstruction. Electronically signed by: Mathew Hernandez M.D. 10/15/2022 3:00 PM PG Care Time/CCT Total # of Minutes Spent Total Time Spent with Patient: Total time spent is greater than 50% in coordination of care (as documented) at patient's floor/unit and/or counseling patient: Coding Level of Care Code 88308 SUB INP/OBS CARE 3/50MIN Diagnoses Abdominal pain, acute R10.9 Small bowel obstruction K56.609 Pre-diabetes R73.03 Malignant carcinoid tumor C7A.00 Hypertension I10 Depression with anxiety F41.8 Murmur R01.1 Leukocytosis D72.829 UTI (urinary tract infection) N39.0
[2022-10-15] MEDS: FAMOTIDINE 20 MG in SYRINGE 3 ML IV SCH ×2 (08:48→20:21)
[2022-10-15 09:54] LABS: Albumin Level 3.1 gm/dl (3.4-5.0); BUN Creatinine Ratio 16.9 (10-20); Bilirubin Direct 0.1 mg/dl (0-0.2); Bilirubin,Total 0.6 mg/dl (0.2-1.0); Calcium 8.9 mg/dl (8.5-10.1); Creatinine Clr Calc Pharmacy 77.8 ml/min; Est GFR (African American) 93.3 ml/min; Est GFR (Non-African American) 80.5 ml/min; Magnesium 1.9 mg/dl (1.7-2.4); Potassium 4.1 mmol/L (3.5-5.1); Total Protein 5.6 gm/dl (6.0-8.3)
--- NOTE | 2022-10-15 11:16 | Surgery Progress Note ---
Date of Service October 15, 2022 Assessment & Plan (1) Malignant carcinoid tumor: (2) Small bowel obstruction: Plan Resolving Plan: Given extensive surgical history and metastatic disease would like to avoid any surgical intervention. Continue low fiber diet for 1-2 weeks Continue current medical management encourage ambulation our services signing off, please call with any questions/concerns Discussed with Dr. maradiaga who agrees with above. Admission and Anticipated Discharge Date Admission Date: October 13, 2022 Subjective feeling okay having headache this morning no abdominal pain, n, v tolerating soft diet Diarrhea x 4 yesterday, nothing so far today, continues to pass gas Physical Exam Constitutional: WD/WN, vitals as above no acute distress and not ill appearing Respiratory: normal respiratory effort; no respiratory distress, no labored breathing and no retractions Gastrointestinal (Abdomen): Inspection/Auscultation: abdomen normal to inspection, normal bowel sounds and + abdominal surgical scar (midine laparotomy scar); abdomen not distended Percussion/Palpation: abdomen soft; abdomen nontender, no guarding and abdomen not rigid Skin: no rashes, warm and dry Psychiatric: Orientation: alert and oriented x 3 Results & Data ([facility]) Vital Signs (Past 12 Hours) Vital Signs Temp Pulse Resp BP Pulse Ox O2 Del Method 10/15/22 07:14 36.7 C 55 L 18 172/76 H 98 Room Air Laboratory Results 10/15/22 10/15/22 Range/Units 06:07 06:07 WBC 12.01 H (4.8-10.8) K/ul RBC 4.24 (3.93-5.22) M/uL Hgb 12.8 (12.0-16.0) g/dl Hct 38.5 (34.1-44.9) % MCV 90.8 (80.0-100.0) fL MCH 30.2 (25.0-34.0) pg MCHC 33.2 (32.0-36.0) g/dL RDW Std Deviation 50.9 H (36.4-46.3) fL RDW Coeff of Denilson 15.4 H (11.5-14.5) % Plt Count 306 (130-400) K/uL MPV 10.5 (9.4-12.3) fL Immature Gran % (Auto) 0.3 % Neut % (Auto) 68.9 % Lymph % (Auto) 21.5 % [place] % (Auto) 7.8 % Eos % (Auto) 1.1 % Baso % (Auto) 0.4 % Neut # (Auto) 8.27 H (1.4-6.5) K/uL Lymph # (Auto) 2.58 (1.2-3.4) K/uL [place] # (Auto) 0.94 H (0.24-0.82) K/uL Eos # (Auto) 0.13 (0-0.50) K/uL Baso # (Auto) 0.05 (0-0.2) K/uL Immature Gran # (Auto) 0.04 H (0.00-0.02) K/uL Sodium 142 (136-145) mmol/L Potassium 4.1 (3.5-5.1) mmol/L Chloride 108 H (98-107) mmol/L Carbon Dioxide 30 (21-32) mmol/L Anion Gap 4 (3-11) BUN 13 (6-23) mg/dl Creatinine 0.77 (0.6-1.2) mg/dl Est Cr Clr Drug Dosing 77.8 ml/min Est GFR ( Amer) 93.3 ml/min Est GFR (Non-Af Amer) 80.5 ml/min BUN/Creatinine Ratio 16.9 (10-20) Glucose 121 H (70-99(Fasting)) mg/dl Calcium 8.9 (8.5-10.1) mg/dl Magnesium 1.9 (1.7-2.4) mg/dl Total Bilirubin 0.6 (0.2-1.0) mg/dl Direct Bilirubin 0.1 (0-0.2) mg/dl AST 12 L (13-39) U/L ALT 12 (7-52) U/L Alkaline Phosphatase 54 (34-104) U/L Total Protein 5.6 L (6.0-8.3) gm/dl Albumin 3.1 L (3.4-5.0) gm/dl
[2022-10-15] MEDS ORDERED: SODIUM CHLORIDE 0.9% 500 ML IV SCH (14:30)
[2022-10-15] MEDS ORDERED: cefTRIAXone SODIUM 1,000 MG in DEXTROSE 5% AD-VAN 50 ML IV SCH (14:30)
[2022-10-15] MEDS: cefTRIAXone SODIUM 2,000 MG in DEXTROSE 5% 50 ML IV SCH (14:48)
[2022-10-15] MEDS: ENOXAPARIN INJ 40 MG/0.4 ML SYR SQ SCH (14:56)
--- NOTE | 2022-10-15 15:00 | XCELERA ---
[id number]
--- NOTE | 2022-10-15 15:01 | XRay Report ---
KUB CLINICAL HISTORY: Follow-up small bowel obstruction. FINDINGS: 2 AP supine abdominal radiographs are compared to study dated 07/02/2022 and correlated with abdominal CT dated 10/13/2022. Cholecystectomy clips are seen in the right upper quadrant. There is a nonobstructed abdominal bowel gas pattern. Mild fecal retention is noted throughout the colon. A laure gical clip is also seen in the pelvis. There are no abnormal abdominal calcifications. The skeletal s tructures are osteopenic and appear intact. There is moderate lumbosacral spondylosis. IMPRESSION: There is no radiographic evidence of small bowel obstruction. Electronically signed by: Mathew Hernandez M.D. 10/15/2022 3:00 PM
[2022-10-15] MEDS ORDERED: lisinopril 5 MG TAB PO ONE (15:25)
[2022-10-15] MEDS ORDERED: lisinopril 20 MG TAB PO STA (15:26)
[2022-10-15] MEDS: POLYETHYLENE (MIRALAX) 17 GM PACK PO SCH (16:47)
[2022-10-16 07:24] LABS: Basophils # (auto) 0.06 K/uL (0-0.2); Basophils % (auto) 0.5 %; Eosinophils # (auto) 0.15 K/uL (0-0.50); Eosinophils % (auto) 1.2 %; Hematocrit (blood only) 37.4 % (34.1-44.9); Hemoglobin 12.4 g/dl (12.0-16.0); Immature Granulocytes # (auto) 0.05 K/uL (0.00-0.02); Immature Granulocytes % (auto) 0.4 %; Lymphocytes # (auto) 2.53 K/uL (1.2-3.4); Lymphocytes % (auto) 20.9 %; Mean Corpuscular Hgb Conc 33.2 g/dL (32.0-36.0); Mean Corpuscular Volume 90.3 fL (80.0-100.0); Monocytes # (auto) 0.98 K/uL (0.24-0.82); Monocytes % (auto) 8.1 %; Neutrophils # (auto) 8.32 K/uL (1.4-6.5); Neutrophils % (auto) 68.9 %; Platelet Count 317 K/uL (130-400); RDW Coefficient of Variation 15.2 % (11.5-14.5); RDW Standard Deviation 50.3 fL (36.4-46.3); Red Blood Count 4.14 M/uL (3.93-5.22); White Blood Count 12.09 K/ul (4.8-10.8)
[2022-10-16 07:44] LABS: BUN Creatinine Ratio 26.2 (10-20); Calcium 8.7 mg/dl (8.5-10.1); Creatinine Clr Calc Pharmacy 92.2 ml/min; Est GFR (African American) 107.2 ml/min; Est GFR (Non-African American) 92.5 ml/min; Magnesium 1.8 mg/dl (1.7-2.4)
[2022-10-16] MEDS ORDERED: hydrALAZINE HCL 20 MG/ML VIAL IV STA (07:50)
[2022-10-16] MEDS: busPIRone 7.5 MG TAB PO SCH ×2 (07:51→13:34)
[2022-10-16] MEDS: SERTRALINE HCL 50 MG TABLET PO SCH (07:51)
[2022-10-16] MEDS: ASPIRIN 81 MG ECTAB PO SCH (07:52)
[2022-10-16] MEDS: ENOXAPARIN INJ 40 MG/0.4 ML SYR SQ SCH (07:52)
[2022-10-16] MEDS: POLYETHYLENE (MIRALAX) 17 GM PACK PO SCH (07:52)
[2022-10-16] MEDS: FAMOTIDINE 20 MG in SYRINGE 3 ML IV SCH (08:01)
--- NOTE | 2022-10-16 08:40 | Hospitalist Progress Note ---
Date of Service October 16, 2022 Assessment & Plan Admission and Anticipated Discharge Date Admission Date: October 13, 2022 Results & Data Results & Data ([facility]) Vital Signs (Past 12 Hours) Vital Signs Temp Pulse Resp BP Pulse Ox O2 Del Method 10/16/22 07:10 36.8 C 63 16 174/101 H 96 Room Air PG Care Time/CCT Total # of Minutes Spent Total Time Spent with Patient: Total time spent is greater than 50% in coordination of care (as documented) at patient's floor/unit and/or counseling patient: Coding
--- NOTE | 2022-10-16 09:29 | Discharge Summary ---
Date of Service October 16, 2022 Admission HPI Per Admitting Provider 67yo female with a history of liver cancer, history of prior bowel obstructions, HTN, prediabetes, LUANA, and MDD/OSITO presets with a one-day history of abdominal pain, nausea, and vomiting. Symptoms began on 10/12 around 18:00. Symptoms began suddenly. Patient was initially nauseous and had two episodes of nonbilious, nonbloody emesis; her nausea has since resolved. Patient denies other symptoms including fever, chills, headache, vision changes, CP, palpitations, SOB, edema, dysuria, hematochezia, melena, back pain, dizziness, numbness, tingling, and weakness. Patient denies recent illness and recent travel. Upon arrival, vitals were notable for elevated BP (160-180s/80-100s); no tachycardia, no tachypnea, patient afebrile, spO2 adequate on room air. Initial labs were notable for neutrophil-predominant leukocytosis (16.1); no anemia, platelets wnl, no electrolyte abnormalities, creatinine not elevated, LFTs wnl, Tbili not elevated, covid PCR negative. In the ED, patient received NSS 1L bolus (x1), morphine 4mg IV (x2), and zofran 4mg IV (x2). EKG: pending CT a/p: several loops of minimally-dilated small bowel in both lower quadrants suspicious for recurrent SBO; transition point at a short segment of minimally- thickened small bowel in RLQ Surrogate decision-maker in case of an emergency: daughter Esperanza Kendall (cell: [phone]) Admission Exam Per Admitting Provider Physical Exam: Constitutional: tired-appearing, no acute distress CV: regular rhythm, no murmur appreciated, extremities well-perfused, no LE edema Resp: CTABL, no wheezes/rales/rhonchi appreciated, no increased work of breathing GI: soft, nondistended, moderate RLQ/epigastric tenderness to palpation, mild LUQ/RLQ/LLQ tenderness to palpation Skin: warm, dry, no rash appreciated Neuro: alert, oriented, no focal neurologic deficit appreciated Principal Diagnosis SBO Discharge Exam General: WD/WN female sleeping upon entry, NAD but fatigued appearing HEENT: head normocephalic, atraumatic, pupils equal in size, mm slightly dry Resp: CTAB, no w/c/r, on room air CV: RRR, +murmur, no pitting edema/calf tenderness GI: +BS, laparotomy scars noted, no distension, soft, nontender : no link MSK/Neuro: no focal deficit, moves all extremities Skin: warm, dry Psych: AOx3, pleasant and cooperative Discharge Data Allergies Allergy/AdvReac Type Severity Reaction Status Date / Time Sulfa (Sulfonamide Allergy Severe UNKNOWN Verified 10/12/22 23:53 Antibiotics) aspirin Allergy Intermediate PETECHIAE Verified 10/12/22 23:53 Penicillins Allergy Intermediate RASH-HAD Verified 10/12/22 23:53 KEFZOL W/O PROBLEM clindamycin Allergy Unknown Unknown Verified 10/12/22 23:53 morphine AdvReac Mild Nausea Verified 10/13/22 14:55 Consultations 10/13/22 03:30 ED Decision to Admit Stat 10/13/22 07:00 Consult General Surgery Routine Ordered Studies Abdomen/Pelvis CT 10/12/22 21:58 CT OF THE ABDOMEN AND PELVIS WITH CONTRAST CLINICAL HISTORY: Severe abdominal pain. History of metastatic neuroendocrine tumor and bowel obstruction. COMPARISON STUDY: CT of the abdomen and pelvis June 30, 2022. TECHNIQUE: Following IV administration of 83 mL of Optiray, axial images of the abdomen and pelvis were obtained from the lung bases to the proximal femurs. Images were reviewed in the axial, sagittal, and coronal planes. IV contrast was administered without complication. Automated exposure control was utilized for the study. A dose lowering technique was utilized adhering to the principles of ALARA. CT DOSE: 1082.67 mGy.cm FINDINGS: A few small nodules within the lower lungs are unchanged from earlier exams. These are likely benign. Mild biliary ductal dilatation is unchanged and likely related to cholecystectomy. Previously described hypervascular hepatic lesions are not well visualized on this venous phase exam. Adrenal glands, kidneys and pancreas are unremarkable. There is no hydronephrosis. No pneumatosis, free air or portal venous gas is present. Multiple enlarged lymph nodes are again noted. Index retrocrural lymph node on image 119 at 476 measures 1.4 x 1.2 cm. Index left para-aortic lymph node on image 170 measures 1.6 x 1.3 cm. These are similar to CT of June 30, 2022. Partially calcified mesenteric mass with desmoplastic reaction is similar to prior CT as well. This measures 3 x 2.1 cm. Additional mildly enlarged mesenteric lymph nodes are also unchanged. Several loops of mildly dilated small bowel are noted with small bowel feces sign. Transition point is noted on axial image 214. Distal small bowel is decompressed. Similar pattern was shown on CT of June 30, 2022. Small bowel wall thickening at site of obstruction could be due to the primary underlying lesion. Major vasculature is patent. There are no suspicious osseous lesions. Postoperative findings within the anterior abdominal wall are unchanged. IMPRESSION: 1. Findings consistent with a partial small bowel obstruction, as detailed above. Similar pattern to CT of June 30, 2022. This is likely related to underlying neuroendocrine tumor. 2. No significant change in multiple bessy metastases, including the dominant mesenteric mass, since CT of June 30, 2022. ACT 112: Negative or not required by law. Electronically signed by: Casey Polk M.D. 10/13/2022 7:35 AM KUB X-Ray 10/15/22 11:02 KUB CLINICAL HISTORY: Follow-up small bowel obstruction. FINDINGS: 2 AP supine abdominal radiographs are compared to study dated 07/02/2022 and correlated with abdominal CT dated 10/13/2022. Cholecystectomy clips are seen in the right upper quadrant. There is a nonobstructed abdominal bowel gas pattern. Mild fecal retention is noted throughout the colon. A surgic al clip is also seen in the pelvis. There are no abnormal abdominal calcifications. The skeletal structures are osteopenic and appear intact. There is moderate lumbosacral spondylosis. IMPRESSION: There is no radiographic evidence of small bowel obstruction. Electronically signed by: Mathew Hernandez M.D. 10/15/2022 3:00 PM Hospital Course (1) Small bowel obstruction: Shasta Raza is a 67-year-old female with a past medical history of liver cancer, bowel obstructions, hypertension, depression, and anxiety who presented with 1 day of abdominal pain, nausea, vomiting. Had been admitted this past winter and transferred out, managed conservatively and wanted t continue conservative treatment and avoid transfer if possible. CT A/P -- Findings consistent with a partial small bowel obstruction, as detailed above. Similar pattern to CT of June 30, 2022. This is likely related to underlying neuroendocrine tumor. General surgery consulted, made NPO No need for NGT for decompression IVF/supportive care pain control/antiemetics prn Moved bowels, diet advanced and tolerating well WBC elevation could be from underlying malignancy, however did tx for possible Ecoli UTI given lower abd symptoms w/ urination Repeat KUB w/o obstruction, passing gas and moved bowels. Of note, patient on iron supplementation at home, also suspect contributing to constipation however patient states tolerates without issue. Discussed would recommend continuing low fiber diet indefinitely given underlying neuroendocrine tumor and recurrence, already on treatment w/ monthly octreotide as below Has f/u for 2nd opinion at [facility] in next month Also recommended daily miralax to assist with bowels and discussed adding senna/docusate if not moving bowels at least every other day to prevent issues (2) Abdominal pain, acute: 2nd to obstruction, resolved with conservative tx SBO and UTI (3) Pre-diabetes: A1c 6.3 on April (4) Malignant carcinoid tumor: PET/CT from 07/27 with overall extensive but relatively stable disease Remains on octreotide 40 mg monthly Has referral to [facility] medical oncology for second opinion Follow-up with [facility] for liver MRI end of month, f/u appt for [place] second opinion was to be 10/15 but rescheduled for first week of November (5) Hypertension: On lisinopril 10mg daily -- increased lisinopril to 20mg daily given ongoing hypertension To monitor BPs at home and f/u PCP for further adjustment (6) Depression with anxiety: continued zoloft 75mg daily, buspar 7.5mg TID (7) Murmur: echo for completeness to r/o valvular disease -- LV normal in structure/function, EF 55-60%. Mild concentric LVH. RV normal in size/function. NO significant valvular heart disease (8) Leukocytosis: Mild elevation, afebrile. Patient reports chronic mild elevations -- could be from malignancy however does have left shift UA on admit not overly convincing for UTI, however ecoli on culture and reported some lower abdominal symptoms [employer]EPING [employer] Tx Ceftriaxone, tx to macrobid to complete course DVT proph- SCDs ordered, Lovenox SQ added given continued inpatient stay (9) UTI (urinary tract infection): ecoli on urine cx ceftriaxone IV inpatient, sent macrobid at d/c as above Plan discharged home continue low fiber diet indefinitely also rec'd to continue daily stool softeners to help assist with more regular bowel movements Total Time Total Time Spent Total Time Spent (In Minutes): 40 Discharge Plan Discharge Items Patient Disposition: Home - Self-Care Reason For Visit: ABDOMINAL PAIN, CONCERN FOR SBO Discharge Diagnosis: SBO Condition on Discharge: Good Goals: You have been hospitalized for an acute medical problem. During your stay at [facility], we have made an effort to correct the problem that brought you to the hospital while keeping you as comfortable as possible. Medications were used to bring your condition under control and your discharge instructions will include directions for any medications you should take after leaving the hospital. Please make sure you see your Primary Care Provider as part of your follow up plan. Activity: As commented below Non-emergency contact: Primary Care Provider and Specialist Call non-emergency contact if: you have any medication questions, your symptoms worsen and you have a fever Follow-up/Referrals: Tina Fletcher CRNP [Primary Care Provider] - 10/19/22 9:00 am Diet: Heart Healthy and Low Fiber Addtl Attending Provider Instructions: You have been hospitalized for small bowel obstruction. You were treated conservatively and should REMAIN on a low fiber diet. Information has been provided. I would also recommend continuing daily miralax and possibly adding senna/docusate if not moving your bowels more regularly to prevent recurrence. As discussed, oral iron supplementation can commonly contribute to constipation and we would like to prevent this and development of repeat obstructions. Your blood pressure was elevated and your lisinopril was increased to 20mg daily and you should continue to monitor pressures at home and contact your PCP if remains elevated for additional medication changes. We have also continue macrobid twice daily for another 4 days for treatment of possible UTI/cystitis. You should follow up with primary care within 7-10 days after discharge to monitor your progress after discharge. Follow up with oncology as previously scheduled. Please return to the ER with any increased abdominal pain, inability to pass gas, fever, chills, or any other symptom concerning for you. Take care! Addtl Hiv Counselor Provider Instructions: Recommend low fiber diet for 1-2 weeks and then slowly introduce fiber back into diet Low fiber foods * white bread, white pasta, and white rice * foods made with refined white flour, such as pancakes and bagels * low fiber cereal, hot or cold * canned vegetables * fresh vegetables, in small amounts, if they are well-cooked * potatoes without the skin * eggs * dairy products, if your body can process them well * tender protein sources, such as eggs, tofu, chicken, and fish * creamy peanut butter * fats, including olive oil, mayonnaise, gravy, and butter Low fiber fruits * fruit juices without pulp * canned fruit * cantaloupe * honeydew melon * watermelon * nectarines * papayas * peaches * plums Low fiber vegetables * well-cooked or canned vegetables without seeds or skins * carrots * beets * asparagus tips * white potatoes without skin * string beans * lettuce, if your body can tolerate it * tomato sauces * acorn squash without seeds * pureed spinach * strained vegetable juice * cucumbers without seeds or skin, zucchini, and shredded lettuce are fine to eat raw Pending Studies at Discharge: No Stand-Alone Forms: My [facility], Smoking Cessation Medications and DC Order Prescriptions: New polyethylene glycol 3350 [Miralax] 17 gram Powder In Packet 17 g PO DAILY Qty: 30 0RF nitrofurantoin monohyd/m-cryst [Macrobid] 100 mg capsule 100 mg PO BID 4 Days Qty: 8 0RF Rx Instructions: must administer with a meal/food Continued lorazepam 1 mg tablet 1 mg PO DAILY PRN (Reason: anxiety) Qty: 20 0RF Fergon 225 mg (27 mg iron) tablet 225 mg PO BID Qty: 180 3RF buspirone 7.5 mg tablet 7.5 mg PO TID Qty: 270 3RF Rx Instructions: pt aware dose change famotidine 20 mg tablet 20 mg PO BID Qty: 90 3RF ondansetron 4 mg tablet,disintegrating 4 mg PO Q4H PRN (Reason: Nausea) Qty: 30 6RF (DME) BD SafetyGlide Syringe 3 mL 23 x 1" syringe See Rx Instructions .MEDSUPPLY Qty: 4 3RF Rx Instructions: As directed for B12 injections diphenoxylate-atropine [Lomotil] 2.5-0.025 mg tablet 1 tab PO Q8H PRN (Reason: diarrhea) Qty: 30 0RF sertraline 50 mg tablet 75 mg PO DAILY Qty: 135 3RF aspirin 81 mg tablet,delayed release (DR/EC) 81 mg PO DAILY Qty: 30 0RF cyanocobalamin (vitamin B-12) 1,000 mcg/mL solution 1,000 mcg IM DIRECTED Rx Instructions: DUE THIRD WEEK OF OCT 2022. Inject 1 mL once a week for 4 weeks, then inject 1 mL once a month. Probiotic 10 billion cell Capsule 10 mmu cells PO BID Discontinued lisinopril 10 mg tablet 10 mg PO HS No Action lisinopril 20 mg tablet 20 mg PO HS 30 Days Qty: 90 3RF Discharge Orders: Discharge Order (Routine); Ordered 10/16/22 Ordered By: Jennifer Quigley Admission Data Admit Date/Time: 10/13/22 04:04 Attending Provider: Cher Edward Admit Provider: Zeyad Roberto Primary Care Provider: Tina Fletcher Other Providers: Shavonne Bonner ; Mohsen Cross ; Anant Ayers ; Matias Lawson ; Jony Lakhani Jr ; Deep Mason ; Lawrence Kapadia ; Abbey Matthews ; Omid Garza ; Elías Eli ; López Stone Other Interventions: Discharge Summary Assessment (RN) Last Done: 10/16/22 11:03 Supervising Physician Co-Signing Physician Notes PA Supervision Note: I did not personally see or examine the patient today, but I verified all [place] points of STEVE Quigley's assessment and plan with the following exceptions/additions: None Coding Level of Care Code HOSP INP/OBS DISCH >30 MIN Diagnoses Small bowel obstruction K56.609 Abdominal pain, acute R10.9 Pre-diabetes R73.03 Malignant carcinoid tumor C7A.00 Hypertension I10 Depression with anxiety F41.8 Murmur R01.1 Leukocytosis D72.829 UTI (urinary tract infection) N39.0
[2022-10-16] MEDS: cefTRIAXone SODIUM 2,000 MG in DEXTROSE 5% 50 ML IV SCH (13:32)
[2022-10-16] MEDS ORDERED: lisinopril 20 MG TAB PO SCH (21:00)
== END 2022-10-16 15:11 | disposition home or self-care (01) | DRG 389 ==
LOC: ED 21:36 → SUATTDRO 10-13 04:04 → 3E 10-13 04:04

== ENCOUNTER 2023-04-19 20:45 | Observation (INO) ==
[2023-04-19] MEDS ORDERED: ONDANSETRON INJ 2 MG/ML 2 ML VIAL IV STA (21:49)
[2023-04-19] MEDS ORDERED: MoRPHine SULFATE 4 MG/ML 1 ML CARP\\VIAL IV STA ×2 (21:53→23:43)
--- NOTE | 2023-04-19 21:57 | Emergency Department Note ---
Impression & Plan Fall, Headache, Acute neck pain, Acute pain of right shoulder ED Provider Note CHIEF COMPLAINT: Neck pain, left shoulder pain, fall, headache HISTORY OF PRESENT ILLNESS: This 67-year-old female patient presents to the emergency department via ambulance after a fall. The patient was approximately 3 feet in the air on the top camper step when she lost her balance and fell, landing on the left side. The patient reports left shoulder pain radiating into her neck. She states she felt a cracking sensation in the neck as well. She states since this time, she has been experiencing 10/10 pain in the shoulder and neck. The patient does also report headache, but denies striking her head. She states she is on aspirin, but no other blood thinners. The patient states the pain in the left shoulder radiates diffusely throughout the left side. She states it is sharp in nature. She reports nausea but no vomiting. No numbness or tingling. She was not ambulatory after the event due to the severe pain she was experiencing. She does arrive on backboard and cervical collar. REVIEW OF SYSTEMS: A 10 system review of systems was performed with positives and pertinent negatives listed in the history of present illness. All other systems were reviewed and are negative. ALLERGIES: Sulfa, aspirin, penicillins, clindamycin, morphine (nausea, tolerates with Zofran) PHYSICAL EXAM: VITALS: Vitals are noted on the nurse's note and reviewed by myself. Vital signs stable. GENERAL: This is a 67-year-old female, in no acute distress, nondiaphoretic, well-developed well-nourished. SKIN: The skin was without rashes, erythema, edema, or bruising. There is no tenting of the skin. Capillary refill less than 2 seconds. HEAD: Normocephalic atraumatic. EARS: External auditory canals clear, tympanic membranes pearly duke without erythema or effusion bilaterally. No hemotympanum. Negative tiwari sign noted. EYES: Pupils equal round and reactive to light and accommodation. Conjunctivae without injection, sclerae without icterus. Extraocular movements intact. NOSE: Patent, turbinates without inflammation or discharge. No sinus tenderness. MOUTH: Mucous membranes moist. Tonsils are not enlarged. Pharynx without erythema or exudate. Uvula midline. Airway patent. Tongue does not deviate. NECK: Supple without nuchal rigidity. No lymphadenopathy. No thyromegaly. Cervical spine is nontender. No JVD. HEART: Regular rate and rhythm without murmurs gallops or rubs. LUNGS: Clear to auscultation bilaterally without wheezes, rales or rhonchi. No retractions or accessory muscle use. ABDOMEN: Positive bowel sounds x 4. Soft, nontender, without masses or organome zion. Sylvester sign negative. No guarding or rebound tenderness. MUSCULOSKELETAL: Severe tenderness with any type of light palpation of the entire left shoulder region. Patient is unable to move the left shoulder, limited active range of motion. She does maintain range of motion of the left elbow, wrist, and fingers. No muscle atrophy, erythema, or edema noted. Full range of motion without joint tenderness in all other superficial abrasion on the left knee. No deep tenderness to palpation in this area. Except as noted, musculoskeletal no tenderness to palpation. Strength 5/5 throughout. NEURO: Patient was alert and oriented to person place and time. Normal sensation to light and sharp touch. Deep tendon reflexes 2+ throughout. No focal neurological deficits. An order was placed for continuous conveyor monitor. The monitor showed a normal sinus rhythm at a ventricular rate of 89 bpm, per my interpretation. RADIOLOGY X-ray left shoulder, per my interpretation: No acute fracture or dislocation EKG, per my interpretation: Normal sinus rhythm with ventricular rate of [address] elevation or depression. No T wave inversion. No significant change when compared to EKG from 04/19/2023. EMERGENCY DEPARTMENT COURSE: The patient was seen and evaluated as above. Given the mechanism of injury, the patient's significant pain, and reports of neck cracking and subsequent intractable pain, we did elect to perform work-up as above. IV access obtained, labs drawn. CT imaging performed reviewed by myself and radiologist as noted. The patient was medicated with IV morphine and Zofran. She was medicated with IV fluids and given a Tdap vaccination, due to uncertain last tetanus vaccine date. CT imaging was negative for acute abnormality. X-ray of the left shoulder was reviewed by myself and Dr. Krishnan without obvious acute injury. The cervical spine was cleared by myself. Cervical collar was removed. After administration of 2 doses of morphine and Toradol, the patient continued to complain of inability to move the left shoulder. She did have some improved passive range of motion in the left upper extremity, but was having difficulty with active range of motion. Attempted to ambulate the patient was unsuccessful by nursing staff. The patient does not fe el that she can safely return home due to her intractable pain associated with a recent fall. I did discuss the case with the manager ct. I discussed the case with Dr. Wright, [facility] hospitalist physician. Please see his dictation regarding ongoing management care of this patient. Differential diagnosis includes Fracture, dislocation, contusion, intra- abdominal, pneumothorax, intrathoracic, intracranial, neurologic, compartment syndrome, rhabdomyolysis, as well as other pathologies. I attest that I have personally reviewed the patient's current medication list. Patient was found to have an elevated blood pressure and was referred to the hospitalist for recheck and further treatment. The chart was completed utilizing [employer] Speech voice recognition software. Gram matical errors, random word insertions, pronoun errors, and incomplete sentences are an occasional consequence of this system due to software limitations, ambient noise, and hardware issues. Any formal questions or concerns about the content, text, or information contained within the body of this dictation should be directly addressed to the provider for clarification. Past Med/Surg History Medical History Abscess of leg, right Allergic rhinitis Bee sting allergy Hypertension Hypertension Hypertensive urgency, malignant Malignant carcinoid tumor dx 04/02/21, followed by Dr Palacio, stage 4 Nocturnal leg cramps Sleep apnea Ulcer of right leg UTI (urinary tract infection) Surgical History H/O splenectomy History of 2 sections History of cholecystectomy Hx of hysterectomy S/P splenectomy Family History Mother Myocardial infarction Father No problems noted. Denies family history of Ovarian cancer Prostate cancer Breast cancer Colorectal cancer Social History Smoking Status: Never smoker Second Hand Exposure: No; Do You Dip or Chew Tobacco: No; Hx Alcohol Use: No Hx Substance Use: No Preferred Language: American Communication Ability: Effective Visual Impairment: Limited Hearing Ability: Normal Dungeon Master Required: No Beliefs That Will Affect Care: None marital status: / Current Living Situation: Family Current Living Situation Comment: Lives with daughter. 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 How many Children do You have: 3 Feels Safe at Home: Yes Childhood Exposure to Second-Hand Smoke: No Diet: regular caffeine: Yes during the past year weight has: remained stable Dental Care, Regularly: Yes Physical Activity Frequency: Does not Exercise Seatbelt Use: always Sunscreen Use: No Do you think of yourself as: straight/heterosexual Gender Identity: Female Assistive Devices: None Allergies Allergies Allergy/AdvReac Type Severity Reaction Status Date / Time Sulfa (Sulfonamide Allergy Severe UNKNOWN Verified 04/19/23 21:30 Antibiotics) aspirin Allergy Intermediate PETECHIAE Verified 04/19/23 21:30 Penicillins Allergy Intermediate RASH-HAD Verified 04/19/23 21:30 KEFZOL W/O PROBLEM clindamycin Allergy Unknown CAN'T Verified 04/19/23 21:30 REMEMBER morphine AdvReac Mild Nausea Verified 04/19/23 21:30 Home Meds Home Medications Medication Instructions Recorded Confirmed cyanocobalamin (vitamin B-12) 1,000 mcg IM DIRECTED 10/12/22 04/19/23 1,000 mcg/mL injection solution Previous Rx's Medication Instructions Recorded aspirin 81 mg tablet,delayed 81 mg PO DAILY #30 tabs 05/20/21 release diphenoxylate-atropine 2.5 1 tab PO Q8H PRN diarrhea #30 tabs 03/09/22 mg-0.025 mg tablet (Lomotil) ferrous gluconate 225 mg (27 mg 225 mg PO BID #180 tabs 04/08/22 iron) tablet (Fergon) sertraline 50 mg tablet 75 mg PO DAILY #135 tabs 06/18/22 ondansetron 4 mg disintegrating 4 mg PO Q4H PRN Nausea #30 tabs 09/30/22 tablet polyethylene glycol 3350 17 gram 17 g PO DAILY #30 ea 10/16/22 oral powder packet (Miralax) ketoconazole 2 % topical cream 1 applic topical BID #30 grams 01/06/23 famotidine 20 mg tablet 20 mg PO BID stomach pain #180 tabs 03/18/23 buspirone 7.5 mg tablet 7.5 mg PO TID #270 tabs 03/22/23 lisinopril 10 mg tablet 10 mg PO DAILY #90 tabs 03/22/23 lorazepam 0.5 mg tablet 0.5 mg PO BID PRN anxiety #10 tabs 04/15/23 Results & Data (ED) Vital Signs Vital Signs - 24 hr 04/19/23 20:59 04/19/23 20:59 04/19/23 21:15 Temperature 37.1 C 37.1 C Temperature Source Oral Oral Pulse Rate 93 H 84 Pulse Rate [Apical] 93 H Respiratory Rate 22 22 Blood Pressure 209/152 H Blood Pressure [Right Arm] 209/152 H Blood Pressure Mean 171 Blood Pressure Mean [Right Arm] 171 Pulse Oximetry 95 95 Oxygen Delivery Method Room Air Room Air Sepsis Recent Fever Within 48 Hours No Sepsis New/Unexplained Change in Mental Status No Sepsis Action Taken by Nursing No Action Required 04/19/23 22:46 Temperature Temperature Source Pulse Rate Pulse Rate [Apical] 89 Respiratory Rate 18 Blood Pressure Blood Pressure [Right Arm] 189/79 H Blood Pressure Mean Blood Pressure Mean [Right Arm] 115 Pulse Oximetry 99 Oxygen Delivery Method Room Air Sepsis Recent Fever Within 48 Hours Sepsis New/Unexplained Change in Mental Status Sepsis Action Taken by Nursing Laboratory Data 04/19/23 20:57 04/19/23 20:57 Lab Results 04/19/23 04/19/23 04/19/23 Range/Units 20:57 20:57 20:57 WBC 14.42 H (4.8-10.8) K/ul RBC 4.58 (4.20-5.40) M/uL Hgb 14.1 (12.0-16.0) g/dl POC Hgb (12.0-16.0) g/dl Hct 42.3 (37.0-47.0) % POC Hct (37-47) % MCV 92.4 (80.0-100.0) fL MCH 30.8 (25.0-34.0) pg MCHC 33.3 (32.0-36.0) g/dL RDW Std Deviation 49.2 H (36.4-46.3) fL RDW Coeff of Denilson 14.6 H (11.5-14.5) % Plt Count 381 (130-400) K/uL MPV 11.2 (9.4-12.4) fL Immature Gran % (Auto) 2.7 % Neut % (Auto) 77.1 % Lymph % (Auto) 11.4 % Overton % (Auto) 7.8 % Eos % (Auto) 0.4 % Baso % (Auto) 0.6 % Neut # (Auto) 11.13 H (1.40-6.50) K/uL Lymph # (Auto) 1.64 (1.2-3.4) K/uL Overton # (Auto) 1.12 H (0.11-0.59) K/uL Eos # (Auto) 0.06 (0-0.50) K/uL Baso # (Auto) 0.08 (0-0.2) K/uL Immature Gran # (Auto) 0.39 H (0.01-0.20) K/uL PT 10.0 (9.0-12.0) Seconds INR 0.9 (0.9-1.1) POC Sodium (135-144) mmol/L Sodium 142 (136-145) mmol/L POC Potassium (3.3-5.0) mmol/L Potassium 4.1 (3.5-5.1) mmol/L POC Chloride (101-112) mmol/L Chloride 107 (98-107) mmol/L Carbon Dioxide 27 (21-32) mmol/L POC Total CO2 (24-31) mmol/L Anion Gap 8 (3-11) POC Anion Gap (16-25) mmol/L POC BUN (7-18) mg/dl BUN 22 (6-23) mg/dl Creatinine 0.82 (0.6-1.2) mg/dl POC Creatinine (0.6-1.3) mg/dl Est Cr Clr Drug Dosing 75.1 ml/min Est GFR ( Amer) 86.4 ml/min Est GFR (Non-Af Amer) 74.6 ml/min BUN/Creatinine Ratio 26.8 H (10-20) Glucose 111 H (70-99(Fasting)) mg/dl POC Glucose (other) (70-99) mg/dl Calcium 9.3 (8.6-10.3) mg/dl POC Ioniz Calcium Nimesh (1.12-1.32) mmol/l Total Bilirubin 0.6 (0.2-1.0) mg/dl AST 26 (13-39) U/L ALT 25 (7-52) U/L Alkaline Phosphatase 78 (34-104) U/L Troponin I High Sens 11.0 (0-14) pg/ml Total Protein 6.9 (6.0-8.3) gm/dl Albumin 4.1 (3.4-5.0) gm/dl Globulin 2.8 (2.5-4.0) gm/dl Albumin/Globulin Ratio 1.5 (0.9-2) / Range/Units 22:07 WBC (4.8-10.8) K/ul RBC (4.20-5.40) M/uL Hgb (12.0-16.0) g/dl POC Hgb 13.9 (12.0-16.0) g/dl Hct (37.0-47.0) % POC Hct 41 (37-47) % MCV (80.0-100.0) fL MCH (25.0-34.0) pg MCHC (32.0-36.0) g/dL RDW Std Deviation (36.4-46.3) fL RDW Coeff of Denilson (11.5-14.5) % Plt Count (130-400) K/uL MPV (9.4-12.4) fL Immature Gran % (Auto) % Neut % (Auto) % Lymph % (Auto) % Overton % (Auto) % Eos % (Auto) % Baso % (Auto) % Neut # (Auto) (1.40-6.50) K/uL Lymph # (Auto) (1.2-3.4) K/uL Overton # (Auto) (0.11-0.59) K/uL Eos # (Auto) (0-0.50) K/uL Baso # (Auto) (0-0.2) K/uL Immature Gran # (Auto) (0.01-0.20) K/uL PT (9.0-12.0) Seconds INR (0.9-1.1) POC Sodium 143 (135-144) mmol/L Sodium (136-145) mmol/L POC Potassium 3.5 (3.3-5.0) mmol/L Potassium (3.5-5.1) mmol/L POC Chloride 105 (101-112) mmol/L Chloride (98-107) mmol/L Carbon Dioxide (21-32) mmol/L POC Total CO2 26 (24-31) mmol/L Anion Gap (3-11) POC Anion Gap 16.0 (16-25) mmol/L POC BUN 23 H (7-18) mg/dl BUN (6-23) mg/dl Creatinine (0.6-1.2) mg/dl POC Creatinine 0.8 (0.6-1.3) mg/dl Est Cr Clr Drug Dosing ml/min Est GFR ( Amer) ml/min Est GFR (Non-Af Amer) ml/min BUN/Creatinine Ratio (10-20) Glucose (70-99(Fasting)) mg/dl POC Glucose (other) 121 H (70-99) mg/dl Calcium (8.6-10.3) mg/dl POC Ioniz Calcium Nimesh 1.24 (1.12-1.32) mmol/l Total Bilirubin (0.2-1.0) mg/dl AST (13-39) U/L ALT (7-52) U/L Alkaline Phosphatase (34-104) U/L Troponin I High Sens (0-14) pg/ml Total Protein (6.0-8.3) gm/dl Albumin (3.4-5.0) gm/dl Globulin (2.5-4.0) gm/dl Albumin/Globulin Ratio (0.9-2) Administered Medications Discontinued Medications Diphtheria/Pertussis/Tetanus Vacc (Diphtheria/Tetanus/Pertussis Vaccine (Tdap, Age 7+Yrs) 0.5ml Syr/Vl) 0.5 ml IM .ONCE ONE Stop: 04/19/23 23:00 Last Admin: 04/19/23 23:50 Dose: 0.5 ml Documented By: MALA Sodium Chloride (Nss 1000ml) 1,000 mls @ 999 mls/hr IV .Q1H1M BRANDON Stop: 04/19/23 23:00 Last Infusion: 04/19/23 22:58 Dose: 0 mls/hr Documented By: Admin: 04/19/23 22:00 Dose: 999 mls/hr Documented By: KT Ioversol (Optiray 320 100ml) 92 ml IV ONCE ONE Stop: 04/19/23 22:29 Last Admin: 04/19/23 22:28 Dose: 92 ml Documented By: SAMMY Ketorolac Tromethamine (Ketorolac Tromethamine 15 Mg/Ml Vial) 15 mg IV NOW STA Stop: 04/19/23 23:44 Last Admin: 04/19/23 23:49 Dose: 15 mg Documented By: MALA Morphine Sulfate (Morphine Sulfate 4 Mg/Ml 1 Ml Carp\Vial) 4 mg IV NOW STA Stop: 04/19/23 21:54 Last Admin: 04/19/23 22:00 Dose: 4 mg Documented By: AIDA Morphine Sulfate (Morphine Sulfate 4 Mg/Ml 1 Ml Carp\Vial) 4 mg IV NOW STA Stop: 04/19/23 23:44 Last Admin: 04/19/23 23:50 Dose: 4 mg Documented By: MALA Ondansetron HCl (Ondansetron Inj 2 Mg/Ml 2 Ml Vial) 4 mg IV NOW STA Stop: 04/19/23 21:50 Last Admin: 04/19/23 22:00 Dose: 4 mg Documented By: AIDA Ondansetron HCl (Ondansetron Inj 2 Mg/Ml 2 Ml Vial) 4 mg IV NOW STA Stop: 04/20/23 00:40 Last Admin: 04/20/23 00:48 Dose: 4 mg Documented By: MALA Imaging Data Radiologist's Impression: Abdomen/Pelvis CT 04/19/23 21:50 Exam(s): CT ABDOMEN + PELVIS With Contrast IV Amt: 92 ML OPTIRAY 320 EXAM: CT Abdomen and Pelvis With Intravenous Contrast CLINICAL HISTORY: Trauma, left sided pain. TECHNIQUE: Axial computed tomography images of the abdomen and pelvis with intravenous contrast. CTDI is 33.67 mGy and DLP is 1070.44 mGy-cm. Automated exposure control was utilized for the study. A dose lowering technique was utilized adhering to the principles of ALARA. CONTRAST: Patient received 92 ML OPTIRAY 320 of IV contrast COMPARISON: CT abdomen and pelvis dated 10/13/2022 and series FINDINGS: Limitations: There is mild respiratory artifact, which mildly degrades image quality on multiple image slices. Lung bases: Unremarkable. No mass. No consolidation. ABDOMEN: Liver: The liver is grossly stable, accounting for respiratory artifact. No evidence for acute traumatic injury. Gallbladder and bile ducts: Cholecystectomy. No biliary dilation. Pancreas: Unremarkable. No mass. No ductal dilation. Spleen: Stable splenectomy. Adrenals: Unremarkable. No mass. Kidneys and ureters: Unremarkable. No solid mass. No hydronephrosis. Stomach and bowel: No traumatic bowel injury. No bowel obstruction. No mucosal thickening. PELVIS: Appendix: No findings to suggest acute appendicitis. Bladder: Unremarkable. No mass. Reproductive: Status post hysterectomy, stable. ABDOMEN and PELVIS: Intraperitoneal space: Unremarkable. No free air. No significant fluid collection. Bones/joints: No acute osseous abnormality. Stable grade 1 anterolisthesis of L5 on S1. Soft tissues: The previously noted soft tissue mesenteric mass demonstrates no appreciable alteration in size from the previous examination. Similar marginal calcifications noted. No significant overlying acute traumatic soft tissue abnormality identified. Vasculature: The aorta is unremarkable. No evidence for acute traumatic injury. No abdominal aortic aneurysm. Lymph nodes: Similar periaortic and retroaortic lymphadenopathy in the suprarenal aorta. IMPRESSION: 1. No significant acute traumatic injury involving the abdomen or pelvis. 2. The previously noted soft tissue mesenteric mass demonstrates no appreciable alteration in size from the previous examination. Similar marginal calcifications noted. Electronically signed by: Deep Sharpe MD 04/19/23 23:[address] 04/19/23 21:50 Exam(s): CT C SPINE EXAM: CT Cervical Spine Without Intravenous Contrast CLINICAL HISTORY: Trauma, neck pain. TECHNIQUE: Axial computed tomography images of the cervical spine without intravenous contrast. CTDI is 26.17 mGy and DLP is 494.31 mGy-cm. Automated exposure control was utilized for the study. A dose lowering technique was utilized adhering to the principles of ALARA. COMPARISON: No relevant prior studies available. FINDINGS: Vertebrae: The vertebral bodies are intact without acute osseous traumatic injury. No anterolisthesis or retrolisthesis is identified. The facet joints are well aligned without subluxation or dislocation. The pedicles, transverse processes and spinous processes are intact. Mild multilevel facet arthrosis noted. Discs/spinal canal/neural foramina: No acute findings. No osseous spinal canal stenosis. Soft tissues: Unremarkable. IMPRESSION: No acute osseous traumatic injury or significant abnormal alignment involving the cervical spine. Electronically signed by: Deep Sharpe MD 04/19/23 22:[address] 04/19/23 21:50 Exam(s): CT CHEST With Contrast IV Amt: 92 ML OPTIRAY 320 EXAM: CT Chest With Intravenous Contrast CLINICAL HISTORY: Trauma, left sided chest pain. TECHNIQUE: Axial computed tomography images of the chest with intravenous contrast. CTDI is 32.66 mGy and DLP is 1707.65 mGy-cm. Automated exposure control was utilized for the study. A dose lowering technique was utilized adhering to the principles of ALARA. CONTRAST: Patient received 92 ML OPTIRAY 320 of IV contrast COMPARISON: No relevant prior studies available. FINDINGS: Limitations: There is motion artifact, which degrades image quality on multiple image slices. Lungs: Dependent subsegmental changes in the posterior lung bases. No pulmonary contusive injury or focal consolidation. A noncalcified pulmonary nodule is noted in the anterior right middle lobe, adjacent to the minor fissure, measuring 5 mm, thought to be stable from the previous examination, accounting for limitations with respiratory artifact. Pleural space: Unremarkable. No pneumothorax. No significant effusion. Heart: Unremarkable. No cardiomegaly. No significant pericardial effusion. No significant coronary artery calcifications. Bones/joints: Remote healed posterior lateral left rib fractures noted. No acute osseous abnormality identified. Soft tissues: No significant overlying acute traumatic soft tissue abnormality identified. Vasculature: Unremarkable. No thoracic aortic aneurysm. Lymph nodes: Paratracheal and precarinal lymphadenopathy with the largest right paratracheal lymph node measuring 3.1 cm in short axis diameter. This is increased from 1.9 cm on the previous examination. IMPRESSION: 1. No significant acute traumatic injury identified involving the chest/thorax, accounting for limitations with respiratory artifact. 2. Paratracheal and precarinal lymphadenopathy with the largest right paratracheal lymph node measuring 3.1 cm in short axis diameter. This is increased from 1.9 cm on the previous examination. Findings suggest advancing lymphoma or lymphoproliferative process. Metastatic disease is also a consideration but considered less likely without a parenchymal mass. 3. A noncalcified pulmonary nodule is noted in the anterior right middle lobe, adjacent to the minor fissure, measuring 5 mm, thought to be stable from the previous examination, accounting for limitations with respiratory artifact. Electronically signed by: Deep Sharpe MD 04/19/23 23:[address] 04/19/23 21:50 Exam(s): CT HEAD Without Contrast EXAM: CT Head Without Intravenous Contrast CLINICAL HISTORY: Trauma, head pain. TECHNIQUE: Axial computed tomography images of the head/brain without intravenous contrast. CTDI is 36.31 mGy and DLP is 624.41 mGy-cm. Automated exposure control was utilized for the study. A dose lowering technique was utilized adhering to the principles of ALARA. COMPARISON: 04/02/2021 FINDINGS: Brain: Unremarkable. No hemorrhage. No significant white matter disease. No edema. Ventricles: Unremarkable. No ventriculomegaly. Bones/joints: Unremarkable. No acute fracture. Soft tissues: Superficial scalp contusive changes overlie the left parietal region. No radiopaque foreign body or subcutaneous emphysema. Sinuses: Unremarkable as visualized. No acute sinusitis. Mastoid air cells: Unremarkable as visualized. No mastoid effusion. IMPRESSION: 1. No acute intracranial process identified. 2. Superficial scalp contusive changes overlie the left parietal region. No radiopaque foreign body or subcutaneous emphysema. No skull fracture. Electronically signed by: Deep Sharpe MD 04/19/23 23:11 PM Discharge Plan Visit Data Chief Complaint: Neck Injury/Pain ED Provider: Lawrence Krishnan ED Midlevel Provider: Maryanne Leslie Discharge Problem: Fall, Headache, Acute neck pain, Acute pain of right shoulder Patient Disposition: Admitted As Inpatient Forms Stand Alone Forms: [facility] Prescriptions Prescriptions: No Action Fergon 225 mg (27 mg iron) tablet 225 mg PO BID Qty: 180 3RF ondansetron 4 mg tablet,disintegrating 4 mg PO Q4H PRN (Reason: Nausea) Qty: 30 6RF famotidine 20 mg tablet 20 mg PO BID Qty: 180 3RF lisinopril 10 mg tablet 10 mg PO DAILY Qty: 90 3RF buspirone 7.5 mg tablet 7.5 mg PO TID Qty: 270 3RF Rx Instructions: pt aware dose change lorazepam 0.5 mg tablet 0.5 mg PO BID PRN (Reason: anxiety) Qty: 10 0RF ketoconazole 2 % cream 1 applic topical BID Qty: 30 2RF Rx Instructions: Apply to areas of the feet twice daily x 2 weeks as needed for flaring. diphenoxylate-atropine [Lomotil] 2.5-0.025 mg tablet 1 tab PO Q8H PRN (Reason: diarrhea) Qty: 30 0RF sertraline 50 mg tablet 75 mg PO DAILY Qty: 135 3RF aspirin 81 mg tablet,delayed release (DR/EC) 81 mg PO DAILY Qty: 30 0RF cyanocobalamin (vitamin B-12) 1,000 mcg/mL solution 1,000 mcg IM DIRECTED Rx Instructions: DUE THIRD WEEK OF OCT 2022. Inject 1 mL once a week for 4 weeks, then inject 1 mL once a month. polyethylene glycol 3350 [Miralax] 17 gram Powder In Packet 17 g PO DAILY Qty: 30 0RF Referrals Referrals: Tina Fletcher CRNP [Primary Care Provider] -
[2023-04-19] MEDS ORDERED: SODIUM CHLORIDE 0.9% 1000ML 1,000 ML IV SCH (22:00)
[2023-04-19 22:12] LABS: Basophils # (auto) 0.08 K/uL (0-0.2); Basophils % (auto) 0.6 %; Eosinophils # (auto) 0.06 K/uL (0-0.50); Eosinophils % (auto) 0.4 %; Hematocrit (blood only) 42.3 % (37.0-47.0); Hemoglobin 14.1 g/dl (12.0-16.0); Immature Granulocytes # (auto) 0.39 K/uL (0.01-0.20); Immature Granulocytes % (auto) 2.7 %; Lymphocytes # (auto) 1.64 K/uL (1.2-3.4); Lymphocytes % (auto) 11.4 %; Mean Corpuscular Hemoglobin 30.8 pg (25.0-34.0); Mean Corpuscular Hgb Conc 33.3 g/dL (32.0-36.0); Mean Corpuscular Volume 92.4 fL (80.0-100.0); Mean Platelet Volume 11.2 fL (9.4-12.4); Monocytes # (auto) 1.12 K/uL (0.11-0.59); Monocytes % (auto) 7.8 %; Neutrophils # (auto) 11.13 K/uL (1.40-6.50); Neutrophils % (auto) 77.1 %; Platelet Count 381 K/uL (130-400); RDW Coefficient of Variation 14.6 % (11.5-14.5); RDW Standard Deviation 49.2 fL (36.4-46.3); Red Blood Count 4.58 M/uL (4.20-5.40); White Blood Count 14.42 K/ul (4.8-10.8)
[2023-04-19 22:20] LABS: iSTAT Creatinine 0.8 mg/dl (0.6-1.3); iSTAT Hemoglobin 13.9 g/dl (12.0-16.0); iSTAT Ionized Calcium 1.24 mmol/l (1.12-1.32); iSTAT Potassium 3.5 mmol/L (3.3-5.0)
[2023-04-19 22:25] LABS: Albumin Globulin Ratio 1.5 (0.9-2); Albumin Level 4.1 gm/dl (3.4-5.0); BUN Creatinine Ratio 26.8 (10-20); Bilirubin,Total 0.6 mg/dl (0.2-1.0); Calcium 9.3 mg/dl (8.6-10.3); Creatinine Clr Calc Pharmacy 75.1 ml/min; Est GFR (African American) 86.4 ml/min; Est GFR (Non-African American) 74.6 ml/min; Globulin 2.8 gm/dl (2.5-4.0); Potassium 4.1 mmol/L (3.5-5.1); Total Protein 6.9 gm/dl (6.0-8.3)
[2023-04-19] MEDS ORDERED: OPTIRAY 320 100ml IV ONE (22:28)
[2023-04-19 22:33] LABS: INR 0.9 (0.9-1.1)
--- NOTE | 2023-04-19 22:55 | CT Scan Report ---
Exam(s): CT C SPINE EXAM: CT Cervical Spine Without Intravenous Contrast CLINICAL HISTORY: Trauma, neck pain. TECHNIQUE: Axial computed tomography images of the cervical spine without intravenous contrast. CTDI is 26.17 mGy and DLP is 494.31 mGy-cm. Automated exposure control was utilized for the study. A dose lowering technique was utilized adhering to the principles of ALARA. COMPARISON: No relevant prior studies available. FINDINGS: Vertebrae: The vertebral bodies are intact without acute osseous traumatic injury. No anterolisthesis or retrolisthesis is identified. The facet joints are well aligned without subluxation or dislocation. The pedicles, transverse processes and spinous processes are intact. Mild multilevel facet arthrosis noted. Discs/spinal canal/neural foramina: No acute findings. No osseous spinal canal stenosis. Soft tissues: Unremarkable. IMPRESSION: No acute osseous traumatic injury or significant abnormal alignment involving the cervical spine. Electronically signed by: Deep Sharpe MD 04/19/23 22:55 PM
[2023-04-19] MEDS ORDERED: DIPHTHERIA/TETANUS/PERTUSSIS Vaccine (Tdap, Age 7+yrs) 0.5mL SYR/VL IM ONE (22:59)
--- NOTE | 2023-04-19 23:07 | CT Scan Report ---
Exam(s): CT CHEST With Contrast IV Amt: 92 ML OPTIRAY 320 EXAM: CT Chest With Intravenous Contrast CLINICAL HISTORY: Trauma, left sided chest pain. TECHNIQUE: Axial computed tomography images of the chest with intravenous contrast. CTDI is 32.66 mGy and DLP is 1707.65 mGy-cm. Automated exposure control was utilized for the study. A dose lowering technique was utilized adhering to the principles of ALARA. CONTRAST: Patient received 92 ML OPTIRAY 320 of IV contrast COMPARISON: No relevant prior studies available. FINDINGS: Limitations: There is motion artifact, which degrades image quality on multiple image slices. Lungs: Dependent subsegmental changes in the posterior lung bases. No pulmonary contusive injury or focal consolidation. A noncalcified pulmonary nodule is noted in the anterior right middle lobe, adjacent to the minor fissure, measuring 5 mm, thought to be stable from the previous examination, accounting for limitations with respiratory artifact. Pleural space: Unremarkable. No pneumothorax. No significant effusion. Heart: Unremarkable. No cardiomegaly. No significant pericardial effusion. No significant coronary artery calcifications. Bones/joints: Remote healed posterior lateral left rib fractures noted. No acute osseous abnormality identified. Soft tissues: No significant overlying acute traumatic soft tissue abnormality identified. Vasculature: Unremarkable. No thoracic aortic aneurysm. Lymph nodes: Paratracheal and precarinal lymphadenopathy with the largest right paratracheal lymph node measuring 3.1 cm in short axis diameter. This is increased from 1.9 cm on the previous examination. IMPRESSION: 1. No significant acute traumatic injury identified involving the chest/thorax, accounting for limitations with respiratory artifact. 2. Paratracheal and precarinal lymphadenopathy with the largest right paratracheal lymph node measuring 3.1 cm in short axis diameter. This is increased from 1.9 cm on the previous examination. Findings suggest advancing lymphoma or lymphoproliferative process. Metastatic disease is also a consideration but considered less likely without a parenchymal mass. 3. A noncalcified pulmonary nodule is noted in the anterior right middle lobe, adjacent to the minor fissure, measuring 5 mm, thought to be stable from the previous examination, accounting for limitations with respiratory artifact. Electronically signed by: Deep Sharpe MD 04/19/23 23:06 PM
--- NOTE | 2023-04-19 23:12 | CT Scan Report ---
Exam(s): CT HEAD Without Contrast EXAM: CT Head Without Intravenous Contrast CLINICAL HISTORY: Trauma, head pain. TECHNIQUE: Axial computed tomography images of the head/brain without intravenous contrast. CTDI is 36.31 mGy and DLP is 624.41 mGy-cm. Automated exposure control was utilized for the study. A dose lowering technique was utilized adhering to the principles of ALARA. COMPARISON: 04/02/2021 FINDINGS: Brain: Unremarkable. No hemorrhage. No significant white matter disease. No edema. Ventricles: Unremarkable. No ventriculomegaly. Bones/joints: Unremarkable. No acute fracture. Soft tissues: Superficial scalp contusive changes overlie the left parietal region. No radiopaque foreign body or subcutaneous emphysema. Sinuses: Unremarkable as visualized. No acute sinusitis. Mastoid air cells: Unremarkable as visualized. No mastoid effusion. IMPRESSION: 1. No acute intracranial process identified. 2. Superficial scalp contusive changes overlie the left parietal region. No radiopaque foreign body or subcutaneous emphysema. No skull fracture. Electronically signed by: Deep Sharpe MD 04/19/23 23:11 PM
--- NOTE | 2023-04-19 23:21 | CT Scan Report ---
Exam(s): CT ABDOMEN + PELVIS With Contrast IV Amt: 92 ML OPTIRAY 320 EXAM: CT Abdomen and Pelvis With Intravenous Contrast CLINICAL HISTORY: Trauma, left sided pain. TECHNIQUE: Axial computed tomography images of the abdomen and pelvis with intravenous contrast. CTDI is 33.67 mGy and DLP is 1070.44 mGy-cm. Automated exposure control was utilized for the study. A dose lowering technique was utilized adhering to the principles of ALARA. CONTRAST: Patient received 92 ML OPTIRAY 320 of IV contrast COMPARISON: CT abdomen and pelvis dated 10/13/2022 and series FINDINGS: Limitations: There is mild respiratory artifact, which mildly degrades image quality on multiple image slices. Lung bases: Unremarkable. No mass. No consolidation. ABDOMEN: Liver: The liver is grossly stable, accounting for respiratory artifact. No evidence for acute traumatic injury. Gallbladder and bile ducts: Cholecystectomy. No biliary dilation. Pancreas: Unremarkable. No mass. No ductal dilation. Spleen: Stable splenectomy. Adrenals: Unremarkable. No mass. Kidneys and ureters: Unremarkable. No solid mass. No hydronephrosis. Stomach and bowel: No traumatic bowel injury. No bowel obstruction. No mucosal thickening. PELVIS: Appendix: No findings to suggest acute appendicitis. Bladder: Unremarkable. No mass. Reproductive: Status post hysterectomy, stable. ABDOMEN and PELVIS: Intraperitoneal space: Unremarkable. No free air. No significant fluid collection. Bones/joints: No acute osseous abnormality. Stable grade 1 anterolisthesis of L5 on S1. Soft tissues: The previously noted soft tissue mesenteric mass demonstrates no appreciable alteration in size from the previous examination. Similar marginal calcifications noted. No significant overlying acute traumatic soft tissue abnormality identified. Vasculature: The aorta is unremarkable. No evidence for acute traumatic injury. No abdominal aortic aneurysm. Lymph nodes: Similar periaortic and retroaortic lymphadenopathy in the suprarenal aorta. IMPRESSION: 1. No significant acute traumatic injury involving the abdomen or pelvis. 2. The previously noted soft tissue mesenteric mass demonstrates no appreciable alteration in size from the previous examination. Similar marginal calcifications noted. Electronically signed by: Depe Sharpe MD 04/19/23 23:20 PM
[2023-04-19] MEDS ORDERED: KETOROLAC TROMETHAMINE 15 MG/ML VIAL IV STA (23:43)
[2023-04-20] MEDS ORDERED: ONDANSETRON INJ 2 MG/ML 2 ML VIAL IV STA (00:39)
--- NOTE | 2023-04-20 01:21 | History & Physical Report ---
Date of Service April 20, 2023 Assessment & Plan (1) Fall: (2) Acute neck pain: (3) Acute pain of left shoulder due to trauma: (4) Malignant carcinoid tumor: (5) Sleep apnea: (6) Hypertension: (7) Depression with anxiety: (8) PTSD (post-traumatic stress disorder): Plan Status post fall/persistent neck and left shoulder pain- Patient did receive Toradol IV, and morphine sulfate 4 mg IV x2 in the ED Admit to medical surgical floor, and if persistent symptoms, will consult PT and OT Patient had normal CT scans of head, cervical spine, chest and abdomen pelvis Acetaminophen 650 mg by mouth every 6 hours as needed for mild pain or fever Hypertension- Continue aspirin 81 mg daily and lisinopril 10 mg daily Depression with anxiety/PTSD- Continue sertraline 75 mg daily, BuSpar 7.5 mg p.o. 3 times daily, and lorazepam 0.5 mg twice daily as needed GERD- Continue famotidine 20 mg p.o. twice daily History of Present Illness Chief Complaint: The patient presents to the emergency department via ambulance after a mechanical fall off of a [address] when she lost her balance, and fell landing on her left side. The patient developed pain in her left shoulder radiating into her neck, and reports feeling a cracking sensation in her neck as well. She presented to the emergency department due to persistence of a 10/10 pain in her left shoulder and neck, along with headache. She did not develop nausea and vomiting until in ED and received morphine IV, which she reports in the past occasionally cause nausea and vomiting. Primary Care Provider: JOYCE Zamudio The patient is a 67-year-old female with a past medical history including impingement syndrome of both shoulders, malignant carcinoid tumor, sleep apnea, hypertension, anemia, status postsplenectomy, thrombocytosis after splenectomy, PTSD, gait disturbance and multiple. She presents to the emergency department after a fall as noted above small bowel obstructions. Work-up in the emergency department, included normal CT scans of head, cervical spine, chest, abdomen and pelvis. Allergies Allergy/AdvReac Type Severity Reaction Status Date / Time Sulfa (Sulfonamide Allergy Severe UNKNOWN Verified 04/19/23 21:30 Antibiotics) aspirin Allergy Intermediate PETECHIAE Verified 04/19/23 21:30 Penicillins Allergy Intermediate RASH-HAD Verified 04/19/23 21:30 KEFZOL W/O PROBLEM clindamycin Allergy Unknown CAN'T Verified 04/19/23 21:30 REMEMBER morphine AdvReac Mild Nausea Verified 04/19/23 21:30 Home Medications Medication Instructions Recorded Confirmed Type aspirin 81 mg tablet,delayed 81 mg PO DAILY #30 tabs 05/20/21 04/19/23 Rx release diphenoxylate-atropine 2.5 1 tab PO Q8H PRN diarrhea #30 tabs 03/09/22 04/19/23 Rx mg-0.025 mg tablet (Lomotil) ferrous gluconate 225 mg (27 mg 225 mg PO BID #180 tabs 04/08/22 04/19/23 Rx iron) tablet (Fergon) sertraline 50 mg tablet 75 mg PO DAILY #135 tabs 06/18/22 04/19/23 Rx ondansetron 4 mg disintegrating 4 mg PO Q4H PRN Nausea #30 tabs 09/30/22 04/19/23 Rx tablet cyanocobalamin (vitamin B-12) 1,000 mcg IM DIRECTED 10/12/22 04/19/23 History 1,000 mcg/mL injection solution polyethylene glycol 3350 17 gram 17 g PO DAILY #30 ea 10/16/22 04/19/23 Rx oral powder packet (Miralax) ketoconazole 2 % topical cream 1 applic topical BID #30 grams 01/06/23 04/19/23 Rx famotidine 20 mg tablet 20 mg PO BID stomach pain #180 tabs 03/18/23 04/19/23 Rx buspirone 7.5 mg tablet 7.5 mg PO TID #270 tabs 03/22/23 04/19/23 Rx lisinopril 10 mg tablet 10 mg PO DAILY #90 tabs 03/22/23 04/19/23 Rx lorazepam 0.5 mg tablet 0.5 mg PO BID PRN anxiety #10 tabs 04/15/23 04/19/23 Rx Past Med/Surg History Medical History Abscess of leg, right Allergic rhinitis Bee sting allergy Hypertension Hypertension Hypertensive urgency, malignant Malignant carcinoid tumor dx 04/02/21, followed by Dr Palacio, stage 4 Nocturnal leg cramps Sleep apnea Ulcer of right leg UTI (urinary tract infection) Surgical History H/O splenectomy History of 2 sections History of cholecystectomy Hx of hysterectomy S/P splenectomy Family History Mother Myocardial infarction Father No problems noted. Denies family history of Ovarian cancer Prostate cancer Breast cancer Colorectal cancer Social History Smoking Status: Never smoker Second Hand Exposure: No; Do You Dip or Chew Tobacco: No; Hx Alcohol Use: No Hx Substance Use: No Preferred Language: Venezuelan Communication Ability: Effective Visual Impairment: Limited Hearing Ability: Normal Product Specialist Required: No Beliefs That Will Affect Care: None marital status: / Current Living Situation: Family Current Living Situation Comment: Lives with daughter. 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 How many Children do You have: 3 Feels Safe at Home: Yes Childhood Exposure to Second-Hand Smoke: No Diet: regular caffeine: Yes during the past year weight has: remained stable Dental Care, Regularly: Yes Physical Activity Frequency: Does not Exercise Seatbelt Use: always Sunscreen Use: No Do you think of yourself as: straight/heterosexual Gender Identity: Female Assistive Devices: None Review of Systems Review of Systems: The patient denies chest pain, palpitations, shortness of breath, dyspnea on exertion, cough, lower extremity swelling, sore throat, fevers, chills, sweats, diarrhea , constipation, abdominal pain, pelvic pain, blood in urine or stool, dysuria, urinary frequency or urgency, lightheadedness, dizziness, headache, memory loss, loss of consciousness, rash, abnormal bruising or bleeding, imbalance, focal or generalized weakness, numbness or tingling in arms or legs, generalized arthralgias or myalgias, back or neck pain, or night sweats. The review of systems is otherwise negative other than for that already noted above, and at least 10 systems have been reviewed. Physical Exam Physical Exam: The patient is awake, alert and oriented 3, well developed and well nourished, normocephalic and atraumatic, lying in bed and in no acute distress. HEENT--PERRL, EOMI, mucous membranes and oropharynx dry. Neck--supple. No JVD. No bruits. Thyroid normal, trachea midline, no adenopathy. Heart--normal S1 and S2. No murmurs, rubs or gallops. Lungs--clear bilaterally, no respiratory distress, no accessory muscle use. Abdomen--normal bowel sounds and soft. Nontender. Nondistended, no hernias or masses, no organomegaly. Extremities--no cyanosis or clubbing. No edema. Dermatologic--normal skin turgor, normal color, no abnormal lymph nodes, no rash. Neurologic--cranial nerves II through XII grossly intact. Rheumatologic--normal range of motion. Psychiatric--normal affect. Results & Data Results & Data Vital Signs (Past 12 Hours) Vital Signs Temp Pulse Pulse Resp BP BP Pulse Ox 04/19/23 22:46 89 18 189/79 H 99 04/19/23 21:15 84 04/19/23 20:59 37.1 C 93 H 22 209/152 H 95 04/19/23 20:59 37.1 C 93 H 22 209/152 H 95 O2 Del Method 04/19/23 22:46 Room Air 04/19/23 21:15 04/19/23 20:59 Room Air 04/19/23 20:59 Room Air Laboratory Results Laboratory Results WBC 14.42 K/ul (4.8-10.8) H 04/19/23 20:57 RBC 4.58 M/uL (4.20-5.40) 04/19/23 20:57 Hgb 14.1 g/dl (12.0-16.0) 04/19/23 20:57 POC Hgb 13.9 g/dl (12.0-16.0) 04/19/23 22:07 Hct 42.3 % (37.0-47.0) 04/19/23 20:57 POC Hct 41 % (37-47) 04/19/23 22:07 MCV 92.4 fL (80.0-100.0) 04/19/23 20:57 MCH 30.8 pg (25.0-34.0) 04/19/23 20:57 MCHC 33.3 g/dL (32.0-36.0) 04/19/23 20:57 RDW Std Deviation 49.2 fL (36.4-46.3) H 04/19/23 20:57 RDW Coeff of [place]il[place] 14.6 % (11.5-14.5) H 04/19/23 20:57 Plt Count 381 K/uL (130-400) 04/19/23 20:57 MPV 11.2 fL (9.4-12.4) 04/19/23 20:57 Immature Gran % (Auto) 2.7 % 04/19/23 20:57 Neut % (Auto) 77.1 % 04/19/23 20:57 Lymph % (Auto) 11.4 % 04/19/23 20:57 [place] % (Auto) 7.8 % 04/19/23 20:57 Eos % (Auto) 0.4 % 04/19/23 20:57 Baso % (Auto) 0.6 % 04/19/23 20:57 Neut # (Auto) 11.13 K/uL (1.40-6.50) H 04/19/23 20:57 Lymph # (Auto) 1.64 K/uL (1.2-3.4) 04/19/23 20:57 [place] # (Auto) 1.12 K/uL (0.11-0.59) H 04/19/23 20:57 Eos # (Auto) 0.06 K/uL (0-0.50) 04/19/23 20:57 Baso # (Auto) 0.08 K/uL (0-0.2) 04/19/23 20:57 Immature Gran # (Auto) 0.39 K/uL (0.01-0.20) H 04/19/23 20:57 PT 10.0 Seconds (9.0-12.0) 04/19/23 20:57 INR 0.9 (0.9-1.1) 04/19/23 20:57 POC Sodium 143 mmol/L (135-144) 04/19/23 22:07 Sodium 142 mmol/L (136-145) 04/19/23 20:57 POC Potassium 3.5 mmol/L (3.3-5.0) 04/19/23 22:07 Potassium 4.1 mmol/L (3.5-5.1) 04/19/23 20:57 POC Chloride 105 mmol/L (101-112) 04/19/23 22:07 Chloride 107 mmol/L (98-107) 04/19/23 20:57 Carbon Dioxide 27 mmol/L (21-32) 04/19/23 20:57 POC Total CO2 26 mmol/L (24-31) 04/19/23 22:07 Anion Gap 8 (3-11) 04/19/23 20:57 POC Anion Gap 16.0 mmol/L (16-25) 04/19/23 22:07 POC BUN 23 mg/dl (7-18) H 04/19/23 22:07 BUN 22 mg/dl (6-23) 04/19/23 20:57 Creatinine 0.82 mg/dl (0.6-1.2) 04/19/23 20:57 POC Creatinine 0.8 mg/dl (0.6-1.3) 04/19/23 22:07 Est Cr Clr Drug Dosing 75.1 ml/min 04/19/23 20:57 Est GFR ( Amer) 86.4 ml/min 04/19/23 20:57 Est GFR (Non-Af Amer) 74.6 ml/min 04/19/23 20:57 BUN/Creatinine Ratio 26.8 (10-20) H 04/19/23 20:57 Glucose 111 mg/dl (70-99(Fasting)) H 04/19/23 20:57 POC Glucose (other) 121 mg/dl (70-99) H 04/19/23 22:07 Calcium 9.3 mg/dl (8.6-10.3) 04/19/23 20:57 POC Ioniz Calcium Nimesh 1.24 mmol/l (1.12-1.32) 04/19/23 22:07 Total Bilirubin 0.6 mg/dl (0.2-1.0) 04/19/23 20:57 AST 26 U/L (13-39) 04/19/23 20:57 ALT 25 U/L (7-52) 04/19/23 20:57 Alkaline Phosphatase 78 U/L (34-104) 04/19/23 20:57 Troponin I High Sens 11.0 pg/ml (0-14) 04/19/23 20:57 Total Protein 6.9 gm/dl (6.0-8.3) 04/19/23 20:57 Albumin 4.1 gm/dl (3.4-5.0) 04/19/23 20:57 Globulin 2.8 gm/dl (2.5-4.0) 04/19/23 20:57 Albumin/Globulin Ratio 1.5 (0.9-2) 04/19/23 20:57 SARS-CoV-2, RNA, NAAT NEGATIVE (NEGATIVE) 04/20/23 00:44 Impressions Abdomen/Pelvis CT 04/19/23 21:50 Exam(s): CT ABDOMEN + PELVIS With Contrast IV Amt: 92 ML OPTIRAY 320 EXAM: CT Abdomen and Pelvis With Intravenous Contrast CLINICAL HISTORY: Trauma, left sided pain. TECHNIQUE: Axial computed tomography images of the abdomen and pelvis with intravenous contrast. CTDI is 33.67 mGy and DLP is 1070.44 mGy-cm. Automated exposure control was utilized for the study. A dose lowering technique was utilized adhering to the principles of ALARA. CONTRAST: Patient received 92 ML OPTIRAY 320 of IV contrast COMPARISON: CT abdomen and pelvis dated 10/13/2022 and series FINDINGS: Limitations: There is mild respiratory artifact, which mildly degrades image quality on multiple image slices. Lung bases: Unremarkable. No mass. No consolidation. ABDOMEN: Liver: The liver is grossly stable, accounting for respiratory artifact. No evidence for acute traumatic injury. Gallbladder and bile ducts: Cholecystectomy. No biliary dilation. Pancreas: Unremarkable. No mass. No ductal dilation. Spleen: Stable splenectomy. Adrenals: Unremarkable. No mass. Kidneys and ureters: Unremarkable. No solid mass. No hydronephrosis. Stomach and bowel: No traumatic bowel injury. No bowel obstruction. No mucosal thickening. PELVIS: Appendix: No findings to suggest acute appendicitis. Bladder: Unremarkable. No mass. Reproductive: Status post hysterectomy, stable. ABDOMEN and PELVIS: Intraperitoneal space: Unremarkable. No free air. No significant fluid collection. Bones/joints: No acute osseous abnormality. Stable grade 1 anterolisthesis of L5 on S1. Soft tissues: The previously noted soft tissue mesenteric mass demonstrates no appreciable alteration in size from the previous examination. Similar marginal calcifications noted. No significant overlying acute traumatic soft tissue abnormality identified. Vasculature: The aorta is unremarkable. No evidence for acute traumatic injury. No abdominal aortic aneurysm. Lymph nodes: Similar periaortic and retroaortic lymphadenopathy in the suprarenal aorta. IMPRESSION: 1. No significant acute traumatic injury involving the abdomen or pelvis. 2. The previously noted soft tissue mesenteric mass demonstrates no appreciable alteration in size from the previous examination. Similar marginal calcifications noted. Electronically signed by: Deep Sharpe MD 04/19/23 23:[address] 04/19/23 21:50 Exam(s): CT C SPINE EXAM: CT Cervical Spine Without Intravenous Contrast CLINICAL HISTORY: Trauma, neck pain. TECHNIQUE: Axial computed tomography images of the cervical spine without intravenous contrast. CTDI is 26.17 mGy and DLP is 494.31 mGy-cm. Automated exposure control was utilized for the study. A dose lowering technique was utilized adhering to the principles of ALARA. COMPARISON: No relevant prior studies available. FINDINGS: Vertebrae: The vertebral bodies are intact without acute osseous traumatic injury. No anterolisthesis or retrolisthesis is identified. The facet joints are well aligned without subluxation or dislocation. The pedicles, transverse processes and spinous processes are intact. Mild multilevel facet arthrosis noted. Discs/spinal canal/neural foramina: No acute findings. No osseous spinal canal stenosis. Soft tissues: Unremarkable. IMPRESSION: No acute osseous traumatic injury or significant abnormal alignment involving the cervical spine. Electronically signed by: Deep Sharpe MD 04/19/23 22:[address] 04/19/23 21:50 Exam(s): CT CHEST With Contrast IV Amt: 92 ML OPTIRAY 320 EXAM: CT Chest With Intravenous Contrast CLINICAL HISTORY: Trauma, left sided chest pain. TECHNIQUE: Axial computed tomography images of the chest with intravenous contrast. CTDI is 32.66 mGy and DLP is 1707.65 mGy-cm. Automated exposure control was utilized for the study. A dose lowering technique was utilized adhering to the principles of ALARA. CONTRAST: Patient received 92 ML OPTIRAY 320 of IV contrast COMPARISON: No relevant prior studies available. FINDINGS: Limitations: There is motion artifact, which degrades image quality on multiple image slices. Lungs: Dependent subsegmental changes in the posterior lung bases. No pulmonary contusive injury or focal consolidation. A noncalcified pulmonary nodule is noted in the anterior right middle lobe, adjacent to the minor fissure, measuring 5 mm, thought to be stable from the previous examination, accounting for limitations with respiratory artifact. Pleural space: Unremarkable. No pneumothorax. No significant effusion. Heart: Unremarkable. No cardiomegaly. No significant pericardial effusion. No significant coronary artery calcifications. Bones/joints: Remote healed posterior lateral left rib fractures noted. No acute osseous abnormality identified. Soft tissues: No significant overlying acute traumatic soft tissue abnormality identified. Vasculature: Unremarkable. No thoracic aortic aneurysm. Lymph nodes: Paratracheal and precarinal lymphadenopathy with the largest right paratracheal lymph node measuring 3.1 cm in short axis diameter. This is increased from 1.9 cm on the previous examination. IMPRESSION: 1. No significant acute traumatic injury identified involving the chest/thorax, accounting for limitations with respiratory artifact. 2. Paratracheal and precarinal lymphadenopathy with the largest right paratracheal lymph node measuring 3.1 cm in short axis diameter. This is increased from 1.9 cm on the previous examination. Findings suggest advancing lymphoma or lymphoproliferative process. Metastatic disease is also a consideration but considered less likely without a parenchymal mass. 3. A noncalcified pulmonary nodule is noted in the anterior right middle lobe, adjacent to the minor fissure, measuring 5 mm, thought to be stable from the previous examination, accounting for limitations with respiratory artifact. Electronically signed by: Deep Sharpe MD 04/19/23 23:[address] 04/19/23 21:50 Exam(s): CT HEAD Without Contrast EXAM: CT Head Without Intravenous Contrast CLINICAL HISTORY: Trauma, head pain. TECHNIQUE: Axial computed tomography images of the head/brain without intravenous contrast. CTDI is 36.31 mGy and DLP is 624.41 mGy-cm. Automated exposure control was utilized for the study. A dose lowering technique was utilized adhering to the principles of ALARA. COMPARISON: 04/02/2021 FINDINGS: Brain: Unremarkable. No hemorrhage. No significant white matter disease. No edema. Ventricles: Unremarkable. No ventriculomegaly. Bones/joints: Unremarkable. No acute fracture. Soft tissues: Superficial scalp contusive changes overlie the left parietal region. No radiopaque foreign body or subcutaneous emphysema. Sinuses: Unremarkable as visualized. No acute sinusitis. Mastoid air cells: Unremarkable as visualized. No mastoid effusion. IMPRESSION: 1. No acute intracranial process identified. 2. Superficial scalp contusive changes overlie the left parietal region. No radiopaque foreign body or subcutaneous emphysema. No skull fracture. Electronically signed by: Deep Sharpe MD 04/19/23 23:11 PM Code Status & VTE Plan Code Status Full code VTE Prophylaxis Plan VTE Prophylaxis will be ordered: Yes PG Care Time/CCT Total # of Minutes Spent Total Time Spent with Patient: Total time spent is greater than 50% in coordination of care (as documented) at patient's floor/unit and/or counseling patient: Coding Level of Care Code 86691 INT INP/OBS CARE 2/55MIN Diagnoses Fall W19.XXXA Acute neck pain M54.2 Acute pain of left shoulder due to trauma M25.512; G89.11 Malignant carcinoid tumor C7A.00 Sleep apnea G47.30 Hypertension I10 Depression with anxiety F41.8 PTSD (post-traumatic stress disorder) F43.10
[2023-04-20] MEDS ORDERED: NSS + 20MEQ KCL 20 MEQ/1,000 ML BAG IV SCH (01:30)
[2023-04-20] MEDS ORDERED: ONDANSETRON INJ 2 MG/ML 2 ML VIAL IV PRN (02:31)
[2023-04-20] MEDS ORDERED: LORazepam 0.5 MG TAB PO PRN (02:31)
[2023-04-20] MEDS ORDERED: ONDANSETRON 4 MG OD TAB PO PRN (02:31)
[2023-04-20] MEDS: DIPHENOXYLATE/ATROPINE 2.5/0.025MG TAB PO PRN ×2 (04:10→14:39)
--- NOTE | 2023-04-20 07:13 | XRay Report ---
XR shoulder LT min 2V routine CLINICAL HISTORY: Left shoulder pain. Fall. COMPARISON STUDY: Left shoulder 04/02/2021. FINDINGS: There is a slightly displaced fracture within the distal left clavicle. No fracture or disl ocation of the left humerus. There is left supraclavicular soft tissue swelling. Old, healed left-ed ed rib fractures. IMPRESSION: Slightly displaced fracture within the distal left clavicle. ACT 112: Negative or not required by law. Electronically signed by: Asad Ramos M.D. 04/20/2023 7:12 AM
[2023-04-20] MEDS: ACETAMINOPHEN 325 MG TAB PO PRN ×2 (07:51→16:14)
[2023-04-20 08:12] LABS: Appearance Urine Clear (Clear); Bacteria Urine Automated 2+ (Negative); Bilirubin Urine Negative (Negative); Blood Urine Negative (Negative); Color Urine Yellow; Epithelial Cell Urine Auto >30 /lpf (0-5); Glucose Urine UA Negative (Negative); Ketones Urine 1+ (Negative); Leukocyte Esterase Urine Trace (Negative); Nitrite Urine Positive (Negative); Protein Urine Negative (Negative); RBC Urine Automated 0-4 /hpf (0-4); Specific Gravity Urine > 1.045 (1.000-1.030); Urobilinogen Urine Negative (Negative)
[2023-04-20 08:23] LABS: Calcium Oxalate Crystals Urine Present (None Prsent)
[2023-04-20] MEDS: busPIRone 7.5 MG TAB PO SCH ×3 (08:25→20:50)
[2023-04-20] MEDS: FAMOTIDINE 20 MG TAB PO SCH ×2 (08:25→20:49)
[2023-04-20] MEDS: FERROUS GLUCONATE 324 MG TAB PO SCH ×2 (08:25→20:49)
[2023-04-20] MEDS: ASPIRIN 81 MG ECTAB PO SCH (08:25)
[2023-04-20] MEDS: POLYETHYLENE (MIRALAX) 17 GM PACK PO SCH ×2 (08:26→08:30)
[2023-04-20] MEDS: lisinopril 10 MG TAB PO SCH (08:26)
[2023-04-20] MEDS: SERTRALINE HCL 50 MG TABLET PO SCH (08:26)
--- NOTE | 2023-04-20 15:11 | Electrocardiogram Report ---
Test Reason : Blood Pressure : / mmHG Vent. Rate : 089 BPM Atrial Rate : 089 BPM P-R Int : 182 ms QRS Dur : 080 ms QT Int : 342 ms P-R-T Axes : 058 023 050 degrees QTc Int : 416 ms Normal sinus rhythm Normal ECG When compared with ECG of 11-APR-2023 11:09, Vent. rate has increased BY 32 BPM Confirmed by Cristian Hillman ([id number]) on 04/20/2023 3:11:34 PM Referred By: REFERRED SELF Confirmed By:Cristian Hillman
--- NOTE | 2023-04-20 15:12 | Electrocardiogram Report ---
Test Reason : Blood Pressure : / mmHG Vent. Rate : 074 BPM Atrial Rate : 074 BPM P-R Int : 190 ms QRS Dur : 090 ms QT Int : 374 ms P-R-T Axes : 057 028 044 degrees QTc Int : 415 ms Normal sinus rhythm Normal ECG When compared with ECG of 19-APR-2023 20:57, (unconfirmed) No significant change was found Confirmed by Cristian Hillman ([id number]) on 04/20/2023 3:12:19 PM Referred By: REFERRED SELF Confirmed By:Cristian Hillman
--- NOTE | 2023-04-20 15:24 | History & Physical Bridge Note ---
Date of Service April 20, 2023 History & Physical Bridge Note I have examined the patient, reviewed the History & Physical and in the interval since the performance of the History & Physical I have noted the following changes of clinical significance: no changes noted s/p fall, admitted for pain control, therapy evaluations CT head negative on admission for acute CVA/bleed. Notes superficial scalp contusive changes overlie L parietal region. No fracture Sling to L arm/clavicular fracture on imaging. Patient wanting orthopedics consult prior to discharge -- seen by Dr Freeman in the past. Consult placed but likely non-operative. Discussed w/ Dr Freeman, likely see in AM. NWB on the LUE in meantime Oxycodone added prn, Tylenol not completely effective. PT/OT evals to ensure safe to return home. Patient hopefully discharge tomorrow
[2023-04-21] MEDS: oxyCODONE HCL IR 5 MG TAB (IMMEDIATE RELEASE) PO PRN ×3 (00:18→22:32)
[2023-04-21] MEDS: ACETAMINOPHEN 325 MG TAB PO PRN (04:24)
[2023-04-21] MEDS: busPIRone 7.5 MG TAB PO SCH ×3 (08:23→21:30)
[2023-04-21] MEDS: ASPIRIN 81 MG ECTAB PO SCH (08:23)
[2023-04-21] MEDS: SERTRALINE HCL 50 MG TABLET PO SCH (08:24)
[2023-04-21] MEDS: FAMOTIDINE 20 MG TAB PO SCH ×2 (08:25→21:30)
[2023-04-21] MEDS: lisinopril 10 MG TAB PO SCH (08:25)
[2023-04-21] MEDS: POLYETHYLENE (MIRALAX) 17 GM PACK PO SCH (08:26)
[2023-04-21] MEDS: FERROUS GLUCONATE 324 MG TAB PO SCH ×2 (08:26→21:30)
[2023-04-21] MEDS ORDERED: KETOROLAC TROMETHAMINE 15 MG/ML VIAL IV ONE (10:19)
[2023-04-21] MEDS ORDERED: DOCUSATE SODIUM 100 MG CAP PO PRN (10:20)
[2023-04-21] MEDS: LIDOCAINE 5% 1 PATCH TD SCH (11:11)
[2023-04-21] MEDS: ACETAMINOPHEN 325 MG TAB PO SCH ×4 (11:11→22:32)
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
[2023-04-21] MEDS ORDERED: KETOROLAC TROMETHAMINE 15 MG/ML VIAL IV PRN (14:05)
[2023-04-21] MEDS: DIPHENOXYLATE/ATROPINE 2.5/0.025MG TAB PO PRN (21:30)
[2023-04-22] MEDS: ACETAMINOPHEN 325 MG TAB PO SCH ×2 (03:28→06:31)
[2023-04-22] MEDS: FAMOTIDINE 20 MG TAB PO SCH (08:27)
[2023-04-22] MEDS: FERROUS GLUCONATE 324 MG TAB PO SCH (08:27)
[2023-04-22] MEDS: ASPIRIN 81 MG ECTAB PO SCH (08:27)
[2023-04-22] MEDS: busPIRone 7.5 MG TAB PO SCH (08:27)
[2023-04-22] MEDS: lisinopril 10 MG TAB PO SCH (08:27)
[2023-04-22] MEDS: LIDOCAINE 5% 1 PATCH TD SCH (08:28)
[2023-04-22] MEDS: POLYETHYLENE (MIRALAX) 17 GM PACK PO SCH (08:28)
[2023-04-22] MEDS: SERTRALINE HCL 50 MG TABLET PO SCH (08:28)
[2023-04-22] MEDS: DIPHENOXYLATE/ATROPINE 2.5/0.025MG TAB PO PRN (08:30)
--- NOTE | 2023-04-22 08:51 | Discharge Summary ---
Date of Service April 22, 2023 Admission HPI Per Admitting Provider The patient is a 67-year-old female with a past medical history including impingement syndrome of both shoulders, malignant carcinoid tumor, sleep apnea, hypertension, anemia, status postsplenectomy, thrombocytosis after splenectomy, PTSD, gait disturbance and multiple. She presents to the emergency department after a fall as noted above small bowel obstructions. Work-up in the emergency department, included normal CT scans of head, cervical spine, chest, abdomen and pelvis. Admission Exam Per Admitting Provider The patient is awake, alert and oriented 3, well developed and well nourished, normocephalic and atraumatic, lying in bed and in no acute distress. HEENT--PERRL, EOMI, mucous membranes and oropharynx dry. Neck--supple. No JVD. No bruits. Thyroid normal, trachea midline, no adenopathy. Heart--normal S1 and S2. No murmurs, rubs or gallops. Lungs--clear bilaterally, no respiratory distress, no accessory muscle use. Abdomen--normal bowel sounds and soft. Nontender. Nondistended, no hernias or masses, no organomegaly. Extremities--no cyanosis or clubbing. No edema. Dermatologic--normal skin turgor, normal color, no abnormal lymph nodes, no rash. Neurologic--cranial nerves II through XII grossly intact. Rheumatologic--normal range of motion. Psychiatric--normal affect. Principal Diagnosis Left Clavicular Fracture Fall Acute Pain- Neck, Left shoulder Discharge Exam PHYSICAL EXAM: General: awake, alert, no apparent distress Head: Normocephalic, atraumatic, neck without pinpoint tenderness, and full range or motion ENT: PERRLA, EOMI, no pharyngeal exudate, mucous membranes moist Neuro: AAO x 3, speech clear and appropriate, strength intact bilaterally 5/5, sensation intact and equal all extremities and dermatomes, no pronator drift Chest: equal rise and fall of the chest, no accessory muscle use, no heaves or thrills, Clear to auscultation, on room air, Cardiac:S1S2, skin warm dry, cap refill <3 seconds, peripheral pulses +2 no JVD, no murmur, no JVD, no edema GI: NABS x 4 quadrants, soft, nontender to palpation, no rebound, guarding or tenderness : Spontaneously voiding, no pain, no CVA tenderness, MSK: Left arm in sling, pain to shoulder at AC joint and Clavicle, able to internally/externally rotate at elbow. Limited ROM with lifting arm up or bach or extending outwards. Psych: Normal mood and affect Skin: multiple bruises noted Discharge Data Allergies Allergy/AdvReac Type Severity Reaction Status Date / Time Sulfa (Sulfonamide Allergy Severe UNKNOWN Verified 04/19/23 21:30 Antibiotics) aspirin Allergy Intermediate PETECHIAE Verified 04/19/23 21:30 Penicillins Allergy Intermediate RASH-HAD Verified 04/19/23 21:30 KEFZOL W/O PROBLEM clindamycin Allergy Unknown CAN'T Verified 04/19/23 21:30 REMEMBER morphine AdvReac Mild Nausea Verified 04/19/23 21:30 Consultations 04/20/23 00:56 ED Decision to Admit Stat 04/20/23 13:02 Consult Orthopedic Surgery Routine Procedures Performed none Ordered Studies 04/19/23 21:50 CT abd pelvis IV con only Stat CT cervical spine wo con Stat CT chest diagnostic w con Stat CT head/brain wo con Stat Hospital Course (1) Fall: Fall resulting in Fracture of Left Clavicle - PT/OT - Ensure Euvolemia (2) Acute neck pain: Acute neck pain- more muscular appearing on exam - Without pinpoint tenderness and with full ROM - Cervical CT scan interpreted as negative on arrival - Out of Bed to chair this morning - Denies any n/t to hands or arms - Pain better controlled this morning (3) Acute pain of left shoulder due to trauma: Acute pain to left shoulder at AC joint and Left Clavicle - Schedule Tylenol today - 650mg PO q4 hours - Add Lidocaine patch - Toradol 10mg IV now- if effective consider prn dosing- follow bruising - She does note inability to tolerate full asa with bruising- but has no issues with advil/motrin - Orthopaedics follow up in 2-3 weeks - Pain better controlled this morning- discharge home with OTC Tyelnol 500-650mg PO q4-6 hours PRN, OTC Ibuprophen 400-600mg Po Q6-8 hrs prn, OTC- Lidocaine patches on and off every 12 hours , Oxy IR 5mg PO q8 prn, ice as needed (4) Malignant carcinoid tumor: Chronic and stable - tumor of liver - no acute needs (5) Hypertension: Continue home therapy- chronic controlled - current elevations likely secondary to pain - follow up with PCP (6) Depression with anxiety: Continue sertaline, Buspar and Ativan PRN (7) PTSD (post-traumatic stress disorder): As above Plan You were admitted for left clavicular fracture following a fall. You had multiple ct scans performed ruling out any other fractures to include cervical spine. You were evaluated by Orthopaedics for your clavicle facture and your left arm was placed in a sling, with follow up appopintment in 2-[address] Neil Freeman. Pain control was achieved with multi-modal adjuncts. Pain control- Please obtain over the counter- Tylenol 325mg or 500mg tablets- take 500-650mg by mouth every 4-6 hours as needed (Do not exceed 4000mg in a day). Motrin- 400-600mg tabletes- by mouth every 6-8 hours with food. Lidocaine Patches- place on or around area of pain and remove after 12 hours and leave off for 12 hours, then repeat as needed. OxyContin IR 5mg by mouth- every at hours as needed for pain. Ice as needed Activity restrictions- No weight bearing on left arm or shoulder- do range of motion exercises as tolerated to avoid frozen shoulder. Call Dr. Freeman's Office , if they do not call you for an appointment within next few days. No driving while arm is in sling and non-weight bearing. Total Time Total Time Spent Total Time Spent (In Minutes): 40 minutes Discharge Plan Discharge Items Patient Disposition: Home - Self-Care Reason For Visit: INTRACTABLE PAIN S/P FALL Discharge Diagnosis: Left shoulder injury from fall, clavicle fracture Activity: As commented below Activity Comment: Keep Left arm in sling avoidance of weight bearing on the left arm/shoulder Lifting: Wait until after follow-up appointment Lifting Comment: avoid lifting with left arm Bathing: No limitations Driving/Machine Use: avoid while arm in sling- follow up with ortho Weightbearing: Left non-weightbearing Non-emergency contact: Primary Care Provider Call non-emergency contact if: you have any medication questions Follow-up/Referrals: Tina Fletcher CRNP [Primary Care Provider] - 04/27/23 10:30 am Neil Freeman MD [Surgeon] - 05/10/23 1:45 pm (2-3 weeks from injury Office will call with appointment time and date) Diet: Regular Addtl Attending Provider Instructions: Orthopedic discharge instructions: -Use a sling for comfort. Do not have to sleep in the sling. Use caution when pushing up out of a chair. -I encouraged gentle range of motion to the shoulder joint, gently and only as much as tolerated -No need for physical therapy in the first 2 to 3 weeks -Follow-up in the orthopedic clinic in 2-3 weeks for interval evaluation. Hospitalist instructions: - No driving while left arm is in sling and non-weight bearing - Follow up with PCP upon discharge for Blood pressure monitoring - Pain medications- OTC Tylenol 500-650mg PO q4-6 hours PRN, OTC Ibuprophen 400-600mg Po Q6-8 hrs prn, OTC- Lidocaine patches on and off every 12 hours , Oxy IR 5mg PO q8 prn, ice as needed Addtl Inflatable Buildings Laminator Provider Instructions: Plan You were admitted for left clavicular fracture following a fall. You had multiple ct scans performed ruling out any other fractures to include cervical spine. You were evaluated by Orthopaedics for your clavicle facture and your left arm was placed in a sling, with follow up appopintment in 2-[address] Neil Freeman. Pain control was achieved with multi-modal adjuncts. Pain control- Please obtain over the counter- Tylenol 325mg or 500mg tablets- take 500-650mg by mouth every 4-6 hours as needed (Do not exceed 4000mg in a day). Motrin- 400-600mg tabletes- by mouth every 6-8 hours with food. Lidocaine Patches- place on or around area of pain and remove after 12 hours and leave off for 12 hours, then repeat as needed. OxyContin IR 5mg by mouth- every at hours as needed for pain. Ice as needed Activity restrictions- No weight bearing on left arm or shoulder- do range of motion exercises as tolerated to avoid frozen shoulder. Call Dr. Freeman's Office , if they do not call you for an appointment within next few days. No driving while arm is in sling and non-weight bearing. Pending Studies at Discharge: No Stand-Alone Forms: Cebix, Smoking Cessation Medications and DC Order Prescriptions: New oxycodone 5 mg Tablet 5 mg PO Q8H PRN (Reason: severe pain (scale score 7-10)) Qty: 14 0RF acetaminophen 325 mg Tablet 650 mg PO Q4H Qty: 0 0RF lidocaine 5 % Adhesive Patch,Medicated 1 patch transdermal QAM Qty: 0 0RF Continued Fergon 225 mg (27 mg iron) tablet 225 mg PO BID Qty: 180 3RF ondansetron 4 mg tablet,disintegrating 4 mg PO Q4H PRN (Reason: Nausea) Qty: 30 6RF famotidine 20 mg tablet 20 mg PO BID Qty: 180 3RF lisinopril 10 mg tablet 10 mg PO DAILY Qty: 90 3RF buspirone 7.5 mg tablet 7.5 mg PO TID Qty: 270 3RF Rx Instructions: pt aware dose change lorazepam 0.5 mg tablet 0.5 mg PO BID PRN (Reason: anxiety) Qty: 10 0RF ketoconazole 2 % cream 1 applic topical BID Qty: 30 2RF Rx Instructions: Apply to areas of the feet twice daily x 2 weeks as needed for flaring. diphenoxylate-atropine [Lomotil] 2.5-0.025 mg tablet 1 tab PO Q8H PRN (Reason: diarrhea) Qty: 30 0RF sertraline 50 mg tablet 75 mg PO DAILY Qty: 135 3RF aspirin 81 mg tablet,delayed release (DR/EC) 81 mg PO DAILY Qty: 30 0RF cyanocobalamin (vitamin B-12) 1,000 mcg/mL solution 1,000 mcg IM DIRECTED Rx Instructions: DUE THIRD WEEK OF OCT 2022. Inject 1 mL once a week for 4 weeks, then inject 1 mL once a month. 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 I verified all [place] points and agree with JOYCE Guido with the following exceptions and/or additions: none Coding Level of Care Code 34548 INP/OBS DISCH >30 MIN Diagnoses Fall W19.XXXA Acute neck pain M54.2 Acute pain of left shoulder due to trauma M25.512; G89.11 Malignant carcinoid tumor C7A.00 Hypertension I10 Depression with anxiety F41.8 PTSD (post-traumatic stress disorder) F43.10
[2023-05-17] MEDS ORDERED: CYANOCOBALAMIN 1000 MCG/ML VIAL IM SCH (09:00)
== END 2023-04-22 10:00 | disposition home or self-care (01) ==
LOC: 3W 20:45 → ED 20:45 → SUATTDRO 04-20 01:20 → 3W 04-20 02:23
DX: Z23 Encounter for immunization; S49.92XA Unspecified injury of left shoulder and upper arm, initial encounter; R26.9 Unspecified abnormalities of gait and mobility; Z88.0 Allergy status to penicillin; G47.30 Sleep apnea, unspecified; W17.89XA Other fall from one level to another, initial encounter; D64.9 Anemia, unspecified; Z79.82 Long term (current) use of aspirin; Z88.1 Allergy status to other antibiotic agents; Z88.5 Allergy status to narcotic agent; S42.002A Fracture of unspecified part of left clavicle, initial encounter for closed fracture; C7A.00 Malignant carcinoid tumor of unspecified site; Z88.2 Allergy status to sulfonamides; I10 Essential (primary) hypertension; Z79.899 Other long term (current) drug therapy

== ENCOUNTER 2023-10-10 11:16 | Inpatient (IN) ==
--- NOTE | 2023-10-10 11:24 | ED Triage Note ---
Date of Service October 10, 2023 Provider in Triage Author: Koko Sánchez History of Present Illness This patient was briefly evaluated while in triage. An abbreviated physical exam was performed. This patient is a 68-year-old Female who presents to the ED for evaluation of via EMS for pounding generalized ANN started last night, weak and dizzy feverish, vomited in ED x 2 last week for abdominal pain/n/v Physical Exam GENERAL: NAD CARDIOVASCULAR: RRR RESPIRATORY: CTA ABDOMEN: BS x 4. Nontender to palpation. Initial orders for labs and / or imaging were placed and patient was placed in the waiting area until a bed is available. Please see further documentation for the full ED course.
[2023-10-10] MEDS ORDERED: ONDANSETRON INJ 2 MG/ML 2 ML VIAL IV STA (11:36)
[2023-10-10] MEDS ORDERED: SODIUM CHLORIDE 0.9% 1,000 ML IV SCH (11:36)
[2023-10-10 12:08] LABS: Hematocrit (blood only) 41.9 % (37.0-47.0); Hemoglobin 13.8 g/dl (12.0-16.0); Mean Corpuscular Hemoglobin 29.9 pg (25.0-34.0); Mean Corpuscular Hgb Conc 32.9 g/dL (32.0-36.0); Mean Corpuscular Volume 90.9 fL (80.0-100.0); Mean Platelet Volume 9.9 fL (9.4-12.4); Platelet Count 754 K/uL (130-400); RDW Coefficient of Variation 15.2 % (11.5-14.5); RDW Standard Deviation 50.2 fL (36.4-46.3); Red Blood Count 4.61 M/uL (4.20-5.40); White Blood Count 14.34 K/ul (4.8-10.8)
[2023-10-10 12:25] LABS: Alanine Aminotransferase 8 U/L (7-52); Albumin Globulin Ratio 1.2 (0.9-2); Albumin Level 3.7 gm/dl (3.4-5.0); Alkaline Phosphatase 72 U/L (34-104); Anion Gap 9 (3-11); Aspartate Aminotransferase 16 U/L (13-39); BUN Creatinine Ratio 18.5 (10-20); Bilirubin,Total 0.6 mg/dl (0.2-1.0); Blood Urea Nitrogen 10 mg/dl (6-23); Calcium 8.9 mg/dl (8.6-10.3); Carbon Dioxide 28 mmol/L (21-32); Chloride 103 mmol/L (98-107); Est GFR (African American) 113.2 ml/min; Est GFR (Non-African American) 97.6 ml/min; Globulin 3.2 gm/dl (2.5-4.0); Glucose 131 mg/dl (70-99(Fasting)); Potassium 3.3 mmol/L (3.5-5.1); Sodium 140 mmol/L (136-145); Total Protein 6.9 gm/dl (6.0-8.3)
[2023-10-10 12:33] LABS: Partial Thromboplastin Time 27 Seconds (21-31); Prothrombin Time 11.1 Seconds (9.0-12.0)
[2023-10-10 12:49] LABS: Adenovirus PCR Not Detected (NotDetected); Bordetella parapertussis PCR Not Detected (NotDetected); Bordetella pertussis PCR Not Detected (NotDetected); Chlamydia pneumoniae PCR Not Detected (NotDetected); Coronavirus 229E PCR Not Detected (NotDetected); Coronavirus HKU1 PCR Not Detected (NotDetected); Coronavirus NL63 PCR Not Detected (NotDetected); Coronavirus OC43PCR Not Detected (NotDetected); Human Metapneumovirus PCR Not Detected (NotDetected); Influenza A PCR Not Detected (NotDetected); Influenza B PCR Not Detected (NotDetected); Mycoplasma pneumoniae PCR Not Detected (NotDetected); Parainfluenza Virus 1 PCR Not Detected (NotDetected); Parainfluenza Virus 2 PCR Not Detected (NotDetected); Parainfluenza Virus 3 PCR Not Detected (NotDetected); Parainfluenza Virus 4 PCR Not Detected (NotDetected); Respiratory Syncytial VirusPCR Not Detected (NotDetected); Rhinovirus/Enterovirus PCR Not Detected (NotDetected)
[2023-10-10 12:53] LABS: Coronavirus CoV-2 (COVID19)PCR DETECTED (NotDetected)
[2023-10-10 13:05] LABS: Basophils # (auto) 0.11 K/uL (0.00-0.20); Basophils % (auto) 0.8 %; Eosinophils # (auto) 2.96 K/uL (0.00-0.50); Eosinophils % (auto) 20.6 %; Immature Granulocytes # (auto) 0.07 K/uL (0.01-0.20); Immature Granulocytes % (auto) 0.5 %; Lymphocytes # (auto) 1.73 K/uL (1.20-3.40); Lymphocytes % (auto) 12.1 %; Monocytes # (auto) 0.83 K/uL (0.11-0.59); Monocytes % (auto) 5.8 %; Neutrophils # (auto) 8.64 K/uL (1.40-6.50); Neutrophils % (auto) 60.2 %; RBC Morphology Unremarkable
--- NOTE | 2023-10-10 13:19 | CT Scan Report ---
HEAD CT NONCONTRAST CT DOSE: 625.8 mGy.cm HISTORY: Headache TECHNIQUE: Multiaxial CT images of the head were performed without the use of intravenous contrast. A utomated exposure control was utilized for this study. A dose lowering technique was utilized adheri ng to the principles of ALARA. Comparison: Head CT 09/06/2023. Findings: The paranasal sinuses and mastoid air cells are clear. The calvarium and skull base are int act. There is no mass, hematoma, midline shift, acute infarct. White matter hypodensity is nonspecifi c but suggestive of microvascular ischemic change. The ventricles and sulci are within normal limits. Impression: No significant change compared to the prior study. No acute intracranial abnormality. ACT 112: Negative or not required by law. Electronically signed by: Asad Ramos M.D. 10/10/2023 1:17 PM
--- NOTE | 2023-10-10 13:46 | XRay Report ---
XR chest 1V not portable HISTORY: dizzy, weak, headache COMPARISON: Chest 09/06/2023. Chest CT 04/19/2023. FINDINGS: There are low lung volumes. No pneumothorax. No pleural effusions. Prior cholecystectomy. T he heart is normal in size. No focal lung consolidations to suggest a pneumonia. No evidence for pulm onary edema. Old, healed left-sided rib fractures again noted. The mediastinal/right paratracheal lym phadenopathy remains unchanged. A dominant right paratracheal lymph node measures 3 cm. IMPRESSION: 1. No significant change compared to the prior study. No acute process. 2. Mediastinal lymphadenopathy again noted. This suggests underlying metastatic disease or lymphoma. ACT 112: Negative or not required by law. Electronically signed by: Asad Ramos M.D. 10/10/2023 1:44 PM
[2023-10-10] MEDS ORDERED: KETOROLAC TROMETHAMINE 15 MG/ML VIAL IV ONE (14:53)
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
[2023-10-10] MEDS ORDERED: PLASMA-LYTE A 1,000 ML IV ONE (17:10)
[2023-10-10] MEDS ORDERED: cefTRIAXone SODIUM 2,000 MG in DEXTROSE 5 % MINI-B 50 ML IV ONE (18:00)
[2023-10-10] MEDS ORDERED: DIPHENOXYLATE/ATROPINE 2.5/0.025MG TAB PO PRN (18:12)
[2023-10-10] MEDS ORDERED: LORazepam 0.5 MG TAB PO PRN (18:12)
[2023-10-10] MEDS ORDERED: ONDANSETRON INJ 2 MG/ML 2 ML VIAL IV PRN (18:12)
[2023-10-10] MEDS ORDERED: oxyCODONE HCL IR 5 MG TAB (IMMEDIATE RELEASE) PO PRN (18:12)
[2023-10-10] MEDS: POTASSIUM CHLORIDE / WTR 10 MEQ/100 ML PLCT IV SCH ×3 (18:20→21:09)
[2023-10-10] MEDS ORDERED: Patient's HEIGHT &/or WEIGHT Needed SCH (18:45)
[2023-10-10] MEDS: PLASMA-LYTE A 1,000 ML IV SCH (19:54)
[2023-10-10 20:02] LABS: Appearance Urine Clear (Clear); Bacteria Urine Automated Negative (Negative); Bilirubin Urine Negative (Negative); Blood Urine Negative (Negative); Cast Urine Automated 0 /lpf (0-5); Color Urine Yellow; Epithelial Cell Urine Auto >30 /lpf (0-5); Glucose Urine UA Negative (Negative); Ketones Urine Negative (Negative); Leukocyte Esterase Urine 1+ (Negative); Nitrite Urine Negative (Negative); Protein Urine Negative (Negative); RBC Urine Automated 0-4 /hpf (0-4); Specific Gravity Urine 1.008 (1.000-1.030); Urobilinogen Urine Negative (Negative); pH Urine 6.5 (4.5-7.5)
[2023-10-10] MEDS: FAMOTIDINE 20 MG TAB PO SCH (21:11)
[2023-10-10] MEDS: lisinopril 10 MG TAB PO SCH (21:11)
[2023-10-10] MEDS: busPIRone 7.5 MG TAB PO SCH (21:12)
[2023-10-10] MEDS: ACETAMINOPHEN 325 MG TAB PO PRN (21:24)
[2023-10-10] MEDS ORDERED: Nursing to Pharmacy Communication SCH (23:30)
--- NOTE | 2023-10-11 00:25 | Electrocardiogram Report ---
Test Reason : Blood Pressure : / mmHG Vent. Rate : 114 BPM Atrial Rate : 114 BPM P-R Int : 172 ms QRS Dur : 076 ms QT Int : 326 ms P-R-T Axes : 041 001 031 degrees QTc Int : 449 ms Sinus tachycardia Moderate voltage criteria for LVH, may be normal variant ( R in aVL , [place] product ) Poor R wave progression, consider anterior ND vs. lead placement vs. LVH Abnormal ECG When compared with ECG of 06-SEP-2023 16:17, No significant change was found Confirmed by Jam Carranza ([id number]) on 10/11/2023 12:25:24 AM Referred By: Confirmed By:Jam Carranza
[2023-10-11] MEDS: PLASMA-LYTE A 1,000 ML IV SCH ×4 (03:08→20:59)
[2023-10-11 04:50] LABS: Basophils # (auto) 0.09 K/uL (0.00-0.20); Eosinophils # (auto) 0.14 K/uL (0.00-0.50); Eosinophils % (auto) 1.6 %; Hematocrit (blood only) 34.2 % (37.0-47.0); Hemoglobin 11.3 g/dl (12.0-16.0); Immature Granulocytes # (auto) 0.02 K/uL (0.01-0.20); Immature Granulocytes % (auto) 0.2 %; Lymphocytes # (auto) 3.37 K/uL (1.20-3.40); Lymphocytes % (auto) 37.6 %; Mean Corpuscular Hemoglobin 30.3 pg (25.0-34.0); Mean Corpuscular Volume 91.7 fL (80.0-100.0); Mean Platelet Volume 10.4 fL (9.4-12.4); Monocytes # (auto) 0.94 K/uL (0.11-0.59); Monocytes % (auto) 10.5 %; Neutrophils % (auto) 49.1 %; Platelet Count 610 K/uL (130-400); RDW Coefficient of Variation 15.5 % (11.5-14.5); RDW Standard Deviation 52.6 fL (36.4-46.3); Red Blood Count 3.73 M/uL (4.20-5.40); White Blood Count 8.96 K/ul (4.8-10.8)
[2023-10-11 05:05] LABS: BUN Creatinine Ratio 15.7 (10-20); Calcium 8.1 mg/dl (8.6-10.3); Creatinine Clr Calc Pharmacy 110.5 ml/min; Est GFR (African American) 115.3 ml/min; Est GFR (Non-African American) 99.5 ml/min; Potassium 3.7 mmol/L (3.5-5.1)
[2023-10-11] MEDS ORDERED: CYANOCOBALAMIN 1000 MCG/ML VIAL IM SCH (09:00)
[2023-10-11] MEDS: ASPIRIN 81 MG ECTAB PO SCH (09:25)
[2023-10-11] MEDS: cephALEXin 500 MG CAP PO SCH ×3 (09:26→20:35)
[2023-10-11] MEDS: busPIRone 7.5 MG TAB PO SCH ×3 (09:26→20:35)
[2023-10-11] MEDS: FAMOTIDINE 20 MG TAB PO SCH ×2 (09:27→20:45)
[2023-10-11] MEDS: SERTRALINE HCL 50 MG TABLET PO SCH (09:27)
[2023-10-11] MEDS: ACETAMINOPHEN 325 MG TAB PO PRN (09:31)
[2023-10-11] MEDS: traMADol HCL 50 MG TABLET PO PRN ×2 (14:16→20:45)
--- NOTE | 2023-10-11 17:06 | Hospitalist Progress Note ---
Date of Service October 11, 2023 Assessment & Plan (1) Weakness: Plan: Weakness, functional decline Continually worsening since COVID s/p Paxlovid in the beginning of September 2023 Patient is COVID-positive on admission by PCR, suspect this is residual positive with no new respiratory symptoms Discontinue isolation precautions Poor p.o. intake, nausea/vomiting, clinically volume contracted and hypokalemic with sinus tachycardia. Fluids ordered, volume repleted. 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 She was previously treated with lanreotide from [facility] and switched to octreotide due to high co-pay and diarrhea. Last blood work evaluation in June 2023 was with elevated chromogranin A, serotonin, and 5 HIAA urine of 8.3. Patient was hesitant to start Lutathera at time of last follow-up, had not yet met an oncologist Last follow-up for malignant imaging as follows: 10/01/2023 CT of the abdomen and pelvis, no acute findings, stable partially calcified mesenteric mass and stable retroperitoneal lymphadenopathy Pelvis MRI 09/21/2023: No evidence of metastatic disease of the pelvis, mesenteric and retroperitoneal lymphadenopathy and multiple hepatic masses. 29 mm spiculated lesion compatible with primary focus of carcinoid tumor, multiple hepatic lesions compatible with metastasis Has followed with Dr. Brewer radiation oncology is pending follow-up appointment with [place] oncology for initiation of radiation. She has had a second opinion from [place], and had repeat MRI which is in her system No acute change in management - Pt takes octreotide 40mg monthly. Missed dose due this past due to feeling ill. Will confirm the dose with pharmacy or cancer center. Continue home pain regimen (3) H/O splenectomy: (4) Depression with anxiety: Plan: Continue BuSpar, home dosing of lorazepam. Hold this for sedation (5) Functional diarrhea: Plan: - Sx tx. OCtreotide as noted Plan DVT PPx: lovenox Diet: regular CODE: Full Dispo: M/S Admission and Anticipated Discharge Date Admission Date: October 10, 2023 Subjective Patient complains of feeling weak in general. Review of Systems Review of Systems: All systems reviewed & are unremarkable except as noted in Subjective Physical Exam Physical Exam: General: Awake, conversant. Frail looking. Chronically ill appearing Heart: S1, S2/regular rate and rhythm, no murmur rubs or gallops Lungs: Clear to auscultation bilaterally. Normal effort Abdomen: Soft/nontender/nondistended. No hepatosplenomegaly Extremities: No clubbing/cyanosis. No edema Behavior: Appropriate, cooperative Results & Data Results & Data Vital Signs (Past 12 Hours) Vital Signs Temp Pulse Pulse Pulse Resp BP Pulse Ox 10/11/23 14:13 160/82 H 10/11/23 13:02 36.9 C 65 18 170/100 H 97 10/11/23 13:00 10/11/23 09:40 10/11/23 09:40 36.6 C 72 18 160/92 H 97 10/11/23 08:21 52 L O2 Del Method O2 Flow Rate 10/11/23 14:13 10/11/23 13:02 Nasal Cannula 2 10/11/23 13:00 Nasal Cannula 2 10/11/23 09:40 Nasal Cannula 2 10/11/23 09:40 Nasal Cannula 2 10/11/23 08:21 Laboratory Results Abnormal lab results 10/10/23 10/11/23 Range/Units 19:51 04:01 RBC 3.73 L (4.20-5.40) M/uL Hgb 11.3 L (12.0-16.0) g/dl Hct 34.2 L (37.0-47.0) % RDW Std Deviation 52.6 H (36.4-46.3) fL RDW Coeff of Denilson 15.5 H (11.5-14.5) % Plt Count 610 H (130-400) K/uL [place] # (Auto) 0.94 H (0.11-0.59) K/uL Creatinine 0.51 L (0.6-1.2) mg/dl Calcium 8.1 L (8.6-10.3) mg/dl Ur Leukocyte Esterase 1+ H (Negative) Urine WBC (Auto) 5-10 H (0-5) /hpf U Epithel Cells (Auto) >30 H (0-5) /lpf PG Care Time/CCT Total # of Minutes Spent Total Time Spent with Patient: Total time spent is greater than 50% in coordination of care (as documented) at patient's floor/unit and/or counseling patient: Coding Level of Care Code 70514 SUB INP/OBS CARE 2MIN Diagnoses Weakness R53.1 Malignant carcinoid tumor C7A.00 H/O splenectomy Z90.81 Depression with anxiety F41.8 Functional diarrhea K59.1
[2023-10-11] MEDS: lisinopril 10 MG TAB PO SCH (20:35)
[2023-10-11] MEDS ORDERED: Nursing to Pharmacy Communication SCH (21:15)
[2023-10-12] MEDS: ACETAMINOPHEN 325 MG TAB PO PRN ×2 (00:02→07:43)
[2023-10-12] MEDS: PLASMA-LYTE A 1,000 ML IV SCH (05:03)
[2023-10-12 07:34] LABS: Basophils # (auto) 0.11 K/uL (0.00-0.20); Basophils % (auto) 0.9 %; Eosinophils # (auto) 0.32 K/uL (0.00-0.50); Eosinophils % (auto) 2.7 %; Hematocrit (blood only) 40.7 % (37.0-47.0); Hemoglobin 12.8 g/dl (12.0-16.0); Immature Granulocytes # (auto) 0.04 K/uL (0.01-0.20); Immature Granulocytes % (auto) 0.3 %; Lymphocytes # (auto) 3.26 K/uL (1.20-3.40); Lymphocytes % (auto) 27.9 %; Mean Corpuscular Hemoglobin 29.9 pg (25.0-34.0); Mean Corpuscular Hgb Conc 31.4 g/dL (32.0-36.0); Mean Corpuscular Volume 95.1 fL (80.0-100.0); Monocytes # (auto) 1.16 K/uL (0.11-0.59); Monocytes % (auto) 9.9 %; Neutrophils # (auto) 6.81 K/uL (1.40-6.50); Neutrophils % (auto) 58.3 %; Platelet Count 672 K/uL (130-400); RDW Coefficient of Variation 15.6 % (11.5-14.5); RDW Standard Deviation 54.5 fL (36.4-46.3); Red Blood Count 4.28 M/uL (4.20-5.40)
[2023-10-12 08:05] LABS: Calcium 8.5 mg/dl (8.6-10.3); Creatinine Clr Calc Pharmacy 122.6 ml/min; Est GFR (African American) 119.3 ml/min; Est GFR (Non-African American) 102.9 ml/min; Potassium 3.6 mmol/L (3.5-5.1)
[2023-10-12] MEDS: ASPIRIN 81 MG ECTAB PO SCH (09:14)
[2023-10-12] MEDS: SERTRALINE HCL 50 MG TABLET PO SCH (09:14)
[2023-10-12] MEDS: busPIRone 7.5 MG TAB PO SCH ×3 (09:15→20:58)
[2023-10-12] MEDS: cephALEXin 500 MG CAP PO SCH ×3 (09:15→20:58)
[2023-10-12] MEDS ORDERED: lisinopril 10 MG TAB PO STA (09:35)
[2023-10-12] MEDS: amLODIPine BESYLATE 5 MG TAB PO SCH (10:12)
[2023-10-12] MEDS: FAMOTIDINE 20 MG TAB PO SCH ×2 (10:20→21:01)
--- NOTE | 2023-10-12 17:26 | Hospitalist Progress Note ---
Date of Service October 12, 2023 Assessment & Plan (1) Weakness: Plan: Weakness, functional decline Continually worsening since COVID s/p Paxlovid in the beginning of September 2023 Patient is COVID-positive on admission by PCR, suspect this is residual positive with no new respiratory symptoms Discontinue isolation precautions Poor p.o. intake, nausea/vomiting, clinically volume contracted and hypokalemic with sinus tachycardia. Fluids ordered, volume repleted. 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 She was previously treated with lanreotide from [facility] and switched to octreotide due to high co-pay and diarrhea. Last blood work evaluation in June 2023 was with elevated chromogranin A, serotonin, and 5 HIAA urine of 8.3. Patient was hesitant to start Lutathera at time of last follow-up, had not yet met an oncologist Last follow-up for malignant imaging as follows: 10/01/2023 CT of the abdomen and pelvis, no acute findings, stable partially calcified mesenteric mass and stable retroperitoneal lymphadenopathy Pelvis MRI 09/21/2023: No evidence of metastatic disease of the pelvis, mesenteric and retroperitoneal lymphadenopathy and multiple hepatic masses. 29 mm spiculated lesion compatible with primary focus of carcinoid tumor, multiple hepatic lesions compatible with metastasis Has followed with Dr. Brewer radiation oncology is pending follow-up appointment with [place] oncology for initiation of radiation. She has had a second opinion from [place], and had repeat MRI which is in her system No acute change in management - Pt takes octreotide 40mg monthly. Missed dose due this past due to feeling ill. Will confirm the dose with pharmacy or cancer center. Continue home pain regimen (3) H/O splenectomy: (4) Depression with anxiety: Plan: Continue BuSpar, home dosing of lorazepam. Hold this for sedation (5) Functional diarrhea: Plan: - Sx tx. OCtreotide as noted (6) Hypertension: Plan: Blood pressure was quite elevated this morning. Added Norvasc Given extra dose of lisinopril Discontinued IV fluids Current blood pressure readings are much better Plan DVT PPx: lovenox Diet: regular CODE: Full Likely discharge tomorrow Admission and Anticipated Discharge Date Admission Date: October 10, 2023 Subjective Patient feels well but is concerned about her high blood pressure readings. She was given an extra dose of lisinopril and Norvasc was added today. IV fluids were discontinued. Review of Systems 2 Review of Systems: All systems reviewed & are unremarkable except as noted in Subjective Physical Exam Physical Exam: General: Awake, conversant. Frail looking. Chronically ill appearing Heart: S1, S2/regular rate and rhythm, no murmur rubs or gallops Lungs: Clear to auscultation bilaterally. Normal effort Abdomen: Soft/nontender/nondistended. No hepatosplenomegaly Extremities: No clubbing/cyanosis. No edema Behavior: Appropriate, cooperative Results & Data Results & Data Vital Signs (Past 12 Hours) Vital Signs Temp Pulse Resp BP BP Pulse Ox O2 Del Method 10/12/23 14:54 36.8 C 76 16 132/77 95 Room Air 10/12/23 10:14 95 Room Air 10/12/23 09:11 60 16 168/80 H 184/78 H 93 Room Air 10/12/23 07:39 37.1 C 65 16 168/94 H 95 Room Air Laboratory Results Abnormal lab results 10/12/23 Range/Units 07:09 WBC 11.70 H (4.8-10.8) K/ul MCHC 31.4 L (32.0-36.0) g/dL RDW Std Deviation 54.5 H (36.4-46.3) fL RDW Coeff of Denilson 15.6 H (11.5-14.5) % Plt Count 672 H (130-400) K/uL Neut # (Auto) 6.81 H (1.40-6.50) K/uL [place] # (Auto) 1.16 H (0.11-0.59) K/uL Carbon Dioxide 33 H (21-32) mmol/L Creatinine 0.46 L (0.6-1.2) mg/dl Glucose 104 H (70-99(Fasting)) mg/dl Calcium 8.5 L (8.6-10.3) mg/dl PG Care Time/CCT Total # of Minutes Spent Total Time Spent with Patient: Total time spent is greater than 50% in coordination of care (as documented) at patient's floor/unit and/or counseling patient: Coding Level of Care Code 31193 SUB INP/OBS CARE 2/35MIN Diagnoses Weakness R53.1 Malignant carcinoid tumor C7A.00 H/O splenectomy Z90.81 Depression with anxiety F41.8 Functional diarrhea K59.1 Hypertension I10
[2023-10-12] MEDS: lisinopril 10 MG TAB PO SCH (20:59)
[2023-10-13 06:20] LABS: Basophils # (auto) 0.08 K/uL (0.00-0.20); Basophils % (auto) 0.8 %; Eosinophils # (auto) 0.24 K/uL (0.00-0.50); Eosinophils % (auto) 2.4 %; Hematocrit (blood only) 34.1 % (37.0-47.0); Hemoglobin 11.3 g/dl (12.0-16.0); Immature Granulocytes # (auto) 0.09 K/uL (0.01-0.20); Immature Granulocytes % (auto) 0.9 %; Lymphocytes # (auto) 3.05 K/uL (1.20-3.40); Lymphocytes % (auto) 30.8 %; Mean Corpuscular Hemoglobin 30.6 pg (25.0-34.0); Mean Corpuscular Hgb Conc 33.1 g/dL (32.0-36.0); Mean Corpuscular Volume 92.4 fL (80.0-100.0); Mean Platelet Volume 10.4 fL (9.4-12.4); Monocytes # (auto) 0.91 K/uL (0.11-0.59); Monocytes % (auto) 9.2 %; Neutrophils # (auto) 5.52 K/uL (1.40-6.50); Neutrophils % (auto) 55.9 %; Platelet Count 599 K/uL (130-400); RDW Coefficient of Variation 15.4 % (11.5-14.5); Red Blood Count 3.69 M/uL (4.20-5.40); White Blood Count 9.89 K/ul (4.8-10.8)
[2023-10-13 06:34] LABS: Calcium 8.1 mg/dl (8.6-10.3); Creatinine Clr Calc Pharmacy 112.8 ml/min; Est GFR (African American) 116.1 ml/min; Est GFR (Non-African American) 100.2 ml/min; Potassium 3.8 mmol/L (3.5-5.1)
[2023-10-13] MEDS: ACETAMINOPHEN 325 MG TAB PO PRN (07:37)
[2023-10-13] MEDS: amLODIPine BESYLATE 5 MG TAB PO SCH (07:37)
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
[2023-10-13] MEDS: cephALEXin 500 MG CAP PO SCH (08:24)
[2023-10-13] MEDS: SERTRALINE HCL 50 MG TABLET PO SCH (08:24)
[2023-10-13] MEDS: ASPIRIN 81 MG ECTAB PO SCH (08:24)
[2023-10-13] MEDS: busPIRone 7.5 MG TAB PO SCH ×3 (08:24→19:48)
[2023-10-13] MEDS: FAMOTIDINE 20 MG TAB PO SCH ×2 (08:25→19:52)
[2023-10-13 08:53] LABS: Magnesium 1.8 mg/dl (1.7-2.4)
[2023-10-13] MEDS ORDERED: SERTRALINE HCL 50 MG TABLET PO ONE (10:42)
[2023-10-13 17:04] LABS: Adenovirus F 40/41 PCR Not Detected (NotDetected); Astrovirus PCR Not Detected (NotDetected); Campylobacter PCR Not Detected (NotDetected); Cryptosporidium PCR Not Detected (NotDetected); Cyclospora cayetanensis PCR Not Detected (NotDetected); Entamoeba histolytica PCR Not Detected (NotDetected); Enteroaggregative E.coli(EAEC) Not Detected (NotDetected); Enteropathogenic E.coli (EPEC) Not Detected (NotDetected); Enterotoxigenic E.coli (ETEC) Not Detected (NotDetected); Giardia lamblia PCR Not Detected (NotDetected); Norovirus GI/GII PCR Not Detected (NotDetected); Plesiomonas shigelloides PCR Not Detected (NotDetected); Rotavirus A PCR Not Detected (NotDetected); Salmonella PCR Not Detected (NotDetected); Sapovirus PCR Not Detected (NotDetected); Shiga-like Toxin E.coli (STEC) Not Detected (NotDetected); Shigella/Enteroinvasive E.coli Not Detected (NotDetected); Vibrio cholerae PCR Not Detected (NotDetected); Vibrio species PCR Not Detected (NotDetected); Yersinia enterocolitica PCR Not Detected (NotDetected)
[2023-10-13] MEDS: lisinopril 10 MG TAB PO SCH (19:48)
[2023-10-14 06:14] LABS: Eosinophils # (auto) 0.25 K/uL (0.00-0.50); Eosinophils % (auto) 2.5 %; Hematocrit (blood only) 34.6 % (37.0-47.0); Hemoglobin 11.4 g/dl (12.0-16.0); Immature Granulocytes # (auto) 0.03 K/uL (0.01-0.20); Immature Granulocytes % (auto) 0.3 %; Lymphocytes # (auto) 3.13 K/uL (1.20-3.40); Lymphocytes % (auto) 31.6 %; Mean Corpuscular Hemoglobin 30.6 pg (25.0-34.0); Mean Corpuscular Hgb Conc 32.9 g/dL (32.0-36.0); Mean Corpuscular Volume 92.8 fL (80.0-100.0); Mean Platelet Volume 10.6 fL (9.4-12.4); Monocytes # (auto) 0.93 K/uL (0.11-0.59); Monocytes % (auto) 9.4 %; Neutrophils # (auto) 5.47 K/uL (1.40-6.50); Neutrophils % (auto) 55.2 %; Platelet Count 593 K/uL (130-400); RDW Coefficient of Variation 15.6 % (11.5-14.5); RDW Standard Deviation 53.1 fL (36.4-46.3); Red Blood Count 3.73 M/uL (4.20-5.40); White Blood Count 9.91 K/ul (4.8-10.8)
[2023-10-14 06:44] LABS: BUN Creatinine Ratio 23.4 (10-20); Calcium 8.3 mg/dl (8.6-10.3); Est GFR (African American) 118.5 ml/min; Est GFR (Non-African American) 102.2 ml/min; Magnesium 1.8 mg/dl (1.7-2.4); Potassium 3.7 mmol/L (3.5-5.1)
[2023-10-14 07:01] LABS: Lyme Ab IgG w/WB Rflx Negative (Negative); Lyme Ab IgM w/WB Rflx Negative (Negative)
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
[2023-10-14] MEDS: amLODIPine BESYLATE 5 MG TAB PO SCH (08:19)
[2023-10-14] MEDS: busPIRone 7.5 MG TAB PO SCH (08:19)
[2023-10-14] MEDS: FAMOTIDINE 20 MG TAB PO SCH (08:20)
[2023-10-14] MEDS: ASPIRIN 81 MG ECTAB PO SCH (08:20)
[2023-10-14] MEDS ORDERED: SERTRALINE HCL 100 MG TABLET PO SCH (09:00)
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
== END 2023-10-14 13:09 | disposition home or self-care (01) | DRG 178 ==
LOC: ED 11:16 → SUATTDRO 17:00 → INTOOBSV 17:00 → EDINP 17:00 → 3E 18:12

== ENCOUNTER 2023-10-17 23:15 | Inpatient (IN) ==
--- OUTSIDE RECORDS SUMMARY | 2023-10-17 23:21 | External Medical Summary | Summary of Care ---
Author Name Unknown Organization [facility] Address [address] [place] [address] Phone [phone] Care Team Providers Care Tank Crewmember Name Role Phone Tina Fletcher Primary Care Provide r Encounter Details Date Type Department Care Team (Late st Contact Info) Description 10/12/2023 Orders Only Hematology Oncology [facility] [address] [place] [address] Car Sanchez MD [address] [place] [address] Neuroendocrine cancer (HCC)* Allergies Active Allergy Reactions Criticality Noted Date Comments Aspirin Nausea/vomiting 10/18/2002 Penicillins Nausea/vomiting 10/18/2002 documented as of this encounter (statuses as of 10/12/2023) Medications Medication Sig Dispensed Refills Start Date End Date Status Diphenoxylate-Atrop ine 2.5-0.025 MG Oral Tablet Take 1 Tablet by mouth 4 times a day as needed for Diarrhea. 0 Active LORazepam 1 MG Oral Tablet (Ativan) Take 1 Tablet by mouth daily as needed for Anxiety. 0 Active Ondansetron HCl 4 MG Oral Tablet (Zofran) Take 1 Tablet by mouth every 8 hours as needed for Nausea. 0 Active Ferrous Sulfate 325 (65 Fe) MG Oral Tablet (Feosol) Take 1 Tablet by mouth daily with breakfast. 0 Active Cyanocobalamin 1000 MCG/ML Injection Solution (Cyanocobalamin) Inject 1,000 mcg into a large muscle every 30 days. 0 Active busPIRone HCl 7.5 MG Oral Tablet (Buspar) Take 1 Tablet by mouth in the morning and 1 Tablet at noon and 1 Tablet before bedtime. 0 Active Sertraline HCl 50 MG Oral Tablet (Zoloft) Take 1 Tablet by mouth in the morning. 0 Active Ketoconazole 2 % External Cream Apply topically to affected area daily. Apply to AFFECTED AREA 0 Active Aspirin 81 MG Oral Tablet Chewable Take 1 Tablet by mouth in the morning. 0 Active Probiotic Acidophilus BioBeads Oral Capsule 1 Capsule in the morning and 1 Capsule before bedtime. 0 Active Famotidine 20 MG Oral Tablet (Pepcid) 0 09/08/2022 Active Lisinopril 10 MG Oral Tablet (Prinivil) TAKE ONE TABLET BY MOUTH EVERY DAY 90 Tablet 3 03/22/2023 03/21/2024 Active busPIRone HCl 7.5 MG Oral Tablet (Buspar) TAKE ONE TABLET BY MOUTH THREE TIMES A DAY (dose change) 270 Tablet 3 03/22/2023 03/21/2024 Active Famotidine 20 MG Oral Tablet (Pepcid) TAKE ONE TABLET BY MOUTH TWICE A DAY FOR STOMACH PAIN 180 Tablet 3 03/17/2023 03/16/2024 Active Polyethylene Glycol 3350 17 GM Oral Packet (Miralax) MIX ONE PACKET (17 GRAMS) DIRECTED AND TAKE ONCE DAILY 30 Each 0 10/16/2022 10/16/2023 Active Sertraline HCl 50 MG Oral Tablet (Zoloft) TAKE ONE AND ONE-HALF TABLETS BY MOUTH EVERY DAY. (75 MG DAILY) 135 Tablet 3 06/18/2022 Active Sertraline HCl 50 MG Oral Tablet (Zoloft) take 1.5 tablets (75 mg total ) orally daily 135 Tablet 3 06/22/2023 Active oxyCODONE HCl 5 MG Oral Tablet (Oxy IR) TAKE 1 TABLET BY MOUTH EVERY 8 HOURS NEEDED FOR SEVERE PAIN (SCALE 7-10) 0 04/22/2023 Active traMADol HCl 50 MG Oral Tablet (Ultram) Q8H 0 04/23/2023 Active Cephalexin 500 MG Oral Capsule (Keflex) 1 Capsule. 0 02/23/2023 Active Acetaminophen 325 MG Oral Tablet (Tylenol) 2 Tablets. 0 04/22/2023 Active documented as of this encounter (statuses as of 10/12/2023) Active Problems Problem Noted Date Diagnosed Date Partial small bowel obstruction 07/03/2022 History of malignant neuroendocrine tumor 2021 Postmenopausal HRT (hormone replacement therapy) 01/18/2017 Overview: Discuss at upcoming annual exam. Obesity, morbid (more than 1 00 lbs over ideal weight or BMI > 40) 03/18/2010 Overview: Per Obesity Protocol, #19 ICD-10 update of inactive term HTN, goal below 140/90 08/21/2009 Overview: Modified per HTN protocol #16. documented as of this encounter (statuses as of 10/12/2023) Resolved Problems Problem Noted Date Diagnosed Date Resolved Date HYPERTENSION NOS 08/22/2009 Overview: Modified per HTN protocol #16. documented as of this encounter (statuses as of 10/12/2023) Social History Tobacco Use Types Packs/Day Years Used Date Smoking Tobacco: Never Smokeless Tobacco: Never Alcohol Use Standard Drinks/Week Comments Yes 0 (1 standard drink = 0.6 oz pur e alcohol) rarely AUDIT-C Answer Date Recorded Frequency of Alcohol Consumption Never 02/14/2019 Average Number of Drinks Not on file 019 Frequency of Binge Drinking Not on file 02/01 Sex and Gender Information Value Date Recorded Sex Assigned at Not on file Gender Identity Not on file Sexual Orientation Not on file Job Start Date Occupation Industry Not on file Not on file Not on file documented as of this encounter Functional Status Functional Status Response Date of Assess ment Are you deaf or do you have serious difficulty h earing? No 07/02/2022 Are you blind or do you have serious difficulty seeing, even when wearing glasses? No 07/02/2022 Do you have serious difficul ty walking or climbing stairs? (5 years old or older) No 07/03/2022 Do you have difficulty dress ing or bathing? (5 years old or older) No 07/02/2022 Because of a physical, menta l, or emotional condition, do you have difficulty doing errands alone such as visiting a doctor s office or shopping? (15 years old or older) No 07/02/20 Cognitive Status Response Date of Assessm ent Because of a physical, menta l, or emotional condition, do you have serious difficulty concentrating, remembering, or making decisions? (5 years old or older) No 07/02/2022 documented as of this encounter Plan of Treatment Upcoming Encounters Date Type Department Care Team (Late st Contact Info) Description 10/13/2023 11:30 AM EST Office Visit Hematology Oncology [facility] [address] [place] [address] Car Sanchez MD [address] [place] [address] 01/06/2024 12:00 PM EDT Appointment PET CT IMAGING, [place] [address] [place] [address] 01/20/2024 10:00 AM EDT Office Visit Hematology Oncology [facility] [address] [place] [address] Car Sanchez MD [address] [place] [address] Scheduled Orders Name Type Priority Associated Diagnoses Orde r Schedule CHROMOGRANIN A Lab STAT Neuroendocrine cancer (HCC) Expected: 10/12/2023, Expires: 10/12/2024 LD Lab STAT Neuroendocrine cancer (HCC) Expected: 10/12/2023, Expires: 10/12/2024 Health Maintenance Due Date Last Done Comments COVID-19 Vaccine (#1) 03/07/1956 Depression Screening 1968 Albumin/Creatinine Ratio 1974 Hepatitis C Screening 1974 DTaP,Tdap,and Td Vaccines (1 - Tdap) 1975 Cologuard 2001 Sigmoidoscopy 2001 Lipid Panel 03/13/2005 03/13/2000 Zoster Vaccines (1 of 2) 2006 Mammogram 03/25/2007 03/25/2006, 03/24/2005 Fecal Occult Blood Test 09/18/2009 09/18/2008 Colonoscopy 10/15/2018 10/15/2008 Colorectal Cancer Screening 10/15/2018 DXA Scan 2021 Meningitis B Vaccine (Bexsero/Trumemba) (3 of 4 - Increased Risk Bexsero 2-dose series) 06/11/2022 06/11/2021, 04/14/2021 Influenza Vaccine (FLU shot) (#1) 2023 GFR 07/02/2024 07/02/2023, 12/02, 11/04/2022, Additional history exists MENINGOCOCCAL (MENACTRA/MENVEO) (3 - Risk 2-dose series) 06/11/2026 06/11/2021, 04/14/2021, 04/14/2021 Diabetes Screening 07/02/2026 07/02/2023, 0 12/14/2022, 11/04/2022, Additional history exists Pneumococcal Vaccine: 65+ Years Completed 07/19/2023, 06/18/2022, 06/11/2021, Additional history exists GARDASIL-HPV IMMUNIZATION SERIES Aged Out No longer eligible based on patient's age to complete this topic Hepatitis B Aged Out No longer eligi ble based on patient's age to complete this topic documented as of this encounter Medical Devices Not on filedocumented as of this encounter Visit Diagnoses Diagnosis Neuroendocrine cancer (HCC)- Primary Malignant poorly differentiated neuroendocrine carcinoma, any site documented in this encounter Advance Directives Latest Code Status on File Code Status Date Activated Date Inactivated Comments Full Code 07/02/2022 7:03 PM 07/04/2022 5:52 PM This order reflects the patients wishes and were consensually agreed upon. Question Answer Comments Discussion of Advance Directives occurred with: Patient Does the patient have a Living Will? No Does the patient have Health Care Power of Instrument Setter? No Care Teams Tank Crewmember Relationship Specialty Start Date End Date Tina Fletcher CRNP [address] [place] [id number] PCP - General Nurse Practitioner 02/08/18 documented as of this encounter
[2023-10-17] MEDS ORDERED: FAMOTIDINE 20MG IV PUSH 20 MG/5 ML SYR IV STA (23:42)
[2023-10-17] MEDS ORDERED: ONDANSETRON INJ 2 MG/ML 2 ML VIAL IV STA (23:42)
[2023-10-17] MEDS ORDERED: ACETAMINOPHEN 1,000 MG/100 ML VIAL IV STA (23:42)
[2023-10-17] MEDS ORDERED: SODIUM CHLORIDE 0.9% 1,000 ML IV STA (23:42)
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
[2023-10-18 01:05] LABS: Appearance Urine Clear (Clear); Bilirubin Urine Negative (Negative); Blood Urine Negative (Negative); Color Urine Yellow; Glucose Urine UA Negative (Negative); Ketones Urine 1+ (Negative); Leukocyte Esterase Urine Negative (Negative); Nitrite Urine Negative (Negative); Protein Urine Negative (Negative); Specific Gravity Urine 1.013 (1.000-1.030); Urobilinogen Urine Negative (Negative); pH Urine 7.5 (4.5-7.5)
[2023-10-18 01:15] LABS: Basophils # (auto) 0.13 K/uL (0.00-0.20); Eosinophils # (auto) 0.03 K/uL (0.00-0.50); Eosinophils % (auto) 0.2 %; Hematocrit (blood only) 37.7 % (37.0-47.0); Hemoglobin 12.2 g/dl (12.0-16.0); Immature Granulocytes # (auto) 0.07 K/uL (0.01-0.20); Immature Granulocytes % (auto) 0.5 %; Lymphocytes # (auto) 1.84 K/uL (1.20-3.40); Lymphocytes % (auto) 13.7 %; Mean Corpuscular Hgb Conc 32.4 g/dL (32.0-36.0); Mean Corpuscular Volume 92.9 fL (80.0-100.0); Mean Platelet Volume 10.5 fL (9.4-12.4); Monocytes # (auto) 0.73 K/uL (0.11-0.59); Monocytes % (auto) 5.4 %; Neutrophils # (auto) 10.67 K/uL (1.40-6.50); Neutrophils % (auto) 79.2 %; Platelet Count 618 K/uL (130-400); RDW Coefficient of Variation 15.4 % (11.5-14.5); RDW Standard Deviation 52.8 fL (36.4-46.3); Red Blood Count 4.06 M/uL (4.20-5.40); White Blood Count 13.47 K/ul (4.8-10.8)
[2023-10-18 01:25] LABS: Alanine Aminotransferase 11 U/L (7-52); Albumin Globulin Ratio 1.2 (0.9-2); Albumin Level 3.7 gm/dl (3.4-5.0); Alkaline Phosphatase 64 U/L (34-104); Anion Gap 7 (3-11); Aspartate Aminotransferase 16 U/L (13-39); BUN Creatinine Ratio 18.5 (10-20); Bilirubin,Total 0.6 mg/dl (0.2-1.0); Blood Urea Nitrogen 10 mg/dl (6-23); Calcium 8.6 mg/dl (8.6-10.3); Carbon Dioxide 28 mmol/L (21-32); Chloride 106 mmol/L (98-107); Est GFR (African American) 113.2 ml/min; Est GFR (Non-African American) 97.6 ml/min; Glucose 132 mg/dl (70-99(Fasting)); Lipase 10 U/L (11-82); Potassium 3.8 mmol/L (3.5-5.1); Sodium 141 mmol/L (136-145); Total Protein 6.7 gm/dl (6.0-8.3)
[2023-10-18 01:32] LABS: Troponin I High Sensitivity 10.6 pg/ml (0-14)
--- NOTE | 2023-10-18 04:16 | CT Scan Report ---
Exam(s): CT ABDOMEN + PELVIS Without Contrast EXAM: CT Abdomen and Pelvis Without Intravenous Contrast CLINICAL HISTORY: Reason for exam: mid abd pain. TECHNIQUE: Axial computed tomography images of the abdomen and pelvis without intravenous contrast. CTDI is 56.23 mGy and DLP is 2357.14 mGy-cm. Automated exposure control was utilized for the study. A dose lowering technique was utilized adhering to the principles of ALARA. COMPARISON: 09/29/2023 FINDINGS: Lung bases: Unremarkable. No mass. No consolidation. ABDOMEN: Liver: Unremarkable. Gallbladder and bile ducts: There is a 2.5 cm mass within the small bowel mesentery which is stable when compared to prior exam. Postoperative changes prior cholecystectomy. No ductal dilation. Pancreas: Unremarkable. No ductal dilation. Spleen: Unremarkable. No splenomegaly. Adrenals: Unremarkable. No mass. Kidneys and ureters: Unremarkable. No obstructing stones. No hydronephrosis. Stomach and bowel: Unremarkable. No obstruction. No mucosal thickening. PELVIS: Appendix: No findings to suggest acute appendicitis. Bladder: Unremarkable. No stones. Reproductive: uterus is surgically absent. ABDOMEN and PELVIS: Intraperitoneal space: Unremarkable. No free air. No significant fluid collection. Bones/joints: No acute fracture. No dislocation. Soft tissues: Unremarkable. Vasculature: Unremarkable. No abdominal aortic aneurysm. Lymph nodes: Unremarkable. No enlarged lymph nodes. IMPRESSION: 2.5 cm mass within the mid abdomen stable compared to prior exam. Findings may represent a conglomeration of lymph nodes versus underlying mass. Electronically signed by: Wilner Mcintyre MD 10/18/23 04:15 AM
--- NOTE | 2023-10-18 04:17 | Emergency Department Note ---
ED Visit Note The patient was seen and examined with gabi. I agree with the history, physical and findings. Please see the note for disposition and details. .
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
[2023-10-18] MEDS ORDERED: oxyCODONE HCL IR 5 MG TAB (IMMEDIATE RELEASE) PO PRN (05:47)
[2023-10-18] MEDS ORDERED: MoRPHine SULFATE 2 MG/ML CARP IV PRN (05:47)
[2023-10-18] MEDS: LACTATED RINGER'S 1,000 ML IV SCH ×3 (05:54→21:06)
[2023-10-18] MEDS: ACETAMINOPHEN 325 MG TAB PO PRN ×3 (05:59→21:09)
[2023-10-18] MEDS: ONDANSETRON INJ 2 MG/ML 2 ML VIAL IV PRN ×2 (06:03→12:55)
--- NOTE | 2023-10-18 08:13 | Communication Note ---
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 Brewer. Had HERMINIO diagnosed 10/10. Recently admitted, sertraline was initiated and amlodipine added for BP control. Was followed by Dr. Gee, last seen in clinic this fall and there was discussion about starting Lutathera but she deferred for the time being. She has been seen at [facility] for her NET and they did not recommend any intervention at this time because tumor was unchanged on abdominal MRI. She is planning on following up at [facility] tertiary care opinion for her tumor, has appt in November. She did get her scheduled monthly dose of octreotide on Wednesday Came to ED with worsening abdominal pain. Abrupt onset severe abdominal pain with nausea and vomiting. Noncontrast CT was unremarkable, 2.5 cm mass in small bowel mesentery. She is known to have hepatic and pulmonary mets. WBC 13, exam was benign, symptoms improved. No pain this morning but abdomen feels unsettled. Had clear liquids lunchtime and RN reports she had nausea, gave antiemetic. On my exam she's alert Ox4 appears comfortable. Abd s/nt/nd, +BT, no rrg. Says she is passing flatus and has been having stools. A/P: Episode of severe abdominal pain with vomiting, sounds like episodic recurrence of the same. 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 Recently these episodes may be escalating. 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 She may have functional stricture and/or intermittent partial SBO related to her tumor/lymph node mass -clear liquid diet for today -ordered SBFT study - per radiology scheduled for tomorrow 8am -continue IV PPI. Had gastritis in past -consider gastroenterology consult depending on above results ([facility]) -oxycodone and IV morphine PRN pain, ondansetron PRN nausea -IV fluids Hypertension- resumed lisinopril and amlodipine Depression with anxiety- Continue sertraline 100 mg daily Continue buspirone 7.5 mg p.o. 3 times daily Increase lorazepam from 0.5 mg p.o. twice daily to 4 times daily as needed AM BMP CMP
[2023-10-18] MEDS: ENOXAPARIN INJ 40 MG/0.4 ML SYR SQ SCH (08:46)
[2023-10-18] MEDS: amLODIPine BESYLATE 5 MG TAB PO SCH ×2 (08:46→20:25)
[2023-10-18] MEDS: busPIRone 7.5 MG TAB PO SCH ×3 (08:46→20:25)
[2023-10-18] MEDS ORDERED: FAMOTIDINE 20 MG in SYRINGE 3 ML IV SCH (09:00)
--- NOTE | 2023-10-18 09:59 | Electrocardiogram Report ---
Test Reason : Blood Pressure : / mmHG Vent. Rate : 093 BPM Atrial Rate : 093 BPM P-R Int : 202 ms QRS Dur : 080 ms QT Int : 352 ms P-R-T Axes : 050 020 033 degrees QTc Int : 437 ms Normal sinus rhythm Normal ECG When compared with ECG of 10-OCT-2023 11:45, Criteria for Anterior infarct are no longer Present Confirmed by Jam Carranza ([id number]) on 10/18/2023 9:59:10 AM Referred By: REFERRED SELF Confirmed By:Jam Carranza
[2023-10-18] MEDS: PANTOprazole 40 MG in SYRINGE 0 ML IV SCH (12:04)
[2023-10-18] MEDS: lisinopril 10 MG TAB PO SCH (20:27)
[2023-10-19] MEDS: LACTATED RINGER'S 1,000 ML IV SCH ×2 (04:44→14:01)
[2023-10-19 06:25] LABS: Basophils # (auto) 0.12 K/uL (0.00-0.20); Basophils % (auto) 1.2 %; Eosinophils # (auto) 0.24 K/uL (0.00-0.50); Eosinophils % (auto) 2.5 %; Hematocrit (blood only) 34.9 % (37.0-47.0); Hemoglobin 11.2 g/dl (12.0-16.0); Immature Granulocytes # (auto) 0.03 K/uL (0.01-0.20); Immature Granulocytes % (auto) 0.3 %; Lymphocytes % (auto) 27.7 %; Mean Corpuscular Hgb Conc 32.1 g/dL (32.0-36.0); Mean Corpuscular Volume 93.6 fL (80.0-100.0); Mean Platelet Volume 10.6 fL (9.4-12.4); Monocytes # (auto) 1.17 K/uL (0.11-0.59); Neutrophils # (auto) 5.47 K/uL (1.40-6.50); Neutrophils % (auto) 56.3 %; Platelet Count 506 K/uL (130-400); RDW Coefficient of Variation 15.5 % (11.5-14.5); RDW Standard Deviation 53.2 fL (36.4-46.3); Red Blood Count 3.73 M/uL (4.20-5.40); White Blood Count 9.73 K/ul (4.8-10.8)
[2023-10-19 06:30] LABS: Albumin Globulin Ratio 1.2 (0.9-2); Bilirubin,Total 0.7 mg/dl (0.2-1.0); Calcium 8.2 mg/dl (8.6-10.3); Creatinine Clr Calc Pharmacy 108.7 ml/min; Est GFR (African American) 116.1 ml/min; Est GFR (Non-African American) 100.2 ml/min; Globulin 2.5 gm/dl (2.5-4.0); Potassium 3.7 mmol/L (3.5-5.1); Total Protein 5.5 gm/dl (6.0-8.3)
[2023-10-19 06:45] LABS: Thyroid Stimulating Hormone 2.369 uIu/ml (0.300-4.500)
[2023-10-19] MEDS: ONDANSETRON INJ 2 MG/ML 2 ML VIAL IV PRN (08:42)
--- NOTE | 2023-10-19 09:09 | Fluoroscopy Report ---
FL KUB CLINICAL HISTORY: eval for stricture or partial SBO. met [facility] TECHNIQUE: 1 view of the abdomen was obtained. Comparison: Comparison is made to abdomen radiograph 10/15/2022 FINDINGS: Cholecystomy clips are seen in the right upper quadrant. Degenerative changes are seen in the visuali zed skeleton. The bowel gas pattern is nonobstructive. Small stool burden is seen. Of note, this was initially ordered as a small bowel follow-through, however patient was unable to ingest contrast. IMPRESSION: Nonobstructive bowel gas pattern. ACT 112: Negative or not required by law. Electronically signed by: Salvador Virgen M.D. 10/19/2023 9:07 AM
[2023-10-19] MEDS: ENOXAPARIN INJ 40 MG/0.4 ML SYR SQ SCH (09:19)
[2023-10-19] MEDS: ASPIRIN 81 MG ECTAB PO SCH (09:20)
[2023-10-19] MEDS: SERTRALINE HCL 100 MG TABLET PO SCH (09:20)
[2023-10-19] MEDS: amLODIPine BESYLATE 5 MG TAB PO SCH ×2 (09:20→19:52)
[2023-10-19] MEDS: busPIRone 7.5 MG TAB PO SCH ×3 (09:20→19:53)
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
[2023-10-19] MEDS: PANTOprazole 40 MG in SYRINGE 0 ML IV SCH (11:35)
--- NOTE | 2023-10-19 12:58 | Hospitalist Progress Note ---
Date of Service October 19, 2023 Assessment & Plan (1) Abdominal pain: Plan: Possibly due to PSBO from adhesions now resolved? Versus pain from advancing carcinoid tumor of the abdomen or gastritis? No melena or hematemesis. With N/V, and LLQ and left flank pain similar to previous episode for which she was hospitalized last week CT A/P with 2.5 cm mass in the small bowel mesentery stable compared to prior, postcholecystectomy, absent spleen, s/p hysterectomy. No obstruction Of note CT abdomen/pelvis on 10/01/2023 notes the partially calcified central mesenteric mass to measure roughly 4 x 4 x 6 cm KUB on 10/19 no obstruction but unable to complete SBFT Question if this is secondary to octreotide infusion as it occurred 2 days after receiving this? Also takes Lomotil and ferrous gluconate-both can paralyze the bowel-recommend discontinuing Nonetheless, seems to be resolved Advance diet to low fiber at patient's request Continue LR but reduce to 75 MLS per hour Continue pantoprazole 40 mg IV daily Continue Zofran 4 mg IV every 6 hours as needed Continue pain control as needed Follow clinically and discharged home tomorrow if tolerating diet and symptoms remain resolved Appreciate GI consultation-plan for outpatient EGD Appreciate surgery consultation-no need for surgery at this time and recommends follow-up with outpatient oncology at [place] (2) Malignant carcinoid tumor: Plan: Currently undergoing octreotide infusions once monthly Follows with hematology oncology for neuroendocrine tumor 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 Previously treated w/ [place]reotide from [place] and switched to octreotide due to high co-pay and diarrhea. Last blood work evaluation in June 2023 was with elevated chromogranin A, serotonin, and 5 HIAA urine of 8.3. Patient was hesitant to start Lutathera at time of last follow-up Last follow-up for malignant imaging as follows: 10/01/2023 CT of the abdomen and pelvis, no acute findings, stable partially calcified mesenteric mass and stable retroperitoneal lymphadenopathy Pelvis MRI 09/21/2023: No evidence of metastatic disease of the pelvis, mesenteric and retroperitoneal lymphadenopathy and multiple hepatic masses. 29 mm spiculated lesion compatible with primary focus of carcinoid tumor, multiple hepatic lesions compatible with metastasis Has followed with Dr. Brewer radiation oncology is pending follow-up appointment with [place] oncology for initiation of radiation. She has had a second opinion from [place], and had repeat MRI [place] recommended against radiation as they did not feel it would benefit her at this time She will be following up at [facility] as well for further testing/options-appointment rescheduled for November Continues on oxycodone at home as needed for pain (3) Hypertension: Plan: Blood pressure is are normal to elevated -Continue lisinopril, aspirin -On admission, her amlodipine was split into 5 mg p.o. twice daily (4) Depression with anxiety: Plan: Sertraline dose was increased last admission for ongoing major depressive disorder Continue sertraline 100 mg daily Continue buspirone 7.5 mg p.o. 3 times daily Continue lorazepam 0.5 mg p.o. 4 times daily as needed (5) PTSD (post-traumatic stress disorder): Plan: As above (6) COVID-19: Plan: Tested positive on previous admission but no longer requiring isolation Plan DVT prophylaxis Lovenox SQ Disposition-continued stay but possible discharge home tomorrow Admission and Anticipated Discharge Date Admission Date: October 18, 2023 Anticipated date of discharge: 10/20/23 Subjective Patient reports feeling "crappy" but no longer has any abdominal pain or nausea/vomiting. She is tolerating some clear liquids. She was not able to tolerate the entire small bowel follow-through and the test was terminated. She has been moving her bowels just small amounts since admission but is passing flatus. Denies chest pain or shortness of breath. I discussed her care with surgery. Physical Exam Constitutional: WD/WN, vitals as above Neck: trachea midline, no thyromegaly Respiratory: normal respiratory effort, lungs clear to auscultation Cardiovascular: RRR, no murmur, no edema Chest (Breasts): Chest: normal inspection of chest Gastrointestinal (Abdomen): normal bowel sounds, soft, nontender, no hepatosplenomegaly Inspection/Auscultation: + abdomen abnormal to inspection (Multiple surgical incisional scars) Musculoskeletal: Extremities: extremities normal to inspection; no cyanosis and no clubbing Skin: no rashes, warm and dry Neurologic: moves all extremities and awake; no focal motor deficits Psychiatric: A+Ox3, euthymic affect Lymphatic: no lymphedema Results & Data Results & Data Vital Signs (Past 12 Hours) Vital Signs Temp Pulse Resp BP Pulse Ox O2 Del Method 10/19/23 11:34 162/82 H 10/19/23 07:40 Room Air 10/19/23 06:45 36.7 C 73 16 189/92 H 94 Room Air Laboratory Results CBC, CMP reviewed PG Care Time/CCT Total # of Minutes Spent Total Time Spent with Patient: Total time spent is greater than 50% in coordination of care (as documented) at patient's floor/unit and/or counseling patient: Coding Level of Care Code 64967 SUB INP/OBS CARE 3/50MIN Diagnoses Left lower quadrant abdominal pain R10.84 Abdominal location: generalized Malignant carcinoid tumor C7A.00 Hypertension I10 Depression with anxiety F41.8 PTSD (post-traumatic stress disorder) F43.10 COVID-19 U07.1 (1) Abdominal pain Abdominal location: generalized Qualified Code(s): R10.84 - Generalized abdominal pain
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
[2023-10-19] MEDS: LORazepam 0.5 MG TAB PO PRN ×2 (14:06→20:40)
[2023-10-19] MEDS: lisinopril 10 MG TAB PO SCH (19:54)
[2023-10-20] MEDS: LACTATED RINGER'S 1,000 ML IV SCH (02:10)
[2023-10-20 06:17] LABS: Basophils # (auto) 0.09 K/uL (0.00-0.20); Basophils % (auto) 0.9 %; Eosinophils # (auto) 0.24 K/uL (0.00-0.50); Eosinophils % (auto) 2.4 %; Hematocrit (blood only) 34.3 % (37.0-47.0); Hemoglobin 10.9 g/dl (12.0-16.0); Immature Granulocytes # (auto) 0.05 K/uL (0.01-0.20); Immature Granulocytes % (auto) 0.5 %; Lymphocytes # (auto) 2.62 K/uL (1.20-3.40); Lymphocytes % (auto) 26.2 %; Mean Corpuscular Hemoglobin 29.9 pg (25.0-34.0); Mean Corpuscular Hgb Conc 31.8 g/dL (32.0-36.0); Mean Corpuscular Volume 94.2 fL (80.0-100.0); Mean Platelet Volume 10.5 fL (9.4-12.4); Monocytes # (auto) 1.14 K/uL (0.11-0.59); Monocytes % (auto) 11.4 %; Neutrophils # (auto) 5.85 K/uL (1.40-6.50); Neutrophils % (auto) 58.6 %; Platelet Count 481 K/uL (130-400); RDW Coefficient of Variation 15.5 % (11.5-14.5); RDW Standard Deviation 53.8 fL (36.4-46.3); Red Blood Count 3.64 M/uL (4.20-5.40); White Blood Count 9.99 K/ul (4.8-10.8)
[2023-10-20 06:33] LABS: Albumin Globulin Ratio 1.1 (0.9-2); Albumin Level 2.9 gm/dl (3.4-5.0); BUN Creatinine Ratio 12.3 (10-20); Bilirubin,Total 0.7 mg/dl (0.2-1.0); Calcium 8.1 mg/dl (8.6-10.3); Creatinine Clr Calc Pharmacy 95.4 ml/min; Est GFR (African American) 111.2 ml/min; Est GFR (Non-African American) 95.9 ml/min; Globulin 2.6 gm/dl (2.5-4.0); Magnesium 1.7 mg/dl (1.7-2.4); Potassium 3.5 mmol/L (3.5-5.1); Total Protein 5.5 gm/dl (6.0-8.3)
[2023-10-20] MEDS: ENOXAPARIN INJ 40 MG/0.4 ML SYR SQ SCH (08:13)
[2023-10-20] MEDS: amLODIPine BESYLATE 5 MG TAB PO SCH (08:13)
[2023-10-20] MEDS: busPIRone 7.5 MG TAB PO SCH ×2 (08:13→15:28)
[2023-10-20] MEDS: SERTRALINE HCL 100 MG TABLET PO SCH (08:13)
[2023-10-20] MEDS: ASPIRIN 81 MG ECTAB PO SCH (08:13)
[2023-10-20] MEDS: PANTOprazole 40 MG in SYRINGE 0 ML IV SCH (11:55)
--- NOTE | 2023-10-20 14:28 | Discharge Summary ---
Discharge Summary Date of Service October 20, 2023 Notes For Next Care Provider Medication Changes From Visit Discontinue hydrocodone, oxycodone, Lomotil, and iron tablets Admission HPI Per Admitting Provider The patient is a 68-year-old female with a past medical history including malignant neuroendocrine tumor, adult failure to thrive, COVID-19 on admission from 10/10/2023-10/14/2023, functional diarrhea, malignant carcinoid tumor, hypertension, thrombocytosis after splenectomy, depression with anxiety, PTSD, gait disturbance and prediabetes. She presents to the emergency department with recurrence of symptoms. She also had appeared to recover somewhat from the fatigue her COVID-19 infection, however, she appears to develop some recurrent fatigue leading to decreased oral intake as well. Principal Dx & Hospital Course #1 = Principal Diagnosis (1) Abdominal pain: Possibly due to PSBO from adhesions that resolved quickly prior to abdominal imaging? No melena or hematemesis. With N/V, and LLQ and left flank pain similar to previous episode for which she was hospitalized last week CT A/P with 2.5 cm mass in the small bowel mesentery stable compared to prior, postcholecystectomy, absent spleen, s/p hysterectomy. No obstruction Of note CT abdomen/pelvis on 10/01/2023 notes the partially calcified central mesenteric mass to measure roughly 4 x 4 x 6 cm KUB on 10/19 no obstruction but unable to complete SBFT Question if this is secondary to octreotide infusion as it occurred 2 days after receiving this? Also takes Lomotil and ferrous gluconate as wlel as prn oxycodone-these can paralyze the bowel-recommend discontinuing Nonetheless, seems to be resolved Advance diet to low fiber and she is tolerating this without pain, N/V Received IVFs and encourage po intake and ongoing low fiber diet, ambulation after discharge Has not had a colonoscopy in about 12 years--> will be scheduled for outpt EGD and colonoscopy with [facility] Appreciate GI consultation-plan for outpatient EGD/Colonoscopy Appreciate surgery consultation-no need for surgery at this time and recommends follow-up with outpatient oncology at [facility] (2) Malignant carcinoid tumor: Currently undergoing octreotide infusions once monthly Follows with hematology oncology for neuroendocrine tumor 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 Previously treated w/ lanreotide from [facility] and switched to octreotide due to high co-pay and diarrhea. Last blood work evaluation in June 2023 was with elevated chromogranin A, serotonin, and 5 HIAA urine of 8.3. Patient was hesitant to start Lutathera at time of last follow-up Last follow-up for malignant imaging as follows: 10/01/2023 CT of the abdomen and pelvis, no acute findings, stable partially calcified mesenteric mass and stable retroperitoneal lymphadenopathy Pelvis MRI 09/21/2023: No evidence of metastatic disease of the pelvis, mesenteric and retroperitoneal lymphadenopathy and multiple hepatic masses. 29 mm spiculated lesion compatible with primary focus of carcinoid tumor, multiple hepatic lesions compatible with metastasis Has followed with Dr. Brewer radiation oncology is pending follow-up appointment with [facility] oncology for initiation of radiation. She has had a second opinion from [facility], and had repeat MRI [facility] recommended against radiation as they did not feel it would benefit her at this time She will be following up at [facility] as well for further testing/options-appointment rescheduled for November Is not taking oxycodone at home for pain (3) Hypertension: Blood pressure controlled -Continue lisinopril, amlodipine, and aspirin (4) Depression with anxiety: Sertraline dose was increased last admission for ongoing major depressive disorder Continue sertraline 100 mg daily Continue buspirone 7.5 mg p.o. 3 times daily Continue lorazepam 0.5 mg p.o. 4 times daily as needed (5) PTSD (post-traumatic stress disorder): As above (6) COVID-19: Tested positive on previous admission but no longer requiring isolation Plan DVT prophylaxis Lovenox SQ Disposition-dc to home today Discharge Exam Constitutional WD/WN, vitals as above Neck trachea midline, no thyromegaly Respiratory normal respiratory effort, lungs clear to auscultation Cardiovascular RRR, no murmur, no edema Chest (Breasts) Chest: normal inspection of chest Gastrointestinal (Abdomen) normal bowel sounds, soft, nontender, no hepatosplenomegaly Musculoskeletal Extremities: extremities normal to inspection; no cyanosis and no clubbing Skin no rashes, warm and dry Neurologic moves all extremities and awake; no focal motor deficits Psychiatric A+Ox3, euthymic affect Lymphatic no lymphedema Updated Medication List Medication Instructions Recorded Confirmed Type aspirin 81 mg tablet,delayed 81 mg PO DAILY #30 tabs 05/20/21 10/18/23 Rx release ferrous gluconate 225 mg (27 mg 225 mg PO BID #180 tabs 04/08/22 10/18/23 Rx iron) tablet (Fergon) ondansetron 4 mg disintegrating 4 mg PO Q4H PRN Nausea #30 tabs 09/30/22 10/18/23 Rx tablet cyanocobalamin (vitamin B-12) 1,000 mcg IM MONTHLY 10/12/22 10/18/23 History 1,000 mcg/mL injection solution famotidine 20 mg tablet 20 mg PO BID stomach pain #180 tabs 03/18/23 10/18/23 Rx buspirone 7.5 mg tablet 7.5 mg PO TID #270 tabs 03/22/23 10/18/23 Rx diphenoxylate-atropine 2.5 1 tab PO Q8H PRN diarrhea #90 tabs 04/27/23 10/18/23 Rx mg-0.025 mg tablet (Lomotil) acetaminophen 325 mg tablet 650 mg PO Q4H PRN Pain 09/30/23 10/18/23 History lorazepam 0.5 mg tablet 0.5 mg PO BID PRN anxiety #20 tabs 10/01/23 10/18/23 Rx hydrocodone 5 mg-acetaminophen 325 1 - 2 tab PO Q6H PRN Pain 10/10/23 10/18/23 History mg tablet lisinopril 10 mg tablet 10 mg PO QPM 10/10/23 10/18/23 History oxycodone 5 mg tablet 5 mg PO Q4 PRN Pain 10/10/23 10/18/23 History amlodipine 5 mg tablet (Norvasc) 10 mg (2 x 5 mg) PO QAM #30 tabs 10/14/23 10/18/23 Rx sertraline 100 mg tablet 100 mg PO DAILY #30 tabs 10/14/23 10/18/23 Rx Hospital Stay Data Consultations 10/18/23 03:57 ED Decision to Admit Stat 10/19/23 10:15 Consult Gastroenterology Routine Consult General Surgery Routine Diagnostic Imagining Performed 10/17/23 23:43 CT abd pelvis wo con Stat 10/19/23 08:00 FL KUB Routine Pending Results Patient Have Any Pending Studies at Discharge: No Discharge Instructions Given to Patient (Per Discharging Provider) You may have had a temporary partial small bowel blockage that caused your nausea, vomiting, and abdominal pain. This did resolve on its own. You should avoid taking medications that slow down your bowels such as Lomotil, hydrocodone, and oxycodone and also remain on a low fiber diet to keep your bowels functioning properly. The iron tablets you take also can slow down the bowels and you are not currently anemic so this can be stopped. It is important to walk around frequently and drink plenty of fluids. You will be scheduled for an outpatient EGD and colonoscopy to take a look with a camera into your stomach and the first portion of your small intestine as well as your colon (large intestine). The GI doctor's office from [facility] will call you to schedule this. Total Time Total Time Spent Total Time Spent (In Minutes): 35 min Coding Level of Care Code 53314 INP/OBS DISCH >30 MIN Diagnoses Left lower quadrant abdominal pain R10.84 Abdominal location: generalized Malignant carcinoid tumor of small intestine, unspecified location C7A.019 Carcinoid tumor location: small intestine Carcinoid tumor small intestine location: unspecified location Hypertension I10 Depression with anxiety F41.8 PTSD (post-traumatic stress disorder) F43.10 COVID-19 U07.1
== END 2023-10-20 15:42 | disposition home or self-care (01) | DRG 388 ==
LOC: ED 23:15 → 3E 10-18 04:28 → SUATTDRO 10-18 04:28 → 3E 10-18 05:00
DX: C7A.00 Malignant carcinoid tumor of unspecified site; K56.51 Intestinal adhesions [bands], with partial obstruction; Z90.81 Acquired absence of spleen; I10 Essential (primary) hypertension; E34.0 Carcinoid syndrome; M54.9 Dorsalgia, unspecified; U07.1 COVID-19; Z88.2 Allergy status to sulfonamides; Z88.0 Allergy status to penicillin; F32.9 Major depressive disorder, single episode, unspecified; R62.7 Adult failure to thrive; Z88.5 Allergy status to narcotic agent; Z79.82 Long term (current) use of aspirin; F41.9 Anxiety disorder, unspecified; F43.10 Post-traumatic stress disorder, unspecified

== ENCOUNTER 2024-06-05 15:11 | Inpatient (IN) ==
--- NOTE | 2024-06-05 15:23 | Emergency Department Note ---
Impression & Plan Intractable low back pain, Fall from standing, Spinal compression fracture, Acute low back pain ED Provider Note HISTORY OF PRESENT ILLNESS: Patient is a 68-year-old female presenting after a fall from standing. Patient reports she was trying to get her corgi dog into the truck when she lost her footing and fell backwards, landing on her low back and striking the back of her head. She denies loss of consciousness but "I have been in and out of it." She is on a baby aspirin daily. Denies any numbness or tingling or weakness in her extremities. Currently complaining of low back pain. Denies any abdominal pain. Denies any chest pain, shortness of breath or lightheadedness prior to the fall. Patient locates the pain to her lower lumbar spine and the left buttock region. ROS: as above PHYSICAL EXAM: Constitutional: Patient appears in no acute distress. HENT: Head: Normocephalic and atraumatic. Eyes: EOMI, PERRL Mouth/Throat: Mucous membranes moist. Neck: Trachea midline. Neck supple. No midline cervical spine tenderness to palpation. Cervical collar placed on arrival to the ER. Cardiovascular: RRR, No murmurs, rubs or gallops. Intact distal pulses. Pulmonary/Chest: No respiratory distress. Breath sounds clear and equal bilaterally. No wheezes or rales. Abdominal: Abdomen soft, no tenderness, rebound or guarding. Back: No midline spinal tenderness, no paraspinal tenderness, no CVA tenderness. Patient is able to straight leg raise bilaterally. Musculoskeletal: No edema, tenderness or deformity noted. Skin: Warm and dry. No rash, erythema, pallor or cyanosis Psychiatric: Appropriate mood and affect for situation. Neurological: Alert and keenly responsive. CN II-XII grossly intact, moving all extremities equally and fully. MDM: - Vitals signs showed hypertension - History obtained via patient. History as above. - Chronic conditions affecting care: malignant carcinoid tumor; HTN; anemia - Differential diagnoses include, but are not limited to: Intracranial hemorrhage; compression fracture; musculoskeletal pain; UTI - Order placed for continuous cardiac monitoring. At this time, monitor showed rate of 77 bpm with normal sinus rhythm, per my interpretation. - External medical records reviewed. Primary care visit note dated 03/21/2024 was reviewed. Patient was seen for a follow-up appointment for her multiple medical problems. She is also seen for swelling in her bilateral feet and started on a short course of furosemide 20 mg daily. - EKG interpreted by myself showed normal sinus rhythm. Rate 84 bpm. QT 350. No acute ischemic changes. - Laboratory workup interpreted by myself showed leukocytosis (WBC 14.39); normal PT/INR; stable electrolytes other than slight hypocalcemia (Ca 8.5); normal AST/ALT; normal troponin; normal lipase - CXR negative for pneumonia, per my interpretation - CT head wo contrast negative for acute intracranial pathology - CT cervical spine wo contrast negative for acute injury - The patient's cervical collar was removed today. The patient's imaging was reviewed and the CT C-Spine was negative for acute injury. The patient was alert and oriented prior to her exam. On exam, she was non-tender to palpation midline and had full ROM without any neurologic deficits. The patient tolerated this procedure well. - CT lumbar spine wo contrast showed an acute mild inferior endplate compression fracture at L2 without associated retropulsion. - Patient initially given 50 mcg IV fentanyl for pain control. She started vomiting shortly after and was given 4 mg IV Zofran. On reassessment, she is still complaining of back pain. Given a lidocaine patch. - Discussed case with orthopedic spinal surgeon, Dr. Awan, at 19:40. He reports spinal fracture is nonsurgical management, but he can be called as a consult service. - Discussed potential discharge with the patient with pain management. However, the patient still complaining of pain and family at bedside expresses concern about her ability to get around at home. - Discussion was had with case assembler about patient's case and need for admission - Hospitalist, Dr. Bonner, consulted for admission - Patient admitted to [facility]ist service for further evaluation and management. ASSESSMENT AND PLAN: Diagnosis: Fall from standing; acute low back pain; inferior endplate compression fracture; intractable low back pain Plan: Admit Past Med/Surg History Problem List (Updated 06/05/24 @ 19:45 by Stephanie Flores MD) Acute low back pain (Acute) Spinal compression fracture (Acute) Fall from standing (Acute) Intractable low back pain (Acute) Peripheral edema Rash (Acute) Cervical radiculopathy Nausea & vomiting Abdominal pain (Acute) Functional diarrhea Impingement syndrome of both shoulders Murmur Leukocytosis History of malignant neuroendocrine tumor (07/03/22) Pre-diabetes Gait disturbance Bradykinesia Tremor Tendinitis of left rotator cuff Biceps tendinitis PTSD (post-traumatic stress disorder) Depression with anxiety 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 Anemia Hypertension (Chronic) Malignant carcinoid tumor (Acute) dx 04/02/21, followed by Dr Palacio, stage 4 colon cancer; currently only receiving one shot per month to "help it not spread" Bee sting allergy (Chronic) Allergic rhinitis (Chronic) Nocturnal leg cramps Medical History History of recent hospitalization Hx of migraines Anxiety History of COVID-19 Adult failure to thrive Sleep apnea Hypertension Surgical History Hx of colonoscopy Hx of sinus surgery History of 2 sections History of cholecystectomy S/P splenectomy Hx of hysterectomy Family History Mother Myocardial infarction Father No problems noted. Denies family history of Ovarian cancer Prostate cancer Breast cancer Colorectal cancer Social History Smoking Status: Never smoker Second Hand Exposure: No; Do You Dip or Chew Tobacco: No; Hx Alcohol Use: No Hx Substance Use: No (medical card . ) Preferred Language: Khmer Communication Ability: Effective Visual Impairment: Limited Hearing Ability: Normal Social Service Worker Required: No Beliefs That Will Affect Care: None marital status: / Current Living Situation: Family Current Living Situation Comment: Lives at home. 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 How many Children do You have: 3 Feels Safe at Home: Yes Childhood Exposure to Second-Hand Smoke: No Diet: regular caffeine: Yes during the past year weight has: remained stable Dental Care, Regularly: Yes Physical Activity Frequency: Does not Exercise Seatbelt Use: always Sunscreen Use: No Do you think of yourself as: straight/heterosexual Gender Identity: Female Assistive Devices: Denture - Upper and Glasses Allergies Allergies Allergy/AdvReac Type Severity Reaction Status Date / Time Sulfa (Sulfonamide Allergy Severe UNKNOWN Verified 03/23/24 10:52 Antibiotics) Penicillins Allergy Intermediate RASH-HAD Verified 03/23/24 10:52 KEFZOL W/O PROBLEM clindamycin Allergy Unknown CAN'T Verified 03/23/24 10:52 REMEMBER bee venom protein (honey bee) Allergy swelling Verified 03/23/24 10:52 aspirin AdvReac Intermediate PETECHIAE Verified 03/23/24 10:52 morphine AdvReac Mild Nausea Verified 03/23/24 10:52 Home Meds Home Medications Medication Instructions Recorded Confirmed cyanocobalamin (vitamin B-12) 1,000 mcg IM MONTHLY 10/12/22 06/05/24 1,000 mcg/mL injection solution amlodipine 10 mg tablet 10 mg PO QAM 10/28/23 06/05/24 aspirin 81 mg tablet,delayed 81 mg PO QAM 10/28/23 06/05/24 release sertraline 100 mg tablet 100 mg PO QAM 10/28/23 06/05/24 Radiation See Rx Instructions .Route .COMPLEX 06/05/24 06/05/24 Previous Rx's Medication Instructions Recorded lorazepam 0.5 mg tablet 0.5 mg PO BID PRN anxiety #20 tabs 10/01/23 ferrous gluconate 225 mg (27 mg 225 mg PO BID #180 tabs 10/21/23 iron) tablet (Fergon) loperamide 2 mg capsule 2 mg PO DAILY PRN Diarrhea #90 caps 12/20/23 ondansetron 8 mg disintegrating 8 mg PO Q12H PRN nausea and 12/20/23 tablet vomiting #180 tabs pantoprazole 40 mg tablet,delayed 40 mg PO DAILY #90 tabs 12/20/23 release clotrimazole 1 % topical cream 1 applic topical BID 3 weeks #45 03/08/24 grams furosemide 20 mg tablet 20 mg PO DAILY PRN edema #20 tabs 03/23/24 famotidine 20 mg tablet 20 mg PO DAILY stomach pain #180 04/04/24 tabs buspirone 7.5 mg tablet 7.5 mg PO TID #270 tabs 04/18/24 lisinopril 10 mg tablet 10 mg PO QPM #90 tabs 05/18/24 Results & Data (ED) Vital Signs Vital Signs - 24 hr 06/05/24 15:46 06/05/24 15:46 06/05/24 15:46 Temperature 36.8 C 36.8 C Temperature Source Oral Oral Pulse Rate 83 83 Pulse Rate [Apical] 83 Respiratory Rate 19 19 19 Blood Pressure 169/126 H Blood Pressure [Right Arm] 169/126 H Blood Pressure Mean 140 Blood Pressure Mean [Right Arm] 140 Pulse Oximetry 94 94 94 Oxygen Delivery Method Room Air Room Air Room Air Sepsis Recent Fever Within 48 Hours No Sepsis New/Unexplained Change in Mental Status N/A Sepsis Action Taken by Nursing No Action Required 06/05/24 15:51 06/05/24 19:10 06/05/24 19:36 Temperature Temperature Source Pulse Rate 78 Pulse Rate [Apical] 83 77 Respiratory Rate 20 19 Blood Pressure Blood Pressure [Right Arm] 168/102 H 162/92 H Blood Pressure Mean Blood Pressure Mean [Right Arm] 124 115 Pulse Oximetry 94 91 Oxygen Delivery Method Room Air Room Air Sepsis Recent Fever Within 48 Hours Sepsis New/Unexplained Change in Mental Status Sepsis Action Taken by Nursing 06/05/24 19:44 Temperature Temperature Source Pulse Rate 81 Pulse Rate [Apical] Respiratory Rate Blood Pressure Blood Pressure [Right Arm] Blood Pressure Mean Blood Pressure Mean [Right Arm] Pulse Oximetry Oxygen Delivery Method Sepsis Recent Fever Within 48 Hours Sepsis New/Unexplained Change in Mental Status Sepsis Action Taken by Nursing Laboratory Data 06/05/24 16:41 06/05/24 16:41 Lab Results 06/05/24 Range/Units 16:41 WBC 14.39 H (4.8-10.8) K/ul RBC 4.23 (4.20-5.40) M/uL Hgb 13.5 (12.0-16.0) g/dl Hct 39.9 (37.0-47.0) % MCV 94.3 (80.0-100.0) fL MCH 31.9 (25.0-34.0) pg MCHC 33.8 (32.0-36.0) g/dL RDW Std Deviation 52.8 H (36.4-46.3) fL RDW Coeff of Denilson 15.4 H (11.5-14.5) % Plt Count 334 (130-400) K/uL MPV 10.1 (9.4-12.4) fL Immature Gran % (Auto) 0.6 % Neut % (Auto) 85.3 % Lymph % (Auto) 5.6 % [place] % (Auto) 7.7 % Eos % (Auto) 0.4 % Baso % (Auto) 0.4 % Neut # (Auto) 12.28 H (1.40-6.50) K/uL Lymph # (Auto) 0.80 L (1.20-3.40) K/uL [place] # (Auto) 1.11 H (0.11-0.59) K/uL Eos # (Auto) 0.06 (0.00-0.50) K/uL Baso # (Auto) 0.06 (0.00-0.20) K/uL Immature Gran # (Auto) 0.08 (0.01-0.20) K/uL PT 9.8 (9.0-12.0) Seconds INR 0.9 (0.9-1.1) Sodium 143 (136-145) mmol/L Potassium 3.7 (3.5-5.1) mmol/L Chloride 108 H (98-107) mmol/L Carbon Dioxide 27 (21-32) mmol/L Anion Gap 8 (3-11) BUN 15 (6-23) mg/dl Creatinine 0.66 (0.6-1.2) mg/dl Est Cr Clr Drug Dosing 82.6 ml/min Est GFR ( Amer) 105.9 ml/min Est GFR (Non-Af Amer) 91.4 ml/min BUN/Creatinine Ratio 22.7 H (10-20) Glucose 122 H (70-99(Fasting)) mg/dl Calcium 8.5 L (8.6-10.3) mg/dl Total Bilirubin 0.6 (0.2-1.0) mg/dl AST 19 (13-39) U/L ALT 17 (7-52) U/L Alkaline Phosphatase 60 (34-104) U/L Troponin I High Sens 7.4 (0-14) pg/ml Total Protein 6.3 (6.0-8.3) gm/dl Albumin 3.7 (3.4-5.0) gm/dl Globulin 2.6 (2.5-4.0) gm/dl Albumin/Globulin Ratio 1.4 (0.9-2) Lipase 17 (11-82) U/L Administered Medications Discontinued Medications Fentanyl Citrate (Fentanyl Citrate Pf 100 Mcg/2 Ml Vial) 50 mcg IV NOW STA Stop: 06/05/24 18:00 Last Admin: 06/05/24 18:24 Dose: 50 mcg Documented By: PEGGY Lidocaine (Lidocaine 5% 1 Patch) 1 patch TD NOW STA Stop: 06/05/24 19:19 Last Admin: 06/05/24 19:27 Dose: 1 patch Documented By: SALO Ondansetron HCl (Ondansetron Inj 2 Mg/Ml 2 Ml Vial) 4 mg IV NOW STA Stop: 06/05/24 19:01 Last Admin: 06/05/24 19:05 Dose: 4 mg Documented By: SALO Imaging Data Radiologist's Impression: Cervical Spine CT 06/05/24 15:[address] DOSE: 2631.83 mGy.cm HISTORY: fall from standing TECHNIQUE: Multiaxial CT images of the cervical spine were performed and reformatted in the sagittal and coronal plane without the use of contrast. A dose lowering technique was utilized adhering to the principles of ALARA. COMPARISON: Cervical spine CT 04/19/2023. FINDINGS: No fractures. No subluxation. Prevertebral soft tissues and the C1-C2 interval are intact. No pneumothorax. Right paratracheal lymphadenopathy is partially visualized on this study. This this has slightly progressed. Old left- sided rib fractures are again noted. IMPRESSION: 1. No fractures within the cervical spine. 2. Slight progression of the patient's known right paratracheal lymphadenopathy. ACT 112: Negative or not required by law. Electronically signed by: Asad Ramos M.D. 06/05/2024 6:[address] 06/05/24 15:[address] DOSE: HISTORY: fall from standing; on ASA TECHNIQUE: Multiaxial CT images of the head were performed without the use of intravenous contrast. Automated exposure control was utilized for this study. A dose lowering technique was utilized adhering to the principles of ALARA. Comparison: Head CT 10/10/2023. Findings: The paranasal sinuses and mastoid air cells are clear. The calvarium and skull base are intact. There is no mass, hematoma, midline shift, acute infarct. White matter hypodensity is nonspecific but suggestive of microvascular ischemic change. The ventricles and sulci demonstrate mild age-related involutional changes. Impression: No significant change compared to the prior study. No acute intracranial abnormality. ACT 112: Negative or not required by law. Electronically signed by: Asad Ramos M.D. 06/05/2024 6:[address] 06/05/24 15:[address] DOSE: HISTORY: low pack pain s/p fall TECHNIQUE: Multiaxial CT images of the lumbar spine were performed and reformatted in the sagittal and coronal plane without the use of contrast. A dose lowering technique was utilized adhering to the principles of ALARA. COMPARISON: Lumbar spine CT 04/02/2021. Abdomen and pelvis CT 02/23/2024. FINDINGS: The central mesenteric partially calcified mass and retrocrural lymphadenopathy is again noted consistent the patient's known metastatic disease. Paravertebral soft tissues are unremarkable. No high-grade central canal stenosis by CT technique. There is an acute mild inferior endplate compression fracture at L2 demonstrating less than 10% loss of height. No associated retropulsion. No additional fractures within the lumbar spine. Grade 1 anterolisthesis of L5 and S1, unchanged. The visualized sacrum is intact. Mild disc space narrowing at L4-5 and moderate disc space narrowing at L5-S1. IMPRESSION: 1. An acute mild inferior endplate compression fracture at L2. No associated retropulsion. 2. Patient's known metastatic disease within the abdomen is redemonstrated. ACT 112: Negative or not required by law. Electronically signed by: Asad Ramos M.D. 06/05/2024 6:45 PM Discharge Plan Visit Data Chief Complaint: Fall Stated Complaint: FALL ED Provider: Stephanie Flores Discharge Problem: Intractable low back pain, Fall from standing, Spinal compression fracture, Acute low back pain Forms Stand Alone Forms: [facility] [employer] Prescriptions Prescriptions: No Action lorazepam 0.5 mg tablet 0.5 mg PO BID PRN (Reason: anxiety) Qty: 20 0RF Fergon 225 mg (27 mg iron) tablet 225 mg PO BID Qty: 180 3RF Hold Instructions: hold until hears from Oncology. Rx Instructions: Pt said she can not stop this med- It is for her cancer- Checking w/ oncology. clotrimazole 1 % cream 1 applic topical BID 21 Days Qty: 45 1RF famotidine 20 mg tablet 20 mg PO DAILY Qty: 180 3RF Rx Instructions: at bedtime buspirone 7.5 mg tablet 7.5 mg PO TID Qty: 270 3RF lisinopril 10 mg tablet 10 mg PO QPM Qty: 90 3RF ondansetron 8 mg tablet,disintegrating 8 mg PO Q12H PRN (Reason: nausea and vomiting) Qty: 180 3RF loperamide 2 mg capsule 2 mg PO DAILY PRN (Reason: Diarrhea) Qty: 90 3RF pantoprazole 40 mg tablet,delayed release (DR/EC) 40 mg PO DAILY Qty: 90 3RF furosemide 20 mg tablet 20 mg PO DAILY PRN (Reason: edema) Qty: 20 2RF cyanocobalamin (vitamin B-12) 1,000 mcg/mL solution 1,000 mcg IM MONTHLY sertraline 100 mg tablet 100 mg PO QAM aspirin 81 mg tablet,delayed release (DR/EC) 81 mg PO QAM amlodipine 10 mg tablet 10 mg PO QAM Radiation See Rx Instructions .ROUTE .COMPLEX Rx Instructions: every 8 weeks Referrals Referrals: Tina Fletcher CRNP [Primary Care Provider] -
[2024-06-05 16:57] LABS: Basophils # (auto) 0.06 K/uL (0.00-0.20); Basophils % (auto) 0.4 %; Eosinophils # (auto) 0.06 K/uL (0.00-0.50); Eosinophils % (auto) 0.4 %; Hematocrit (blood only) 39.9 % (37.0-47.0); Hemoglobin 13.5 g/dl (12.0-16.0); Immature Granulocytes # (auto) 0.08 K/uL (0.01-0.20); Immature Granulocytes % (auto) 0.6 %; Lymphocytes % (auto) 5.6 %; Mean Corpuscular Hemoglobin 31.9 pg (25.0-34.0); Mean Corpuscular Hgb Conc 33.8 g/dL (32.0-36.0); Mean Corpuscular Volume 94.3 fL (80.0-100.0); Mean Platelet Volume 10.1 fL (9.4-12.4); Monocytes # (auto) 1.11 K/uL (0.11-0.59); Monocytes % (auto) 7.7 %; Neutrophils # (auto) 12.28 K/uL (1.40-6.50); Neutrophils % (auto) 85.3 %; Platelet Count 334 K/uL (130-400); RDW Coefficient of Variation 15.4 % (11.5-14.5); RDW Standard Deviation 52.8 fL (36.4-46.3); Red Blood Count 4.23 M/uL (4.20-5.40); White Blood Count 14.39 K/ul (4.8-10.8)
[2024-06-05 17:12] LABS: Albumin Globulin Ratio 1.4 (0.9-2); Albumin Level 3.7 gm/dl (3.4-5.0); BUN Creatinine Ratio 22.7 (10-20); Bilirubin,Total 0.6 mg/dl (0.2-1.0); Calcium 8.5 mg/dl (8.6-10.3); Creatinine Clr Calc Pharmacy 82.6 ml/min; Est GFR (African American) 105.9 ml/min; Est GFR (Non-African American) 91.4 ml/min; Globulin 2.6 gm/dl (2.5-4.0); Potassium 3.7 mmol/L (3.5-5.1); Total Protein 6.3 gm/dl (6.0-8.3)
[2024-06-05 17:18] LABS: Troponin I High Sensitivity 7.4 pg/ml (0-14)
[2024-06-05 17:26] LABS: INR 0.9 (0.9-1.1); Prothrombin Time 9.8 Seconds (9.0-12.0)
[2024-06-05] MEDS: fentaNYL citrate PF 100 MCG/2 ML VIAL IV STA (18:24)
--- NOTE | 2024-06-05 18:39 | CT Scan Report ---
HEAD CT NONCONTRAST CT DOSE: HISTORY: fall from standing; on ASA TECHNIQUE: Multiaxial CT images of the head were performed without the use of intravenous contrast. A utomated exposure control was utilized for this study. A dose lowering technique was utilized adheri ng to the principles of ALARA. Comparison: Head CT 10/10/2023. Findings: The paranasal sinuses and mastoid air cells are clear. The calvarium and skull base are int act. There is no mass, hematoma, midline shift, acute infarct. White matter hypodensity is nonspecifi c but suggestive of microvascular ischemic change. The ventricles and sulci demonstrate mild age-rela danita involutional changes. Impression: No significant change compared to the prior study. No acute intracranial abnormality. ACT 112: Negative or not required by law. Electronically signed by: Asad Ramos M.D. 06/05/2024 6:37 PM
--- NOTE | 2024-06-05 18:43 | CT Scan Report ---
CERVICAL SPINE CT CT DOSE: 2631.83 mGy.cm HISTORY: fall from standing TECHNIQUE: Multiaxial CT images of the cervical spine were performed and reformatted in the sagittal and coronal plane without the use of contrast. A dose lowering technique was utilized adhering to th e principles of ALARA. COMPARISON: Cervical spine CT 04/19/2023. FINDINGS: No fractures. No subluxation. Prevertebral soft tissues and the C1-C2 interval are intact. No pneumothorax. Right paratracheal lymphadenopathy is partially visualized on this study. This this has slightly progressed. Old left-sided rib fractures are again noted. IMPRESSION: 1. No fractures within the cervical spine. 2. Slight progression of the patient's known right paratracheal lymphadenopathy. ACT 112: Negative or not required by law. Electronically signed by: Asad Ramos M.D. 06/05/2024 6:40 PM
--- NOTE | 2024-06-05 18:47 | CT Scan Report ---
LUMBAR SPINE CT CT DOSE: HISTORY: low pack pain s/p fall TECHNIQUE: Multiaxial CT images of the lumbar spine were performed and reformatted in the sagittal an d coronal plane without the use of contrast. A dose lowering technique was utilized adhering to the principles of ALARA. COMPARISON: Lumbar spine CT 04/02/2021. Abdomen and pelvis CT 02/23/2024. FINDINGS: The central mesenteric partially calcified mass and retrocrural lymphadenopathy is again no danita consistent the patient's known metastatic disease. Paravertebral soft tissues are unremarkable. N o high-grade central canal stenosis by CT technique. There is an acute mild inferior endplate jg donte fracture at L2 demonstrating less than 10% loss of height. No associated retropulsion. No additi onal fractures within the lumbar spine. Grade 1 anterolisthesis of L5 and S1, unchanged. The visualiz ed sacrum is intact. Mild disc space narrowing at L4-5 and moderate disc space narrowing at L5-S1. IMPRESSION: 1. An acute mild inferior endplate compression fracture at L2. No associated retropulsion. 2. Patient's known metastatic disease within the abdomen is redemonstrated. ACT 112: Negative or not required by law. Electronically signed by: Asad Ramos M.D. 06/05/2024 6:45 PM
[2024-06-05] MEDS: ONDANSETRON INJ 2 MG/ML 2 ML VIAL IV STA (19:05)
[2024-06-05] MEDS: LIDOCAINE 5% 1 PATCH TD STA (19:27)
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
[2024-06-05] MEDS: ACETAMINOPHEN 500 MG TAB PO STA (22:49)
[2024-06-05] MEDS: busPIRone 7.5 MG TAB PO SCH (22:49)
[2024-06-05] MEDS: lisinopril 10 MG TAB PO SCH (22:49)
[2024-06-06] MEDS: ACETAMINOPHEN 325 MG TAB PO SCH (03:28)
--- NOTE | 2024-06-06 03:53 | Billing Data ---
Date of Service June 05, 2024 Coding Level of Care Code 02334 INT INP/OBS CARE
[2024-06-06] MEDS: ENOXAPARIN INJ 40 MG/0.4 ML SYR SQ SCH (05:43)
[2024-06-06 06:32] LABS: Basophils # (auto) 0.03 K/uL (0.00-0.20); Basophils % (auto) 0.4 %; Eosinophils # (auto) 0.11 K/uL (0.00-0.50); Eosinophils % (auto) 1.3 %; Hematocrit (blood only) 33.1 % (37.0-47.0); Hemoglobin 11.2 g/dl (12.0-16.0); Immature Granulocytes # (auto) 0.04 K/uL (0.01-0.20); Immature Granulocytes % (auto) 0.5 %; Lymphocytes # (auto) 0.87 K/uL (1.20-3.40); Lymphocytes % (auto) 10.2 %; Mean Corpuscular Hemoglobin 31.5 pg (25.0-34.0); Mean Corpuscular Hgb Conc 33.8 g/dL (32.0-36.0); Mean Platelet Volume 10.4 fL (9.4-12.4); Monocytes # (auto) 0.74 K/uL (0.11-0.59); Monocytes % (auto) 8.7 %; Neutrophils # (auto) 6.74 K/uL (1.40-6.50); Neutrophils % (auto) 78.9 %; Platelet Count 301 K/uL (130-400); RDW Coefficient of Variation 15.4 % (11.5-14.5); RDW Standard Deviation 52.9 fL (36.4-46.3); Red Blood Count 3.56 M/uL (4.20-5.40); White Blood Count 8.53 K/ul (4.8-10.8)
[2024-06-06 06:46] LABS: Albumin Globulin Ratio 1.5 (0.9-2); Albumin Level 3.1 gm/dl (3.4-5.0); BUN Creatinine Ratio 19.4 (10-20); Bilirubin,Total 0.7 mg/dl (0.2-1.0); Creatinine Clr Calc Pharmacy 87.3 ml/min; Est GFR (African American) 108.1 ml/min; Est GFR (Non-African American) 93.3 ml/min; Globulin 2.1 gm/dl (2.5-4.0); Magnesium 1.8 mg/dl (1.7-2.4); Potassium 4.2 mmol/L (3.5-5.1); Total Protein 5.2 gm/dl (6.0-8.3)
--- NOTE | 2024-06-06 07:02 | XRay Report ---
XR chest 1V portable HISTORY: 68 years-old Female fall from standing acute chest trauma status post fall COMPARISON: Chest radiograph 10/10/2023, chest CT 04/19/2023 TECHNIQUE: AP view of the chest. FINDINGS: There are low lung volumes. No pneumothorax. No pleural effusions. Prior cholecystectomy. The heart i s normal in size. No focal lung consolidations to suggest a pneumonia. No evidence for pulmonary fide a. Old, healed left-sided rib fractures again noted. The mediastinal/right paratracheal lymphadenopat hy remains unchanged. A dominant right paratracheal lymph node measures 3 cm. IMPRESSION: 1. No acute process of the chest. 2. Mediastinal lymphadenopathy again noted. This suggests underlying metastatic disease or lymphoma. 3. Chronic left-sided rib fractures. ACT 112: Negative or not required by law. The above report was generated using voice recognition software. It may contain grammatical, syntax o r spelling errors. Electronically signed by: Alex Oquendo M.D. 06/06/2024 7:00 AM
[2024-06-06 07:05] LABS: Prothrombin Time 10.4 Seconds (9.0-12.0)
[2024-06-06] MEDS: PANTOprazole 40 MG TAB PO SCH (08:22)
[2024-06-06] MEDS: SERTRALINE HCL 100 MG TABLET PO SCH (08:22)
[2024-06-06] MEDS: ASPIRIN 81 MG ECTAB PO SCH (08:22)
[2024-06-06] MEDS: amLODIPine BESYLATE 5 MG TAB PO SCH (08:23)
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
[2024-06-06] MEDS: traMADol HCL 50 MG TABLET PO STA (13:41)
[2024-06-06] MEDS: CYCLOBENZAPRINE HCL 10 MG TAB PO STA (13:46)
[2024-06-06] MEDS: LIDOCAINE 5% 1 PATCH TD SCH (14:44)
[2024-06-06] MEDS ORDERED: CYCLOBENZAPRINE HCL 5 MG TAB PO PRN (16:04)
--- NOTE | 2024-06-06 17:58 | Electrocardiogram Report ---
Test Reason : Blood Pressure : */* mmHG Vent. Rate : 84 BPM Atrial Rate : 84 BPM P-R Int : 182 ms QRS Dur : 90 ms QT Int : 350 ms P-R-T Axes : 40 12 31 degrees QTcB Int : 413 ms Normal sinus rhythm Normal ECG When compared with ECG of 17-Oct-2023 23:51, No significant change was found Confirmed by Bryan Engle ([id number]) on 06/06/2024 5:57:50 PM Referred By: Confirmed By: Bryan Engle
[2024-06-06] MEDS: traMADol HCL 50 MG TABLET PO PRN (18:23)
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
[2024-06-07 08:32] LABS: Basophils # (auto) 0.03 K/uL (0.00-0.20); Basophils % (auto) 0.3 %; Eosinophils # (auto) 0.16 K/uL (0.00-0.50); Eosinophils % (auto) 1.9 %; Hematocrit (blood only) 37.8 % (37.0-47.0); Hemoglobin 12.5 g/dl (12.0-16.0); Immature Granulocytes # (auto) 0.04 K/uL (0.01-0.20); Immature Granulocytes % (auto) 0.5 %; Lymphocytes % (auto) 10.4 %; Mean Corpuscular Hemoglobin 31.5 pg (25.0-34.0); Mean Corpuscular Hgb Conc 33.1 g/dL (32.0-36.0); Mean Corpuscular Volume 95.2 fL (80.0-100.0); Mean Platelet Volume 10.2 fL (9.4-12.4); Monocytes % (auto) 8.1 %; Neutrophils # (auto) 6.79 K/uL (1.40-6.50); Neutrophils % (auto) 78.8 %; Platelet Count 308 K/uL (130-400); RDW Coefficient of Variation 15.5 % (11.5-14.5); RDW Standard Deviation 53.6 fL (36.4-46.3); Red Blood Count 3.97 M/uL (4.20-5.40); White Blood Count 8.62 K/ul (4.8-10.8)
[2024-06-07 08:48] LABS: Albumin Globulin Ratio 1.4 (0.9-2); Albumin Level 3.3 gm/dl (3.4-5.0); BUN Creatinine Ratio 20.7 (10-20); Bilirubin,Total 0.6 mg/dl (0.2-1.0); Calcium 8.4 mg/dl (8.6-10.3); Creatinine Clr Calc Pharmacy 93.3 ml/min; Est GFR (African American) 110.5 ml/min; Est GFR (Non-African American) 95.4 ml/min; Globulin 2.3 gm/dl (2.5-4.0); Magnesium 1.8 mg/dl (1.7-2.4); Potassium 4.3 mmol/L (3.5-5.1); Total Protein 5.6 gm/dl (6.0-8.3)
[2024-06-07] MEDS: FAMOTIDINE 20 MG TAB PO SCH (09:38)
[2024-06-07] MEDS ORDERED: oxyCODONE HCL IR 5 MG TAB (IMMEDIATE RELEASE) PO PRN (11:30)
[2024-06-07] MEDS: BACLOFEN 10 MG TAB PO PRN (13:58)
[2024-06-07] MEDS: SENNA 8.6 MG TAB PO SCH (13:58)
[2024-06-07] MEDS: DOCUSATE SODIUM 100 MG CAP PO SCH (13:58)
[2024-06-07 14:14] LABS: Appearance Urine Clear (Clear); Bacteria Urine Automated 4+ (None Seen); Bilirubin Urine Negative (Negative); Blood Urine Negative (Negative); Cast Urine Automated 0-2 /lpf (0-2); Color Urine Yellow; Glucose Urine UA Negative (Negative); Ketones Urine Negative (Negative); Leukocyte Esterase Urine 2+ (Negative); Nitrite Urine Positive (Negative); Protein Urine Negative (Negative); RBC Urine Automated 0-2 /hpf (0-2); Specific Gravity Urine 1.013 (1.000-1.030); Urobilinogen Urine Negative (Negative); WBC Urine Automated 21-50 /hpf (0-5)
--- NOTE | 2024-06-07 16:27 | Communication Note ---
Date of Service: June 07, 2024 WBC wnl but w/ L shift. UA obtained for completeness and does appear w/ possible infection. Given weakness/fatigue and lower back pain will start Ceftriaxone IV. Monitor final urine cx/tailor abx as able. Monitor status w/ treatment.
[2024-06-07] MEDS: cefTRIAXone SODIUM 2,000 MG/50 ML BAG IV SCH (18:22)
--- NOTE | 2024-06-07 21:57 | XRay Report ---
SINGLE VIEW CHEST CLINICAL HISTORY: Hypoxia FINDINGS: An AP, portable, upright chest radiograph is compared to study dated 06/05/2024 and correlate d with chest CT dated 04/19/2023. The heart is top normal for projection. Lobulation along the right m ediastinal border is consistent with lymphadenopathy when correlated with the prior chest CT scan. Th ere is elevation of the right hemidiaphragm noting bibasilar scarring/atelectasis. No airspace consol idation or large pleural effusion is identified. No pneumothorax is seen. The skeletal structures are osteopenic. There are chronic/healed left-sided rib fractures. Cholecystectomy clips are noted in th e right upper quadrant. IMPRESSION: 1. No active disease in the chest. 2. Mediastinal lymphadenopathy is again noted. This was better assessed on prior chest CT scans. ACT 112: Negative or not required by law. Electronically signed by: Mathew Hernandez M.D. 06/07/2024 9:56 PM
[2024-06-08 06:52] LABS: Basophils # (auto) 0.02 K/uL (0.00-0.20); Basophils % (auto) 0.3 %; Eosinophils # (auto) 0.12 K/uL (0.00-0.50); Eosinophils % (auto) 1.7 %; Hemoglobin 11.8 g/dl (12.0-16.0); Immature Granulocytes # (auto) 0.02 K/uL (0.01-0.20); Immature Granulocytes % (auto) 0.3 %; Lymphocytes % (auto) 11.5 %; Mean Corpuscular Hemoglobin 31.8 pg (25.0-34.0); Mean Corpuscular Hgb Conc 33.7 g/dL (32.0-36.0); Mean Corpuscular Volume 94.3 fL (80.0-100.0); Mean Platelet Volume 10.2 fL (9.4-12.4); Monocytes # (auto) 0.71 K/uL (0.11-0.59); Monocytes % (auto) 10.2 %; Neutrophils # (auto) 5.26 K/uL (1.40-6.50); Platelet Count 321 K/uL (130-400); RDW Coefficient of Variation 15.4 % (11.5-14.5); RDW Standard Deviation 53.1 fL (36.4-46.3); Red Blood Count 3.71 M/uL (4.20-5.40); White Blood Count 6.93 K/ul (4.8-10.8)
[2024-06-08 07:19] LABS: Albumin Globulin Ratio 1.4 (0.9-2); Albumin Level 3.3 gm/dl (3.4-5.0); BUN Creatinine Ratio 26.3 (10-20); Bilirubin,Total 0.3 mg/dl (0.2-1.0); Calcium 8.3 mg/dl (8.6-10.3); Est GFR (African American) 111.2 ml/min; Est GFR (Non-African American) 95.9 ml/min; Globulin 2.4 gm/dl (2.5-4.0); Magnesium 1.8 mg/dl (1.7-2.4); Potassium 4.1 mmol/L (3.5-5.1); Total Protein 5.7 gm/dl (6.0-8.3)
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
[2024-06-08] MEDS ORDERED: bisacodyL 10 MG SUPP PR PRN (08:33)
[2024-06-08] MEDS: KETOROLAC TROMETHAMINE 15 MG/ML VIAL IV ONE (11:29)
[2024-06-08] MEDS: CALCITONIN SALMON NA 200 IU/AC 3.7 ML BTL SCH (11:35)
[2024-06-08] MEDS: KETOROLAC TROMETHAMINE 15 MG/ML VIAL IV PRN (21:08)
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
[2024-06-09] MEDS: methylPREDNISolone 40 MG in SYRINGE 0 ML IV ONE (11:07)
[2024-06-09] MEDS: methylPREDNISolone 40 MG in SYRINGE 0 ML IV SCH (18:24)
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
[2024-06-10 10:58] LABS: Hematocrit (blood only) 37.8 % (37.0-47.0); Hemoglobin 12.6 g/dl (12.0-16.0); Mean Corpuscular Hemoglobin 31.3 pg (25.0-34.0); Mean Corpuscular Hgb Conc 33.3 g/dL (32.0-36.0); Mean Platelet Volume 9.9 fL (9.4-12.4); Platelet Count 362 K/uL (130-400); RDW Coefficient of Variation 15.1 % (11.5-14.5); RDW Standard Deviation 52.4 fL (36.4-46.3); Red Blood Count 4.02 M/uL (4.20-5.40); White Blood Count 10.35 K/ul (4.8-10.8)
[2024-06-10 11:16] LABS: BUN Creatinine Ratio 30.6 (10-20); Calcium 8.7 mg/dl (8.6-10.3); Creatinine Clr Calc Pharmacy 87.3 ml/min; Est GFR (African American) 108.1 ml/min; Est GFR (Non-African American) 93.3 ml/min; Magnesium 1.7 mg/dl (1.7-2.4); Potassium 3.7 mmol/L (3.5-5.1)
[2024-06-10] MEDS: predniSONE 20 MG TAB PO SCH (11:29)
[2024-06-10] MEDS: MAGNESIUM OXIDE 400 MG TAB PO SCH (14:17)
[2024-06-10] MEDS: cephALEXin 500 MG CAP PO SCH (14:46)
[2024-06-10] MEDS: LORazepam 0.5 MG TAB PO PRN (20:55)
[2024-06-11 06:49] LABS: BUN Creatinine Ratio 31.3 (10-20); Calcium 8.4 mg/dl (8.6-10.3); Creatinine Clr Calc Pharmacy 84.6 ml/min; Est GFR (Non-African American) 92.3 ml/min; Magnesium 1.8 mg/dl (1.7-2.4); Potassium 4.1 mmol/L (3.5-5.1)
[2024-06-11 07:07] LABS: Estimated Average Glucose 126 mg/dl
[2024-06-11 07:14] VITALS: BP 162/90; PULSE 67; RESP 16; TEMP 98.2; O2SAT 94
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
[2024-06-11] MEDS: IBUPROFEN 600 MG TAB PO SCH (12:49)
[2024-06-11] MEDS: IBUPROFEN 600 MG TAB PO STA (12:50)
--- NOTE | 2024-06-11 13:33 | Discharge Summary ---
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 and would not lift more than gallon of milk/equivalent. Therapy evaluations were undertaken and cleared for return home with recommendations for continuing outpatient physical therapy and have been provided prescription for this to be continued at facility/institution of your choosing. Please follow up with primary care in the next 7-10 days after discharge to monitor your status/check on your pain levels if needing ongoing prescription therapy. I have also sent a message to case management department to work on getting you a follow up appointment with pain management and you should be called tomorrow or Wednesday with appointment time for follow up care/additional recommendations if ongoing pain control issues. Please return to the emergency department with any worsened/uncontrolled pain, fever/chills, increased abdominal pain/inability to pass gas, or for any other symptoms concerning for you. It has been a pleasure being a part of the medical team providing for you while you have been in the hospital. Take care! Supervising Physician Co-Signing Physician Notes The patient was not seen by me. The chart was reviewed. The case was discussed with STEVE Friend. Agree with assessment and plan. Total Time Total Time Spent Total Time Spent (In Minutes): 50 Coding Level of Care Code 40387 INP/OBS DISCH >30 MIN Diagnoses Spinal compression fracture M48.50XA UTI (urinary tract infection) N39.0 Acute low back pain M54.50 Fall from standing W19.XXXA Leukocytosis D72.829 Primary hypertension I10 Hypertension type: primary hypertension Malignant carcinoid tumor of small intestine, unspecified location C7A.019 Carcinoid tumor location: small intestine Carcinoid tumor small intestine location: unspecified location
== END 2024-06-11 15:39 | disposition home or self-care (01) | DRG 552 ==
LOC: 3N 15:11 → ED 15:11 → SUATTDRO 20:14 → 3N 21:26

== ENCOUNTER 2024-08-01 01:24 | Inpatient (IN) ==
[2024-08-01] MEDS: ONDANSETRON INJ 2 MG/ML 2 ML VIAL IV STA ×2 (02:29→04:21)
[2024-08-01] MEDS: HYDROmorphone INJ 0.5 MG/0.5 ML SYR IV STA ×3 (02:30→06:20)
[2024-08-01 03:02] LABS: Basophils # (auto) 0.08 K/uL (0.00-0.20); Basophils % (auto) 0.5 %; Eosinophils # (auto) 0.05 K/uL (0.00-0.50); Eosinophils % (auto) 0.3 %; Hematocrit (blood only) 38.7 % (37.0-47.0); Hemoglobin 12.6 g/dl (12.0-16.0); Immature Granulocytes # (auto) 0.07 K/uL (0.01-0.20); Immature Granulocytes % (auto) 0.5 %; Lymphocytes # (auto) 0.85 K/uL (1.20-3.40); Lymphocytes % (auto) 5.6 %; Mean Corpuscular Hemoglobin 32.1 pg (25.0-34.0); Mean Corpuscular Hgb Conc 32.6 g/dL (32.0-36.0); Mean Corpuscular Volume 98.5 fL (80.0-100.0); Mean Platelet Volume 10.8 fL (9.4-12.4); Monocytes # (auto) 0.93 K/uL (0.11-0.59); Monocytes % (auto) 6.1 %; Neutrophils # (auto) 13.18 K/uL (1.40-6.50); Platelet Count 466 K/uL (130-400); RDW Coefficient of Variation 15.8 % (11.5-14.5); RDW Standard Deviation 57.2 fL (36.4-46.3); Red Blood Count 3.93 M/uL (4.20-5.40); White Blood Count 15.16 K/ul (4.8-10.8)
[2024-08-01 03:05] LABS: Albumin Globulin Ratio 1.4 (0.9-2); Albumin Level 3.8 gm/dl (3.4-5.0); BUN Creatinine Ratio 24.6 (10-20); Bilirubin,Total 0.5 mg/dl (0.2-1.0); Calcium 9.1 mg/dl (8.6-10.3); Creatinine Clr Calc Pharmacy 97.6 ml/min; Globulin 2.8 gm/dl (2.5-4.0); Potassium 4.2 mmol/L (3.5-5.1); Total Protein 6.6 gm/dl (6.0-8.3)
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
[2024-08-01] MEDS: OPTIRAY 320 100ml IV ONE (04:38)
[2024-08-01] MEDS: SODIUM CHLORIDE 0.9% 500 ML IV ONE (04:41)
--- NOTE | 2024-08-01 05:23 | CT Scan Report ---
Exam(s): CT ABDOMEN + PELVIS With Contrast Oral - High Density Amt: 30 ml gastro, IV Amt: 93 ml optiray 320 EXAM: CT Abdomen and Pelvis With Intravenous Contrast CLINICAL HISTORY: Reason for exam: eval for sbo. TECHNIQUE: Axial computed tomography images of the abdomen and pelvis with intravenous contrast. CTDI is 27.4 mGy and DLP is 1295.6 mGy-cm. Automated exposure control was utilized for the study. A dose lowering technique was utilized adhering to the principles of ALARA. CONTRAST: Patient received 30 ml gastro of Oral - High Density and 93 ml optiray 320 of IV contrast COMPARISON: CT Abdomen Pelvis dated july 08 2024 FINDINGS: Lung bases: Unremarkable. No mass. No consolidation. ABDOMEN: Liver: Unremarkable. No mass. Gallbladder and bile ducts: Cholecystectomy changes. The common duct measures up to 1.0 cm which may be due to reservoir effect. Pancreas: Unremarkable. No mass. No ductal dilation. Spleen: Unremarkable. No splenomegaly. Adrenals: Unremarkable. No mass. Kidneys and ureters: Unremarkable. No solid mass. No hydronephrosis. Stomach and bowel: Small bowel obstruction with transition point within the right hemiabdomen. Dilated small bowel loops measure up to 3. 8 cm. Calcified mesenteric mass with spiculated appearance measuring up to 3.2 cm, similar compared to prior study dated July 08, 2024. 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 Please note that no history of neoplasm was provided. This makes it likely that the patient's initial presentation. Recommend further workup. PELVIS: Appendix: No findings to suggest acute appendicitis. Bladder: Unremarkable. No mass. Reproductive: Hysterectomy changes. ABDOMEN and PELVIS: Intraperitoneal space: No evidence of pneumatosis, portal venous gas, or free air. No significant fluid collection. Bones/joints: Degenerative changes in the spine. Unchanged L2 compression fracture. Consider MRI of there is further concern. No dislocation. Soft tissues: Unremarkable. Vasculature: Unremarkable. No abdominal aortic aneurysm. Lymph nodes: Unremarkable. No enlarged lymph nodes. IMPRESSION: 1. Small bowel obstruction with transition point within the right hemiabdomen. Dilated small bowel loops measure up to 3.8 cm. 2. Calcified mesenteric mass with spiculated appearance measuring up to 3.2 cm, similar compared to prior study dated July 08, 2024. 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 Please note that no history of neoplasm was provided. This makes it likely that the patient's initial presentation. Recommend further workup. 3. No evidence of pneumatosis, portal venous gas, or free air. 4. Unchanged L2 compression fracture. Consider MRI of there is further concern. 5. Recommend continued attention on follow-up imaging as dictated per patient's primary malignancy. Electronically signed by: Deep Graf MD 08/01/24 05:22 AM
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
--- OUTSIDE RECORDS SUMMARY | 2024-08-01 05:56 | External Medical Summary | Summary of Care ---
Author Name Unknown Organization [facility] Address [address] [place] [address] Phone [phone] Care Team Providers Care Crayon Sawyer Name Role Phone Tina Fletcher Primary Care Provide r Reason for Visit * Reason Onset Date Comments Imaging Records Request 07/31/2024 Encounter Details Date Type Department Care Team (Late st Contact Info) Description 07/31/2024 Telephone Radiology Film File [address] [place] [address] Support, Imaging Radiology [address] [place] [address] Imaging Records Request Allergies Active Allergy Reactions Criticality Noted Date Comments Aspirin Nausea/vomiting 10/18/2002 Penicillins Nausea/vomiting 10/18/2002 documented as of this encounter (statuses as of 07/31/2024) Medications Medication Sig Dispensed Refills Start Date End Date Status Diphenoxylate-Atropin e 2.5-0.025 MG Oral Tablet Take 1 Tablet by mouth 4 times a day as needed for Diarrhea. Active LORazepam 1 MG Oral Tablet (Ativan) Take 1 Tablet by mouth daily as needed for Anxiety. Active Ondansetron HCl 4 MG Oral Tablet (Zofran) Take 1 Tablet by mouth every 8 hours as needed for Nausea. Active Ferrous Sulfate 325 (65 Fe) MG Oral Tablet (Feosol) Take 1 Tablet by mouth daily with breakfast. Active Cyanocobalamin 1000 MCG/ML Injection Solution (Cyanocobalamin) Inject 1,000 mcg into a large muscle every 30 days. Active busPIRone HCl 7.5 MG Oral Tablet (Buspar) Take 1 Tablet by mouth in the morning and 1 Tablet at noon and 1 Tablet before bedtime. Active Sertraline HCl 50 MG Oral Tablet (Zoloft) Take 1 Tablet by mouth in the morning. Active Ketoconazole 2 % External Cream Apply topically to affected area daily. Apply to AFFECTED AREA Active Aspirin 81 MG Oral Tablet Chewable Take 1 Tablet by mouth in the morning. Active Lisinopril 10 MG Oral Tablet (Prinivil) TAKE ONE TABLET BY MOUTH EVERY DAY 90 Tablet 3 03/22/2023 Active oxyCODONE HCl 5 MG Oral Tablet (Oxy IR) TAKE 1 TABLET BY MOUTH EVERY 8 HOURS NEEDED FOR SEVERE PAIN (SCALE 7-10) 04/22/2023 Active traMADol HCl 50 MG Oral Tablet (Ultram) Q8H 04/23/2023 Acti ve Acetaminophen 325 MG Oral Tablet (Tylenol) 2 Tablets. 04/22/2023 Act fili amLODIPine Besylate 10 MG Oral Tablet (Norvasc) Take one tablet by mouth every day 90 Tablet 3 10/26/2023 Active Sertraline HCl 100 MG Oral Tablet (Zoloft) Take one tablet by mouth every day 90 Tablet 3 10/26/2023 Active Prochlorperazine Maleate 10 MG Oral Tablet (Compazine) take 1 tablet by mouth every 8 hours As Needed for nausea and vomiting 90 Tablet 1 10/26/2023 Active Ondansetron 8 MG Oral Tablet Disintegrating (Zofran) Take 1 tablet by mouth every 12 hours As Needed for nausea and vomiting 180 Tablet 3 12/20/2023 Active Octreotide Acetate 10 MG Intramuscular Kit (SandoSTATIN LAR [place]) Inject 40 mg into a large muscle. 02/04/2024 Active Famotidine 20 MG Oral Tablet (Pepcid) take one tablet by mouth daily at bedtime for stomach pain 180 Tablet 3 04/04/2024 Active Lisinopril 10 MG Oral Tablet (Prinivil) Take 1 Tablet by mouth every evening. 90 Tablet 3 05/18/2024 Active Polyethylene Glycol 3350 17 GM/SCOOP Oral Powder (Miralax) Take 17 g (one full cap to line) by mouth in the morning. Mix as directed on bottle. 238 g 07/11/2024 Active Sennosides 8.6 MG Oral Tablet (Senokot) Take 1 Tablet by mouth in the morning. 7 Tablet 07/11/2024 Active documented as of this encounter (statuses as of 07/31/2024) Active Problems Problem Noted Date Diagnosed Date Carcinoid tumor of intestine 07/08/2024 OSITO (generalized anxiety disorder) 07/08/2024 Gastroesophageal reflux disease without esophagi tis 07/08/2024 Malignant carcinoid tumor 11/10/2023 Metastases to the liver 11/10/2023 Palliative care encounter 11/10/2023 Anorexia 11/10/2023 Loss of weight 11/10/2023 History of malignant neuroendocrine tumor 2021 Postmenopausal HRT (hormone replacement therapy) 01/18/2017 Overview: Discuss at upcoming annual exam. Obesity, morbid (more than 1 00 lbs over ideal weight or BMI > 40) 03/18/2010 Overview: Per Obesity Protocol, #19 ICD-10 update of inactive term Primary hypertension 08/21/2009 Overview: Modified per HTN protocol #16. documented as of this encounter (statuses as of 07/31/2024) Resolved Problems Problem Noted Date Diagnosed Date Resolved Date Colonic stricture 07/08/2024 07/10/2024 Intractable nausea and vomiting 07/08/2024 07/10/2024 Partial small bowel obstruction 07/03/2022 02/01/2024 HYPERTENSION NOS 08/22/2009 Overview: Modified per HTN protocol #16. documented as of this encounter (statuses as of 07/31/2024) Social History Tobacco Use Types Packs/Day Years Used Date Smoking Tobacco: Never Smokeless Tobacco: Never Alcohol Use Standard Drinks/Week Comments Not Currently 0 (1 standard drink = 0.6 oz pur e alcohol) rarely AUDIT-C Answer Date Recorded Frequency of Alcohol Consumption Never 02/14/2019 Average Number of Drinks Not on file 019 Frequency of Binge Drinking Not on file 02/01 Personal Safety Answer Date Recorded Do you feel unsafe or have concerns for your saf ety? No 07/08/2024 Do you have concerns for you r family's safety? (Household - for ages 0-17 years) Not on file 07/08/2024 Utilities Answer Date Recorded Do you have trouble paying y our heating, water, or electric bill? No 07/08/2024 Is your family able to pay t he heat, water, or electric bill? (Household - for ages 0-17 years) Not on file 07/08/2024 Does your family have access to good internet? (Household - for ages 0-17 years) Not on file 07/08/2024 Transportation Needs Answer Date Record ed Do you have trouble getting a ride to medical visits or work? (Adult - for ages 18 years and over) Not on file 07/08/2024 Does your family have a hard time getting a ride to doctors visits? (Household - for ages 0-17 years) Not on file 07/08/2024 Has lack of transportation k ept you from medical appointments, meetings, work, or from getting things needed for daily living? Check all that apply. No 07/08/2024 Do you (or your family) have trouble finding or paying for a ride (transportation)? (Household - for ages 0-17 years) Not on file 07/08/2024 Housing Stability Answer Date Recorded Do you currently live in a s helter or have no steady place to sleep at night? (Adult - for ages 18 years and over) Not on file 07/08/2024 Do you think you are at risk of becoming homeless? (Adult - for ages 18 years and over) Not on file 07/08/2024 Does your family worry about paying for your home or becoming homeless? (Household - for ages 0-17 years) Not on file 1 Are you homeless or worried that you might be in the future? No 07/08/2024 Are you (or your family) sung eless or worried that you might be in the future? (Household - for ages 0-17 years) Not on file Food Insecurity Answer Date Recorded Do you need food for this week? No 07/08/2024 Are you able to get enough f ood for your family? (Household - for ages 0-17 years) Not on file 07/08/2024 Does your family need food t his week? (Household - for ages 0-17 years) Not on file 07/08/2024 Do you always have enough fo od for your family? (Household - for ages 0-17 years) Not on file 07/08/2024 Sex and Gender Information Value Date Recorded Sex Assigned at Not on file Gender Identity Not on file Sexual Orientation Not on file Job Start Date Occupation Industry Not on file Not on file Not on file documented as of this encounter Functional Status Functional Status Response Date of Assess ment Are you deaf or do you have serious difficulty hearing? No 07/08/2024 Are you blind or do you have serious difficulty seeing, even when wearing glasses? No 07/08/2024 Do you have serious difficul ty walking or climbing stairs? (5 years old or older) No 07/08/2024 Do you have difficulty dress ing or bathing? (5 years old or older) No 07/08/2024 Because of a physical, menta l, or emotional condition, do you have difficulty doing errands alone such as visiting a doctor s office or shopping? (15 years old or older) Yes-daughter helps 07/08/20 Cognitive Status Response Date of Assessm ent Because of a physical, menta l, or emotional condition, do you have serious difficulty concentrating, remembering, or making decisions? (5 years old or older) No 07/08/2024 documented as of this encounter Miscellaneous Notes * Telephone Encounter - Karli Blackburn OSA - 07/31/2024 9:36 AM EDT [facility] requesting 07-09-24 CT images be pushed to their system. [place] Authorization to Release on file. Images pushed to [facility] ([employer] account, Job ID: [id number] Associated report(s) not needed. documented in this encounter Plan of Treatment Upcoming Encounters Date Type Department Care Team (Late st Contact Info) Description 11/07/2024 12:30 PM EST Appointment Radiology, [address] [phone] 11/14/2024 12:00 PM EST Appointment PET CT IMAGING, [address] [address] Scheduled Procedures Name Priority Associated Diagnoses Date/Ti me COLONOSCOPY FLEXIBLE PROXIMAL DIAGNOSTIC Recall Abdominal pain ESOPHAGOGASTRODUODENOSCOPY ( EGD), FLEXIBLE, TRANSORAL, DIAGNOSTIC Recall Abdominal pain Health Maintenance Due Date Last Done Comments COVID-19 Vaccine (#1) 1961 Depression Screening 1968 Zoster Vaccines (1 of 2) 1975 Meningitis B Vaccine (Bexsero/Trumemba) (3 of 4 - Increased Risk Bexsero 2-dose series) 06/11/2022 06/11/2021, 04/14/2021 Influenza Vaccine (FLU shot) (#1) 2024 Fecal Occult Blood Test Discontinued 05/14/2022, 09/18 Colonoscopy Discontinued 11/04/2023, 10/2023, 10/15/2008 Colorectal Cancer Screening Discontinued Cologuard Discontinued Sigmoidoscopy Discontinued documented as of this encounter Medical Devices Not on filedocumented as of this encounter Advance Directives * Full Code (Latest Code Status on File) Date Activated Date Inactivated Comments 07/08/2024 5:08 PM 07/11/2024 5:54 PM This order r eflects the patients wishes and were consensually agreed upon. Question Answer Comments Discussion of Advance Directives occurred with: Patient * Full Code Date Activated Date Inactivated Comments 07/02/2022 7:03 PM 07/04/2022 5:52 PM This order r eflects the patients wishes and were consensually agreed upon. Question Answer Comments Discussion of Advance Directives occurred with: Patient Does the patient have a Living Will? No Does the patient have Health Care Power of Attor pérez? No Care Teams Crayon Sawyer Relationship Specialty Start Date End Date Tina Fletcher CRNP [address] [place] [id number] PCP - General Nurse Practitioner 02/08/18 documented as of this encounter
--- OUTSIDE RECORDS SUMMARY | 2024-08-01 05:56 | External Medical Summary | Summary of Care ---
Author Name Unknown Organization [facility] Address [address] [place] [address] Phone [phone] Care Team Providers Care Operations Superintendent Name Role Phone Tina Fletcher Primary Care Provide r Reason for Visit * Reason Onset Date Comments Follow Up 07/28/2024 Encounter Details Date Type Department Care Team (Late st Contact Info) Description 07/28/2024 Telephone Hematology Oncology [facility] [address] [place] [address] Car Sanchez MD [address] [place] [address] Follow Up Allergies Active Allergy Reactions Criticality Noted Date Comments Aspirin Nausea/vomiting 10/18/2002 Penicillins Nausea/vomiting 10/18/2002 documented as of this encounter (statuses as of 07/28/2024) Medications Medication Sig Dispensed Refills Start Date [...] as of this encounter (statuses as of 07/28/2024) Active Problems Problem Noted Date Diagnosed Date [...] as of this encounter (statuses as of 07/28/2024) Resolved Problems Problem Noted Date Diagnosed Date Resolved Date Colonic stricture 07/08/2024 07/10/2024 Intractable nausea and vomiting 07/08/2024 07/10/2024 Partial small bowel obstruction 07/03/2022 02/01/2024 HYPERTENSION NOS 08/22/2009 Overview: Modified per HTN protocol #16. documented as of this encounter (statuses as of 07/28/2024) Social History Tobacco Use Types Packs/Day Years [...] encounter Miscellaneous Notes * Telephone Encounter - Michelle Mcfarland RN - 07/28/2024 11:58 AM EDT Patient has no showed or cancelled last several appointments. Per chart review she is getting her care at [facility] and following with them. Reviewed with Dr Sanchez. I will confirm patient is indeed getting her care there and if she is agreeable, we will discharge her from practice as care in too many locations risks fragmented care. Called and discussed with Hope. She is following with [facility] currently. She is agreeable to be discharged and continue following at [facility] for her neuroendocrine cancer. Encouraged to call and reestablish care here if she would like in the future. She is agreeable. documented in this encounter Plan of Treatment Upcoming Encounters Date Type Department Care Team (Late st Contact Info) Description 11/07/2024 12:30 PM EST Appointment Radiology, [address] [phone] 11/14/2024 12:00 PM EST Appointment PET CT IMAGING, [place] [address] [place] [address] Scheduled Procedures Name Priority Associated Diagnoses Date/Ti [...] Test Discontinued 05/14/2022, 09/18 Colonoscopy Discontinued 11/04/2023, 0210/2023, 10/15/2008 Colorectal Cancer Screening Discontinued Cologuard Discontinued [...] Power of Attor pérez? No Care Teams Operations Superintendent Relationship Specialty Start Date End Date Tina Fletcher CRNP [address] [place] [id number] PCP - General Nurse Practitioner 02/08/18 documented as of this encounter
[2024-08-01] MEDS ORDERED: HYDROmorphone INJ 0.5 MG/0.5 ML SYR IV PRN (06:13)
[2024-08-01] MEDS ORDERED: LORazepam 2 MG/1 ML VIAL IV PRN (06:18)
[2024-08-01] MEDS: LACTATED RINGER'S 1,000 ML IV SCH (06:20)
[2024-08-01] MEDS: FLUCONAZOLE 50 MG TAB PO SCH (06:46)
[2024-08-01] MEDS: busPIRone 7.5 MG TAB PO SCH (08:09)
[2024-08-01] MEDS: ASPIRIN 81 MG ECTAB PO SCH (08:09)
[2024-08-01] MEDS: amLODIPine BESYLATE 5 MG TAB PO SCH (08:09)
[2024-08-01] MEDS: SERTRALINE HCL 100 MG TABLET PO SCH (08:09)
[2024-08-01] MEDS: FAMOTIDINE 20MG IV PUSH 20 MG/5 ML SYR IV SCH (08:09)
[2024-08-01] MEDS: ENOXAPARIN INJ 40 MG/0.4 ML SYR SQ SCH (08:10)
[2024-08-01] MEDS: PANTOprazole 40 MG/10 ML SYR IV SCH (09:02)
[2024-08-01] MEDS: HYDROmorphone INJ 0.5 MG/0.5 ML SYR IV PRN (13:09)
[2024-08-01] MEDS: ACETAMINOPHEN 1,000 MG/100 ML VIAL IV STA (13:21)
--- NOTE | 2024-08-01 17:48 | Hospitalist Progress Note ---
Date of Service August 01, 2024 Assessment & Plan (1) Small bowel obstruction: Plan: - LR at 100mL/hr x 2 L - Zofran PRN - Dilaudid PRN - General surgery recommend conservative management with fluids and NG tube - If the patient does require any procedural or surgical intervention, she may require transfer to a tertiary facility due to the complexity of her underlying malignancy (2) Neuroendocrine tumor: Plan: - patient follows at [facility]. She is receiving Octreotide injection q 4 weeks (last 07/19/24) and Radiation therapy every 8 weeks (last 07/18/24) - Continue to monitor status (3) Anxiety and depression: Plan: -Continue Sertraline -Continue Buspirone -Ativan 0.5mg IV BID PRN (4) GERD (gastroesophageal reflux disease): Plan: -Protonix 40mg IV daily -Pepcid 20mg IV daily (5) Hypertension: Plan: -Continue Amlodipine 10mg po qAM -Continue Lisinopril 10mg p qAM Admission and Anticipated Discharge Date Admission Date: August 01, 2024 Supervising Physician Co-Signing Physician Notes I personally examined the patient and verified whitmore points of history and exam, discussed case, and agree with decision making and plan documented by Dr. Pack. Patient presenting with SBO in setting of mesenteric mass. Evaluated by surgery and recommended to proceed with conservative management. Patient does not want to be transferred if possible. She reported pain at 4/10 with no repeated emesis and +flatus. Currently NPO. Will continue to monitor closely. Jordon Raza is a 68 y/o F with a past medical history of SBO, neuroendocrine tumor on octreotide and radiation therapy and HTN arriving to the hospital due to severe abdominal pain, nausea, and vomiting. This morning patient is seen in the ED and her condition seems to have made mild improvement from when she first arrived. Patient has not had a bowel movement but does report that she is passing gas and that her abdominal pain decreased to a 4/10 with ongoing nausea and less emesis. Patient amenable to admission, and denies fevers, chills, shortness of breath, chest pain, palpitations, or chest tightness. Physical Exam Physical Exam: General: patient resting comfortably, NAD, non-toxic in appearance, answers questions appropriately. Skin: warm, dry, intact HEENT: NC/AT, anicteric sclera, conjunctiva without injection, moist mucus membranes. Heart: +S1/S2, regular, no m/r/g Lungs: equal air entry bilaterally, no rales/rhonchi/wheezes Abd: +BS, soft, NT/ND Ext: warm, no clubbing/cyanosis or edema, Milly's neg. Neuro: nonfocal, speech intact, no facial droop, moving all extremities. Results & Data Results & Data Vital Signs (Past 12 Hours) Vital Signs Temp Pulse Resp BP Pulse Ox O2 Del Method 08/01/24 14:25 36.9 C 69 16 150/81 H 93 Room Air 08/01/24 12:40 36.8 C 82 16 165/91 H 97 Room Air 08/01/24 11:18 36.4 C 68 14 151/82 H 90 Room Air 08/01/24 08:11 78 20 141/77 H 97 Room Air 08/01/24 06:27 36.9 C 90 18 153/93 H 99 Room Air Resident Activity Tracking Resident Involvement: Resident Care Provided Care Provided: Adult Hospital Medicine (4) GERD (gastroesophageal reflux disease) Esophagitis presence: esophagitis presence not specified Qualified Code(s): K21.9 - Gastro-esophageal reflux disease without esophagitis (5) Hypertension Hypertension type: primary hypertension Qualified Code(s): I10 - Essential (primary) hypertension
[2024-08-01] MEDS: lisinopril 10 MG TAB PO SCH (20:05)
[2024-08-01] MEDS: ONDANSETRON INJ 2 MG/ML 2 ML VIAL IV PRN (20:05)
[2024-08-02] MEDS: ACETAMINOPHEN 1,000 MG/100 ML VIAL IV PRN (01:01)
[2024-08-02 08:54] LABS: Hematocrit (blood only) 35.8 % (37.0-47.0); Hemoglobin 11.9 g/dl (12.0-16.0); Mean Corpuscular Hemoglobin 32.2 pg (25.0-34.0); Mean Corpuscular Hgb Conc 33.2 g/dL (32.0-36.0); Mean Corpuscular Volume 96.8 fL (80.0-100.0); Mean Platelet Volume 10.3 fL (9.4-12.4); Platelet Count 396 K/uL (130-400); RDW Coefficient of Variation 15.5 % (11.5-14.5); RDW Standard Deviation 55.5 fL (36.4-46.3); White Blood Count 5.48 K/ul (4.8-10.8)
[2024-08-02 09:03] LABS: Calcium 8.4 mg/dl (8.6-10.3); Creatinine Clr Calc Pharmacy 97.6 ml/min; Potassium 4.1 mmol/L (3.5-5.1)
--- NOTE | 2024-08-02 10:46 | Surgery Progress Note ---
<Statement entered by Christiano Billings DO - 08/02/24 12:30> I have seen and examined this patient this a.m. with the surgical team and I agree with the plan Date of Service August 02, 2024 Assessment & Plan (1) Small bowel obstruction: Plan: Patient here with concern for SBO. History of stage 4 neuroendocrine cancer with h/o chemo/radiation WBC 5 (15). vitals are stable Abdominal pain improved and she is starting to have + bowel function, however despite nausea this AM Encouraging that she is starting to have bowel function and some improvement in her symptoms Would continue NPO with sips/chips for now. If nausea resolves we can consider starting patient on clears this evening KUB ordered for evaluation Admission and Anticipated Discharge Date Admission Date: August 01, 2024 Subjective Patient reports her abdominal pain is improved and feels better overall. She is passing some gas and a BM is documented. Pain is improved, but she does report ongoing nausea this AM which is not her baseline. Physical Exam Physical Exam: awake/alert, no distress Gastrointestinal (Abdomen): Percussion/Palpation: abdomen soft; abdomen nontender Results & Data Vital Signs (Past 12 Hours) Vital Signs Temp Pulse Resp BP Pulse Ox O2 Del Method 08/02/24 07:13 98.1 F 68 18 139/77 94 Room Air PG Care Time/CCT Total # of Minutes Spent Total Time Spent with Patient: Total time spent is greater than 50% in coordination of care (as documented) at patient's floor/unit and/or counseling patient: Coding Level of Care Code 44798 SUB INP/OBS CARE 10/28MIN Diagnoses Small bowel obstruction K56.609
[2024-08-02] MEDS: BACITRACIN OINT 14 GM TUBE EXT SCH (10:48)
--- NOTE | 2024-08-02 16:37 | Hospitalist Progress Note ---
Date of Service August 02, 2024 Assessment & Plan (1) Small bowel obstruction: Plan: - LR at 100mL/hr x 2 L - Zofran PRN - Dilaudid PRN - General surgery recommend conservative management with fluids and NG tube - If the patient does require any procedural or surgical intervention, she may require transfer to a tertiary facility due to the complexity of her underlying malignancy - Patient now without abdominal pain, nausea, or emesis, and has had BM - Will advance to clears diet and see how patient tolerates (2) Neuroendocrine tumor: Plan: - patient follows at [facility]. She is receiving Octreotide injection q 4 weeks (last 07/19/24) and Radiation therapy every 8 weeks (last 07/18/24) - Continue to monitor status (3) Anxiety and depression: Plan: -Continue Sertraline -Continue Buspirone -Ativan 0.5mg IV BID PRN (4) GERD (gastroesophageal reflux disease): Plan: -Protonix 40mg IV daily -Pepcid 20mg IV daily (5) Hypertension: Plan: -Continue Amlodipine 10mg po qAM -Continue Lisinopril 10mg p qAM Admission and Anticipated Discharge Date Admission Date: August 01, 2024 Supervising Physician Co-Signing Physician Notes I personally examined the patient and verified whitmore points of history and exam, discussed case, and agree with decision making and plan documented by Dr. Pack. Patient presenting with concern for SBO in setting of mesenteric neuroendocrine mass. Evaluated by surgery and recommended to proceed with conservative management. Patient was ambulatory today, states abdominal pain has improved, had BM and is passing flatus. Abdomen was nontender on exam today, will likely advance diet as tolerated starting with clears this evening. Will approach discussion tomorrow about palliative care consultation to assist patient in management of symptoms going forward. Subjective Patient has 0/10 abdominal pain when seen this morning. She was having some increased nausea early in the morning, but when seen in the afternoon patient endorses that she was able to walk and move around without any nausea and has not had any emesis. Patient has been urinating without issue and has had a BM. Patient requests a diet, and was ordered clears as she is now without nausea, vomiting, or abdominal pain. Patient denies fever, chills, chest pain, palpitations, tightness, SOB, cough, wheeze, headache or incontinence. Physical Exam Physical Exam: General: patient resting comfortably, NAD, non-toxic in appearance, answers questions appropriately. Skin: warm, dry, intact HEENT: NC/AT, anicteric sclera, conjunctiva without injection, moist mucus membranes. Heart: +S1/S2, regular, no m/r/g Lungs: equal air entry bilaterally, no rales/rhonchi/wheezes Abd: +BS, soft, NT/ND Ext: warm, no clubbing/cyanosis or edema, Milly's neg. Neuro: nonfocal, speech intact, no facial droop, moving all extremities. Results & Data Results & Data Vital Signs (Past 12 Hours) Vital Signs Temp Pulse Resp BP Pulse Ox O2 Del Method 08/02/24 15:23 37.2 C 87 19 143/82 H 95 Room Air 08/02/24 07:13 36.7 C 68 18 139/77 94 Room Air Resident Activity Tracking Resident Involvement: Resident Care Provided Care Provided: Adult Hospital Medicine (4) GERD (gastroesophageal reflux disease) Esophagitis presence: esophagitis presence not specified Qualified Code(s): K21.9 - Gastro-esophageal reflux disease without esophagitis (5) Hypertension Hypertension type: primary hypertension Qualified Code(s): I10 - Essential (primary) hypertension
--- NOTE | 2024-08-02 16:51 | XRay Report ---
KUB CLINICAL HISTORY: Generalized abdominal pain. FINDINGS: 3 AP, portable, supine abdominal radiographs are compared to study dated 10/19/2023 and sarah elated with abdominal CT dated 08/01/2024. There are distended gas-filled loops of small bowel consis tent with persistent obstruction. This is likely similar to yesterday's abdominal CT scan. No evidenc e of intraperitoneal free air is identified on these supine images. Enteric contrast has reached the left colon. Cholecystectomy clips are noted in the right upper quadrant. There are no abnormal abdomi nal calcifications. A surgical clip is noted in the right pelvis. The skeletal structures are osteope kacey and appear intact noting moderate lumbosacral spondylosis. IMPRESSION: 1. Distended and gas-filled loops of small bowel indicate persistent obstruction. 2. This is likely partial, as enteric contrast has reached the left colon. Electronically signed by: Mathew Hernandez M.D. 08/02/2024 4:49 PM
[2024-08-02 23:33] VITALS: RESP 16
[2024-08-03] MEDS: FLUCONAZOLE 50 MG TAB PO SCH (08:04)
--- NOTE | 2024-08-03 08:17 | Surgery Progress Note ---
<Statement entered by Christiano Billings DO - 08/03/24 09:38> I have seen and examined this patient this am and I agree with this plan Date of Service August 03, 2024 Assessment & Plan (1) Small bowel obstruction: Plan: advance to full liquids and ALEXIA +bms no abd pain , abd soft non tender SBO likely resolving no n/v general surgery will sign off call with questions /concerns Admission and Anticipated Discharge Date Admission Date: August 01, 2024 Subjective no n/v , having bms no abd pain Review of Systems Gastrointestinal: no abdominal pain, no nausea and no vomiting Physical Exam Gastrointestinal (Abdomen): Inspection/Auscultation: abdomen not distended Percussion/Palpation: abdomen soft; abdomen nontender Results & Data Vital Signs (Past 12 Hours) Vital Signs Temp Pulse Pulse Resp BP Pulse Ox O2 Del Method 08/03/24 07:27 98.2 F 65 16 143/78 H 91 Room Air 08/02/24 23:32 97.9 F 69 16 137/79 92 Room Air PG Care Time/CCT Total # of Minutes Spent Total Time Spent with Patient: Total time spent is greater than 50% in coordination of care (as documented) at patient's floor/unit and/or counseling patient: Coding Level of Care Code 63514 SUB INP/OBS CARE 125MIN Diagnoses Small bowel obstruction K56.609
--- NOTE | 2024-08-03 18:15 | Hospitalist Progress Note ---
Date of Service August 03, 2024 Assessment & Plan (1) Small bowel obstruction: Plan: - LR at 100mL/hr x 2 L - Zofran PRN - Dilaudid PRN - General surgery recommend conservative management with fluids and NG tube - If the patient does require any procedural or surgical intervention, she may require transfer to a tertiary facility due to the complexity of her underlying malignancy - Patient now without abdominal pain, nausea, or emesis, and has had BM - Patient has tolerated clears and advance full liquid diet without issue - Will advance diet to solids for dinner tonight and reassess in the morning (2) Neuroendocrine tumor: Plan: - patient follows at [facility]. She is receiving Octreotide injection q 4 weeks (last 07/19/24) and Radiation therapy every 8 weeks (last 07/18/24) - Continue to monitor status - Plans to f/u outpatient for palliative care assessment for patient neuroendocrine tumor worked up at [facility] (3) Anxiety and depression: Plan: -Continue Sertraline -Continue Buspirone -Ativan 0.5mg IV BID PRN (4) GERD (gastroesophageal reflux disease): Plan: -Protonix 40mg IV daily -Pepcid 20mg IV daily (5) Hypertension: Plan: -Continue Amlodipine 10mg po qAM -Continue Lisinopril 10mg p qAM Admission and Anticipated Discharge Date Admission Date: August 01, 2024 Supervising Physician Co-Signing Physician Notes I personally examined the patient and verified whitmore points of history and exam, discussed case, and agree with decision making and plan documented by Dr. Pack. Patient presenting with concern for SBO in setting of mesenteric neuroendocrine mass. Evaluated by surgery and recommended to proceed with conservative management. Pain has resolved, patient has had BM, she denies nausea or vomiting, and is currently advancing her diet. Patient open to palliative care referral and can schedule outpatient to establish. Subjective Patient seen resting comfortably at bedside in no acute distress and afebrile. Patient diet advanced to full liquid diet this morning, and reports tht she had cream of wheat without issue. Patient explains that she has not had any nausea, vomiting, or abdominal pain today. Patient does endorse that her bowel movements have been more liquid in consistency. Patient denies fevers, chills, SOB cough, wheeze, chest pain, palpitations, or tightness. As patient is rapidly improving will advance diet to solids this evening, and reminded patient to eat slowly and to stop if she feels that she cannot tolerate. Physical Exam Physical Exam: General: patient resting comfortably, NAD, non-toxic in appearance, answers questions appropriately. Skin: warm, dry, intact HEENT: NC/AT, anicteric sclera, conjunctiva without injection, moist mucus membranes. Heart: +S1/S2, regular, no m/r/g Lungs: equal air entry bilaterally, no rales/rhonchi/wheezes Abd: +BS, soft, NT/ND Ext: warm, no clubbing/cyanosis or edema, Milly's neg. Neuro: nonfocal, speech intact, no facial droop, moving all extremities. Results & Data Results & Data Vital Signs (Past 12 Hours) Vital Signs Temp Pulse Pulse Resp BP Pulse Ox O2 Del Method 08/03/24 14:47 37.1 C 85 16 131/76 91 Room Air 08/03/24 08:30 Room Air 08/03/24 07:27 36.8 C 65 16 143/78 H 91 Room Air Resident Activity Tracking Resident Involvement: Resident Care Provided Care Provided: Adult Hospital Medicine (4) GERD (gastroesophageal reflux disease) Esophagitis presence: esophagitis presence not specified Qualified Code(s): K21.9 - Gastro-esophageal reflux disease without esophagitis (5) Hypertension Hypertension type: primary hypertension Qualified Code(s): I10 - Essential (primary) hypertension
[2024-08-04 07:14] VITALS: PULSE 61; TEMP 97.7; O2SAT 93
[2024-08-04 07:52] LABS: Creatinine Clr Calc Pharmacy 88.3 ml/min
--- NOTE | 2024-08-04 13:58 | Discharge Summary ---
Date of Service August 04, 2024 Admission HPI Per Admitting Provider Shasta Raza is a 68yo female with history of SBO, HTN and neuroendocrine tumor on Octreotide q 4 weeks (last on 07/19/24) and radiation therapy q 8 weeks (Brenda- 177 dotatate, Lutathera - last on 07/18/24) presenting with abdominal pain and nausea. Patient's symptoms began 07/31/24 around 18:30. She has mid-abdominal pain as well as nausea. No BM or flatus. No additional complaints at this time. In the ER she is afebrile, mildly hypertensive ER Course: Zofran 4mg IV x 2 doses Dilaudid 0.5mg IV x 3 doses NSS x 500mL LR at 100mL/hr initiated Principal Diagnosis SBO Discharge Exam General: patient resting comfortably, NAD, non-toxic in appearance, answers questions appropriately. Skin: warm, dry, intact HEENT: NC/AT, anicteric sclera, conjunctiva without injection, moist mucus membranes. Heart: +S1/S2, regular, no m/r/g Lungs: equal air entry bilaterally, no rales/rhonchi/wheezes Abd: +BS, soft, NT/ND Ext: warm, no clubbing/cyanosis or edema, Milyl's neg. Neuro: nonfocal, speech intact, no facial droop, moving all extremities. Discharge Data Allergies Allergy/AdvReac Type Severity Reaction Status Date / Time Sulfa (Sulfonamide Allergy Severe UNKNOWN Verified 07/27/24 15:47 Antibiotics) Penicillins Allergy Intermediate RASH-HAD Verified 07/27/24 15:47 KEFZOL W/O PROBLEM clindamycin Allergy Unknown CAN'T Verified 07/27/24 15:47 REMEMBER bee venom protein (honey bee) Allergy swelling Verified 07/27/24 15:47 aspirin AdvReac Intermediate PETECHIAE Verified 07/27/24 15:47 morphine AdvReac Mild Nausea Verified 07/27/24 15:47 Consultations 08/01/24 05:38 ED Decision to Admit Stat Ordered Studies 08/01/24 02:25 CT abd pelvis oral and IV con Stat Laboratory Results WBC 5.48 K/ul (4.8-10.8) 08/02/24 08:14 RBC 3.70 M/uL (4.20-5.40) L 08/02/24 08:14 Hgb 11.9 g/dl (12.0-16.0) L 08/02/24 08:14 Hct 35.8 % (37.0-47.0) L 08/02/24 08:14 MCV 96.8 fL (80.0-100.0) 08/02/24 08:14 MCH 32.2 pg (25.0-34.0) 08/02/24 08:14 MCHC 33.2 g/dL (32.0-36.0) 08/02/24 08:14 RDW Std Deviation 55.5 fL (36.4-46.3) H 08/02/24 08:14 RDW Coeff of Denilson 15.5 % (11.5-14.5) H 08/02/24 08:14 Plt Count 396 K/uL (130-400) 08/02/24 08:14 MPV 10.3 fL (9.4-12.4) 08/02/24 08:14 Immature Gran % (Auto) 0.5 % 08/01/24 01:47 Neut % (Auto) 87.0 % 08/01/24 01:47 Lymph % (Auto) 5.6 % 08/01/24 01:47 [place] % (Auto) 6.1 % 08/01/24 01:47 Eos % (Auto) 0.3 % 08/01/24 01:47 Baso % (Auto) 0.5 % 08/01/24 01:47 Neut # (Auto) 13.18 K/uL (1.40-6.50) H 08/01/24 01:47 Lymph # (Auto) 0.85 K/uL (1.20-3.40) L 08/01/24 01:47 [place] # (Auto) 0.93 K/uL (0.11-0.59) H 08/01/24 01:47 Eos # (Auto) 0.05 K/uL (0.00-0.50) 08/01/24 01:47 Baso # (Auto) 0.08 K/uL (0.00-0.20) 08/01/24 01:47 Immature Gran # (Auto) 0.07 K/uL (0.01-0.20) 08/01/24 01:47 Sodium 142 mmol/L (136-145) 08/02/24 08:14 Potassium 4.1 mmol/L (3.5-5.1) 08/02/24 08:14 Chloride 107 mmol/L (98-107) 08/02/24 08:14 Carbon Dioxide 31 mmol/L (21-32) 08/02/24 08:14 Anion Gap 4 (3-11) 08/02/24 08:14 BUN 8 mg/dl (6-23) 08/02/24 08:14 Creatinine 0.63 mg/dl (0.6-1.2) 08/04/24 06:37 Est Cr Clr Drug Dosing 88.3 ml/min 08/04/24 06:37 eGFR 97.17 08/04/24 06:37 BUN/Creatinine Ratio 14.0 (10-20) 08/02/24 08:14 Glucose 90 mg/dl (70-99(Fasting)) 08/02/24 08:14 Calcium 8.4 mg/dl (8.6-10.3) L 08/02/24 08:14 Magnesium 1.7 mg/dl (1.7-2.4) 08/01/24 06:40 Total Bilirubin 0.5 mg/dl (0.2-1.0) 08/01/24 01:47 AST 15 U/L (13-39) 08/01/24 01:47 ALT 11 U/L (7-52) 08/01/24 01:47 Alkaline Phosphatase 79 U/L (34-104) 08/01/24 01:47 Total Protein 6.6 gm/dl (6.0-8.3) 08/01/24 01:47 Albumin 3.8 gm/dl (3.4-5.0) 08/01/24 01:47 Globulin 2.8 gm/dl (2.5-4.0) 08/01/24 01:47 Albumin/Globulin Ratio 1.4 (0.9-2) 08/01/24 01:47 Lipase 10 U/L (11-82) L 08/01/24 01:47 Impressions Abdomen/Pelvis CT 08/01/24 02:25 Exam(s): CT ABDOMEN + PELVIS With Contrast Oral - High Density Amt: 30 ml gastro, IV Amt: 93 ml optiray 320 EXAM: CT Abdomen and Pelvis With Intravenous Contrast CLINICAL HISTORY: Reason for exam: eval for sbo. TECHNIQUE: Axial computed tomography images of the abdomen and pelvis with intravenous contrast. CTDI is 27.4 mGy and DLP is 1295.6 mGy-cm. Automated exposure control was utilized for the study. A dose lowering technique was utilized adhering to the principles of ALARA. CONTRAST: Patient received 30 ml gastro of Oral - High Density and 93 ml optiray 320 of IV contrast COMPARISON: CT Abdomen Pelvis dated july 08 2024 FINDINGS: Lung bases: Unremarkable. No mass. No consolidation. ABDOMEN: Liver: Unremarkable. No mass. Gallbladder and bile ducts: Cholecystectomy changes. The common duct measures up to 1.0 cm which may be due to reservoir effect. Pancreas: Unremarkable. No mass. No ductal dilation. Spleen: Unremarkable. No splenomegaly. Adrenals: Unremarkable. No mass. Kidneys and ureters: Unremarkable. No solid mass. No hydronephrosis. Stomach and bowel: Small bowel obstruction with transition point within the right hemiabdomen. Dilated small bowel loops measure up to 3. 8 cm. Calcified mesenteric mass with spiculated appearance measuring up to 3.2 cm, similar compared to prior study dated July 08, 2024. 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 Please note that no history of neoplasm was provided. This makes it likely that the patient's initial presentation. Recommend further workup. PELVIS: Appendix: No findings to suggest acute appendicitis. Bladder: Unremarkable. No mass. Reproductive: Hysterectomy changes. ABDOMEN and PELVIS: Intraperitoneal space: No evidence of pneumatosis, portal venous gas, or free air. No significant fluid collection. Bones/joints: Degenerative changes in the spine. Unchanged L2 compression fracture. Consider MRI of there is further concern. No dislocation. Soft tissues: Unremarkable. Vasculature: Unremarkable. No abdominal aortic aneurysm. Lymph nodes: Unremarkable. No enlarged lymph nodes. IMPRESSION: 1. Small bowel obstruction with transition point within the right hemiabdomen. Dilated small bowel loops measure up to 3.8 cm. 2. Calcified mesenteric mass with spiculated appearance measuring up to 3.2 cm, similar compared to prior study dated July 08, 2024. 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 Please note that no history of neoplasm was provided. This makes it likely that the patient's initial presentation. Recommend further workup. 3. No evidence of pneumatosis, portal venous gas, or free air. 4. Unchanged L2 compression fracture. Consider MRI of there is further concern. 5. Recommend continued attention on follow-up imaging as dictated per patient's primary malignancy. Electronically signed by: Deep Graf MD 08/01/24 05:22 AM KUB X-Ray 08/02/24 07:35 KUB CLINICAL HISTORY: Generalized abdominal pain. FINDINGS: 3 AP, portable, supine abdominal radiographs are compared to study dated 10/19/2023 and correlated with abdominal CT dated 08/01/2024. There are distended gas-filled loops of small bowel consistent with persistent obstruction. This is likely similar to yesterday's abdominal CT scan. No evidence of intraperitoneal free air is identified on these supine images. Enteric contrast has reached the left colon. Cholecystectomy clips are noted in the right upper quadrant. There are no abnormal abdominal calcifications. A surgical clip is noted in the right pelvis. The skeletal structures are osteopenic and appear intact noting moderate lumbosacral spondylosis. IMPRESSION: 1. Distended and gas-filled loops of small bowel indicate persistent obstructio n. 2. This is likely partial, as enteric contrast has reached the left colon. Electronically signed by: Mathew Hernandez M.D. 08/02/2024 4:49 PM Hospital Course (1) Small bowel obstruction: - LR at 100mL/hr x 2 L - Zofran PRN - Dilaudid PRN - General surgery recommend conservative management with fluids and NG tube - If the patient does require any procedural or surgical intervention, she may require transfer to a tertiary facility due to the complexity of her underlying malignancy - Patient now without abdominal pain, nausea, or emesis, and has had BM - Patient has tolerated clears and advanced full liquid diet without issue 08/02 - Advanced patient to solid food diet for dinner and breakfast this morning and patient without any GI symptoms 08/04 (2) Neuroendocrine tumor: - patient follows at [facility]. She is receiving Octreotide injection q 4 weeks (last 07/19/24) and Radiation therapy every 8 weeks (last 07/18/24) - Continue to monitor status - Plans to f/u outpatient for palliative care assessment for patient neuroendocrine tumor worked up at [facility] (3) Anxiety and depression: -Continue Sertraline -Continue Buspirone -Ativan 0.5mg IV BID PRN (4) GERD (gastroesophageal reflux disease): -Protonix 40mg IV daily -Pepcid 20mg IV daily (5) Hypertension: -Continue Amlodipine 10mg po qAM -Continue Lisinopril 10mg p qAM Total Time Total Time Spent Total Time Spent (In Minutes): See attending attestation Discharge Plan Discharge Items Patient Disposition: Home - Self-Care Reason For Visit: SBO Discharge Diagnosis: SBO Activity: Per Instructions section Non-emergency contact: Primary Care Provider and Oncologist Call non-emergency contact if: your symptoms worsen and your pain is not controlled Follow-up/Referrals: Tina Fletcher CRNP [Primary Care Provider] - 08/08/24 10:30 am Mandy Briscoe DNP [Nurse Practitioner] - 08/10/24 1:30 pm Diet: Regular Addtl Attending Provider Instructions: You were admitted to the hospital for SBO. You were treated with supportive measures including IV fluids, pain/nausea medications and NPO status while you were obstructed. Your abdominal pain, nausea, and vomiting quickly improved over your hospital stay and we were able to slowly introduce clears, liquids, and then solid food back into your diet. At this time you have not had any additional pain, nausea, vomiting for the past 2 days and have been tolerating solid food without any increased adverse symptoms and are safe for discharge. A discharge summary will be sent to your primary care physician to ensure continuity of care. Please bring this discharge summary with you to your next office appointment so that your provider can review it at that time. Follow-up appointments: Make a follow-up appointment with your PCP within the next week. It is very important that you follow up with them shortly after discharge from the hospital. Medications: Your medication list has been reviewed and reconciled upon discharge to ensure accuracy and continuity of care. An updated list of all your medications is included with your hospital discharge paperwork. Please review this list closely, and make note of any changes. If you have any issues filling these prescriptions, please call [phone] and ask to leave a message for Dr. Sy Pack. Take your medications as instructed; do not skip a dose of your medicines. Make sure all of your doctors know every medicine you are taking (including [id number] medicines, vitamins, and supplements). Call your primary care provider before taking any new medicines (including xjam-cum-pzokmko medicines, vitamins, and supplements), because some of these may interact with your current medications, or may make your symptoms worse. Tell your primary care provider if you cannot afford your medications. CONTACT YOUR PRIMARY CARE PROVIDER if you experience any of the following: Difficulty following your treatment plan, or difficulty taking medications CALL 911 OR GO TO THE EMERGENCY DEPARTMENT if you experience any of the following: Sudden, severe abdominal pain or nausea/vomiting Severe chest pain, or chest pain that radiates (moves) to your jaw or arm Sudden, severe shortness of breath or difficulty breathing Thank you for allowing us to participate in your care. Pending Studies at Discharge: No Stand-Alone Forms: My [facility] [employer], Smoking Cessation Medications and DC Order Prescriptions: Continued diclofenac sodium 75 mg tablet,delayed release (DR/EC) 75 mg PO BID Qty: 60 2RF lorazepam 0.5 mg tablet 0.5 mg PO BID PRN (Reason: anxiety) Qty: 20 0RF Fergon 225 mg (27 mg iron) tablet 225 mg PO BID Qty: 180 3RF Hold Instructions: hold until hears from Oncology. Rx Instructions: Pt said she can not stop this med- It is for her cancer- Checking w/ oncology. clotrimazole 1 % cream 1 applic topical BID 21 Days Qty: 45 1RF famotidine 20 mg tablet 20 mg PO DAILY Qty: 180 3RF Rx Instructions: at bedtime lisinopril 10 mg tablet 10 mg PO QPM Qty: 90 3RF ondansetron 8 mg tablet,disintegrating 8 mg PO Q12H PRN (Reason: nausea and vomiting) Qty: 180 3RF loperamide 2 mg capsule 2 mg PO DAILY PRN (Reason: Diarrhea) Qty: 90 3RF furosemide 20 mg tablet 20 mg PO DAILY PRN (Reason: edema) Qty: 20 2RF sennosides [senna] 8.6 mg tablet 8.6 mg PO DAILY polyethylene glycol 3350 [Miralax] 17 gram/dose powder 17 g PO DAILY Octreotide acetate 40 mg IM Q4WK prochlorperazine maleate [Compazine] 10 mg tablet 10 mg PO Q8H PRN cyanocobalamin (vitamin B-12) 1,000 mcg/mL solution 1,000 mcg IM MONTHLY sertraline 100 mg tablet 100 mg PO QAM aspirin 81 mg tablet,delayed release (DR/EC) 81 mg PO QAM amlodipine 10 mg tablet 10 mg PO QAM Radiation See Rx Instructions .ROUTE .COMPLEX Rx Instructions: every 8 weeks acetaminophen 325 mg Tablet 650 mg PO Q6H Qty: 1 0RF pantoprazole 40 mg tablet,delayed release (DR/EC) 40 mg PO DAILY fluconazole 150 mg tablet 150 mg PO Q3D buspirone 7.5 mg tablet 7.5 mg PO BID Discharge Orders: Discharge Order (Routine); Ordered 08/04/24 Ordered By: Sy Pack Admission Data Admit Date/Time: 08/01/24 05:50 Attending Provider: Bryan Muro Admit Provider: Shavonne Bonner Primary Care Provider: Tina Fletcher Other Providers: Shavonne Bonner Other Interventions: Discharge Summary Assessment (RN) Last Done: 08/04/24 14:52 Supervising Physician Co-Signing Physician Notes Attending attestation Pt seen and examined in concert with Dr. Pack. In agreement with the documented findings as noted in the resident documentation with any exceptions or additions as noted here. No acute complaints at time of evaluation. Tolerated full diet last night and this morning for breakfast. On examination, S1/S2 nl RRR no MCG. CTAB. Abd NT/ND BS+ve Small bowel obstruction in the setting of neuroendocrine tumor - resolution with conservative measures without symptoms at present. Transition to outpatient care with primary team including [facility]. GERD - return to home PPI/H2 regimen, counseling re: prevention of symptoms MDD with anxiety - continue sertraline and buspirone at home dose Else see resident documentation as noted. Total attending physician time spent with this patient's care on the day of discharge: 35 minutes. Resident Activity Tracking Resident Involvement: Resident Care Provided Care Provided: Adult Hospital Medicine
[2024-08-04 14:40] VITALS: BP 122/71
== END 2024-08-04 15:16 | disposition home or self-care (01) | DRG 389 ==
LOC: ED 01:24 → SUATTDRO 05:50 → EDINP 05:50 → 3N 06:13

== ENCOUNTER 2024-09-07 19:07 | Inpatient (IN) ==
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
[2024-09-07] MEDS: ACETAMINOPHEN 500 MG TAB PO STA (19:41)
[2024-09-07] MEDS: MoRPHine SULFATE 4 MG/ML 1 ML CARP\\VIAL IV STA (19:42)
[2024-09-07] MEDS: ONDANSETRON INJ 2 MG/ML 2 ML VIAL IV STA (19:48)
[2024-09-07] MEDS: methylPREDNISolone 125 MG/2 ML VIAL IV STA (19:48)
[2024-09-07 20:50] LABS: Basophils # (auto) 0.01 K/uL (0.00-0.20); Basophils % (auto) 0.1 %; Eosinophils # (auto) 0.07 K/uL (0.00-0.50); Eosinophils % (auto) 0.8 %; Hematocrit (blood only) 35.6 % (37.0-47.0); Hemoglobin 12.1 g/dl (12.0-16.0); Immature Granulocytes % (auto) 1.2 %; Lymphocytes # (auto) 0.84 K/uL (1.20-3.40); Lymphocytes % (auto) 9.9 %; Mean Platelet Volume 9.6 fL (9.4-12.4); Monocytes # (auto) 0.71 K/uL (0.11-0.59); Monocytes % (auto) 8.4 %; Neutrophils # (auto) 6.72 K/uL (1.40-6.50); Neutrophils % (auto) 79.6 %; Platelet Count 269 K/uL (130-400); RDW Coefficient of Variation 15.2 % (11.5-14.5); RDW Standard Deviation 54.3 fL (36.4-46.3); Red Blood Count 3.67 M/uL (4.20-5.40); White Blood Count 8.45 K/ul (4.8-10.8)
[2024-09-07 21:05] LABS: Anion Gap 5 (3-11); BUN Creatinine Ratio 31.3 (10-20); Blood Urea Nitrogen 25 mg/dl (6-23); Calcium 8.2 mg/dl (8.6-10.3); Carbon Dioxide 27 mmol/L (21-32); Chloride 107 mmol/L (98-107); Glucose 99 mg/dl (70-99(Fasting)); Potassium 4.3 mmol/L (3.5-5.1); Sodium 139 mmol/L (136-145)
[2024-09-07] MEDS: fentaNYL citrate PF 100 MCG/2 ML VIAL IV STA (21:43)
--- NOTE | 2024-09-07 22:10 | XRay Report ---
Exam(s): XR L SPINE, 2-3 views EXAM: XR Lumbosacral Spine, 2 or 3 Views CLINICAL HISTORY: Reason for exam: LBP; h/o L2-4 frx's. TECHNIQUE: Frontal and lateral views of the lumbar spine and sacrum. COMPARISON: CT abdomen pelvis 08/01/2024 FINDINGS: Vertebrae: Unchanged compression deformity of the L2 inferior endplate. Anterolisthesis and degenerative disc disease at L5-S1. Osteopenia. Soft tissues: Cholecystectomy clips. Gastrointestinal tract: Mild gaseous distention of the right hemicolon. Moderate stool burden. IMPRESSION: Unchanged compression deformity of the L2 inferior endplate. Electronically signed by: Triston Guthrie MD 09/07/24 22:09 PM
[2024-09-07] MEDS ORDERED: POLYETHYLENE (MIRALAX) 17 GM PACK PO PRN (22:57)
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
--- NOTE | 2024-09-08 01:28 | Billing Data ---
Date of Service September 07, 2024 Coding Level of Care Code 40056 INT INP/OBS CARE
[2024-09-08] MEDS ORDERED: MoRPHine SULFATE 2 MG/ML CARP IV PRN (02:42)
[2024-09-08] MEDS: MoRPHine SULFATE 4 MG/ML 1 ML CARP\\VIAL IV PRN (03:25)
[2024-09-08] MEDS: busPIRone 7.5 MG TAB PO SCH (03:58)
[2024-09-08] MEDS: ONDANSETRON 8MG OD TAB PO PRN (03:58)
[2024-09-08] MEDS: ACETAMINOPHEN 500 MG TAB PO SCH ×2 (05:58→21:00)
[2024-09-08] MEDS: amLODIPine BESYLATE 5 MG TAB PO SCH (08:38)
[2024-09-08] MEDS: ASPIRIN 81 MG ECTAB PO SCH (08:38)
[2024-09-08] MEDS: PANTOprazole 40 MG TAB PO SCH (08:38)
[2024-09-08] MEDS: PROCHLORPERAZINE MALEATE 10 MG TAB PO PRN (08:39)
[2024-09-08] MEDS: SERTRALINE HCL 100 MG TABLET PO SCH (08:39)
[2024-09-08] MEDS: LIDOCAINE 5% 1 PATCH TD SCH (08:40)
[2024-09-08] MEDS: FERROUS GLUCONATE 324 MG TAB PO SCH (08:40)
[2024-09-08] MEDS: SENNA 8.6 MG TAB PO SCH ×2 (08:59→21:03)
--- NOTE | 2024-09-08 09:22 | Hospitalist Progress Note ---
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 #L2 compression fracture with worsening pain Patient was given Solu-Medrol and Toradol in the ED which helped with the pain She is currently on Tylenol 1000 mg p.o. 3 times daily, calcitonin spray, Flexeril as needed and morphine IV as needed and lidocaine patch Awaiting pain management consult Patient has met with palliative care recently and is requesting to speak with them again: Will get palliative care involved PT/OT #Well-differentiated neuroendocrine tumor of the small bowel Patient follows up with [facility] for treatment with oncologist Dr. Michelle Philippe Patient is scheduled for her next radiation treatment at [facility] on 09/22/2024 and her next octreotide injection locally on 09/13/2024 She also follows up with palliative care and is on Ritalin for cancer-related fatigue Palliative care consulted #Essential hypertension Continue amlodipine 10 mg daily plus lisinopril 10 mg daily Monitor vital signs #Anxiety with depression Continue BuSpar, Zoloft plus Ativan as needed #GERD Continue Pepcid and Protonix Avoid NSAIDs if possible given GERD #History of small bowel obstruction #Constipation Start senna plus MiraLAX Monitor bowel regimen and bowel movement specially since patient is on opiates CODE STATUS: Full code DVT prophylaxis: Start heparin 5000 units subcutaneous twice daily Care plan discussed with patient, nursing staff Admission and Anticipated Discharge Date Admission Date: September 07, 2024 Subjective Patient seen and examined H&P reviewed Radiology reviewed Labs reviewed Patient states she lives with her daughter. She usually is independent of ADLs but pain has been a limiting factor at this point. Her last bowel movement was over 2 days ago. She states Toradol helped with the pain. She missed a palliative care appointment yesterday due to the pain and primary care visit and would like to speak with them again today. She denies tobacco use or alcohol use. Patient denies any bladder or bowel dysfunction Patient tells me she is undergoing radiation treatment at [facility] for her liver tumor and has treatment scheduled for September 12, 2024 but has to be in [place] on September 11, 2024 Physical Exam Physical Exam: General: No respiratory distress noted Psych: Awake and alert HEENT: Anicteric sclera, moist oral mucosa CVS: Regular rate and rhythm Lungs: Bilateral air entry, no wheezing noted Abdomen: Soft, nontender, no rebound, no guarding Ext: No lower extremity edema, no calf tenderness Back: Significant tenderness noted at L-spine Neuro: No focal motor deficits noted, able to move all 4 extremities. Results & Data Results & Data Vital Signs (Past 12 Hours) Vital Signs Temp Pulse Pulse Pulse Resp BP BP 09/08/24 07:11 36.6 C 65 18 151/79 H 09/08/24 02:50 09/08/24 02:50 36.6 C 63 16 152/81 H 09/08/24 01:58 36.6 C 55 L 16 152/77 H 09/08/24 01:00 54 L 17 139/75 09/08/24 00:41 57 L 09/07/24 23:00 60 23 153/87 H 09/07/24 21:47 60 21 128/74 Pulse Ox O2 Del Method O2 Flow Rate 09/08/24 07:11 99 Nasal Cannula 2 09/08/24 02:50 Nasal Cannula 2 09/08/24 02:50 96 Nasal Cannula 2 09/08/24 01:58 98 Nasal Cannula 2 09/08/24 01:00 98 Nasal Cannula 2 09/08/24 00:41 09/07/24 23:00 97 Nasal Cannula 2 09/07/24 21:47 90 Room Air Laboratory Results Laboratory Results - last 24 hr 09/07/24 20:37 WBC 8.45 RBC 3.67 L Hgb 12.1 Hct 35.6 L MCV 97.0 MCH 33.0 MCHC 34.0 RDW Std Deviation 54.3 H RDW Coeff of Denilson 15.2 H Plt Count 269 MPV 9.6 Immature Gran % (Auto) 1.2 Neut % (Auto) 79.6 Lymph % (Auto) 9.9 [place] % (Auto) 8.4 Eos % (Auto) 0.8 Baso % (Auto) 0.1 Neut # (Auto) 6.72 H Lymph # (Auto) 0.84 L [place] # (Auto) 0.71 H Eos # (Auto) 0.07 Baso # (Auto) 0.01 Immature Gran # (Auto) 0.10 Sodium 139 Potassium 4.3 Chloride 107 Carbon Dioxide 27 Anion Gap 5 BUN 25 H Creatinine 0.80 Est Cr Clr Drug Dosing Not Reportable eGFR 80.21 BUN/Creatinine Ratio 31.3 H Glucose 99 Calcium 8.2 L Diagnostic Findings Lumbar Spine X-Ray 09/07/24 19:32 Exam(s): XR L SPINE, 2-3 views EXAM: XR Lumbosacral Spine, 2 or 3 Views CLINICAL HISTORY: Reason for exam: LBP; h/o L2-4 frx's. TECHNIQUE: Frontal and lateral views of the lumbar spine and sacrum. COMPARISON: CT abdomen pelvis 08/01/2024 FINDINGS: Vertebrae: Unchanged compression deformity of the L2 inferior endplate. Anterolisthesis and degenerative disc disease at L5-S1. Osteopenia. Soft tissues: Cholecystectomy clips. Gastrointestinal tract: Mild gaseous distention of the right hemicolon. Moderate stool burden. IMPRESSION: Unchanged compression deformity of the L2 inferior endplate. Electronically signed by: Triston Guthrie MD 09/07/24 22:09 PM PG Care Time/CCT Total # of Minutes Spent Total Time Spent with Patient: Total time spent is greater than 50% in coordination of care (as documented) at patient's floor/unit and/or counseling patient: Coding Level of Care Code 97743 SUB INP/OBS CARE 3/50MIN Diagnoses Closed compression fracture of lumbar vertebra S32.020D Encounter type: subsequent encounter Fracture healing: with routine healing Lumbar vertebra fracture level: L2 Ambulatory dysfunction R26.2 Depression with anxiety F41.8 Primary hypertension I10 Hypertension type: primary hypertension Neuroendocrine carcinoma metastatic to multiple sites C7A.8; C7B.8 (1) Closed compression fracture of lumbar vertebra Encounter type: subsequent encounter Fracture healing: with routine healing Lumbar vertebra fracture level: L2 Qualified Code(s): S32.020D - Wedge compression fracture of second lumbar vertebra, subsequent encounter for fracture with routine healing (4) Hypertension Hypertension type: primary hypertension Qualified Code(s): I10 - Essential (primary) hypertension
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
[2024-09-08 10:02] LABS: Calcium 8.6 mg/dl (8.6-10.3); Magnesium 1.9 mg/dl (1.7-2.4)
[2024-09-08 10:07] LABS: BUN Creatinine Ratio 32.4 (10-20); Creatinine Clr Calc Pharmacy 79.1 ml/min
[2024-09-08 10:20] LABS: Potassium 5.2 mmol/L (3.5-5.1)
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
[2024-09-08] MEDS: POLYETHYLENE (MIRALAX) 17 GM PACK PO SCH (12:58)
[2024-09-08] MEDS: CALCITONIN SALMON NA 200 IU/AC 3.7 ML BTL SCH (13:28)
[2024-09-08] MEDS: METHYLPHENIDATE HCL 5 MG TABLET PO SCH (13:28)
[2024-09-08] MEDS: oxyCODONE HCL IR 5 MG TAB (IMMEDIATE RELEASE) PO PRN (14:44)
[2024-09-08] MEDS: MAGNESIUM HYDROXIDE SUSP 30 ML UDC PO ONE (15:36)
[2024-09-08] MEDS: SODIUM ZIRCONIUM CYCLOSILICATE 10 GM PACKET PO SCH (17:07)
[2024-09-08] MEDS: lisinopril 10 MG TAB PO SCH (21:02)
[2024-09-08] MEDS: FAMOTIDINE 20 MG TAB PO SCH (21:02)
[2024-09-08] MEDS: HEPARIN SOD 5,000 UNIT/0.5 ML VIAL SQ SCH (21:07)
[2024-09-08] MEDS: LORazepam 0.5 MG TAB PO PRN (22:07)
[2024-09-09 06:20] LABS: Calcium 8.5 mg/dl (8.6-10.3); Creatinine Clr Calc Pharmacy 61.1 ml/min; Magnesium 2.4 mg/dl (1.7-2.4); Potassium 4.8 mmol/L (3.5-5.1)
[2024-09-09] MEDS ORDERED: ACETAMINOPHEN 500 MG TAB PO SCH (09:00)
--- NOTE | 2024-09-09 10:24 | Hospitalist Progress Note ---
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 #L2 compression fracture with worsening pain Patient was given Solu-Medrol and Toradol in the ED which helped with the pain She is currently on Tylenol 1000 mg p.o. 3 times daily, calcitonin spray, Flexeril as needed and lidocaine patch Pain management saw the patient and are leaving medication management to palliative care Pain management has recommended that she follow-up with Eddie Oakes PA-C from pain management as outpatient to discuss epidural injections versus SI joint injections. As per pain management, typically after compression fracture they wait 6+ months after the injury for an epidural steroid injection to be considered to allow time for compression fracture to heal. As per pain management, they would not recommend any inpatient injections at this point. Pain management is recommended to continue wearing LSO brace with prolonged standing or walking activities. Patient met with palliative care and she was started on oxycodone as needed by palliative care team Awaiting palliative care follow-up OT has recommended rehab on discharge PT consult still pending #Well-differentiated neuroendocrine tumor of the small bowel Patient follows up with [facility] for treatment with oncologist Dr. Michelle Philippe Patient is scheduled for her next radiation treatment at [facility] on 09/22/2024: Patient has called and rescheduled this appointment and her next octreotide injection locally at cancer center on 09/13/2024 She also follows up with palliative care and is on Ritalin for cancer-related fatigue Palliative care following the patient #Essential hypertension Continue amlodipine 10 mg daily plus lisinopril 10 mg daily Monitor vital signs #Anxiety with depression Continue BuSpar, Zoloft plus Ativan as needed #GERD Continue Pepcid and Protonix Avoid NSAIDs if possible given GERD #Prediabetes A1c 6.0 from June 11, 2024 Patient was not aware of having prediabetes Check repeat A1c Diet control #History of small bowel obstruction #Constipation Continue senna plus MiraLAX twice daily Mag citrate x 1 dose Dulcolax suppository CODE STATUS: Full code DVT prophylaxis: Continue heparin 5000 units subcutaneous twice daily Care plan discussed with patient, nursing staff Daughter Esperanza Kendall ([phone]) updated on the phone Admission and Anticipated Discharge Date Admission Date: September 07, 2024 Subjective Patient seen and examined Still complaining of severe low back pain Ambulated with occupational therapy Patient states oxycodone took the edge off and she was able to sleep and it made her drowsy She still has not had a bowel movement today She denies any nausea or vomiting or abdominal pain She has canceled her radiation treatment with [facility] for 09/12/2024 and has rescheduled Physical Exam Physical Exam: General: No respiratory distress noted Psych: Awake and alert HEENT: Anicteric sclera, moist oral mucosa CVS: Regular rate and rhythm Lungs: Bilateral air entry, no wheezing noted Abdomen: Soft, nontender, no rebound, no guarding Ext: No lower extremity edema, no calf tenderness Back: Significant tenderness noted at L-spine Neuro: No focal motor deficits noted, able to move all 4 extremities. Results & Data Results & Data Vital Signs (Past 12 Hours) Vital Signs Temp Pulse Resp BP BP Pulse Ox O2 Del Method 09/09/24 09:50 150/82 H 09/09/24 07:57 36.7 C 70 18 172/78 H 91 Room Air Laboratory Results Laboratory Results - last 24 hr 09/09/24 05:20 Sodium 139 Potassium 4.8 Chloride 102 Carbon Dioxide 32 Anion Gap 5 BUN 22 Creatinine 0.88 Est Cr Clr Drug Dosing 61.1 eGFR 71.54 BUN/Creatinine Ratio 25.0 H Glucose 127 H Calcium 8.5 L Magnesium 2.4 Vitamin B12 320 PG Care Time/CCT Total # of Minutes Spent Total Time Spent with Patient: Total time spent is greater than 50% in coordination of care (as documented) at patient's floor/unit and/or counseling patient: Coding Level of Care Code 58158 SUB INP/OBS CARE 3/50MIN Diagnoses Closed compression fracture of lumbar vertebra S32.020D Encounter type: subsequent encounter Fracture healing: with routine healing Lumbar vertebra fracture level: L2 Ambulatory dysfunction R26.2 Depression with anxiety F41.8 Primary hypertension I10 Hypertension type: primary hypertension Neuroendocrine carcinoma metastatic to multiple sites C7A.8; C7B.8 (1) Closed compression fracture of lumbar vertebra Encounter type: subsequent encounter Fracture healing: with routine healing Lumbar vertebra fracture level: L2 Qualified Code(s): S32.020D - Wedge compression fracture of second lumbar vertebra, subsequent encounter for fracture with routine healing (4) Hypertension Hypertension type: primary hypertension Qualified Code(s): I10 - Essential (primary) hypertension
[2024-09-09] MEDS: MAGNESIUM CITRATE 296 ML/BTL PO STA (10:32)
[2024-09-09] MEDS: HYDROmorphone INJ 0.5 MG/0.5 ML SYR IV STA (10:40)
[2024-09-09] MEDS: CYANOCOBALAMIN 1000 MCG/ML VIAL IM SCH (10:50)
[2024-09-09] MEDS: bisacodyL 10 MG SUPP PR STA (14:26)
[2024-09-09] MEDS: bisacodyL 5 MG TABEC PO ONE (14:26)
[2024-09-09] MEDS: LACTULOSE SYRUP 30 GM/45 ML UDP PO STA (18:26)
[2024-09-09] MEDS: SENNA 8.6 MG TAB PO SCH (20:11)
[2024-09-09] MEDS: POLYETHYLENE (MIRALAX) 17 GM PACK PO SCH (20:19)
--- OUTSIDE RECORDS SUMMARY | 2024-09-10 05:59 | External Medical Summary ---
Author Name Unknown Address Unknown Organization K09:[facility] [place] [address] Laboratory Report Ordering Provider Test Date Status GARCIAS BATISTA 2024 14:21:34 Final Observation Date Value Abnormality Reference (Units ) Status WBC, Total 2024 14:21:34 8.30 4.00-10.8 0 (K/uL) Final RBC 2024 14:21:34 4.06 3.85-5.15 (M/uL) Final Hemoglobin 2024 14:21:34 13.4 12.0-15.3 (g/dL) Final HCT 2024 14:21:34 40.2 36.0-45.2 (%) Final MCV 2024 14:21:34 99.0 81.5-97.5 (fL) Final MCH 2024 14:21:34 33.0 27.0-34.0 (pg) Final MCHC 2024 14:21:34 33.3 32.0-36.0 (g/dL) Final RDW 2024 14:21:34 15.3 11.5-15.5 (%) Final Platelets 2024 14:21:34 320 140-400 (K /uL) Final MPV 2024 14:21:34 9.7 6.6-11.1 ( fL) Final Performing Location [facility] [place] [address]
--- OUTSIDE RECORDS SUMMARY | 2024-09-10 05:59 | External Medical Summary ---
Author Name Unknown Address Unknown Organization K09:[facility] [place] [place] [address] Laboratory Report Ordering Provider Test Date Status URENA BATISTA 2024 14:21:34 Final Observation Date Value Abnormality Reference (Units ) Status SYNC LEUKOCYTES IN BLOOD BY AUTOMATED COUNT 2024 14:21:34 8.30 4.00-10.80 (K/uL) Final Segs 2024 14:21:34 92.0 Above high normal 40.0-75.0 (%) Final Lymphs % 2024 14:21:34 4.9 Below low normal 18.0-42.0 (%) Final Monos 2024 14:21:34 3.0 1.0-11.0 (%) Final Eosinophils 2024 14:21:34 0.0 0.0-6.0 (%) Final Basos 2024 14:21:34 0.1 0.0-2.0 (%) Final Absolute Segs 2024 14:21:34 7.63 1.80-7.70 (K/uL) Final Lymphs, absolute 2024 14:21:34 0.41 Below low normal 1.00-4.80 (K/ul) Final Monos, Abs 2024 14:21:34 0.25 0.00-1.10 (K/uL) Final Eos, Abs 2024 14:21:34 0.00 0.00-0.70 (K/uL) Final Basos, Abs 2024 14:21:34 0.01 0.00-0.20 (K/uL) Final Performing Location [facility] [place] [address]
--- OUTSIDE RECORDS SUMMARY | 2024-09-10 05:59 | External Medical Summary | Summary of Care ---
Author Name Unknown Organization [facility] Address [address] [place] [facility] [address] Phone [phone] Care Team Providers Care Skid [address] Worker Name Role Phone Tina Fletcher Primary Care Provide r Reason for Visit * Reason Comments Outpatient Testing Encounter Details Date Type Department Care Team (Late st Contact Info) Description 2024 2:20 PM EST Laboratory Laboratory [facility] [address] [place] [id number] [facility] [address] [place] [address] Neuroendocrine tumor Allergies Active Allergy Reactions Criticality Noted Date Comments Aspirin Nausea/vomiting 10/18/2002 Penicillins Nausea/vomiting 10/18/2002 documented as of this encounter (statuses as of 2024) Medications Diphenoxylate-Atro pine 2.5-0.025 MG Oral Tablet Take 1 Tablet [...] BY MOUTH EVERY DAY 90 Tablet 3 01/25/2024 5:20 PM EDT 3 Active oxyCODONE HCl 5 MG Oral Tablet (Oxy IR) TAKE 1 TABLET BY MOUTH EVERY 8 HOURS NEEDED FOR SEVERE PAIN (SCALE 7-10) 3 Active traMADol HCl 50 MG Oral Tablet (Ultram) Q8H 3 Active Acetaminophen 325 MG Oral Tablet (Tylenol) 2 Tablets. 3 Active amLODIPine Besylate 10 MG Oral Tablet (Norvasc) Take one tablet by mouth every day 90 Tablet 3 07/18/2024 12:36 PM EDT 4 Active Sertraline HCl 100 MG Oral Tablet (Zoloft) Take one tablet by mouth every day 90 Tablet 3 07/31/2024 1:37 PM EDT 4 Active Prochlorperazine Maleate 10 MG Oral Tablet (Compazine) take 1 tablet by mouth every 8 hours As Needed for nausea and vomiting 90 Tablet 1 11/24/2023 11:19 AM EST 4 Active Ondansetron 8 MG Oral Tablet Disintegrating (Zofran) Take 1 tablet by mouth every 12 hours As Needed for nausea and vomiting 180 Tablet 3 06/12/2024 3:54 PM EDT 4 Active Octreotide Acetate 10 MG Intramuscular Kit (SandoSTATIN LAR [place]) Inject 40 mg into a large muscle. 4 Active Famotidine 20 MG Oral Tablet (Pepcid) take one tablet by mouth daily at bedtime for stomach pain 180 Tablet 3 07/14/2024 11:41 AM EDT 4 Active Lisinopril 10 MG Oral Tablet (Prinivil) Take 1 Tablet by mouth every evening. 90 Tablet 3 08/12/2024 2:21 PM EST 4 Active Polyethylene Glycol 3350 17 GM/SCOOP Oral Powder (Miralax) Take 17 g (one full cap to line) by mouth in the morning. Mix as directed on bottle. 238 g 07/11/2024 11:17 AM EDT 4 Active Sennosides 8.6 MG Oral Tablet (Senokot) Take 1 Tablet by mouth in the morning. 7 Tablet 07/11/2024 11:17 AM EDT 4 Active documented as of this encounter (statuses as of 2024) Active Problems Problem Noted Date Diagnosed Date Carcinoid tumor of intestine 07/08/2024 OSITO (generalized anxiety disorder) 07/08/2024 Gastroesophageal reflux disease without esophagi tis 07/08/2024 Malignant carcinoid tumor 11/10/2023 Metastases to the liver 11/10/2023 Palliative care encounter 11/10/2023 Anorexia 11/10/2023 Loss of weight 11/10/2023 History of malignant neuroendocrine tumor 2021 Postmenopausal HRT (hormone replacement therapy) 01/18/2017 Overview (01/18/2017): Discuss at upcoming annual exam. Obesity, morbid (more than 1 00 lbs over ideal weight or BMI > 40) 03/18/2010 Overview (12/23/2015): Per Obesity Protocol, #19 ICD-10 update of inactive term Primary hypertension 08/21/2009 Overview (08/21/2009): Modified per HTN protocol #16. documented as of this encounter (statuses as of 2024) Resolved Problems Problem Noted Date Diagnosed Date Resolved Date Colonic stricture 07/08/2024 07/10/2024 Intractable nausea and vomiting 07/08/2024 07/10/2024 Partial small bowel obstruction 07/03/2022 02/01/2024 HYPERTENSION NOS 08/22/2009 Overview (08/22/2009): Modified per HTN protocol #16. documented as of this encounter (statuses as of 2024) Social History Tobacco Use Types Packs/Day Years [...] ages 0-17 years) Not on file 07/08/2024 Comments No Sex and Gender Information Value Date Recorded Sex Assigned at Not on file Legal Sex Female 6:01 AM EST Gender Identity Not on file Sexual Orientation Not on file Occupation Industry Job Start Date Job End Date [employer] Not on file Not on file Not on file documented as of this encounter Functional Status * Are you deaf or do you have serious difficulty hearing? Answer Date of Assessment Author No 07/08/2024 4:51 PM Ronda Gannon RN * Are you blind or do you have serious difficulty seeing, even when wearing glasses? Answer Date of Assessment Author No 07/08/2024 4:51 PM Ronda Gannon RN * Do you have serious difficulty walking or climbing stairs? (5 years old or older) Answer Date of Assessment Author No 07/08/2024 4:51 PM Ronda Gannon RN * Do you have difficulty dressing or bathing? (5 years old or older) Answer Date of Assessment Author No 07/08/2024 4:51 PM Ronda Gannon RN * Because of a physical, mental, or emotional condition, do you have difficulty doing errands alone such as visiting a doctors office or shopping? (15 years old or older) Answer Date of Assessment Author Yes 07/08/2024 4:51 PM Ronda Gannon RN documented as of this encounter Mental Status * Because of a physical, mental, or emotional condition, do you have serious difficulty concentrating, remembering, or making decisions? (5 years old or older) Answer Entry Date Author No 07/08/2024 4:51 PM EDT Ronda Botello RN documented in this encounter Plan of Treatment Upcoming Encounters Date Type Department Care Team (Late st Contact Info) Description 11/07/2024 12:30 PM EST Appointment Radiology, [address] [phone] 11/14/2024 12:00 PM EST Appointment PET CT IMAGING, [place] [address] [place], [place] [id number] 11/22/2024 10:00 AM EST Office Visit Hematology Oncology [facility], [address] [phone] Car Sanchez MD [facility] [place] [address] Pending Results Name Type Priority Associated Diagnoses Date /Time COMPREHENSIVE METABOLIC PANEL Lab Routine Neuroendocrine tumor 2024 2:21 PM EST Scheduled Procedures Name Priority Associated Diagnoses Date/Ti me COLONOSCOPY FLEXIBLE PROXIMAL DIAGNOSTIC Recall Abdominal pain ESOPHAGOGASTRODUODENOSCOPY ( EGD), FLEXIBLE, TRANSORAL, DIAGNOSTIC Recall Abdominal pain Health Maintenance Due Date Last Done Comments COVID-19 Vaccine (#1) 1961 Depression Screening 1968 Zoster Vaccines (1 of 2) 1975 Meningitis B Vaccine (Bexsero/Trumemba) (3 of 4 - Increased Risk Bexsero 2-dose series) 06/11/2022 06/11/2021, 04/14/2021 Fecal Occult Blood Test Discontinued 05/14/2022, 09/18 Colonoscopy Discontinued 11/04/2023, 10/2023, 10/15/2008 Colorectal Cancer Screening Discontinued Influenza Vaccine (FLU shot) Completed 07/27/2024 Cologuard Discontinued Sigmoidoscopy Discontinued documented as of this encounter Medical Devices Not on filedocumented as of this encounter Procedures Procedure Name Priority Date/Time Associated Diagnosis Comments DIFFERENTIAL, AUTOMATED Routine 2024 2:21 PM EST Neuroendocrine tumor CBC Routine 2024 2:21 PM EST Neuroendocrine tumor CBC Routine 2024 2:21 PM EST Neuroendocrine tumor documented in this encounter Results * (ABNORMAL) DIFFERENTIAL, AUTOMATED (2024 2:21 PM EST) WBC 8.30 4.00 - 10.80 K/uL 2024 2:29 PM EST [facility]02 Neutrophils % 92.0(H) 40.0 - 75.0 % 2024 2:29 PM EST [facility] [place] 56-02 Lymphocytes % 4.9(L) 18.0 - 42.0 % 2024 2:29 PM EST [facility] 56-02 Monocytes % 3.0 1.0 - 11.0 % 2024 2:29 PM EST [facility] [place] 56-02 Eosinophils % 0.0 0.0 - 6.0 % 2024 2:29 PM EST [facility] [place] 56-02 Basophils % 0.1 0.0 - 2.0 % 2024 2:29 PM EST [facility] [place] 56-02 Absolute Neutrophils 7.63 1.80 - 7.70 K/uL 2024 2:29 PM EST [facility] [place] 56-02 Absolute Lymphocytes 0.41(L) 1.00 - 4.80 K/ul 2024 2:29 PM EST [facility] [place] 56-02 Absolute Monocytes 0.25 0.00 - 1.10 K/uL 2024 2:29 PM EST [facility] [place] 56-02 Absolute Eosinophils 0.00 0.00 - 0.70 K/uL 2024 2:29 PM EST [facility] [place] 56-02 Absolute Basophils 0.01 0.00 - 0.20 K/uL 2024 2:29 PM EST [facility] 56-02 Blood Venous blood specimen / Unknown Venipuncture / Unknown 2024 2:21 PM EST 2024 2:21 PM EST us Georgina King MD LAB BLOOD ORDERABLES Final Result [facility] [address] [place], [place] [id number] * CBC (2024 2:21 PM EST) WBC 8.30 4.00 - 10.80 K/uL 2024 2:29 PM EST [address] RBC 4.06 3.85 - 5.15 M/uL 2024 2:29 PM EST [place] [address] HGB 13.4 12.0 - 15.3 g/dL 2024 2:29 PM EST [place] [address] HCT 40.2 36.0 - 45.2 % 2024 2:29 PM EST [place] [address] MCV 99.0 81.5 - 97.5 fL 2024 2:29 PM EST [place] [address] MCH 33.0 27.0 - 34.0 pg 2024 2:29 PM EST [facility] MCHC 33.3 32.0 - 36.0 g/dL 2024 2:29 PM [facility] RDW 15.3 11.5 - 15.5 % 2024 2:29 PM [facility] 5602 PLT 320 140 - 400 K/uL 2024 2:29 PM [facility] MPV 9.7 6.6 - 11.1 fL 2024 2:29 PM [facility] 5602 Blood Venous blood specimen / Unknown Venipuncture / Unknown 2024 2:21 PM EST 2024 2:21 PM EST us Georgina King MD LAB BLOOD ORDERABLES Final Result [facility] [address] [place] [address] documented in this encounter Visit Diagnoses Diagnosis Neuroendocrine tumor Benign carcinoid tumor of unknown primary site documented in this encounter Advance Directives * Full Code [...] Power of Attor pérez? No Care Teams [address] Worker Relationship Specialty Start Date End Date Tina Fletcher CRNP [address] [place], [place] [address]ST[place]E [address] PCP - General Nurse Practitioner 02/08/18 documented as of this encounter
[2024-09-10 07:20] LABS: Hematocrit (blood only) 34.8 % (37.0-47.0); Hemoglobin 11.2 g/dl (12.0-16.0); Mean Corpuscular Hemoglobin 31.7 pg (25.0-34.0); Mean Corpuscular Hgb Conc 32.2 g/dL (32.0-36.0); Mean Corpuscular Volume 98.6 fL (80.0-100.0); Mean Platelet Volume 9.5 fL (9.4-12.4); Platelet Count 238 K/uL (130-400); RDW Coefficient of Variation 15.3 % (11.5-14.5); RDW Standard Deviation 54.8 fL (36.4-46.3); Red Blood Count 3.53 M/uL (4.20-5.40); White Blood Count 6.06 K/ul (4.8-10.8)
[2024-09-10 07:36] LABS: Albumin Globulin Ratio 1.2 (0.9-2); Albumin Level 2.9 gm/dl (3.4-5.0); BUN Creatinine Ratio 27.1 (10-20); Bilirubin,Total 0.6 mg/dl (0.2-1.0); Calcium 8.3 mg/dl (8.6-10.3); Creatinine Clr Calc Pharmacy 76.9 ml/min; Globulin 2.4 gm/dl (2.5-4.0); Potassium 4.6 mmol/L (3.5-5.1); Total Protein 5.3 gm/dl (6.0-8.3)
[2024-09-10 08:17] LABS: Estimated Average Glucose 128 mg/dl; Hemoglobin A1C 6.1 % (4.5-5.6)
--- NOTE | 2024-09-10 09:51 | Hospitalist Progress Note ---
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 #L2 compression fracture with worsening pain Patient was given Solu-Medrol and Toradol in the ED which helped with the pain She is currently on Tylenol 1000 mg p.o. 3 times daily, calcitonin spray, Flexeril as needed and lidocaine patch Pain management saw the patient and are leaving medication management to palliative care Pain management has recommended that she follow-up with Eddie Oakes PA-C from pain management as outpatient to discuss epidural injections versus SI joint injections. As per pain management, typically after compression fracture they wait 6+ months after the injury for an epidural steroid injection to be considered to allow time for compression fracture to heal. As per pain management, they would not recommend any inpatient injections at this point. Pain management is recommended to continue wearing LSO brace with prolonged standing or walking activities. Patient met with palliative care and she was started on oxycodone as needed by palliative care team Awaiting palliative care follow-up PT and OT have recommended rehab on discharge #Well-differentiated neuroendocrine tumor of the small bowel Patient follows up with [facility] for treatment with oncologist Dr. Michelle Philippe Patient is scheduled for her next radiation treatment at [facility] on 09/22/2024: Patient has called and rescheduled this appointment and her next octreotide injection locally at cancer center on 09/13/2024 She also follows up with palliative care and is on Ritalin for cancer-related fatigue Palliative care following the patient #Essential hypertension Continue amlodipine 10 mg daily plus lisinopril 10 mg daily Monitor vital signs #Anxiety with depression Continue BuSpar, Zoloft plus Ativan as needed #GERD Continue Pepcid and Protonix Avoid NSAIDs if possible given GERD #Prediabetes A1c 6.1 Patient was not aware of having prediabetes Diet control #History of small bowel obstruction #Constipation Continue senna plus MiraLAX twice daily KUB shows no evidence of small bowel obstruction or pneumoperitoneum, moderate fecal retention in the right hemicolon noted. Soapsuds enema x 1 today Start Linzess 72 mcg p.o. daily CODE STATUS: Full code DVT prophylaxis: Continue heparin 5000 units subcutaneous twice daily Care plan discussed with patient, nursing staff Discharge planning likely to rehab in the next 24 to 48 hours Daughter Esperanza Kendall ([phone]) updated on the phone Admission and Anticipated Discharge Date Admission Date: September 07, 2024 Subjective Patient seen and examined Labs and radiology reviewed Sitting up in a chair Patient states she had an episode of vomiting when she went for her KUB Since then no nausea or vomiting Does not believe oxycodone has helped much with the pain but actually appears more comfortable and does acknowledge that pain is slightly better than when she came in She had 2 small bowel movements Denies any abdominal pain Denies any chest pain or shortness of breath Physical Exam Physical Exam: General: No respiratory distress noted Psych: Awake and alert HEENT: Anicteric sclera, moist oral mucosa CVS: Regular rate and rhythm Lungs: Bilateral air entry, no wheezing noted Abdomen: Soft, nontender, no rebound, no guarding Ext: No lower extremity edema, no calf tenderness Neuro: No focal motor deficits noted, able to move all 4 extremities. Results & Data Results & Data Vital Signs (Past 12 Hours) Vital Signs Temp Pulse Resp BP Pulse Ox O2 Del Method 09/10/24 07:11 36.9 C 68 16 122/78 95 Room Air Laboratory Results Laboratory Results - last 24 hr 09/10/24 06:56 WBC 6.06 RBC 3.53 L Hgb 11.2 L Hct 34.8 L MCV 98.6 MCH 31.7 MCHC 32.2 RDW Std Deviation 54.8 H RDW Coeff of Denilson 15.3 H Plt Count 238 MPV 9.5 Sodium 138 Potassium 4.6 Chloride 102 Carbon Dioxide 33 H Anion Gap 3 BUN 19 Creatinine 0.70 Est Cr Clr Drug Dosing 76.9 eGFR 94.15 BUN/Creatinine Ratio 27.1 H Glucose 122 H Estimat Average Glucose 128 Hemoglobin A1c 6.1 H Calcium 8.3 L Total Bilirubin 0.6 AST 35 ALT 43 Alkaline Phosphatase 118 H Total Protein 5.3 L Albumin 2.9 L Globulin 2.4 L Albumin/Globulin Ratio 1.2 PG Care Time/CCT Total # of Minutes Spent Total Time Spent with Patient: Total time spent is greater than 50% in coordination of care (as documented) at patient's floor/unit and/or counseling patient: Coding Level of Care Code 80766 SUB INP/OBS CARE 3/50MIN Diagnoses Closed compression fracture of lumbar vertebra S32.020D Encounter type: subsequent encounter Fracture healing: with routine healing Lumbar vertebra fracture level: L2 Ambulatory dysfunction R26.2 Depression with anxiety F41.8 Primary hypertension I10 Hypertension type: primary hypertension Neuroendocrine carcinoma metastatic to multiple sites C7A.8; C7B.8 (1) Closed compression fracture of lumbar vertebra Encounter type: subsequent encounter Fracture healing: with routine healing Lumbar vertebra fracture level: L2 Qualified Code(s): S32.020D - Wedge compression fracture of second lumbar vertebra, subsequent encounter for fract ure with routine healing (4) Hypertension Hypertension type: primary hypertension Qualified Code(s): I10 - Essential (primary) hypertension
--- NOTE | 2024-09-10 10:17 | XRay Report ---
XR abdomen 2V w PA chest HISTORY: 69 years-old Female ?SBO acute generalized abdominal pain with possible small bowel obstruc tion COMPARISON: CT abdomen and pelvis 08/01/2024, chest CT 04/19/2023 TECHNIQUE: PA view of the chest with erect and supine views of the abdomen FINDINGS: Cardiac silhouette is normal. Mediastinal lymphadenopathy redemonstrated. Mild right hemidiaphragmati c elevation. No pneumothorax, pleural effusion or overt pulmonary edema. There is mild subsegmental b ibasilar atelectasis versus scarring. Chronic lateral left rib fractures. Cholecystectomy. Colonic air-fluid levels with mild gaseous distention of the large bowel. Moderate f ecal retention in the right hemicolon. No small bowel obstruction. Surgical clip over the midline pel vis. No pneumatosis or pneumoperitoneum. No urolithiasis identified. IMPRESSION: 1. Mediastinal lymphadenopathy redemonstrated without acute processes of the chest. 2. Gaseous distention of the large bowel with air-fluid levels. 3. No radiographic evidence of small bowel obstruction or pneumoperitoneum. ACT 112: Negative or not required by law. The above report was generated using voice recognition software. It may contain grammatical, syntax o r spelling errors. Electronically signed by: Alex Oquendo M.D. 09/10/2024 10:15 AM
[2024-09-10] MEDS: VITAMIN B COMPLEX TAB PO SCH (11:08)
[2024-09-10] MEDS: bisacodyL 10 MG SUPP PR SCH (11:20)
[2024-09-10] MEDS: LACTULOSE SYRUP 30 GM/45 ML UDP PO STA (18:27)
[2024-09-10] MEDS: linaCLOtide 72 MCG CAPSULE PO SCH (18:28)
[2024-09-10] MEDS ORDERED: LACTULOSE SYRUP 30 GM/45 ML UDP PO SCH (21:00)
[2024-09-10] MEDS: MELATONIN 3 MG TAB PO PRN (21:38)
[2024-09-10] MEDS: CYCLOBENZAPRINE HCL 5 MG TAB PO PRN (21:38)
--- NOTE | 2024-09-11 10:43 | Hospitalist Progress Note ---
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 #L2 compression fracture with worsening pain Patient was given Solu-Medrol and Toradol in the ED which helped with the pain She is currently on Tylenol 1000 mg p.o. 3 times daily, calcitonin spray, Flexeril as needed and lidocaine patch Pain management saw the patient and are leaving medication management to palliative care Pain management has recommended that she follow-up with Eddie Oakes PA-C from pain management as outpatient to discuss epidural injections versus SI joint injections. As per pain management, typically after compression fracture they wait 6+ months after the injury for an epidural steroid injection to be considered to allow time for compression fracture to heal. As per pain management, they would not recommend any inpatient injections at this point. Pain management is recommended to continue wearing LSO brace with prolonged standing or walking activities. Patient met with palliative care and she was started on oxycodone as needed by palliative care team Awaiting palliative care follow-up PT and OT have recommended rehab on discharge #Well-differentiated neuroendocrine tumor of the small bowel Patient follows up with [facility] for treatment with oncologist Dr. Michelle Philippe Patient is scheduled for her next radiation treatment at [facility] on 09/22/2024: Patient has called and rescheduled this appointment and her next octreotide injection locally at cancer center on 09/13/2024 She also follows up with palliative care and is on Ritalin for cancer-related fatigue Palliative care following the patient #Essential hypertension Continue amlodipine 10 mg daily plus lisinopril 10 mg daily Monitor vital signs #Anxiety with depression Continue BuSpar, Zoloft plus Ativan as needed #GERD Continue Pepcid and Protonix Avoid NSAIDs if possible given GERD #Prediabetes A1c 6.1 Diet control #History of small bowel obstruction #Constipation Continue senna plus MiraLAX daily Continue Linzess 72 mcg p.o. daily given patient is on opiates at present CODE STATUS: Full code DVT prophylaxis: Continue heparin 5000 units subcutaneous twice daily Care plan discussed with patient, nursing staff Discharge planning to rehab likely tomorrow if bed available Richy Kendall ([phone]) updated on the phone Admission and Anticipated Discharge Date Admission Date: September 07, 2024 Subjective Patient seen and examined She had multiple bowel movements yesterday after 2 enemas At present tells me she is not in pain and tells me that pain only shows up when she tries to move Discussed analgesia for pain Denies any nausea, vomiting or abdominal pain Tolerating oral diet She is agreeable to going to rehab Physical Exam Physical Exam: General: No respiratory distress noted Psych: Awake and alert HEENT: Anicteric sclera, moist oral mucosa CVS: Regular rate and rhythm Lungs: Bilateral air entry, no wheezing noted Abdomen: Soft, nontender, no rebound, no guarding Ext: No lower extremity edema, no calf tenderness Results & Data Results & Data Vital Signs (Past 12 Hours) Vital Signs Temp Pulse Resp BP Pulse Ox O2 Del Method 09/11/24 07:30 Room Air 09/11/24 07:04 36.7 C 72 16 127/74 92 Room Air PG Care Time/CCT Total # of Minutes Spent Total Time Spent with Patient: Total time spent is greater than 50% in coordination of care (as documented) at patient's floor/unit and/or counseling patient: Coding Level of Care Code 00468 SUB INP/OBS CARE 2/35MIN Diagnoses Closed compression fracture of lumbar vertebra S32.020D Encounter type: subsequent encounter Fracture healing: with routine healing Lumbar vertebra fracture level: L2 Ambulatory dysfunction R26.2 Depression with anxiety F41.8 Primary hypertension I10 Hypertension type: primary hypertension Neuroendocrine carcinoma metastatic to multiple sites C7A.8; C7B.8 (1) Closed compression fracture of lumbar vertebra Encounter type: subsequent encounter Fracture healing: with routine healing Lumbar vertebra fracture level: L2 Qualified Code(s): S32.020D - Wedge compression fracture of second lumbar vertebra, subsequent encounter for fracture with routine healing (4) Hypertension Hypertension type: primary hypertension Qualified Code(s): I10 - Essential (primary) hypertension
[2024-09-11] MEDS: SENNA 8.6 MG TAB PO SCH (20:34)
[2024-09-12 07:20] LABS: Hematocrit (blood only) 35.4 % (37.0-47.0); Hemoglobin 11.7 g/dl (12.0-16.0); Mean Corpuscular Hemoglobin 32.3 pg (25.0-34.0); Mean Corpuscular Hgb Conc 33.1 g/dL (32.0-36.0); Mean Corpuscular Volume 97.8 fL (80.0-100.0); Mean Platelet Volume 9.5 fL (9.4-12.4); Platelet Count 248 K/uL (130-400); RDW Coefficient of Variation 15.1 % (11.5-14.5); RDW Standard Deviation 54.3 fL (36.4-46.3); Red Blood Count 3.62 M/uL (4.20-5.40); White Blood Count 4.67 K/ul (4.8-10.8)
[2024-09-12 07:37] LABS: Albumin Globulin Ratio 1.2 (0.9-2); BUN Creatinine Ratio 28.4 (10-20); Bilirubin,Total 0.5 mg/dl (0.2-1.0); Calcium 8.5 mg/dl (8.6-10.3); Creatinine Clr Calc Pharmacy 80.3 ml/min; Globulin 2.5 gm/dl (2.5-4.0); Potassium 4.3 mmol/L (3.5-5.1); Total Protein 5.5 gm/dl (6.0-8.3)
[2024-09-12] MEDS: POLYETHYLENE (MIRALAX) 17 GM PACK PO SCH (09:40)
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
--- NOTE | 2024-09-13 13:32 | Communication Note ---
Date of Service: September 13, 2024 Episode of near syncope when sitting on commode attempting to have BM. RN found her woozy and about to pass out. Code phani called, helped back into bed Sinus tachy on monitor, heart rate trended toward normal, not hypotensive, no hypoxia Currently alert and oriented, no chest or abdominal pain A/P: Presyncope - probably vasovagal, vs orthostatic -1L IV saline bolus -check CBC BMP -monitor
[2024-09-13 14:43] LABS: Hematocrit (blood only) 37.7 % (37.0-47.0); Hemoglobin 12.5 g/dl (12.0-16.0); Mean Corpuscular Hemoglobin 32.7 pg (25.0-34.0); Mean Corpuscular Hgb Conc 33.2 g/dL (32.0-36.0); Mean Corpuscular Volume 98.7 fL (80.0-100.0); Mean Platelet Volume 9.8 fL (9.4-12.4); Platelet Count 263 K/uL (130-400); RDW Coefficient of Variation 15.4 % (11.5-14.5); RDW Standard Deviation 55.3 fL (36.4-46.3); Red Blood Count 3.82 M/uL (4.20-5.40); White Blood Count 7.63 K/ul (4.8-10.8)
[2024-09-13] MEDS: SODIUM CHLORIDE 0.9% 1,000 ML IV ONE (14:53)
[2024-09-13 15:03] LABS: BUN Creatinine Ratio 27.4 (10-20); Calcium 8.6 mg/dl (8.6-10.3); Creatinine Clr Calc Pharmacy 73.7 ml/min; Potassium 4.1 mmol/L (3.5-5.1)
--- NOTE | 2024-09-13 16:38 | Communication Note ---
Date of Service: September 13, 2024 Palliative Medicine Brief Note s/p code purple, ?vasovagal with BM stable at present, reclined in bed, tired IVF bolus given denies acute pain oncology advised no indication to administer long acting octreotide unless she is symptomatic. she will need to reschedule RT at [facility] after admission/rehab; she is disinclined for SNF rehab and her insurance will not cover [facility]. No charge submitted TS 25min Thank you for allowing us to participate in the ongoing care of this patient. Please page with any additional concerns. Maddy Briscoe DNP Director, Palliative Medicine
[2024-09-13] MEDS: oxyCODONE HCL IR 5 MG TAB (IMMEDIATE RELEASE) PO PRN (17:20)
[2024-09-13 20:40] VITALS: RESP 18
[2024-09-14 07:17] VITALS: TEMP 97.9; O2SAT 95
[2024-09-14 14:22] VITALS: BP 145/81; PULSE 66
--- NOTE | 2024-09-14 16:09 | Discharge Summary ---
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 admitted with worsening of her back pain over the last week, no new falls, no bladder or bowel dysfunction. #L2 compression fracture with worsening pain Patient was given Solu-Medrol and Toradol in the ED which helped with the pain She is currently on Tylenol 1000 mg p.o. 3 times daily, calcitonin spray, Flex eril as needed and lidocaine patch, oral oxycodone IR added by palliative care a few days ago with good effect Pain management has recommended that she follow-up with Eddie Oakes PA-C from pain management as outpatient to discuss epidural injections versus SI joint injections, >6 mo from fracture. PT and OT have recommended rehab on discharge, her insurance denied acute rehab and she did not wish to go to SNF so went home, will resume her previously arranged outpatient therapy. Offered home health but she prefers to continue outpatient therapy. Walked 250 feet today with walker, PT, without lightheadedness She had presyncopal event 09/13 while on the commode attempting to have a BM. This was consistent with a vasovagal reaction and resolved. #Well-differentiated neuroendocrine tumor of the small bowel Patient follows up with [facility] for treatment with oncologist Dr. Michelle Philippe She also follows with palliative care and is on Ritalin for cancer-related fatigue -appreciate Dr. Briscoe's assistance with [facility] records - she had to reschedule her XRT appointment (the final planned treatment) because she is hospitalized, is due for her octreotide infusion however cannot have XRT within 30 days of octreotide. we cannot give long-acting octreotide in the hospital, she will schedule this soon as an outpatient and reschedule her XRT for after the holidays #Essential hypertension Continue amlodipine 10 mg daily plus lisinopril 10 mg daily #Anxiety with depression Continue BuSpar, Zoloft plus Ativan as needed #GERD Continue Pepcid and Protonix Avoid NSAIDs if possible given GERD #Prediabetes A1c 6.1 Diet control #History of small bowel obstruction #Constipation Continue senna plus MiraLAX daily Continue Linzess 72 mcg p.o. daily given patient is on opiates at present - I wrote prescription for this on discharge, but it may require prior authorization Admission HPI Per Admitting Provider 69 year old female with a past medical history of neuroendocrine tumor of the liver, spinal compression fracture, HTN, anxiety/depression presenting with low back pain. She has a history of lumbar compression fracture after a ground level fall 06/2024. L2 compression fracture was noted around , L4 fracture noted on repeat imaging 08/30/24. Has been seen by orthopedics since and they felt this was a nonoperative injury. Has been wearing a back brace at home. Recently seen by PCP 08/29 and 09/06-> she has been taking tramadol, had Toradol injection at PCP yesterday which she felt helped for a short period of time. Had methylprednisone and Toradol injection 08/29. Just complected a prednisone taper, which she started on 08/30. Denies new injury. Denies recent falls. States pain has gotten progressively worse over the past week and this is the worst her pain has ever been. Has admitted from 06/05/24->06/11/24 for pain secondary to her compression fracture. Was also admitted 08/01/24-> 08/04/24 for an SBO. Denies bowel/bladder incontinence, saddle anesthesia, weakness. Pain is sharp in low back and does not radiate, worse with up and moving. Lives in one story home with her daughter. ED course significant for: CBC/CMP wnl. Repeat XR lumbar spine unchanged from prior-> L2 inferior endplate compression fracture. Anterolisthesis and degenerative disc disease at L5-S1. S/p 1000mg Tylenol, 50mcg fentanyl, 125mg methylprednisolone, 4mg morphine, 4mg zofran Discharge Exam PHYSICAL EXAMINATION Last 24h vital signs reviewed, see documentation in flowsheet General: awake and alert lying in bed - seen early, aroused to voice from sleeping HEENT: Normocephalic, atraumatic, pupils round and equal, sclerae anicteric, no conjunctival injection, moist mucus membranes Lungs: normal work of breathing, CTAB Heart: reg no mrg Abdomen: sntnd +BT Extremities: Warm, dry, well-perfused. No extremity edema. Neuro: Alert and oriented x 4, face symmetric, moves 4 extremities well Psych: Normal affect and behavior Discharge Plan Discharge Items Patient Disposition: Home - Self-Care Reason For Visit: LUMBAR FRACTURE Discharge Diagnosis: back pain from L2 compression fracture Activity: Per Instructions section Weightbearing: Full weightbearing Non-emergency contact: Primary Care Provider and Oncologist Call non-emergency contact if: you have any medication questions and your symptoms worsen Follow-up/Referrals: Tina Fletcher CRNP [Primary Care Provider] - 09/18/24 10:30 am Mandy Briscoe DNP [Nurse Practitioner] - 09/14/24 10:30 am Diet: Regular Addtl Attending Provider Instructions: Oxycodone was added to help with your back pain Follow up with Dr. Briscoe for refills and any dose adjustments, to consider patch for long acting pain relief Wear brace for comfort. Avoid heavy lifting, twisting, bending Call to reschedule your octreotide infusion and radiation treatment You had episode of nearly passing out while on the commode for a BM yesterday. This was a common reflex called vasovagal reaction - it is often triggered by having a bowel movement or by gastrointestinal distention. It is not dangerous (excepting if it causes you to fall or injure yourself) You can change your iron supplement to every OTHER day - this will reduce the constipating effect and is just as efffective as daily dosing Consider increasing your senna to 2 tabs a day if you are more constipated on the oxycodone I prescribed the linzess but your insurance might require prior authorization to cover it - if so, your outpatient providers can work on this Continue outpatient physical therapy. Home health PT is also an option if it is too hard to get out to appointments It was a pleasure taking care of you in the hospital, Lilian Sheehan MD Pending Studies at Discharge: No Stand-Alone Forms: My [facility] [employer], Pain - Opioid Pain Management, Smoking Cessation Medications and DC Order Prescriptions: New vitamin B complex [Vitamins B Complex] Capsule 1 cap PO QAM Qty: 30 0RF lidocaine 5 % Adhesive Patch,Medicated 1 patch transdermal DAILY Qty: 0 0RF Rx Instructions: may buy over the counter (4% lidocaine patch) calcitonin (salmon) 200 unit/actuation [place],Non-Aerosol 1 spray NA DAILY 7 Days Qty: 3.7 0RF Rx Instructions: for compression fracture pain oxycodone 5 mg Tablet 10 mg PO Q4H PRN (Reason: pain) Qty: 30 0RF Linzess 72 mcg capsule 72 mcg PO DAILY Qty: 30 0RF Continued diclofenac sodium 75 mg tablet,delayed release (DR/EC) 75 mg PO BID Qty: 60 2RF lorazepam 0.5 mg tablet 0.5 mg PO BID PRN (Reason: anxiety) Qty: 20 0RF Fergon 225 mg (27 mg iron) tablet 225 mg PO BID Qty: 180 3RF Hold Instructions: hold until hears from Oncology. lisinopril 10 mg tablet 10 mg PO QPM Qty: 90 3RF ondansetron 8 mg tablet,disintegrating 8 mg PO Q12H PRN (Reason: nausea and vomiting) Qty: 180 3RF loperamide 2 mg capsule 2 mg PO DAILY PRN (Reason: Diarrhea) Qty: 90 3RF furosemide 20 mg tablet 20 mg PO DAILY PRN (Reason: edema) Qty: 20 2RF methylphenidate HCl [Ritalin] 5 mg tablet 5 mg PO .am noon 30 Days Qty: 60 0RF sennosides [senna] 8.6 mg tablet 8.6 mg PO DAILY polyethylene glycol 3350 [Miralax] 17 gram/dose powder 17 g PO DAILY PRN (Reason: Constipation) Octreotide acetate 40 mg IM Q4WK prochlorperazine maleate [Compazine] 10 mg tablet 10 mg PO Q8H PRN (Reason: Nausea And Vomiting) cyanocobalamin (vitamin B-12) 1,000 mcg/mL solution 1,000 mcg IM .EVERY 4 WEEKS sertraline 100 mg tablet 100 mg PO QAM aspirin 81 mg tablet,delayed release (DR/EC) 81 mg PO QAM amlodipine 10 mg tablet 10 mg PO QAM Radiation See Rx Instructions .ROUTE .COMPLEX Rx Instructions: every 8 weeks pantoprazole 40 mg tablet,delayed release (DR/EC) 40 mg PO QAM buspirone 7.5 mg tablet 7.5 mg PO BID famotidine 20 mg tablet 20 mg PO HS Rx Instructions: at bedtime acetaminophen 325 mg tablet 650 mg PO Q6H PRN (Reason: Pain) Discontinued tramadol 50 mg tablet 50 - 100 mg PO Q8H MDD 250mg PRN (Reason: pain) Rx Instructions: 1-2 pills at needed. Discharge Orders: Discharge Order (Routine); Ordered 09/14/24 Ordered By: Lilian Pelletier/Other Patient Handouts: Prediabetes, 5 Steps for Eating Healthier Admission Data Admit Date/Time: 09/07/24 22:58 Attending Provider: Lilian Sheehan Admit Provider: Desiree Martins Primary Care Provider: Tina Fletcher Other Providers: Michelle Schrader; Shavonne Bonner; Mallory Carranza; [facility]; [place]; [facility] Other Interventions: Discharge Summary Assessment (RN) Last Done: 09/14/24 14:21 Hospital Stay Data Consultations 09/07/24 22:33 ED Decision to Admit Stat 09/07/24 23:34 Consult Pain Management Routine 09/08/24 09:22 Consult Palliative Care Routine Pending Results Patient Have Any Pending Studies at Discharge: No Discharge Instructions Given to Patient (Per Discharging Provider) Oxycodone was added to help with your back pain Follow up with Dr. Briscoe for refills and any dose adjustments, to consider patch for long acting pain relief Wear brace for comfort. Avoid heavy lifting, twisting, bending Call to reschedule your octreotide infusion and radiation treatment You had episode of nearly passing out while on the commode for a BM yesterday. This was a common reflex called vasovagal reaction - it is often triggered by having a bowel movement or by gastrointestinal distention. It is not dangerous (excepting if it causes you to fall or injure yourself) You can change your iron supplement to every OTHER day - this will reduce the constipating effect and is just as efffective as daily dosing Consider increasing your senna to 2 tabs a day if you are more constipated on the oxycodone I prescribed the linzess but your insurance might require prior authorization to cover it - if so, your outpatient providers can work on this Continue outpatient physical therapy. Home health PT is also an option if it is too hard to get out to appointments It was a pleasure taking care of you in the hospital, Lilian Sheehan MD Total Time Total Time Spent Total Time Spent (In Minutes): <30 Coding Level of Care Code 68046 IN/OBS DISCH 30 MIN/LESS Diagnoses Closed compression fracture of lumbar vertebra S32.020D Encounter type: subsequent encounter Fracture healing: with routine healing Lumbar vertebra fracture level: L2 Ambulatory dysfunction R26.2 Depression with anxiety F41.8 Primary hypertension I10 Hypertension type: primary hypertension Neuroendocrine carcinoma metastatic to multiple sites C7A.8; C7B.8
== END 2024-09-14 14:54 | disposition home or self-care (01) | DRG 543 ==
LOC: ED 19:07 → SUATTDRO 22:58 → 3W 22:58